=== PATIENT | female | born 1950 | race Caucasian/White ===

== ENCOUNTER → 2021-07-28 14:33 | Outpatient (CLI) | payer MEDICARE, SELFPAY ==
--- NOTE | ~2021-07-28 | DEXA_ITS ---
Bone Density Report Name: BRITTANIE POLK Age: 71 Sex: Female Ethnicity: White Date of : 1950 Indication: postmenopausal; screening for osteoporosis; height loss; Referring Provider: DYLON RIBEIRO Study: Bone densitometry was performed. Exam Date: July 28, 2021 Accession number: [id number] Bone Density: Region BMD T-score Z-score Classification AP Spine (L1-L4) 0.764 -2.6 -0.3 Osteoporosis Femoral Neck (Left) 0.585 -2.4 -0.4 Osteopenia Total Hip (Left) 0.663 -2.3 -0.6 Osteopenia Femoral Neck (Right) 0.529 -2.9 -0.9 Osteoporosis Total Hip (Right) 0.693 -2.0 -0.4 Osteopenia Total Hip Mean 0.678 -2.2 -0.5 Osteopenia World Health Organization criteria for BMD impression classify patients as: Normal (T-score at or above -1.0), Osteopenia (T-score between -1.0 and -2.5), or Osteoporosis (T-score at or below -2.5). 10-year Fracture Risk: FRAX not reported because: Some T-score for Spine Total or Hip Total or Femoral Neck at or below -2.5 Clinical Information Provided by Patient: Has used the following medications: Vitamin D Patient maximum height was 63 Menopause Age: 48 Drinks caffeinated beverages Onset of menses at age 11 Number of children 2 Impression: The patient has osteoporosis, based on the Right Femoral Neck T-score. Discussion: INCREASED RISK OF FRACTURE. BONE DENSITY IS UNDESIRABLY LOW AT ONE OR MORE SKELETAL SITES, CONSISTENT WITH POSTMENOPAUSAL OSTEOPOROSIS. This patient's lowest T-score meets the World Health Organization's (WHO) criteria for osteoporosis at one or more sites (T-score -2.5 or below). In untreated patients, the risk of osteoporotic fracture increases approximately two-fold for each 1.0 SD decrease in T-score. Low bone density is not the only risk factor for fracture; also consider factors such as patient's age, frailty or poor health, risk of falling, risk of injury, previous osteoporotic fracture, family history of osteoporosis, cigarette smoking, low body weight, etc. Not everyone with low bone mineral density has osteoporosis; osteomalacia and other metabolic bone disorders should also be considered. Patients who have osteoporosis should be evaluated for specific diseases and conditions (secondary causes) that may cause or contribute to bone loss. The [place] Association [employer] Clinical Endocrinologists (AACE) and National Osteoporosis Foundation (NOF) recommend pharmacologic intervention for all postmenopausal women whose T-score is in this range. The patient should follow a healthful lifestyle (good nutrition with adequate calcium and vitamin D, and appropriate weight-bearing exercise). Follow-Up: Consider a repeat BMD and Vertebral Fracture Assessment (VFA) exam in 2 years or sooner if medically necessary, to reassess this patient's status. Reported by: TEJAL
--- NOTE | ~2021-07-28 | MM_ITS ---
EXAMINATION: MM screening dillon BI w marilee HISTORY: Screening TECHNIQUE: Craniocaudal and mediolateral oblique 3-D tomosynthesis images were obtained and synthetic 2-D images were generated. CAD analysis was submitted and interpreted. COMPARISON: No prior mammogram is available for comparison at this institution. BREAST PARENCHYMAL COMPOSITION: There are scattered areas of fibroglandular density. FINDINGS: There is no evidence of suspicious mass, calcification, or architectural distortion to sugg est malignancy in either breast. There has been no suspicious interval change. IMPRESSION: 1. No mammographic evidence of malignancy. 2. Recommend routine screening mammography in one year. BI-RADS Category 1: Negative Reviewed, dictated and finalized at location A. 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
== END ==
PROVIDERS: PCP Family Medicine; Visit Provider Family Medicine
DX: Z12.31 Encounter for screening mammogram for malignant neoplasm of breast (principal); Z78.0 Asymptomatic menopausal state; M85.89 Other specified disorders of bone density and structure, multiple sites; M81.0 Age-related osteoporosis without current pathological fracture
CPT/HCPCS: 77063; 77067; 77080

== ENCOUNTER 2022-07-30 08:31 | Outpatient (CLI) | payer MEDICARE, SELFPAY ==
[2022-07-30 20:12] LABS: Basophils Percent Auto 0.6 % (0.2-1.2); Eosinophils Absolute Auto 0.2 K/mm3 (0-0.3); Eosinophils Percent Auto 2.4 % (0-4.4); Immature Granulocyte Absolute 0.01 K/mm3 (0.00-0.031); Immature Granulocyte Percent A 0.2 % (0-0.5); Lymphocytes Percent Auto 33.2 % (18.3-44.2); Mean Corpuscular HGB Conc 31.8 g/dl (32-36); Mean Corpuscular Hemoglobin 29.4 pg (26-34); Mean Corpuscular Volume 92.2 fl (80-100); Mean Platelet Volume 11.8 fl (7.4-10.4); Monocytes Absolute Auto 0.5 K/mm3 (0.1-0.6); Monocytes Percent Auto 7.1 % (2.6-8.5); Neutrophils Absolute Auto 3.6 K/mm3 (1.3-6.7); Neutrophils Percent Auto 56.5 % (45.5-73.1); Platelet Count Result 191 k/mm3 (150-375); Red Blood Count 4.77 M/mm3 (4.2-5.4); Red Cell Distribution Width 13.5 % (11.5-14.5); White Blood Count 6.3 K/mm3 (4.5-10.0)
[2022-07-30 20:48] LABS: Alanine Aminotransferase 19 U/L (6-35); Albumin Level 4.3 g/dL (3.5-5.1); Alkaline Phosphatase 90 U/L (38-126); Anion Gap 8 mmol/L (8-16); Aspartate Amino Transferase 29 U/L (14-36); Bilirubin,Total 0.7 mg/dL (0.2-1.3); Blood Urea Nitrogen 15 mg/dL (7-17); Calcium 9.1 mg/dL (8.4-10.2); Carbon Dioxide 29 mmol/L (22-30); Chloride 104 mmol/L (98-107); Cholesterol 169 mg/dL (0-200); Estimated Glomerular Filt Rate > 60; Glucose 88 mg/dL (65-110); HDL Direct 51 mg/dL; Potassium 4.7 mmol/L (3.4-5.0); Sodium 141 mmol/L (137-145); Triglycerides 100 mg/dL (<150)
[2022-07-30 21:01] LABS: LDL Cholesterol Direct 76 mg/dL
[2022-07-30 22:15] LABS: Vitamin D 25 Hydroxy 47.1 ng/mL
== END 2022-07-30 08:32 | disposition home or self-care (01) ==
LOC: ANHGOSHLAB 08:32
PROVIDERS: PCP Family Medicine; Visit Provider Family Medicine
DX: E55.9 Vitamin D deficiency, unspecified (principal); K21.9 Gastro-esophageal reflux disease without esophagitis; Z79.899 Other long term (current) drug therapy; E78.2 Mixed hyperlipidemia
CPT/HCPCS: 36415; 80053; 80061; 82306; 82607; 85025

== ENCOUNTER → 2022-08-13 13:33 | Outpatient (CLI) | payer MEDICARE, SELFPAY ==
--- NOTE | ~2022-08-13 | MM_ITS ---
EXAMINATION: MM screening dillon BI w marilee HISTORY: Screening mammogram TECHNIQUE: Craniocaudal and mediolateral oblique 3-D tomosynthesis images were obtained and synthetic 2-D images were generated. CAD analysis was submitted and interpreted. COMPARISON: 07/28/2021 bilateral screening mammogram BREAST PARENCHYMAL COMPOSITION: There are scattered areas of fibroglandular density. FINDINGS: There is no evidence of suspicious mass, calcification, or architectural distortion to sugg est malignancy in either breast. There has been no suspicious interval change. IMPRESSION: 1. No mammographic evidence of malignancy. 2. Recommend routine screening mammography in one year. BI-RADS Category 1: Negative Reviewed, dictated and finalized at location A. 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
== END ==
PROVIDERS: PCP Family Medicine; Visit Provider Family Medicine
DX: Z12.31 Encounter for screening mammogram for malignant neoplasm of breast (principal)
CPT/HCPCS: 77063; 77067

== ENCOUNTER 2023-03-24 08:35 | Outpatient (CLI) | payer MEDICARE, SELFPAY ==
[2023-03-24 19:34] LABS: Alanine Aminotransferase 23 U/L (6-35); Albumin Level 4.4 g/dL (3.5-5.1); Alkaline Phosphatase 77 U/L (38-126); Anion Gap 5 mmol/L (8-16); Aspartate Amino Transferase 29 U/L (14-36); Bilirubin,Total 0.9 mg/dL (0.2-1.3); Blood Urea Nitrogen 17 mg/dL (7-17); Calcium 9.2 mg/dL (8.4-10.2); Carbon Dioxide 29 mmol/L (22-30); Chloride 104 mmol/L (98-107); Cholesterol 205 mg/dL (0-200); Estimated Glomerular Filt Rate > 60; Glucose 86 mg/dL (65-110); HDL Direct 60 mg/dL; Potassium 4.3 mmol/L (3.4-5.0); Sodium 138 mmol/L (137-145); Triglycerides 108 mg/dL (<150)
[2023-03-24 19:45] LABS: LDL Cholesterol Direct 110 mg/dL
[2023-03-24 20:15] LABS: Vitamin D 25 Hydroxy 48.3 ng/mL
== END 2023-03-24 08:36 | disposition home or self-care (01) ==
PROVIDERS: PCP Family Medicine; Visit Provider Family Medicine
DX: E55.9 Vitamin D deficiency, unspecified (principal); Z79.899 Other long term (current) drug therapy; E78.2 Mixed hyperlipidemia; K21.9 Gastro-esophageal reflux disease without esophagitis
CPT/HCPCS: 36415; 80053; 80061; 82306; 82607

== ENCOUNTER 2023-09-23 08:34 | Outpatient (CLI) | payer MEDICARE, SELFPAY ==
[2023-09-23 12:16] LABS: Basophils Absolute Auto 0.1 K/mm3 (0.0-0.1); Basophils Percent Auto 0.7 % (0.2-1.2); Eosinophils Absolute Auto 0.3 K/mm3 (0-0.3); Eosinophils Percent Auto 3.9 % (0-4.4); Hematocrit 45.4 % (37.0-47.0); Hemoglobin 14.2 g/dL (12.0-15.0); Immature Granulocyte Absolute 0.02 K/mm3 (0.00-0.031); Immature Granulocyte Percent A 0.3 % (0-0.5); Lymphocytes Absolute Auto 2.09 K/mm3 (0.9-3.2); Lymphocytes Percent Auto 27.4 % (18.3-44.2); Mean Corpuscular HGB Conc 31.3 g/dl (32-36); Mean Corpuscular Hemoglobin 29.3 pg (26-34); Mean Corpuscular Volume 93.6 fl (80-100); Mean Platelet Volume 11.5 fl (7.4-10.4); Monocytes Absolute Auto 0.8 K/mm3 (0.1-0.6); Monocytes Percent Auto 9.8 % (2.6-8.5); Neutrophils Absolute Auto 4.4 K/mm3 (1.3-6.7); Neutrophils Percent Auto 57.9 % (45.5-73.1); Platelet Count Result 190 k/mm3 (150-375); Red Blood Count 4.85 M/mm3 (4.2-5.4); Red Cell Distribution Width 13.7 % (11.5-14.5); White Blood Count 7.6 K/mm3 (4.5-10.0)
[2023-09-23 12:27] LABS: Alanine Aminotransferase 18 U/L (6-35); Albumin Level 4.5 g/dL (3.5-5.1); Alkaline Phosphatase 82 U/L (38-126); Anion Gap 6 mmol/L (4-12); Aspartate Amino Transferase 31 U/L (14-36); Bilirubin,Total 0.7 mg/dL (0.2-1.3); Blood Urea Nitrogen 14 mg/dL (7-17); Calcium 9.5 mg/dL (8.4-10.2); Carbon Dioxide 29 mmol/L (22-30); Chloride 104 mmol/L (98-107); Cholesterol 167 mg/dL (0-200); Estimated Glomerular Filt Rate > 60; Glucose 99 mg/dL (65-110); HDL Direct 47 mg/dL; Sodium 139 mmol/L (137-145); Triglycerides 142 mg/dL (<150)
[2023-09-23 12:39] LABS: LDL Cholesterol Direct 84 mg/dL
[2023-09-23 12:52] LABS: Vitamin D 25 Hydroxy 56.1 ng/mL
== END 2023-09-23 08:35 | disposition home or self-care (01) ==
LOC: ANHGOSHLAB 08:35
PROVIDERS: PCP Family Medicine; Visit Provider Family Medicine
DX: K21.9 Gastro-esophageal reflux disease without esophagitis (principal); E78.2 Mixed hyperlipidemia; Z78.0 Asymptomatic menopausal state; Z79.899 Other long term (current) drug therapy
CPT/HCPCS: 36415; 80053; 80061; 82306; 82607; 85025

== ENCOUNTER 2023-11-19 08:30 | Outpatient (RCR) | payer MEDICARE, SELFPAY ==
--- NOTE | 2023-09-29 08:56 | OPREHPOC ---
Outpatient Therapy Plan of Care This is a Multidisciplinary Plan of Care that may contain components documented by all disciplines (PT, OT, and ST.) PT Problem 1 PT Problem #1 Knowledge Deficit PT Goal 1 Goal Pt to be IND with issued HEP Target Visit 8 PT Problem 2 PT Problem #2 Pain PT Goal 1 Goal Pt to report hip pain no greater than 3/10 in the last week. Target Visit 8 PT Goal 2 Goal Pt to report 75% improvement in overall symptoms. Target Visit 8 PT Problem 3 PT Problem #3 Impaired Range of Motion PT Goal 1 Goal Pt to improve passive keagan hip ext rot to 50 deg Target Visit 8 PT Problem 4 PT Problem #4 Impaired Strength PT Goal 1 Goal Pt to improve hip abduction strength to grossly 3+ /5 Target Visit 8 PT Goal 2 Goal Pt to demonstrate a 20lb lift and carry from ground level. Target Visit 8
--- NOTE | 2023-09-29 08:56 | PTOPEVAL1 ---
Assessment and note entered by Alex Sweet, PT, DPT Evaluation Information Assessment Status Evaluation Diagnosis L hip bursitis Onset 2 months Subjective Information Pt reports hip pain for the last couple of months, she states it is hard to describe. She states going up stairs bothers her the most and that she favors her L side when she is walking. She has a hard time sleeping d/t pain as well as getting up/ down from the floor d/t pain. 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 Reported Pain Level Pain Score 2: Self Report Assessment PT Clinical Summary Meseret presents to therapy today for her initial evaluation with a diagnosis of L hip bursitis. Today she demonstrates decreased hip ROM and strength throughout as well as significant loss of ankle ROM and strength. She reports tenderness to palpation in keagan piriformis. She demonstrates deviations during ambulation and stair navigation. Skilled therapy services are indicated to address the deficits noted above, to manage pain, to improve mobility, and to return to PLOF. Plan of Care Interventions Electrical Stimulation,Gait Training,Hot Pack/Cold Pack,Manual Therapy,Neuro Re-education,Patient/ Caregiver Educati,Therapeutic Activities, Therapeutic Exercise PT Services Indicated Yes Treatment Frequency and 2x/wk for 8 visits Duration These treatments will address the objective and functional deficits as defined above. The patient will be advanced safely and appropriately in order for the patient to progress towards his/her prior level of function. Additional exercises will be introduced and as well as a comprehensive home exercise program upon discharge, if needed, ?to ensure carryover of functional gains achieved in the clinic. This treatment plan has been reviewed and agreement upon by the patient.
--- NOTE | 2023-10-22 09:04 | PTOPPROG ---
Assessment and note entered by Alex Sweet, PT, DPT Evaluation Information Assessment Status Progress Diagnosis L hip bursitis Onset 2 months Subjective Information Pt states her hip feels the same since starting therapy, at times it feels better, at others it feels worse. Pt states her pain continues to come and go. She states she cannot go up/down her basement steps. She reports pain in the morning that feels like a muscle cramp. Pt states she has been relying on ice and ibuprofen for pain management. Assessment PT Clinical Summary Meseret presents to therapy today for her progress report following 8 visits of skilled therapy with a diagnosis of L hip bursitis. Today she demonstrates improved hip ROM and strength, this is improving but still limited. She continues to reports tenderness to palpation in keagan piriformis and L ITB. Continuation of skilled therapy services are indicated to continue progressing towards therapy goals, to manage pain, and to return to PLOF. Plan of Care Interventions Electrical Stimulation,Gait Training,Hot Pack/Cold Pack,Manual Therapy,Neuro Re-education,Patient/ Caregiver Educati,Therapeutic Activities, Therapeutic Exercise PT Services Indicated Yes Treatment Frequency and 2x/wk for 8 visits Duration These treatments will address the objective and functional deficits as defined above. The patient will be advanced safely and appropriately in order for the patient to progress towards his/her prior level of function. Additional exercises will be introduced and as well as a comprehensive home exercise program upon discharge, if needed, ?to ensure carryover of functional gains achieved in the clinic. This treatment plan has been reviewed and agreement upon by the patient.
--- NOTE | 2023-11-19 10:00 | OPREHPOC ---
Outpatient Therapy Plan of Care This is a Multidisciplinary Plan of Care that may contain components documented by all disciplines (PT, OT, and ST.) PT Problem 1 PT Problem #1 Knowledge Deficit PT Goal 1 Goal Pt to be IND with issued HEP Target Visit 8 Progress Met Comment 10/22/23: met PT Problem 2 PT Problem #2 Pain PT Goal 1 Goal Pt to report hip pain no greater than 3/10 in the last week. Target Visit 8 Progress Met PT Goal 2 Goal Pt to report 75% improvement in overall symptoms. Target Visit 8 Progress Met PT Problem 3 PT Problem #3 Impaired Range of Motion PT Goal 1 Goal Pt to improve passive keagan hip ext rot to 50 deg Target Visit 8 Progress Not Met Comment 10/22/23: not met PT Problem 4 PT Problem #4 Impaired Strength PT Goal 1 Goal Pt to improve hip abduction strength to grossly 3+ /5 Target Visit 8 Progress Met PT Goal 2 Goal Pt to demonstrate a 20lb lift and carry from ground level. Target Visit 8 Progress Met
--- NOTE | 2023-11-19 10:00 | PTOPDC ---
Assessment and note entered by Blaine Crabtree, PT Evaluation Information Assessment Status Discharge Diagnosis L hip bursitis Onset 2 months Subjective Information Patient reports considerable improvement at this time. She has seen improved hip strength and mobility and has been complaint with her HEP. Plans to continue emphasizing ankle and hip strength as a member of the [employer]. Reported Pain Level Pain Score 0: Self Report Assessment PT Clinical Summary Patient has met majority of goals for therapy at this time. She is compliant with HEP and suitable for discharge to [facility] with updated guidance from this session. No concerns at this time for independent continued performance of exercise. Plan of Care PT Services Indicated D/C to HEP
== END 2023-11-19 13:31 | disposition home or self-care (01) ==
LOC: ANHGOSHPT 08:30
PROVIDERS: PCP Family Medicine; Visit Provider Family Medicine
DX: M70.72 Other bursitis of hip, left hip (principal)
CPT/HCPCS: 97110; 97112; 97140; 97161; 97530

== ENCOUNTER 2024-01-06 08:18 | Emergency (ER) | payer MEDICARE, SELFPAY ==
[2024-01-06 08:29] VITALS: BP 116/64; PULSE 95; RESP 16; TEMP 36.4; O2SAT 98
--- NOTE | 2024-01-06 08:35 | ED.SKABFB ---
HPI - Skin/Abscess/Foreign Bdy General Chief complaint: Skin/Abscess/Foreign Body Stated complaint: Sore on Chin Time Seen by Provider: 01/06/24 08:30 Source: patient Mode of arrival: ambulatory Limitations: no limitations History of Present Illness HPI narrative: Meseret is a 73-year-old female patient presenting to the clinic today with complaints of a sore on the right side of her chin. This sore developed on Wednesday. She reports prior to developing the sore she was out in the garden. Source began itching at now the sore scabbed up and draining a brown yellowish discharge. Area is red and swollen and tender to touch with heat coming from. She denies any fever or chills. Related Data Home Medications Medication Instructions Recorded Confirmed omeprazole 20 mg capsule,delayed 20 mg PO DAILY 04/21/21 01/06/24 release cholecalciferol (vitamin D3) 25 25 mcg PO DAILY 09/01/21 01/06/24 mcg (1,000 unit) chewable tablet vit A 7,160 unit-C 113 mg-E 100 1 tablet PO ONCE 09/01/21 01/06/24 [id number] tablet,delayed rel. (ICaps AREDS) cyanocobalamin (vitamin B-12) 1,000 mcg PO DAILY 03/05/22 01/06/24 1,000 mcg capsule Allergies Allergy/AdvReac Type Severity Reaction Status Date / Time codeine Allergy Nausea and Verified 01/06/24 08:26 Vomiting Bisphosphonates AdvReac Intermediate GI upset Verified 01/06/24 08:26 Review of Systems Review of Systems: Pertinent positives per HPI. Patient denies any fever, chills, headache, visual changes, dizziness, cough, runny nose, sore throat, shortness of breath, chest pain, palpitations, nausea, vomiting, diarrhea, constipation, abdominal pain, or any urinary issues. [facility] Past Medical History Medical History Cataract Family History Family History Father Cancer of kidney Mother Asthma Depression Social History Social History Smoking status: Never smoker Alcohol intake: current Substance use: never Substance use type: does not use Lack of Transportation: No Lack of Food: Never True Current Housing: I Have Housing Concerned About Future Housing: No Difficulty Paying Gas/Electric Bills: No Difficulty Paying for Meds: No Currently Unemployed: No Education: Associate Degree Difficulty w/ Childcare or Family Care: No Occupation/Education: retired Comments At the time of my signature, I reviewed and agree with the nursing past medical, surgical, social, and family history. There is no relevant family history pertinent to the patient complaint. Exam Narrative: General: Well-developed, well nourished, in no apparent distress Head: Normocephalic, atraumatic. Cardio: Regular rate and rhythm, s1 and s2 normal, no murmur appreciated. Resp: Clear to auscultation bilaterally, no rhonchi, rales, wheezing or rubs. Integumentary: [place], warm, and dry, redness, erythema, and swelling with yellow crusting scabbing to the right anterior chin with induration measuring 3 x 3 cm, nonfluctuant, tender to palpation. Course Course Emergency Course: Portions of this record may have been created with voice recognition software. Level of Care: Express Care Visit Vital Signs Vital signs: Vital Signs Temperature 36.4 C 01/06/24 08:29 Pulse Rate 95 01/06/24 08:29 Respiratory Rate 16 01/06/24 08:29 Blood Pressure 116/64 01/06/24 08:29 Pulse Oximetry 98 01/06/24 08:29 Temperature 36.4 C 01/06/24 08:29 Pulse Rate 95 01/06/24 08:29 Respiratory Rate 16 01/06/24 08:29 Blood Pressure 116/64 01/06/24 08:29 Pulse Oximetry 98 01/06/24 08:29 Vital signs reviewed MDM - Skin/Abscess/Foreign Bdy MDM Narrative Medical decision making narrative: At the time of visit patient is resting comfortably on the exam table. Patient appears to be nontoxic. Plan: I susp
== END 2024-01-06 08:43 | disposition home or self-care (01) ==
PROVIDERS: Emergency Provider Nurse Practitioner Family; PCP Family Medicine
DX: L08.9 Local infection of the skin and subcutaneous tissue, unspecified (principal); B96.89 Other specified bacterial agents as the cause of diseases classified elsewhere
CPT/HCPCS: 99213; G0463

== ENCOUNTER 2024-04-25 13:12 | Outpatient (CLI) | payer MEDICARE, SELFPAY ==
--- NOTE | ~2024-04-25 | MM_ITS ---
EXAMINATION: MM screening dillon BI w marilee HISTORY: Screening mammogram TECHNIQUE: Craniocaudal and mediolateral oblique 3-D tomosynthesis images were obtained and synthetic 2-D images were generated. CAD analysis was submitted and interpreted. COMPARISON: 08/13/2022, 07/28/2021 BREAST PARENCHYMAL COMPOSITION:Not Dense. There are scattered areas of fibroglandular density. FINDINGS: Suspected developing 9 mm irregular mass at the upper, outer right breast. Stable parenchym al appearance of the left breast. No suspicious microcalcifications. IMPRESSION: Suspected developing 9 mm irregular mass at the upper, outer right breast. Spot compression views an d ultrasound are recommended for further evaluation. BI-RADS Category 0: Incomplete: Needs additional imaging evaluation. Reviewed, dictated and finalized at [facility]. IMPRESSION: Suspected developing 9 mm irregular mass at the upper, outer right breast. Spo t compression views and ultrasound are recommended for further evaluation. BI-RADS Category 0: Incomplete: Needs additional imaging evaluation.
== END 2024-04-25 13:13 | disposition home or self-care (01) ==
LOC: MICIMG 13:13
PROVIDERS: PCP Family Medicine; Visit Provider Family Medicine
DX: Z12.31 Encounter for screening mammogram for malignant neoplasm of breast (principal)
CPT/HCPCS: 77063; 77067

== ENCOUNTER 2024-05-17 08:13 | Outpatient (CLI) | payer MEDICARE, SELFPAY ==
--- NOTE | ~2024-05-17 | MMUS_ITS ---
EXAMINATION: MM diagnostic dillon RT w marilee, US breast RT limited HISTORY: Right breast mass/distortion TECHNIQUE: Additional 3-D tomosynthesis images of the right breast were performed and synthetic 2-D i mages were generated. CAD analysis was submitted and interpreted. High resolution limited right breas t ultrasound was performed. COMPARISON: 04/16/2024, 08/13/2022 BREAST PARENCHYMAL COMPOSITION:Not Dense. There are scattered areas of fibroglandular density. FINDINGS: MAMMOGRAPHIC FINDINGS: Spot compression views confirm a probable persistent irregular mass at the upper, outer aspect measur ing up to approximately 9 mm in diameter. ULTRASOUND: At the 10:00-11:00 position of the right breast, 5 cm from the nipple, there is a 0.8 x 0.8 x 0.7 cm irregular hypoechoic mass with focal posterior shadowing. This lesion is taller than wide. IMPRESSION: 0.8 x 0.8 x 0.7 cm highly suspicious mass at the 10:00-11:00 position right breast, as detailed abov e. Ultrasound-guided biopsy is recommended to establish a histologic diagnosis. BI-RADS category 5, highly suggestive of malignancy. Reviewed, dictated and finalized at location . RONMENTAL SAMPLER IMPRESSION: 0.8 x 0.8 x 0.7 cm highly suspicious mass at the 10:00-11:00 position right br east, as detailed above. Ultrasound-guided biopsy is recommended to establish a histologic diagnosis. BI-RADS category 5, highly suggestive of malignancy.
== END 2024-05-17 08:14 | disposition home or self-care (01) ==
PROVIDERS: PCP Family Medicine; Visit Provider Family Medicine
DX: R92.8 Other abnormal and inconclusive findings on diagnostic imaging of breast (principal)
CPT/HCPCS: 76642; 77061; 77065; G0279

== ENCOUNTER 2024-10-17 08:00 | Outpatient (RCR) | payer MEDICARE, SELFPAY ==
--- NOTE | 2024-09-08 16:28 | OPREHPOC ---
Outpatient Therapy Plan of Care This is a Multidisciplinary Plan of Care that may contain components documented by all disciplines (PT, OT, and ST.) PT Problem 1 PT Problem #1 Knowledge Deficit PT Goal 1 Goal / Goal Update [place] with HEP Target Visit 4 PT Goal 2 Goal / Goal Update Report no pain greater than 2/10 for 2 consecutive weeks Target Visit 8 PT Problem 2 PT Problem #2 Impaired Strength PT Goal 1 Goal / Goal Update 1. Improve keagan hip abduction strength to 4/5 to improve lateral stability with ADLs 2. Improve keagan hip flexion strength to 4+/5 to improve foot clearence Target Visit 8 PT Problem 4 PT Problem #4 Impaired Gait PT Goal 1 Goal / Goal Update Improve Tinetti score by 4 points to reduce fall risk Target Visit 8
--- NOTE | 2024-09-08 16:29 | PTOPEVAL1 ---
Assessment and note entered by Blaine Crabtree, PT Evaluation Information Assessment Status Evaluation ICD-10 Condition Codes (PT) Pain in low back M54.50,Weakness R53.1 Onset June 2024 Subjective Information Reports that she had a history of back pain with weakness included. Reports that she injured her back a couple months ago and has been having trouble getting around and even turning over in bed. She cannot take NSAIDs due to gastritis and has had issues controlling her pain. Reports that she does have peripheral neuropathy in her hands and is worried about getting it in her feet. She has done therapy before and it seemed to help but she has not been doing the ones at home. Reported Pain Level Pain Score 3: Self Report Assessment PT Clinical Summary Patient presents with signs and symptoms consistent with lumbar stenosis and poor hip mobility. Demonstrates signs of weakness and poor endurance likely related to current cancer treatment and reduced physical activity for the past couple of months. Will benefit from skilled therapy to address these deficits for hip strength , core strength, and gross balance and functional mobility improvement. Plan of Care Interventions Gait Training,Neuro Re-education,Therapeutic Activities,Therapeutic Exercise PT Services Indicated Yes Treatment Frequency and 2x/week for 8 visits Duration These treatments will address the objective and functional deficits as defined above. The patient will be advanced safely and appropriately in order for the patient to progress towards his/her prior level of function. Additional exercises will be introduced and as well as a comprehensive home exercise program upon discharge, if needed, ?to ensure carryover of functional gains achieved in the clinic. This treatment plan has been reviewed and agreement upon by the patient.
--- NOTE | 2024-09-25 11:24 | PCPTNOTE ---
Pt called, misread her appointment time. Cannot attend today, has been rescheduled.
--- NOTE | 2024-10-06 10:56 | PCPTNOTE ---
Patient Cancelled today's visit secondary to illness.
--- NOTE | 2024-10-17 11:07 | OPREHPOC ---
Outpatient Therapy Plan of Care This is a Multidisciplinary Plan of Care that may contain components documented by all disciplines (PT, OT, and ST.) PT Problem 1 PT Problem #1 Knowledge Deficit PT Goal 1 Goal / Goal Update [place] with HEP Target Visit 4 Progress Met PT Goal 2 Goal / Goal Update Report no pain greater than 2/10 for 2 consecutive weeks 10/17/24: 1. met Target Visit 8 PT Problem 2 PT Problem #2 Impaired Strength PT Goal 1 Goal / Goal Update 1. Improve keagan hip abduction strength to 4/5 to improve lateral stability with ADLs 2. Improve keagan hip flexion strength to 4+/5 to improve foot clearance 10/17/24: 1-2. progressing Target Visit 8 PT Problem 4 PT Problem #4 Impaired Gait PT Goal 1 Goal / Goal Update Improve Tinetti score by 4 points to reduce fall risk 10/17/24: 1. progressing, 3 point improvement Target Visit 8
--- NOTE | 2024-10-17 11:07 | PTOPPROG ---
Assessment and note entered by Alex Sweet, PT, DPT Evaluation Information Assessment Status Progress ICD-10 Condition Codes (PT) Pain in low back M54.50,Weakness R53.1 Onset June 2024 Subjective Information Pt states she is in the middle of her chemo regimen, states she is so weak at times she can hardly walk. Got a recumbent bike cause she states she was unable to safely walk for exercise, works for 7 mins at a time, a couple of times a day. States her neuropathy is taking over and making it hard to move. Is also anemic. States her R knee is bothering her and feels like its going to give out at any time. States her back is doing better most of the time. Assessment PT Clinical Summary Patient presents to therapy today for her progress report following 8 visits of skilled therapy to treat her low back pain and balance deficits. Demonstrates signs of weakness and poor endurance likely related to current cancer treatment and reduced physical activity for the past couple of months. Her back pain has improved. Her gait speed and balance scores continue to place her at an increased risk for falls. Will benefit from skilled therapy to address these deficits for hip strength, core strength, and gross balance and functional mobility improvement. Pt plans to assess her tolerance with her new chemo regimen prior to deciding her therapy frequency. Plan of Care Interventions Gait Training,Manual Therapy,Neuro Re-education, Patient/Caregiver Education,Therapeutic Activities ,Therapeutic Exercise PT Services Indicated Yes Treatment Frequency and 2x/week for 8 visits Duration These treatments will address the objective and functional deficits as defined above. The patient will be advanced safely and appropriately in order for the patient to progress towards his/her prior level of function. Additional exercises will be introduced and as well as a comprehensive home exercise program upon discharge, if needed, ?to ensure carryover of functional gains achieved in the clinic. This treatment plan has been reviewed and agreement upon by the patient.
--- NOTE | 2024-12-01 13:13 | PTOPDC ---
Assessment and note entered by Blaine Crabtree, PT Evaluation Information Assessment Status Discharge - Pt Not Present ICD-10 Condition Codes (PT) Pain in low back M54.50,Weakness R53.1 Onset June 2024 Subjective Information Pt states she is in the middle of her chemo regimen, states she is so weak at times she can hardly walk. Got a recumbent bike cause she states she was unable to safely walk for exercise, works for 7 mins at a time, a couple of times a day. States her neuropathy is taking over and making it hard to move. Is also anemic. States her R knee is bothering her and feels like its going to give out at any time. States her back is doing better most of the time. Assessment PT Clinical Summary Patient will be discharged at this time. Last communication with patient indicated that she would be undergoing Chemotherapy and would contact clinic on whether or not she wanted to continue. Patient last seen 10/03/24 and will be discharged at this time. Please refer to last progress note for discharge status. Plan of Care PT Services Indicated Yes
== END 2024-12-01 13:20 | disposition home or self-care (01) ==
LOC: ANHGOSHPT 08:00
PROVIDERS: PCP Family Medicine
DX: R53.1 Weakness (principal); C50.411 Malignant neoplasm of upper-outer quadrant of right female breast; Z17.1 Estrogen receptor negative status [ER-]
CPT/HCPCS: 97110; 97112; 97140; 97161

== ENCOUNTER 2024-12-08 17:15 | Inpatient (IN) | payer MEDICARE, SELFPAY ==
--- NOTE | ~2024-12-08 | CT_ITS ---
Procedure: CT knee RT wo con Ordering provider: Leonardo Boykin MD History: . knee pain s/p fall . Comparison: None. Technique: Thin slice axial CT of the No IV contrast was given. Sagittal and coronal reformatted imag es were also obtained and reviewed. Radiation reduction technique utilized. The dose-length product was 641.2 mGy-cm. Findings: BONES: Undisplaced fracture of the medial tibial plateau is noted. No other fractures seen. JOINT SPACES: Normal. SOFT TISSUES: Fat fluid level is noted in the suprapatellar bursa.. IMPRESSION: Fracture medial tibial plateau. Fat fluid level is seen in the suprapatellar bursa. Reviewed, dictated and finalized at location A.
--- NOTE | ~2024-12-08 | XR_ITS ---
XR knee RT min 4V Ordering provider: Tulio Frank MD History: . INJURY/PAIN . Comparison: None. FINDINGS: BONES: No acute fracture or dislocation. JOINT SPACES: Normal. SOFT TISSUES: Fluid level is seen in the suprapatellar bursa. IMPRESSION: No definite acute osseous abnormality right knee. Reviewed, dictated and finalized at location A.
--- OUTSIDE RECORDS SUMMARY | 2024-12-08 17:17 | XMS_ITS ---
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 Pembrolizumab / PACLItaxel / CARBOplatin x 4 cycles followed by Pembrolizuamb / DOXOrubicin (ADRIAMYCIN) / Cyclophosphomide x 4 cycles followed by Pembrolizumab Monotherapy 21 Day Cycles - Breast* Plan Start Date:07/19/2024 Plan Provider:Baltazar Mantilla MD Linked Problems Prevention of chemotherapy-i nduced neutropeniaMalignant neoplasm of upper-outer quadrant of right breast in female, estrogen receptor negative (HCC)Nausea and vomiting, unspecified vomiting type Treatment Medications Current Day (Day 1 , Cycle 8 - Planned for 12/28/2024) Next Day (Day 1, Cycle 9 - Adjuvant Pembrolizumab Monotherapy - Planned for 01/18/2025) CARBOplatin (PARAPLATIN) IVP B in 100 mLCARBOplatin (PARAPLATIN) IVPB in 250 mLcycloPHOSphamide (CYTOXAN)cycloPHOSphamide IVPB in 250 mL (vial 200 mg/mL)([id number])dexAMETHasone (DECADRON)DOXOrubicin (ADRIAMYCIN)DOXOrubicin (ADRIAMYCIN) 2 mg/mLPACLItaxel (TAXOL) IVPB in 250 mLpembrolizumab (KEYTRUDA) pembrolizumab (KEYTRUDA) 200 mg in sodium chloride 0.9% 100 mL pembrolizumab (KEYTRUDA) 200 mg in sodium chloride 0.9% 100 mL Past Treatment and Therapy Plans No past plan information found. Lifetime Dose Tracking * Chemical Lifetime Dose Automatic Entry Manual Entr y doxorubicin 98.389 mg/m2 (155 mg) 98.389 mg/m2 (155 mg) 0 mg/m2 (0 mg) Fluoro Time 0.2 minutes 0.2 minutes 0 minutes cyclophosphamide 977.504 mg/m2 (1,540 mg) 977.504 mg/m2 (1,540 mg) 0 mg/m2 (0 mg) doxorubicin isotoxic equivalent (Please manually verify calculation) 98.389 mg/m2 (155 mg) 98.389 mg/m2 (155 mg) 0 mg/m2 (0 mg) Air kerma at the reference point (Ka,r) 0.2 mGy 0.2 mGy 0 mGy DLP 501 mGycm 501 mGycm 0 mGycm
--- OUTSIDE RECORDS SUMMARY | 2024-12-08 17:17 | XMS_ITS | Encounter Summary ---
Author Organization [facility] Healthcare Address [address] [place] [address] Care Team Providers Care Business Agent Name Role Phone Unknown, Notinfile Primary Care Provider Unavail able Reason for Visit * Episode Based Medications (Routine) - Authorized Specialty Diagnoses / Procedures Referred By Contac t Referred To Contact Diagnoses Prevention of chemotherapy-induced neutropenia Malignant neoplasm of upper-outer quadrant of right breast in female, estrogen receptor negative (HCC) Nausea and vomiting, unspecified vomiting type Baltazar Mantilla MD [address] [place] [address] Phone: tel: fax: [facility] - Infusion [address] [place] [address] Referral ID Status Reason Start Date Expiration Date V isits Requested Visits Authorized [id number] Authorized 07/06/2024 08/05/2025 1 40 Encounter Details Date Type Department Care Team (Latest Contact Info) Description 12/07/2024 9:15 AM CDT Clinical Support [facility] - Lab Collection [address] [place] [address] Prevention of chemotherapy-induced neutropenia; Malignant neoplasm of upper-outer quadrant of right breast in female, estrogen receptor negative (HCC); Nausea and vomiting, unspecified vomiting type Social History Tobacco Use Types Packs/Day Years Used Date Smoking Tobacco: Never Smokeless Tobacco: Never AUDIT-C Answer Date Recorded Q1: How often do you have a drink containing alc ohol? 2-3 times a week 07/24/2024 Q2: How many drinks containi ng alcohol do you have on a typical day when you are drinking? 1 or 2 07/24/2024 Q3: How often do you have si x or more drinks on one occasion? Never 07/24/2024 Personal Safety Answer Date Recorded Have you ever been in or are you currently in a harmful physical or emotional relationship or is someone making you feel afraid or unsafe? Denies 07/19/2024 Comments No Sex and Gender Information Value Date Recorded Sex Assigned at Not on file Legal Sex Female 8:56 AM CDT Gender Identity Not on file Sexual Orientation Not on file documented as of this encounter Plan of Treatment Not on file documented as of this encounter Procedures Procedure Name Priority Date/Time Associated Diagnosis Comments EGFR STAT 12/07/2024 9:22 AM CDT Prevention of chemotherapy-induce d neutropenia Malignant neoplasm of upper-outer quadrant of right breast in female, estrogen receptor negative (HCC) Nausea and vomiting, unspecified vomiting type DIFFERENTIAL AUTO STAT 12/07/2024 9:2 2 AM CDT Prevention of chemotherapy-induce d neutropenia Malignant neoplasm of upper-outer quadrant of right breast in female, estrogen receptor negative (HCC) Nausea and vomiting, unspecified vomiting type THYROID FUNCTION CASCADE Routine 12/07/2024 9:22 AM CDT Prevention of chemotherapy-induce d neutropenia Malignant neoplasm of upper-outer quadrant of right breast in female, estrogen receptor negative (HCC) Nausea and vomiting, unspecified vomiting type CBC WITH AUTO DIFFERENTIAL STAT 12/07/2024 9:22 AM CDT Prevention of chemotherapy-induce d neutropenia Malignant neoplasm of upper-outer quadrant of right breast in female, estrogen receptor negative (HCC) Nausea and vomiting, unspecified vomiting type COMPREHENSIVE METABOLIC PANEL STAT 12/07/2024 9:22 AM CDT Prevention of chemotherapy-induce d neutropenia Malignant neoplasm of upper-outer quadrant of right breast in female, estrogen receptor negative (HCC) Nausea and vomiting, unspecified vomiting type documented in this encounter Results * eGFR (12/07/2024 9:22 AM CDT) Pathologist [facility] eGFR >90 >=60 mL/min/1. 73 m2 Comment: Interpretive Data Reference Interval Normal >/= 90 mL/min/1.73m2 Mildly decreased* 60 - 89 mL/min/1.73m2 Mildly to moderately decreased 45 - 59 mL/min/1.73m2 Moderately to severely decreased 30 - 44 mL/min/1.73m2 Severely decreased 15 - 29 mL/min/1.73m2 Kidney Failure < 15 mL/min/1.73m2 *Relative to young adult level Estimated glomerular filtration rate is determined by the 2020 CKD-EPI equation recommended by the National Kidney Foundation (A Unifying Approach to GFR Estimation: Recommendations of the NKF-ASK Task Force on Reassessing the Inclusion of Race in Diagnosing Kidney Disease, JASN 2020). The CKD-EPI equation should not be used for patients with unstable renal function and has not been validated in children and those over 70. Current interpretive data was last reviewed 2021. Blood 12/07/2024 9:22 AM CDT 12/07/2024 9:29 AM CDT us Baltazarsusan Leavitt'nima CESAR LAB BLOOD ORDERABLES Final Resul t MARGARETTE SOSA [facility] [place] [address] * (ABNORMAL) Differential, auto (12/07/2024 9:22 AM CDT) [facility] Neutrophil abs 4.71 1.50 - 6.50 K/cumm Comment:Testing performed by : [facility], [address] [place] [phone] Lymphocyte abs 1.25 0.80 - 3.30 K/cumm MARGARETTE SOSA Comment:Testing performed by : [facility], [address] [place] [phone] Monocyte abs 0.89(H) 0.20 - 0.80 K/cumm MARGARETTE SOSA Comment:Testing performed by : [facility], [address] [place] [phone] Eosinophil abs 0.04 0.00 - 0.50 K/cumm CERNER [facility] Comment:Testing performed by : [facility], [address] [place] [phone] Basophil abs 0.05 0.00 - 0.10 K/cumm [facility] Comment:Testing performed by : [facility], [address] [place] [phone] Neutrophil pct 67.9 % CERNER BJ Comment: Interpretive Data Percent cell count reference ranges are not reported, since discordance with absolute values may lead to misinterpretation of CBC data. Current Interpretive Data was last revised on 2017. Testing performed by: [facility], [address] [place] [phone] Lymphocyte pct 17.9 % CERNER BJ Comment: Interpretive Data Percent cell count reference ranges are not reported, since discordance with absolute values may lead to misinterpretation of CBC data. Current Interpretive Data was last revised on 2017. Testing performed by: [facility], [address] [place] [phone] Monocyte pct 12.9 % CERNER [facility] Comment: Interpretive Data Percent cell count reference ranges are not reported, since discordance with absolute values may lead to misinterpretation of CBC data. Current Interpretive Data was last revised on 2017. Testing performed by: [facility], [address] [place] [phone] Eosinophil pct 0.6 % CERNER [facility] Comment: Interpretive Data Percent cell count reference ranges are not reported, since discordance with absolute values may lead to misinterpretation of CBC data. Current Interpretive Data was last revised on 2017. Testing performed by: [facility], [address] [place] [phone] Basophil pct 0.7 % [facility] Comment: Interpretive Data Percent cell count reference ranges are not reported, since discordance with absolute values may lead to misinterpretation of CBC data. Current Interpretive Data was last revised on 2017. Testing performed by: [facility], [address] [place] [phone] Blood 12/07/2024 9:22 AM CDT 12/07/2024 9:26 AM CDT Baltazar Mantilla MD LAB BLOOD ORDERABLES Final Resul t MARGARETTE SOSA [facility] [place] [address] * (ABNORMAL) CBC with auto differential (12/07/2024 9:22 AM CDT) WBC 6.94 3.80 - 9.90 K/cumm Comment:Testing performed by : [facility], [address] [place] [address] Hgb 11.3(L) 11.9 - 15.5 g/dL MARGARETTE SOSA Comment:Testing performed by : [facility], [address] [place] [address] Hct 33.9(L) 35.6 - 45.5 % MARGARETTE SOSA Comment:Testing performed by : [facility], [address] [place] [address] Plt 235 150 - 400 K/cumm MARGARETTE SOSA Comment:Testing performed by : [facility], [address] [place] [address] MPV 7.9 6.8 - 10.4 fL MARGARETTE SOSA Comment:Testing performed by : [facility], [address] [place] [address] RBC 3.59(L) 3.90 - 5.20 M/cumm MARGARETTE BJ Comment:Testing performed by : [facility], [address] [place] [address] MCV 94.4 81.3 - 96.4 fL CERGORGE [facility]J Comment:Testing performed by : [facility], [address] [place] [address] MCH 31.4 27.1 - 33.3 pg CERGORGE BJ Comment:Testing performed by : [facility], [address] [place] [address] MCHC 33.3 32.3 - 35.7 g/dL [facility] Comment:Testing performed by : [facility], [address] [place] [address] RDW CV 17.4(H) 11.1 - 14.9 % [facility] Comment:Testing performed by : [facility], [address] [place] [address] NRBC abs 0.00 0.00 - 0.01 K/cumm [facility] Comment:Testing performed by : [facility], [address] [place] [address] Blood 12/07/2024 9:22 AM CDT 12/07/2024 9:26 AM CDT us Baltazar Mantilla MD LAB BLOOD ORDERABLES Final Resul t [facility] [place] [address] * Comprehensive metabolic panel (12/07/2024 9:22 AM CDT) Sodium 141 135 - 145 mmol/L Potassium, pl 4.3 3.3 - 4.9 mmol/L [facility] Chloride 106 97 - 110 mmol/L [facility] CO2 25 22 - 32 mmol/L [facility] Anion gap 10 2 - 15 mmol/L [facility] BUN 14 6 - 25 mg/dL [facility] Creatinine 0.67 0.60 - 1.10 mg/dL [facility] Glucose 94 70 - 199 mg/dL [facility] Comment: Interpretive Data Fasting glucose >/= 126 mg/dl is diagnostic for diabetes. Fasting is defined as no caloric intake for at least 8 hours. Fasting glucose between 100 mg/dl to 125 mg/dl is diagnostic of prediabetes. In a patient with classic symptoms of hyperglycemia or hyperglycemic crisis, a random glucose >/= 200 mg/dl is diagnostic for diabetes. In the absence of unequivocal hyperglycemia, results should be confirmed by repeat testing. The classification and Diagnosis of Diabetes Diabetes Care 2021; 46: S19-S40. Current interpretive data was last revised 2022. Calcium 9.5 8.5 - 10.3 mg/dL [facility] Bilirubin, total 0.3 0.1 - 1.2 mg/dL [facility] Protein, pl 7.0 6.5 - 8.5 g/dL [facility] Albumin 4.2 3.5 - 5.0 g/dL [facility] Alk phos 74 40 - 130 Units/L [facility] ALT 14 7 - 45 Units/L [facility] AST 20 10 - 45 Units/L [facility] Blood 12/07/2024 9:22 AM CDT 12/07/2024 9:29 AM CDT Baltazar Mantilla MD LAB BLOOD ORDERABLES Final Resul t Performing Organization Address City/[facility] Co de Phone Number [facility] [place] [address] * Thyroid Function Bollinger (12/07/2024 9:22 AM CDT) TSH 2.91 0.30 - 4.20 mcIUnit/mL Blood 12/07/2024 9:22 AM CDT 12/07/2024 9:29 AM CDT Baltazar Mantilla MD LAB BLOOD ORDERABLES Final Resul t Performing Organization Address City/[facility] Co de Phone Number [facility] [place] [address] documented in this encounter Visit Diagnoses Diagnosis Prevention of chemotherapy-induced neutropenia Malignant neoplasm of upper-outer quadrant of right breast in female, estrogen receptor negative (HCC) Nausea and vomiting, unspecified vomiting type documented in this encounter Orders Appointment Requests Count Last Ordered Date Fi rst Ordered Date ONCBCN LAB APPOINTMENT 1 12/07/2024 documented in this encounter Care Teams Business Agent Relationship Specialty Start Date End Date Unknown, Notinfile PCP - General 01/21/24 documented as of this encounter
--- OUTSIDE RECORDS SUMMARY | 2024-12-08 17:17 | XMS_ITS | Referral Summary ---
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 Name Role Phone Unknown, Notinfile Primary Care Provider Unavail able Encounters Date Type Department Care Team Description 12/07/2024 9:15 AM CDT Clinical Support [facility] - Lab Collection [address] [place] [address] 5 [place] [address] Prevention of chemotherapy-induced neutropenia; Malignant neoplasm of upper-outer quadrant of right breast in female, estrogen receptor negative (HCC); Nausea and vomiting, unspecified vomiting type 12/07/2024 11:30 AM CDT Infusion [facility] - Infusion [facility] Floor 5 [place] [address] Nausea and vomiting, unspecified vomiting type (Primary Dx); Prevention of chemotherapy-induced neutropenia; Malignant neoplasm of upper-outer quadrant of right breast in female, estrogen receptor negative (HCC) 12/07/2024 10:15 AM CDT Office Visit [facility] Oncology [address] [place] [address] 8 [place] [address] Baltazar Mantilla MD Nausea and vomiting, unspecified vomiting type (Primary Dx); Prevention of chemotherapy-induced neutropenia; Malignant neoplasm of upper-outer quadrant of right breast in female, estrogen receptor negative (HCC) 11/17/2024 Orders Only [facility] Surgery [address] [place] [address] Floor 8 [place] [address] Jennifer Goodman MD Malignant neoplasm of upper-outer quadrant of right breast in female, estrogen receptor negative (HCC) (Primary Dx) 11/16/2024 11:30 AM CDT Infusion [facility] - Infusion [address] [facility] Floor 6 [place] [address] Nausea and vomiting, unspecified vomiting type (Primary Dx); Prevention of chemotherapy-induced neutropenia; Malignant neoplasm of upper-outer quadrant of right breast in female, estrogen receptor negative (HCC) 11/16/2024 9:15 AM CDT Clinical Support [facility] - Lab Collection [address] [facility] Floor 5 [place] [address] Prevention of chemotherapy-induced neutropenia; Malignant neoplasm of upper-outer quadrant of right breast in female, estrogen receptor negative (HCC); Nausea and vomiting, unspecified vomiting type 11/16/2024 10:15 AM CDT Office Visit [facility] Oncology [address] [place] [address] 8 [place] [phone] Baltazar Mantilla MD Nausea and vomiting, unspecified vomiting type (Primary Dx); Prevention of chemotherapy-induced neutropenia; Malignant neoplasm of upper-outer quadrant of right breast in female, estrogen receptor negative (HCC) 10/30/2024 Telephone [facility] Oncology [address] [place] [address] Nadia Johns RN 10/27/2024 8:00 AM CDT Infusion [facility] - Infusion [address] [place] [address] Floor 5 [place] [address] Nausea and vomiting, unspecified vomiting type (Primary Dx); Prevention of chemotherapy-induced neutropenia; Malignant neoplasm of upper-outer quadrant of right breast in female, estrogen receptor negative (HCC) 10/26/2024 2:41 PM CDT - 10/26/2024 11:59 PM CDT Hospital Encounter [facility] Cardiac Diagnostic Lab [address] [place] [address] [address] [place] [address] Encounter for monitoring cardiotoxic drug therapy Discharge Disposition: Discharge to home or self care 10/26/2024 Orders Only [facility] Oncology [address] [place] [address] 8 [place] [phone] Baltazar Mantilla MD Cardiotoxicity (Primary Dx); Encounter for monitoring cardiotoxic drug therapy; Prevention of chemotherapy-induced neutropenia; Malignant neoplasm of upper-outer quadrant of right breast in female, estrogen receptor negative (HCC); Nausea and vomiting, unspecified vomiting type 10/26/2024 9:45 AM CDT Clinical Support [facility] - Lab Collection [facility] 5 [place] [address] Prevention of chemotherapy-induced neutropenia; Malignant neoplasm of upper-outer quadrant of right breast in female, estrogen receptor negative (HCC); Nausea and vomiting, unspecified vomiting type 10/26/2024 11:30 AM CDT Infusion [facility] - Infusion [address] [place] [address] Floor 6 [place] [address] Prevention of chemotherapy-induced neutropenia; Malignant neoplasm of upper-outer quadrant of right breast in female, estrogen receptor negative (HCC); Nausea and vomiting, unspecified vomiting type 10/26/2024 10:30 AM CDT Office Visit [facility] Oncology [address] [place] [phone] Baltazar Mantilla MD Nausea and vomiting, unspecified vomiting type (Primary Dx); Prevention of chemotherapy-induced neutropenia; Malignant neoplasm of upper-outer quadrant of right breast in female, estrogen receptor negative (HCC) 10/26/2024 9:15 AM CDT Clinical Support [facility] Oncology Lab [address] [place] [phone] Prevention of chemotherapy-induced neutropenia; Malignant neoplasm of upper-outer quadrant of right breast in female, estrogen receptor negative (HCC); Nausea and vomiting, unspecified vomiting type 10/19/2024 8:15 AM CDT Clinical Support [facility] - Lab Collection [address] [place] [address] 5 [place] [address] Prevention of chemotherapy-induced neutropenia; Malignant neoplasm of upper-outer quadrant of right breast in female, estrogen receptor negative (HCC); Nausea and vomiting, unspecified vomiting type 10/19/2024 9:15 AM CDT Office Visit [facility] Oncology [address] [place] [phone] Baltazar Mantilla MD 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 (Primary Dx); Prevention of chemotherapy-induced neutropenia; Malignant neoplasm of upper-outer quadrant of right breast in female, estrogen receptor negative (HCC); Nausea and vomiting, unspecified vomiting type 10/16/2024 Orders Only [facility] Oncology [address] [place] [address] Baltazar Mantilla MD Malignant neoplasm of upper-outer quadrant of right breast in female, estrogen receptor negative (HCC) (Primary Dx); Nausea and vomiting, unspecified vomiting type 10/10/2024 7:54 AM CDT - 10/10/2024 11:59 PM CDT Hospital Encounter [facility] [address] [place] [address] Malignant neoplasm of upper-outer quadrant of right breast in female, estrogen receptor negative (HCC) Discharge Disposition: Discharge to home or self care 10/10/2024 7:53 AM CDT - 10/10/2024 11:59 PM CDT Hospital Encounter [facility] [address] [place] [address] Malignant neoplasm of upper-outer quadrant of right breast in female, estrogen receptor negative (HCC) Discharge Disposition: Discharge to home or self care 10/06/2024 Telephone [facility] Oncology [address] [place] [address] Nadia Johns, RN Arm Pain; Leg Pain 10/05/2024 6:30 AM CDT Clinical Support [facility] - Lab Collection [facility] Floor 5 [place] [address] Prevention of chemotherapy-induced neutropenia; Malignant neoplasm of upper-outer quadrant of right breast in female, estrogen receptor negative (HCC) 10/05/2024 7:30 AM CDT Infusion [facility] - Infusion [address] [facility] Floor 5 [place] [address] Malignant neoplasm of upper-outer quadrant of right breast in female, estrogen receptor negative (HCC) (Primary Dx); Prevention of chemotherapy-induced neutropenia 09/28/2024 Telephone [facility] Oncology [facility] Floor 8 [place] [phone] Nadia Johns, ESTEBAN 09/28/2024 6:30 AM CDT Clinical Support [facility] - Lab Collection [address] [place] [address] Floor 6 [place] [address] Prevention of chemotherapy-induced neutropenia; Malignant neoplasm of upper-outer quadrant of right breast in female, estrogen receptor negative (HCC) 09/28/2024 7:30 AM CDT Infusion [facility] - Infusion [address] [place] [address] Floor 6 [place] [address] Malignant neoplasm of upper-outer quadrant of right breast in female, estrogen receptor negative (HCC) (Primary Dx); Prevention of chemotherapy-induced neutropenia 09/21/2024 Orders Only [facility] Oncology [address] [place] [address] 8 [place] [address] Baltazar Mantilla MD Malignant neoplasm of upper-outer quadrant of right breast in female, estrogen receptor negative (HCC) (Primary Dx) 09/21/2024 8:15 AM CDT Clinical Support [facility] - Lab Collection [address] [place] [address] Floor 5 [place] [address] Malignant neoplasm of right female breast, unspecified estrogen receptor status, unspecified site of breast (HCC) (Primary Dx); Prevention of chemotherapy-induced neutropenia; Malignant neoplasm of upper-outer quadrant of right breast in female, estrogen receptor negative (HCC) 09/21/2024 10:30 AM CDT Infusion [facility] - Infusion [address] [place] [address] Floor 5 [place] [address] Malignant neoplasm of upper-outer quadrant of right breast in female, estrogen receptor negative (HCC) (Primary Dx); Prevention of chemotherapy-induced neutropenia 09/21/2024 9:15 AM CDT Office Visit [facility] Oncology [address] [place] [address] 8 [place] [address] Baltazar Mantilla MD Malignant neoplasm of upper-outer quadrant of right breast in female, estrogen receptor negative (HCC) (Primary Dx); Prevention of chemotherapy-induced neutropenia 09/14/2024 Orders Only [facility] Oncology [address] [place] [address] 8 [place] [address] Baltazar Mantilla MD 09/14/2024 7:30 AM CDT - 09/14/2024 12:14 PM CDT Hospital Encounter [facility] ([facility]) [address] [place] [address] Malignant neoplasm of upper-outer quadrant of right breast in female, estrogen receptor negative (HCC) (Primary Dx); Prevention of chemotherapy-induced neutropenia; Malignant neoplasm of right female breast, unspecified estrogen receptor status, unspecified site of breast (HCC) Discharge Disposition: Discharge to home or self care 09/07/2024 Telephone [facility] Oncology [address] [place] [address] Floor 8 [place] [address] Nadia Johns RN 09/07/2024 Orders Only [facility] Oncology [address] [place] [address] 8 [place] [address] Baltazar Mantilla MD Malignant neoplasm of upper-outer quadrant of right breast in female, estrogen receptor negative (HCC) (Primary Dx); Generalized weakness 09/07/2024 7:00 AM CDT Clinical Support [facility] - Lab Collection [facility] Floor 5 [place] [address] Prevention of chemotherapy-induced neutropenia; Malignant neoplasm of upper-outer quadrant of right breast in female, estrogen receptor negative (HCC) 09/07/2024 8:00 AM CDT Infusion [facility] - Infusion [address] [facility] Floor 5 [place] [address] Malignant neoplasm of upper-outer quadrant of right breast in female, estrogen receptor negative (HCC) (Primary Dx); Prevention of chemotherapy-induced neutropenia from Last 3 Months Allergies Active Allergy Reactions Criticality Noted Date Comments Banana Nausea & Vomiting Low 07/07/2024 Codeine Nausea And Vomiting High 08/24/2013 Egg Nausea & Vomiting Low 07/07/2024 Medications acyclovir (ZOVIRAX) 400 mg tabletIndicati ons:Skin/Soft Tissue Infection,outb reak Take 1 tablet (400 mg total) by mouth daily as needed 06/15/20 24 Active vit C/E/Zn/coppr/l utein/zeaxan (PRESERVISION AREDS-2 ORAL)Indicatio ns:supplement Take 1 tablet by mouth 2 (two) times a day Active cholecalcifero l, vitamin D3, (VITAMIN D3 ORAL)Indicatio ns:supplement Take 100 Units by mouth every morning Activ e omeprazole (PriLOSEC) 20 mg capsuleIndicat ions:gerd Take 1 capsule (20 mg total) by mouth daily as needed Active ibuprofen 200 mg tab/capIndicat ions:Pain Take 2 tablet/capsule (400 mg total) by mouth every 8 (eight) hours as needed for pain Active BETAMETHASONE MISCIndication s:inflammation Apply 1 Application topically daily as needed Active loperamide HCl (IMODIUM A-D ORAL)Indicatio ns:diarrhea Take 1 tablet by mouth 4 (four) times a day as needed Active cyanocobalamin (Vitamin B-12) 1,000 mcg tabletIndicati ons:Prevention of Vitamin B12 Deficiency Take 1 tablet (1,000 mcg total) by mouth every other day In AM Active prochlorperazi ne (Compazine) 10 mg tabletIndicati ons:Prevention of chemotherapy-i nduced neutropenia,In filtrating ductal carcinoma of overlapping sites of right breast in female (HCC) Take 1 tablet (10 mg total) by mouth every 6 (six) hours as needed for nausea or vomiting Use first for nausea 60 tablet 3 07/19/19 25 Active ondansetron (ZOFRAN) 8 mg tabletIndicati ons:Prevention of chemotherapy-i nduced neutropenia,In filtrating ductal carcinoma of overlapping sites of right breast in female (HCC) Take 1 tablet (8 mg total) by mouth every 8 (eight) hours as needed for nausea or vomiting Use if prochlorperazine does not stop nausea 24 tablet 3 07/19/19 25 Active lidocaine-pril ocaine creamIndicatio ns:Administrat ion of Local Anesthesia Apply to port site and cover 1 hour prior to appointment 30 g 2 07/12/19 25 Active traMADoL (ULTRAM) 50 mg tablet Take 1 tablet (50 mg total) by mouth every 6 (six) hours as needed for pain 5 tablet 07/19/19 25 Active famotidine (PEPCID) 20 mg tablet Take 1 tablet (20 mg total) by mouth 2 (two) times a day Activ e DULoxetine DR (CYMBALTA) 60 mg capsuleIndicat ions:Neuropath ic Pain Take 1 capsule (60 mg total) by mouth daily 30 capsule 3 10/07/19 25 026 Active dexAMETHasone (DECADRON) 4 mg tabletIndicati ons:Malignant neoplasm of upper-outer quadrant of right breast in female, estrogen receptor negative (HCC),Nausea and vomiting, unspecified vomiting type Do not start until after day 1 of cycle 5. Take 2 tablets (8mg) by mouth once daily on days 2, 3, and 4 of cycles 5-8. 6 tablet 3 10/28/19 25 Active atorvastatin (LIPITOR) 10 mg tablet TAKE 1 TABLET BY MOUTH EVERY DAY WITH OR WITHOUT FOOD 11/10/19 25 Active atorvastatin (LIPITOR) 20 mg tablet 0.5 tablets (10 mg total) 07/26/19 20 025 Discontin ued(Alter kasandra therapy) Active Problems Problem Noted Date Diagnosed Date Nausea and vomiting 10/16/2024 Malignant neoplasm of right female breast 2024 Malignant neoplasm of upper- outer quadrant of right breast in female, estrogen receptor negative 07/06/2024 Cancer Staging:Clinical:Stage IIB(cT2, cN1, cM0, G3, ER+, MN+, HER2-) - Unsigned Prevention of chemotherapy-induced neutropenia 0 07/06/2024 Immunizations Immunization Administration Dates Next Due Influenza, Quad, Adjuvantate d, Intramuscular 03/25/2023 Influenza, Quadrivalent, Hig h Dose, Preservative Free, Intrr 03/05/2022,03/21/2021 Influenza, Trivalent, Adjuva nted, Intramuscular 03/25/2020,03/30/2018 Influenza, Trivalent, High D ose, Split, Preservative Free, Intramuscular 04/06/2019,03/27/2017,03/30/2016 Influenza, Trivalent, IM (MDV) 05/10/2013 Influenza, Trivalent, Preser vative Free, Intramuscular 04/14/2015 Influenza, Unspecified 03/28/2020,2017,03/28/2017,03/31,04/15/2015,04/24/2014,03/28/2013 Pneumococcal Conjugate PCV 13 05/28/2021 Pneumococcal Polysaccharide PPV23 03/28/2013 TD Preservative Free 09/18/2022 Social History Tobacco Use Types Packs/Day Years Used Date Smoking Tobacco: Never Smokeless Tobacco: Never Tobacco Cessation:Counseling Given: Not Answered AUDIT-C Answer Date Recorded Q1: How often [...] on file Sexual Orientation Not on file Last Filed Vital Signs Vital Sign Reading Time Taken Comments Blood Pressure 104/67 12/07/2024 9:36 AM CDT Pulse 92 12/07/2024 9:36 AM CDT Temperature 36.4 C (97.6 F) 12/07/2024 9:36 AM CDT Respiratory Rate 20 12/07/2024 9:36 AM CDT Oxygen Saturation 98% 12/07/2024 9:36 AM CDT Inhaled Oxygen Concentration - - Weight 55.5 kg (122 lb 6.4 oz) 12/07/2024 9:36 A M CDT Height 155 cm (5' 1.02) 12/07/2024 9:36 AM CDT Body Mass Index 23.11 12/07/2024 9:36 AM CDT Plan of Treatment Not on file Medical Devices Implanted Type Area Government Relations 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 Device Identifier Shelf Expiration Date Model / Serial / Lot [employer] Marker Tissue Rigid Needle Open Coil Radiopaque Clip Hydromark 18ga Titanium Hydrogel 4156-75-51-T3 - [id number] Implanted:Qty: 1 on 06/05/2024 by Jolanta Ferreira MD at [facility] Right: Axilla [employer] [id number] 11/28/2026 4010-02-1 8-T3 / / [id number] Bard Peripheral Vascular Ultraclip Bard 17ga 10cm 2 Trigger Permanent Ultrasound [id number] - [id number] Implanted:Qty: 1 on 06/05/2024 by Jolanta Ferreira MD at [facility] Right: Breast Bard Peripheral Vascular [id number] / / [employer] Marker Image Hydromark Plus T5 Titanium 15ga Radiological Implant Sterile 0924-91-14-T5 - [id number] Implanted:Qty: 1 on 06/05/2024 by Jolanta Ferreira MD at [facility] Right: Breast [employer] [id number] 1 5-T5 / / [id number] Unbxd Trimark Mri Guided Rigid Deployment Device Cork Marker Breast Trimark Td 13-Mr - [id number] Implanted:Qty: 1 on 07/05/2024 at [facility] [employer] TRIMARK TD 13-MR / / Bard Access Systems [place] Power Isp Mri 1lum Powerport Clearvue Titanium 8fr [id number] - [id number] Implanted:Qty: 1 on 07/19/[address] [facility] Left: Subclavian Bard Access Systems 01/25/2026 [id number] / / [id number] Procedures Procedure Name Priority Date/Time Associated Diagnosis Comments EGFR STAT 12/07/2024 9:22 AM CDT Prevention of chemotherapy-induc ed neutropenia Malignant neoplasm of upper-outer quadrant of right breast in female, estrogen receptor negative (HCC) Nausea and vomiting, unspecified vomiting type DIFFERENTIAL AUTO STAT 12/07/2024 9:2 2 AM CDT Prevention of chemotherapy-induc ed neutropenia Malignant neoplasm of upper-outer quadrant of right breast in female, estrogen receptor negative (HCC) Nausea and vomiting, unspecified vomiting type CBC WITH AUTO DIFFERENTIAL STAT 12/07/2024 9:22 AM CDT Prevention of chemotherapy-induc ed neutropenia Malignant neoplasm of upper-outer quadrant of right breast in female, estrogen receptor negative (HCC) Nausea and vomiting, unspecified vomiting type COMPREHENSIVE METABOLIC PANEL STAT 12/07/2024 9:22 AM CDT Prevention of chemotherapy-induc ed neutropenia Malignant neoplasm of upper-outer quadrant of right breast in female, estrogen receptor negative (HCC) Nausea and vomiting, unspecified vomiting type THYROID FUNCTION CASCADE Routine 12/07/2024 9:22 AM CDT Prevention of chemotherapy-induc ed neutropenia Malignant neoplasm of upper-outer quadrant of right breast in female, estrogen receptor negative (HCC) Nausea and vomiting, unspecified vomiting type EGFR STAT 11/16/2024 9:15 AM CDT Prevention of chemotherapy-induc ed neutropenia Malignant neoplasm of upper-outer quadrant of right breast in female, estrogen receptor negative (HCC) Nausea and vomiting, unspecified vomiting type DIFFERENTIAL AUTO STAT 11/16/2024 9:1 5 AM CDT Prevention of chemotherapy-induc ed neutropenia Malignant neoplasm of upper-outer quadrant of right breast in female, estrogen receptor negative (HCC) Nausea and vomiting, unspecified vomiting type CBC WITH AUTO DIFFERENTIAL STAT 11/16/2024 9:15 AM CDT Prevention of chemotherapy-induc ed neutropenia Malignant neoplasm of upper-outer quadrant of right breast in female, estrogen receptor negative (HCC) Nausea and vomiting, unspecified vomiting type COMPREHENSIVE METABOLIC PANEL STAT 11/16/2024 9:15 AM CDT Prevention of chemotherapy-induc ed neutropenia Malignant neoplasm of upper-outer quadrant of right breast in female, estrogen receptor negative (HCC) Nausea and vomiting, unspecified vomiting type TRANSTHORACIC ECHO (TTE) COMPLETE W DOPPLER/CF W CONTRAST STAT 10/26/2024 4:07 PM CDT Encounter for monitoring cardiotoxic drug therapy EGFR STAT 10/26/2024 9:23 AM CDT Prevention of chemotherapy-induc ed neutropenia Malignant neoplasm of upper-outer quadrant of right breast in female, estrogen receptor negative (HCC) Nausea and vomiting, unspecified vomiting type DIFFERENTIAL AUTO STAT 10/26/2024 9:2 3 AM CDT Prevention of chemotherapy-induc ed neutropenia Malignant neoplasm of upper-outer quadrant of right breast in female, estrogen receptor negative (HCC) Nausea and vomiting, unspecified vomiting type CBC WITH AUTO DIFFERENTIAL STAT 10/26/2024 9:23 AM CDT Prevention of chemotherapy-induc ed neutropenia Malignant neoplasm of upper-outer quadrant of right breast in female, estrogen receptor negative (HCC) Nausea and vomiting, unspecified vomiting type COMPREHENSIVE METABOLIC PANEL STAT 10/26/2024 9:23 AM CDT Prevention of chemotherapy-induc ed neutropenia Malignant neoplasm of upper-outer quadrant of right breast in female, estrogen receptor negative (HCC) Nausea and vomiting, unspecified vomiting type THYROID FUNCTION CASCADE Routine 10/26/2024 9:23 AM CDT Prevention of chemotherapy-induc ed neutropenia Malignant neoplasm of upper-outer quadrant of right breast in female, estrogen receptor negative (HCC) Nausea and vomiting, unspecified vomiting type EGFR STAT 10/19/2024 8:42 AM CDT Prevention of chemotherapy-induc ed neutropenia Malignant neoplasm of upper-outer quadrant of right breast in female, estrogen receptor negative (HCC) Nausea and vomiting, unspecified vomiting type DIFFERENTIAL AUTO STAT 10/19/2024 8:4 2 AM CDT Prevention of chemotherapy-induc ed neutropenia Malignant neoplasm of upper-outer quadrant of right breast in female, estrogen receptor negative (HCC) Nausea and vomiting, unspecified vomiting type CBC WITH AUTO DIFFERENTIAL STAT 10/19/2024 8:42 AM CDT Prevention of chemotherapy-induc ed neutropenia Malignant neoplasm of upper-outer quadrant of right breast in female, estrogen receptor negative (HCC) Nausea and vomiting, unspecified vomiting type COMPREHENSIVE METABOLIC PANEL STAT 10/19/2024 8:42 AM CDT Prevention of chemotherapy-induc ed neutropenia Malignant neoplasm of upper-outer quadrant of right breast in female, estrogen receptor negative (HCC) Nausea and vomiting, unspecified vomiting type THYROID FUNCTION CASCADE Routine 10/19/2024 8:42 AM CDT Prevention of chemotherapy-induc ed neutropenia Malignant neoplasm of upper-outer quadrant of right breast in female, estrogen receptor negative (HCC) Nausea and vomiting, unspecified vomiting type US BREAST RIGHT LIMITED Schedule Routine, Read Routine (OP Routine) 10/10/2024 9:10 AM CDT Malignant neoplasm of upper-outer quadrant of right breast in female, estrogen receptor negative (HCC) DIAGNOSTIC MAMMOGRAM RIGHT W MAHIN Schedule Routine, Read Routine (OP Routine) 10/10/2024 8:36 AM CDT Malignant neoplasm of upper-outer quadrant of right breast in female, estrogen receptor negative (HCC) EGFR STAT 10/05/2024 6:46 AM CDT Prevention of chemotherapy-induc ed neutropenia Malignant neoplasm of upper-outer quadrant of right breast in female, estrogen receptor negative (HCC) DIFFERENTIAL AUTO STAT 10/05/2024 6:4 6 AM CDT Prevention of chemotherapy-induc ed neutropenia Malignant neoplasm of upper-outer quadrant of right breast in female, estrogen receptor negative (HCC) CBC WITH AUTO DIFFERENTIAL STAT 10/05/2024 6:46 AM CDT Prevention of chemotherapy-induc ed neutropenia Malignant neoplasm of upper-outer quadrant of right breast in female, estrogen receptor negative (HCC) COMPREHENSIVE METABOLIC PANEL STAT 10/05/2024 6:46 AM CDT Prevention of chemotherapy-induc ed neutropenia Malignant neoplasm of upper-outer quadrant of right breast in female, estrogen receptor negative (HCC) EGFR STAT 09/28/2024 6:42 AM CDT Prevention of chemotherapy-induc ed neutropenia Malignant neoplasm of upper-outer quadrant of right breast in female, estrogen receptor negative (HCC) DIFFERENTIAL AUTO STAT 09/28/2024 6:4 2 AM CDT Prevention of chemotherapy-induc ed neutropenia Malignant neoplasm of upper-outer quadrant of right breast in female, estrogen receptor negative (HCC) CBC WITH AUTO DIFFERENTIAL STAT 09/28/2024 6:42 AM CDT Prevention of chemotherapy-induc ed neutropenia Malignant neoplasm of upper-outer quadrant of right breast in female, estrogen receptor negative (HCC) COMPREHENSIVE METABOLIC PANEL STAT 09/28/2024 6:42 AM CDT Prevention of chemotherapy-induc ed neutropenia Malignant neoplasm of upper-outer quadrant of right breast in female, estrogen receptor negative (HCC) EGFR STAT 09/21/2024 9:24 AM CDT Prevention of chemotherapy-induc ed neutropenia Malignant neoplasm of upper-outer quadrant of right breast in female, estrogen receptor negative (HCC) MANUAL DIFFERENTIAL STAT 09/21/2024 9 :24 AM CDT Prevention of chemotherapy-induc ed neutropenia Malignant neoplasm of upper-outer quadrant of right breast in female, estrogen receptor negative (HCC) COMPREHENSIVE METABOLIC PANEL STAT 09/21/2024 9:24 AM CDT Prevention of chemotherapy-induc ed neutropenia Malignant neoplasm of upper-outer quadrant of right breast in female, estrogen receptor negative (HCC) CBC WITH AUTO DIFFERENTIAL STAT 09/21/2024 9:24 AM CDT Prevention of chemotherapy-induc ed neutropenia Malignant neoplasm of upper-outer quadrant of right breast in female, estrogen receptor negative (HCC) EGFR STAT 09/14/2024 7:52 AM CDT Prevention of chemotherapy-induc ed neutropenia Malignant neoplasm of upper-outer quadrant of right breast in female, estrogen receptor negative (HCC) DIFFERENTIAL AUTO STAT 09/14/2024 7:5 2 AM CDT Prevention of chemotherapy-induc ed neutropenia Malignant neoplasm of upper-outer quadrant of right breast in female, estrogen receptor negative (HCC) CBC WITH AUTO DIFFERENTIAL STAT 09/14/2024 7:52 AM CDT Prevention of chemotherapy-induc ed neutropenia Malignant neoplasm of upper-outer quadrant of right breast in female, estrogen receptor negative (HCC) COMPREHENSIVE METABOLIC PANEL STAT 09/14/2024 7:52 AM CDT Prevention of chemotherapy-induc ed neutropenia Malignant neoplasm of upper-outer quadrant of right breast in female, estrogen receptor negative (HCC) EGFR STAT 09/07/2024 6:58 AM CDT Prevention of chemotherapy-induc ed neutropenia Malignant neoplasm of upper-outer quadrant of right breast in female, estrogen receptor negative (HCC) DIFFERENTIAL AUTO STAT 09/07/2024 6:5 8 AM CDT Prevention of chemotherapy-induc ed neutropenia Malignant neoplasm of upper-outer quadrant of right breast in female, estrogen receptor negative (HCC) CBC WITH AUTO DIFFERENTIAL STAT 09/07/2024 6:58 AM CDT Prevention of chemotherapy-induc ed neutropenia Malignant neoplasm of upper-outer quadrant of right breast in female, estrogen receptor negative (HCC) COMPREHENSIVE METABOLIC PANEL STAT 09/07/2024 6:58 AM CDT Prevention of chemotherapy-induc ed neutropenia Malignant neoplasm of upper-outer quadrant of right breast in female, estrogen receptor negative (HCC) from Last 3 Months Results * eGFR (12/07/2024 9:22 AM CDT) eGFR >90 >=60 mL/min/1. 73 m2 Comment: [...] of Race in Diagnosing Kidney Disease, JASN 202). The CKD-EPI equation should not be used for patients with unstable renal function and has not been validated in children and those over 70. Current interpretive data was last reviewed 2021. Blood 12/07/2024 9:22 AM CDT 12/07/2024 9:29 AM CDT us Baltazar Fa'ak MD LAB BLOOD ORDERABLES Final Resul t [facility] Department of Laboratories [place] [id number] * (ABNORMAL) Differential, auto (12/07/2024 9:22 AM CDT) Neutrophil abs 4.71 1.50 - 6.50 K/cumm Comment:Testing performed by : [facility], [address] [place] [phone] Lymphocyte abs 1.25 0.80 - 3.30 K/cumm MARGARETTE SOSA Comment:Testing performed by : [facility], [address] [place] [address] Monocyte abs 0.89(H) 0.20 - 0.80 K/cumm MARGARETTE SOSA Comment:Testing performed by : [facility], [address] [place], [place] [phone] Eosinophil abs 0.04 0.00 - 0.50 K/cumm MARGARETTE SOSA Comment:Testing performed by : [facility], [address] [place] [phone] Basophil abs 0.05 0.00 - 0.10 K/cumm MARGARETTE SOSA Comment:Testing performed by : [facility], [address] [place] [phone] Neutrophil pct 67.9 % CERGORGE SOSA Comment: Interpretive Data Percent cell count reference ranges are not reported, since discordance with absolute values may lead to misinterpretation of CBC data. Current Interpretive Data was last revised on 2017. Testing performed by: [facility], [address] [place] [phone] Lymphocyte pct 17.9 % CERGORGE SOSA Comment: Interpretive Data Percent cell count reference ranges are not reported, since discordance with absolute values may lead to misinterpretation of CBC data. Current Interpretive Data was last revised on 2017. Testing performed by: [facility], [address] [place] [phone] Monocyte pct 12.9 % CERGORGE SOSA Comment: Interpretive Data Percent cell count reference ranges are not reported, since discordance with absolute values may lead to misinterpretation of CBC data. Current Interpretive Data was last revised on 2017. Testing performed by: [facility], [address] [place] [phone] Eosinophil pct 0.6 % MARGARETTE SOSA Comment: Interpretive Data Percent cell count reference ranges are not reported, since discordance with absolute values may lead to misinterpretation of CBC data. Current Interpretive Data was last revised on 2017. Testing performed by: [facility], [address] [place] [phone] Basophil pct 0.7 % MARGARETTE SOSA Comment: Interpretive Data Percent cell count reference ranges are not reported, since discordance with absolute values may lead to misinterpretation of CBC data. Current Interpretive Data was last revised on 2017. Testing performed by: [facility], [address] [place] [phone] Blood 12/07/2024 9:22 AM CDT 12/07/2024 9:26 AM CDT Baltazar Mantilla MD LAB BLOOD ORDERABLES Final Resul t Performing Organization Address [facility] de Phone Number [facility] [place] [address] * Thyroid Function [place] (12/07/2024 9:22 AM CDT) TSH 2.91 0.30 - 4.20 mcIUnit/mL Blood 12/07/2024 9:22 AM CDT 12/07/2024 9:29 AM CDT Baltazar Mantilla MD LAB BLOOD ORDERABLES Final Resul t Performing Organization Address [facility] Co de Phone Number [facility] Department [place] [address] * (ABNORMAL) CBC with auto differential (12/07/2024 9:22 AM CDT) WBC 6.94 3.80 - 9.90 K/cumm Comment:Testing performed by : [facility], [address] [place] [address] Hgb 11.3(L) 11.9 - 15.5 g/dL CERNER BJ Comment:Testing performed by : [facility], [address] [place] [address] Hct 33.9(L) 35.6 - 45.5 % CERNER BJ Comment:Testing performed by : [facility], [address] [place] [address] Plt 235 150 - 400 K/cumm CERNER BJ Comment:Testing performed by : [facility], [address] [place] [address] MPV 7.9 6.8 - 10.4 fL CERNER BJ Comment:Testing performed by : [facility], [address] [place] [address] RBC 3.59(L) 3.90 - 5.20 M/cumm CERNER BJ Comment:Testing performed by : [facility], [address] [place] [address] MCV 94.4 81.3 - 96.4 fL CERNER BJ Comment:Testing performed by : [facility], [address] [place] [address] MCH 31.4 27.1 - 33.3 pg CERNER BJ Comment:Testing performed by : [facility], [address] [place] [address] MCHC 33.3 32.3 - 35.7 g/dL CERNER BJ Comment:Testing performed by : [facility], [address] [place] [address] RDW CV 17.4(H) 11.1 - 14.9 % CERNER BJ Comment:Testing performed by : [facility], [address] [place] [address] NRBC abs 0.00 0.00 - 0.01 K/cumm [facility] Comment:Testing performed by : [facility], [address] [place] [phone] Blood 12/07/2024 9:22 AM CDT 12/07/2024 9:26 AM CDT us Baltazar Mantilla MD LAB BLOOD ORDERABLES Final Resul t [facility] Department [place] [address] * Comprehensive metabolic panel (12/07/2024 9:22 AM CDT) Sodium 141 135 - 145 mmol/L Potassium, pl 4.3 3.3 - 4.9 mmol/L [facility] Chloride 106 97 - 110 mmol/L [facility] CO2 25 22 - 32 mmol/L [facility] Anion gap 10 2 - 15 mmol/L [facility] BUN 14 6 - 25 mg/dL [facility] Creatinine 0.67 0.60 - 1.10 mg/dL [facility] Glucose 94 70 - 199 mg/dL [facility] Comment: Interpretive Data Fasting glucose >/= 126 [...] classification and Diagnosis of Diabetes Diabetes Care 202; 46: S19-S40. Current interpretive data was last revised 2022. Calcium 9.5 8.5 - 10.3 mg/dL [facility] Bilirubin, total 0.3 0.1 - 1.2 mg/dL [facility] Protein, pl 7.0 6.5 - 8.5 g/dL [facility] Albumin 4.2 3.5 - 5.0 g/dL [facility] Alk phos 74 40 - 130 Units/L [facility] ALT 14 7 - 45 Units/L [facility] AST 20 10 - 45 Units/L [facility] Blood 12/07/2024 9:22 AM CDT 12/07/2024 9:29 AM CDT Baltazar Mantilla MD LAB BLOOD ORDERABLES Final Resul t Performing Organization Address City/[facility]/ZIP Co de Phone Number [facility] Department [place] [address] * eGFR (11/16/2024 9:15 AM CDT) Pathologist [facility] eGFR >90 >=60 mL/min/1. 73 m2 [...] interpretive data was last reviewed 2021. Blood 11/16/2024 9:15 AM CDT 11/16/2024 9:19 AM CDT Baltazar Mantilla MD LAB BLOOD ORDERABLES Final Resul t Performing Organization Address City/[facility]/ZIP Co de Phone Number [facility] Department [place] [address] * (ABNORMAL) Differential, auto (11/16/2024 9:15 AM CDT) Neutrophil abs 6.58(H) 1.50 - 6.50 K/cumm Comment:Testing performed by : [facility], [address] [place] [phone] Lymphocyte abs 1.66 0.80 - 3.30 K/cumm CERNER [facility] Comment:Testing performed by : [facility], [address] [place], [place] [phone] Monocyte abs 0.98(H) 0.20 - 0.80 K/cumm CERNER [facility] Comment:Testing performed by : [facility], [address] [place], [place] [phone] Eosinophil abs 0.02 0.00 - 0.50 K/cumm CERNER [facility] Comment:Testing performed by : [facility], [address] [place], [place] [phone] Basophil abs 0.05 0.00 - 0.10 K/cumm C[facility]ER [facility] Comment:Testing performed by : [facility], [address] [place], [place] [phone] Neutrophil pct 70.8 % CERNER [facility] Comment: Interpretive Data Percent cell count reference ranges are not reported, since discordance with absolute values may lead to misinterpretation of CBC data. Current Interpretive Data was last revised on 2017. Testing performed by: [facility], [address] [place] [phone] Lymphocyte pct 17.9 % CERNER [facility] Comment: Interpretive Data Percent cell count reference ranges are not reported, since discordance with absolute values may lead to misinterpretation of CBC data. Current Interpretive Data was last revised on 2017. Testing performed by: [facility], [address] [place] [phone] Monocyte pct 10.6 % CERNER [facility] Comment: Interpretive Data Percent cell count reference ranges are not reported, since discordance with absolute values may lead to misinterpretation of CBC data. Current Interpretive Data was last revised on 2017. Testing performed by: [facility], [address] [place], [place] [phone] Eosinophil pct 0.2 % C[facility]ER [facility] Comment: Interpretive Data Percent cell count reference ranges are not reported, since discordance with absolute values may lead to misinterpretation of CBC data. Current Interpretive Data was last revised on 2017. Testing performed by: [facility], [address] [place] [phone] Basophil pct 0.5 % MARGARETTE SOSA Comment: Interpretive Data Percent cell count reference ranges are not reported, since discordance with absolute values may lead to misinterpretation of CBC data. Current Interpretive Data was last revised on 2017. Testing performed by: [facility], [address] [place] [phone] Blood 11/16/2024 9:15 AM CDT 11/16/2024 9:17 AM CDT us Baltazar Mantilla MD LAB BLOOD ORDERABLES Final Resul t MARGARETTE SOSA [facility] Department [place] [address] * (ABNORMAL) CBC with auto differential (11/16/2024 9:15 AM CDT) WBC 9.28 3.80 - 9.90 K/cumm Comment:Testing performed by : [facility], [address] [place] [address] Hgb 11.1(L) 11.9 - 15.5 g/dL MARGARETTE SOSA Comment:Testing performed by : [facility], [address] [place] [address] Hct 33.7(L) 35.6 - 45.5 % MARGARETTE SOSA Comment:Testing performed by : [facility], [address] [place] [address] Plt 299 150 - 400 K/cumm MARGARETTE SOSA Comment:Testing performed by : [facility], [address] [place] [address] MPV 8.3 6.8 - 10.4 fL MARGARETTE SOSA Comment:Testing performed by : [facility], [address] [place] [address] RBC 3.54(L) 3.90 - 5.20 M/cumm MARGARETTE SOSA Comment:Testing performed by : [facility], [address] [place] [address] MCV 95.1 81.3 - 96.4 fL MARGARETTE SOSA Comment:Testing performed by : [facility], [address] [place] [address] MCH 31.5 27.1 - 33.3 pg MARGARETTE SOSA Comment:Testing performed by : [facility], [address] [place] [address] MCHC 33.1 32.3 - 35.7 g/dL MARGARETTE SOSA Comment:Testing performed by : [facility], [address] [place] [address] RDW CV 17.7(H) 11.1 - 14.9 % MARGARETTE [facility] Comment:Testing performed by : [facility], [address] [place] [address] NRBC abs 0.00 0.00 - 0.01 K/cumm MARGARETTE [facility] Comment:Testing performed by : [facility], [address] [place] [address] Blood 11/16/2024 9:15 AM CDT 11/16/2024 9:17 AM CDT us Baltazarsusan Mantilla MD LAB BLOOD ORDERABLES Final Resul t MARGARETTE [facility] Department of Laboratories [place], [place] [id number] * Comprehensive metabolic panel (11/16/2024 9:15 AM CDT) Sodium 143 135 - 145 mmol/L Potassium, pl 4.0 3.3 - 4.9 mmol/L MARGARETTE [facility] Chloride 107 97 - 110 mmol/L [facility] CO2 25 22 - 32 mmol/L MARGARETTE [facility] Anion gap 11 2 - 15 mmol/L [facility] BUN 12 6 - 25 mg/dL [facility] Creatinine 0.63 0.60 - 1.10 mg/dL [facility] Glucose 106 70 - 199 mg/dL [facility] Comment: Interpretive Data Fasting glucose >/= 126 [...] interpretive data was last revised 2022. Calcium 9.4 8.5 - 10.3 mg/dL [facility] Bilirubin, total 0.2 0.1 - 1.2 mg/dL [facility] Protein, pl 7.3 6.5 - 8.5 g/dL [facility] Albumin 4.2 3.5 - 5.0 g/dL [facility] Alk phos 79 40 - 130 Units/L [facility] ALT 14 7 - 45 Units/L [facility] AST 21 10 - 45 Units/L [facility] Blood 11/16/2024 9:15 AM CDT 11/16/2024 9:19 AM CDT us Baltazar Famillicent CESAR LAB BLOOD ORDERABLES Final Resul t [facility] Department [place] [address] * TRANSTHORACIC ECHO (TTE) COMPLETE W DOPPLER/CF W CONTRAST (10/26/2024 4:07 PM CDT) EF Mod BP 65 % CONS SCIMAGE Anatomical Region Laterality Modality Ultrasound 10/26/2024 3:02 PM CDT Narrative 10/27/2024 4:21 AM CDT [facility] Card[place] [address] Transthoracic Echocardiographic Report Patient Name: MESERET ORTIZ A : 1950 (74y 6m) Gender: F Study Date: 10/26/2024 03:02:12 PM Ht(Inch): 61 Wt(Lb): 126.98 BSA: 1.57 Obstetric Anaesthetist: Hina Fulton RDCS Location: [facility] Order Provider: BALTAZAR KING Heart Rate: 82 BMI: 23.99 BP: 127 / 67 Ref Provider: BALTAZAR MANTILLA PROCEDURES: Echocardiographic Report: Transthoracic complete echo with strain imaging and contrast, 2D, spectral and tissue Doppler, color flow Doppler, M-mode. Contrast: Contrast Enhancement was Employed: After initial imaging due to sub- optimal quality related to co-morbidity defined by patient's body habitus. 0.4 ml Optison Administered, (2.6 ml wasted). Technically difficult study due to: Body habitus. Poor acoustic windows. INDICATIONS: Z51.81 Encounter for therapeutic drug level monitoring and Z79.899 Other [facility] (current[facility] drug therapy. CONCLUSIONS: 1. Normal left ventricular size based on volume index. Normal LV wall thickness. Normal left ventricular systolic function. The Ejection Fraction (Ugalde's) is measured at 65 %. Grade I diastolic dysfunction (normal LA pressure). The average global longitudinal strain is borderline. 2. Normal right ventricular size. Normal right ventricular systolic function. ATTESTATION: I have personally reviewed and interpreted this study without fellow or resident. - DISCLAIMER: The study images and the final report will be retained in the patient chart by the Echo Laboratory for the legally required time period. This chart constitutes the legal record of any testing performed. FINDINGS: Left Ventricle: Normal left ventricular size based on volume index. Normal LV wall thickness. Normal left ventricular systolic function. The Ejection Fraction (Ugalde's) is measured at 65 %. Grade I diastolic dysfunction (normal LA pressure). The average global longitudinal strain is borderline. The LV global strain is: -17.4 %. Right Ventricle: Normal right ventricular size. Normal right ventricular systolic function. Left Atrium: The left atrium is normal in size. Right Atrium: The right atrium is normal in size. Prominent Eustachian valve (normal variant). 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 Mitral Valve: Normal mitral valve structure. No mitral regurgitation. No stenosis present. Aortic Valve: Normal trileaflet aortic valve. No aortic regurgitation. No aortic valve stenosis. Aortic valve dimensionless index is 0.77. Tricuspid Valve: Normal tricuspid valve structure. No tricuspid regurgitation. No tricuspid valve stenosis. Pulmonic Valve: Normal pulmonic valve structure. No pulmonic regurgitation. No pulmonic valve stenosis present. Pericardium: Normal pericardium without pericardial effusion. Aorta: Normal aortic root size when indexed. PASP: Normal estimated pulmonary artery systolic pressure. Rhythm: Normal Sinus rhythm was seen during the study. MEASUREMENTS: 2D/MM Value Range Doppler Value Range LVIDd 2D 3.52 cm [ 3.80 - 5.20 ] AV Peak Phu 1.7 m/s [ 1.0 - 1.7 ] LVIDs 2D 2.34 cm [ 2.20 - 3.50 ] AV Peak PG 11.56 mmHg IVSd 2D 0.63 cm [ 0.60 - 0.90 ] AV Mean PG 7 mmHg LVPWd 2D 0.63 cm [ 0.60 - 0.90 ] AV VTI 35.7 cm LV Thickness Ratio 1.0 LVOT Peak Phu 1.3 m/s [ 0.7 - 1.1 ] LV FS 2D 33.65 % [ 27.00 - 45.00 ] LVOT Peak PG 6.76 mmHg LV Mass 2D 56.58 g LVOT Mean PG 4 mmHg LV Mass Index 2D 36.04 g/m2 LVOT VTI 27.5 cm RWT 0.36 LVOT Diam 1.95 cm EDV Mod BP 75.75 ml [ 46.00 - 106.00 ] JACQUELIN VTI 2.30 cm2 LV EDV Index 48.25 ml/m2 LVOT/AV VTI 0.77 - Dimensionless index (DVI) ESV Mod BP 26.52 ml [ 14.00 - 42.00 ] AI Peak Phu 3.9 m/s EF Mod BP 65 % [ 54 - 74 ] AI Peak PG 60 mmHg LV GLS -17.4 % [ -25.0 - -18.0 ] AI Decel Time 2578.22 sec LA Length 4C 4.70 cm AI Decel Perkins 1.52 m/s2 LA Length 2C 4.51 cm AI PHT 747.68 msec LA Volume BP 24.19 ml MV E Peak Phu 0.7 m/s [ 0.6 - 1.3 ] LA Volume Index 15.41 ml/m2 [ 16.00 - 34.00 ] MV A Peak Phu 0.9 m/s [ 1.0 - 1.2 ] RV Base Dimen 2D 2.0 cm [ 2.5 - 4.2 ] MV E/A 0.7 ratio [ 0.8 - 1.5 ] TAPSE 2.34 cm [ 1.71 - 5.00 ] MV Decel Time 199.81 msec [ 104.00 - 258.00 ] RA Volume 14.89 ml Med E` Phu 9.2 cm/sec [ 8.0 - 25.0 ] RA Volume Index 9.48 ml/m2 Lat E` Phu 12.6 cm/sec [ 10.0 - 25.0 ] IVC Diam 1.50 cm Average E/E` 6.42 AoR Diam 2D 2.64 cm [ 2.70 - 3.70 ] TR Peak Phu 2.2 m/s [ 1.0 - 2.8 ] Ao Root Index 1.68 cm/m2 [ 1.00 - 2.00 ] TR Peak PG 19.4 mmHg PV Peak Phu 1.1 m/s [ 0.4 - 0.8 ] PV Peak PG 4.84 mmHg Electronically Signed By: Louie Jon MD 10/27/2024 4:20:58 AM CDT Procedure Note Louie Jon MD - 10/27/2024 [facility] Card[place] [address] Transthoracic Echocardiographic Report Patient Name: MESERET ORTIZ A : 1950 (74y 6m) Gender: F Study Date: 10/26/2024 03:02:12 PM Ht(Inch): 61 Wt(Lb): 126.98 BSA: 1.57 Obstetric Anaesthetist: Hina Fulton RDCS Location: [facility] Order Provider:BALTAZAR KING Heart Rate: 82 BMI: 23.99 BP: 127 / 67 Ref Provider: BALTAZAR MANTILLA PROCEDURES: Echocardiographic Report: Transthoracic complete echo with strain imagingand contrast, 2D, spectral and tissue Doppler, color flow Doppler, M-mode. Contrast: Contrast Enhancement was Employed: After initial imaging due tosub- optimal quality related to co-morbidity defined by patient's body habitus. 0.4 mlOptison Administered, (2.6 ml wasted). Technically difficult study due to: Body habitus. Poor acoustic windows. INDICATIONS: Z51.81 Encounter for therapeutic drug level monitoring and Z79.899 Otherlong term (current) drug therapy. CONCLUSIONS: 1. Normal left ventricular size based on volume index. Normal LV wallthickness. Normal left ventricular systolic function. The Ejection Fraction (Ugalde's) ismeasured at 65 %. Grade I diastolic dysfunction (normal LA pressure). The average globallongitudinal strain is borderline. 2. Normal right ventricular size. Normal right ventricular systolicfunction. ATTESTATION: I have personally reviewed and interpreted this study without fellow orresident. - DISCLAIMER: The study images and the final report will be retained in the patientchart by the [facility] for the legally required time period. This chart constitutesthe legal record of any testing performed. FINDINGS: Left Ventricle: Normal left ventricular size based on volume index. NormalLV wall thickness. Normal left ventricular systolic function. The EjectionFraction (Ugalde's) is measured at 65 %. Grade I diastolic dysfunction (normal LA pressure).The average global longitudinal strain is borderline. The LV global strain is: -17.4%. Right Ventricle: Normal right ventricular size. Normal right ventricularsystolic function. Left Atrium: The left atrium is normal in size. Right Atrium: The right atrium is normal in size. Prominent Eustachianvalve (normal variant). 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 Mitral Valve: Normal mitral valve structure. No mitral regurgitation. Nostenosis present. Aortic Valve: Normal trileaflet aortic valve. No aortic regurgitation. Noaortic valve stenosis. Aortic valve dimensionless index is 0.77. Tricuspid Valve: Normal tricuspid valve structure. No tricuspidregurgitation. No tricuspid valve stenosis. Pulmonic Valve: Normal pulmonic valve structure. No pulmonicregurgitation. No pulmonic valve stenosis present. Pericardium: Normal pericardium without pericardial effusion. Aorta: Normal aortic root size when indexed. PASP: Normal estimated pulmonary artery systolic pressure. Rhythm: Normal Sinus rhythm was seen during the study. MEASUREMENTS: 2D/MM Value Range DopplerValue Range LVIDd 2D 3.52 cm [ 3.80 - 5.20 ] AV Peak Vel1.7 m/s [ 1.0 - 1.7 ] LVIDs 2D 2.34 cm [ 2.20 - 3.50 ] AV Peak PG11.56 mmHg IVSd 2D 0.63 cm [ 0.60 - 0.90 ] AV Mean PG7 mmHg LVPWd 2D 0.63 cm [ 0.60 - 0.90 ] AV VTI35.7 cm LV Thickness Ratio 1.0 LVOT Peak Vel1.3 m/s [ 0.7 - 1.1 ] LV FS 2D 33.65 % [ 27.00 - 45.00 ] LVOT Peak PG6.76 mmHg LV Mass 2D 56.58 g LVOT Mean PG4 mmHg LV Mass Index 2D 36.04 g/m2 LVOT VTI27.5 cm RWT 0.36 LVOT Diam1.95 cm EDV Mod BP 75.75 ml [ 46.00 - 106.00 ] JACQUELIN VTI2.30 cm2 LV EDV Index 48.25 ml/m2 LVOT/AV VTI0.77 - Dimensionless index (DVI) ESV Mod BP 26.52 ml [ 14.00 - 42.00 ] AI Peak Vel3.9 m/s EF Mod BP 65 % [ 54 - 74 ] AI Peak PG60 mmHg LV GLS -17.4 % [ -25.0 - -18.0 ] AI Decel Zqin3529.22 sec LA Length 4C 4.70 cm AI Decel Slope1.52 m/s2 LA Length 2C 4.51 cm AI KFL388.68 msec LA Volume BP 24.19 ml MV E Peak Vel0.7 m/s [ 0.6 - 1.3 ] LA Volume Index 15.41 ml/m2 [ 16.00 - 34.00 ] MV A Peak Vel0.9 m/s [ 1.0 - 1.2 ] RV Base Dimen 2D 2.0 cm [ 2.5 - 4.2 ] MV E/A0.7 ratio [ 0.8 - 1.5 ] TAPSE 2.34 cm [ 1.71 - 5.00 ] MV Decel Houb649.81 msec [ 104.00 - 258.00 ] RA Volume 14.89 ml Med E` Vel9.2 cm/sec [ 8.0 - 25.0 ] RA Volume Index 9.48 ml/m2 Lat E` Vel12.6 cm/sec [ 10.0 - 25.0 ] IVC Diam 1.50 cm Average E/E`6.42 AoR Diam 2D 2.64 cm [ 2.70 - 3.70 ] TR Peak Vel2.2 m/s [ 1.0 - 2.8 ] Ao Root Index 1.68 cm/m2 [ 1.00 - 2.00 ] TR Peak PG19.4 mmHg PV Peak Phu 1.1 m/s [ 0.4 - 0.8 ] PV Peak PG 4.84 mmHg Electronically Signed By: Louie Jon MD 10/27/2024 4:20:58 AM CDT Baltazar Mantilla MD CV ECHO PROCEDURES Final Result * eGFR (10/26/2024 9:23 AM CDT) Pathologist [facility] eGFR 90 >=60 mL/min/1. 73 m2 Comment: Interpretive Data [...] interpretive data was last reviewed 2021. Blood 10/26/2024 9:23 AM CDT 10/26/2024 9:27 AM CDT Baltazar Mantilla MD LAB BLOOD ORDERABLES Final Resul t [facility] Department [place] [address] * Differential, auto (10/26/2024 9:23 AM CDT) Pathologist [facility] Neutrophil abs 2.20 1.50 - 6.50 K/cumm Comment:Testing performed by : [facility], [address] [place] [phone] Lymphocyte abs 1.75 0.80 - 3.30 K/cumm MARGARETTE SOSA Comment:Testing performed by : [facility], [address] [place] [phone] Monocyte abs 0.54 0.20 - 0.80 K/cumm [facility] Comment:Testing performed by : [facility], [address] [place] [phone] Eosinophil abs 0.07 0.00 - 0.50 K/cumm [facility] Comment:Testing performed by : [facility], [address] [place] [phone] Basophil abs 0.02 0.00 - 0.10 K/cumm [facility] Comment:Testing performed by : [facility], [address] [place] [phone] Neutrophil pct 48.1 % [facility] Comment: Interpretive Data Percent cell count reference ranges are not reported, since discordance with absolute values may lead to misinterpretation of CBC data. Current Interpretive Data was last revised on 2017. Testing performed by: [facility], [address] [place] [phone] Lymphocyte pct 38.2 % [facility] Comment: Interpretive Data Percent cell count reference ranges are not reported, since discordance with absolute values may lead to misinterpretation of CBC data. Current Interpretive Data was last revised on 2017. Testing performed by: [facility], [address] [place] [phone] Monocyte pct 11.8 % [facility] Comment: Interpretive Data Percent cell count reference ranges are not reported, since discordance with absolute values may lead to misinterpretation of CBC data. Current Interpretive Data was last revised on 2017. Testing performed by: [facility], [address] [place] [phone] Eosinophil pct 1.5 % [facility] Comment: Interpretive Data Percent cell count reference ranges are not reported, since discordance with absolute values may lead to misinterpretation of CBC data. Current Interpretive Data was last revised on 2017. Testing performed by: [facility], [address] [place] [phone] Basophil pct 0.4 % [facility] Comment: Interpretive Data Percent cell count reference ranges are not reported, since discordance with absolute values may lead to misinterpretation of CBC data. Current Interpretive Data was last revised on 2017. Testing performed by: [facility], [address] [place] [phone] Blood 10/26/2024 9:23 AM CDT 10/26/2024 9:27 AM CDT Baltazar Mantilla MD LAB BLOOD ORDERABLES Final Resul t Performing Organization Address City/[facility] Co de Phone Number [facility] Department [place] [address] * Thyroid Function [place] (10/26/2024 9:23 AM CDT) TSH 2.42 0.30 - 4.20 mcIUnit/mL Blood 10/26/2024 9:23 AM CDT 10/26/2024 9:27 AM CDT Baltazar Mantilla MD LAB BLOOD ORDERABLES Final Resul t Performing Organization Address [facility] de Phone Number [facility] Department [place] [address] * (ABNORMAL) CBC with auto differential (10/26/2024 9:23 AM CDT) WBC 4.57 3.80 - 9.90 K/cumm Comment:Testing performed by : [facility], [address] [place] [address] Hgb 11.4(L) 11.9 - 15.5 g/dL C[facility]ER [facility] Comment:Testing performed by : [facility], [address] [place] [address] Hct 34.0(L) 35.6 - 45.5 % [facility]ER [facility] Comment:Testing performed by : [facility], [address] [place] [address] Plt 206 150 - 400 K/cumm CERGORGE [facility] Comment:Testing performed by : [facility], [address] [place] [address] MPV 8.1 6.8 - 10.4 fL MARGARETTE SOSA Comment:Testing performed by : [facility], [address] [place] [address] RBC 3.66(L) 3.90 - 5.20 M/cumm MARGARETTE SOSA Comment:Testing performed by : [facility], [address] [place], [place] [phone] MCV 93.0 81.3 - 96.4 fL MARGARETTE SOSA Comment:Testing performed by : [facility], [address] [place] [address] MCH 31.1 27.1 - 33.3 pg MARGARETTE SOSA Comment:Testing performed by : [facility], [address] [place] [address] MCHC 33.4 32.3 - 35.7 g/dL MARGARETTE SOSA Comment:Testing performed by : [facility], [address] [place] [address] RDW CV 19.1(H) 11.1 - 14.9 % MARGARETTE [facility] Comment:Testing performed by : [facility], [address] [place] [address] NRBC abs 0.00 0.00 - 0.01 K/cumm MARGARETTE SOSA Comment:Testing performed by : [facility], [address] [place] [address] Blood 10/26/2024 9:23 AM CDT 10/26/2024 9:27 AM CDT us Baltazar Mantilla MD LAB BLOOD ORDERABLES Final Resul t MARGARETTE SOSA [facility] Department [place] [address] * Comprehensive metabolic panel (10/26/2024 9:23 AM CDT) Sodium 141 135 - 145 mmol/L Potassium, pl 4.2 3.3 - 4.9 mmol/L [facility] Chloride 106 97 - 110 mmol/L [facility] CO2 25 22 - 32 mmol/L [facility] Anion gap 10 2 - 15 mmol/L [facility] BUN 16 6 - 25 mg/dL [facility] Creatinine 0.69 0.60 - 1.10 mg/dL [facility] Glucose 99 70 - 199 mg/dL [facility] Comment: Interpretive Data Fasting glucose >/= 126 [...] interpretive data was last revised 2022. Calcium 9.4 8.5 - 10.3 mg/dL [facility] Bilirubin, total 0.4 0.1 - 1.2 mg/dL [facility] Protein, pl 7.4 6.5 - 8.5 g/dL [facility] Albumin 4.2 3.5 - 5.0 g/dL [facility] Alk phos 75 40 - 130 Units/L [facility] ALT 19 7 - 45 Units/L [facility] AST 23 10 - 45 Units/L [facility] Blood 10/26/2024 9:23 AM CDT 10/26/2024 9:27 AM CDT Baltazar Mantilla MD LAB BLOOD ORDERABLES Final Resul t [facility] Department [place] [address] * eGFR (10/19/2024 8:42 AM CDT) eGFR 88 >=60 mL/min/1. 73 m2 Comment: Interpretive Data [...] interpretive data was last reviewed 2021. Blood 10/19/2024 8:42 AM CDT 10/19/2024 8:54 AM CDT us Baltazarsusan Mantilla MD LAB BLOOD ORDERABLES Final Resul t [facility] Department [place] [address] * Differential, auto (10/19/2024 8:42 AM CDT) Neutrophil abs 1.76 1.50 - 6.50 K/cumm Comment:Testing performed by : [facility], [address] [place] [phone] Lymphocyte abs 1.21 0.80 - 3.30 K/cumm MARGARETTE SOSA Comment:Testing performed by : [facility], [address] [place] [phone] Monocyte abs 0.50 0.20 - 0.80 K/cumm MARGARETTE SOSA Comment:Testing performed by : [facility], [address] [place], [place] [phone] Eosinophil abs 0.02 0.00 - 0.50 K/cumm MARGARETTE SOSA Comment:Testing performed by : [facility], [address] [place] [phone] Basophil abs 0.02 0.00 - 0.10 K/cumm GINONER BJ Comment:Testing performed by : [facility], [address] [place] [phone] Neutrophil pct 50.2 % CERNER [facility] Comment: Interpretive Data Percent cell count reference ranges are not reported, since discordance with absolute values may lead to misinterpretation of CBC data. Current Interpretive Data was last revised on 2017. Testing performed by: [facility], [address] [place] [phone] Lymphocyte pct 34.5 % [facility] Comment: Interpretive Data Percent cell count reference ranges are not reported, since discordance with absolute values may lead to misinterpretation of CBC data. Current Interpretive Data was last revised on 2017. Testing performed by: [facility], [address] [place] [phone] Monocyte pct 14.2 % [facility]ER [facility] Comment: Interpretive Data Percent cell count reference ranges are not reported, since discordance with absolute values may lead to misinterpretation of CBC data. Current Interpretive Data was last revised on 2017. Testing performed by: [facility], [address] [place] [phone] Eosinophil pct 0.5 % [facility]ER [facility] Comment: Interpretive Data Percent cell count reference ranges are not reported, since discordance with absolute values may lead to misinterpretation of CBC data. Current Interpretive Data was last revised on 2017. Testing performed by: [facility], [address] [place] [phone] Basophil pct 0.6 % C[facility]ER [facility] Comment: Interpretive Data Percent cell count reference ranges are not reported, since discordance with absolute values may lead to misinterpretation of CBC data. Current Interpretive Data was last revised on 2017. Testing performed by: [facility], [address] [place] [phone] Blood 10/19/2024 8:42 AM CDT 10/19/2024 8:43 AM CDT us Baltazar Fa'nima CESAR LAB BLOOD ORDERABLES Final Resul t Performing Organization Address City/[facility]/ZIP Co de Phone Number MARGARETTE [facility] [place] [address] * Thyroid Function [place] (10/19/2024 8:42 AM CDT) Pathologist [facility] TSH 2.44 0.30 - 4.20 mcIUnit/mL Blood 10/19/2024 8:42 AM CDT 10/19/2024 8:54 AM CDT us Baltazar Mantilla MD LAB BLOOD ORDERABLES Final Resul t Performing Organization Address City/[facility] Co de Phone Number [facility] Department [place] [address] * (ABNORMAL) CBC with auto differential (10/19/2024 8:42 AM CDT) Pathologist [facility] WBC 3.51(L) 3.80 - 9.90 K/cumm Comment:Testing performed by : [facility], [address] [place] [phone] Hgb 10.8(L) 11.9 - 15.5 g/dL C[facility]ER [facility] Comment:Testing performed by : [facility], [address] [place] [phone] Hct 32.3(L) 35.6 - 45.5 % CERNER [facility] Comment:Testing performed by : [facility], [address] [place] [phone] Plt 143(L) 150 - 400 K/cumm CERNER [facility]J Comment:Testing performed by : [facility], [address] [place] [phone] MPV 7.9 6.8 - 10.4 fL CERGORGE BJ Comment:Testing performed by : [facility], [address] [place] [phone] RBC 3.42(L) 3.90 - 5.20 M/cumm CERGORGE BJ Comment:Testing performed by : [facility], [address] [place], [place] [phone] MCV 94.6 81.3 - 96.4 fL MARGARETTE SOSA Comment:Testing performed by : [facility], [address] [place], [place] [phone] MCH 31.6 27.1 - 33.3 pg MARGARETTE SOSA Comment:Testing performed by : [facility], [address] [place], [place] [phone] MCHC 33.4 32.3 - 35.7 g/dL MARGARETTE SOSA Comment:Testing performed by : [facility], [address] [place], [place] [phone] RDW CV 19.4(H) 11.1 - 14.9 % MARGARETTE SOSA Comment:Testing performed by : [facility], [address] [place], [place] [phone] NRBC abs 0.00 0.00 - 0.01 K/cumm MARGARETTE [facility] Comment:Testing performed by : [facility], [address] [place], [place] [phone] Blood 10/19/2024 8:42 AM CDT 10/19/2024 8:43 AM CDT Baltazar Mantilla MD LAB BLOOD ORDERABLES Final Resul t [facility] Department [place] [address] * Comprehensive metabolic panel (10/19/2024 8:42 AM CDT) Sodium 141 135 - 145 mmol/L Potassium, pl 4.3 3.3 - 4.9 mmol/L [facility] Chloride 106 97 - 110 mmol/L [facility] CO2 25 22 - 32 mmol/L [facility] Anion gap 10 2 - 15 mmol/L [facility] BUN 15 6 - 25 mg/dL [facility] Creatinine 0.71 0.60 - 1.10 mg/dL [facility] Glucose 112 70 - 199 mg/dL [facility] Comment: Interpretive Data Fasting glucose >/= 126 [...] classification and Diagnosis of Diabetes Diabetes Care 202; 46: S19-S40. Current interpretive data was last revised 2022. Calcium 9.3 8.5 - 10.3 mg/dL CERNER [facility] Bilirubin, total 0.5 0.1 - 1.2 mg/dL CERNER [facility] Protein, pl 7.3 6.5 - 8.5 g/dL [facility] Albumin 4.2 3.5 - 5.0 g/dL CERNER [facility] Alk phos 71 40 - 130 Units/L [facility]ERNER [facility] ALT 29 7 - 45 Units/L [facility] AST 29 10 - 45 Units/L [facility] Blood 10/19/2024 8:42 AM CDT 10/19/2024 8:54 AM CDT us Baltazar Mantilla MD LAB BLOOD ORDERABLES Final Resul t [facility] Department [place] [address] * US Breast Right Limited (10/10/2024 9:10 AM CDT) Anatomical Region Laterality Modality Breast Right Ultrasound 10/10/2024 9:18 AM CDT Impressions 10/10/2024 9:59 AM CDT 1. Right breast known invasive ductal carcinoma is decreased in density and conspicuity on mammography but similar in size. The lesion is also decreased in size on ultrasound and difficult to visualize outside of the tumor bed. These findings reflect partial response to treatment. 2. Previously enlarged right axillary lymph node is decreased in size, now within normal limits. No residual right axillary lymphadenopathy. OVERALL FINAL ASSESSMENT: BI-RADS Category 6: Known Biopsy-Proven Malignancy. RECOMMENDATION: Continued clinical and oncologic management of known malignancy. Dictated by: Ino Ta MD The radiology attending physician has personally reviewed this study, and had reviewed and/or edited this written report and agrees with it. Electronically signed by: Jolanta Ferreira M.D. 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 Evaluate for treatment response. COMPARISON: MRI 08/03/2024, ultrasound 06/05/2024, multiple prior mammograms dating back to 04/25/2024 TECHNIQUE: Full field digital mammographic views of the RIGHT breast were performed, including computer aided detection (CAD) and digital breast tomosynthesis (DBT). Directed ultrasound evaluation of the RIGHT breast was performed. BREAST PARENCHYMAL COMPOSITION: There are scattered areas of fibroglandular density. MAMMOGRAM FINDINGS: In the RIGHT upper outer breast at the site of known invasive ductal carcinoma there is a residual irregular 1.6 cm focal asymmetry which is decreased in density and conspicuity compared to prior study but is overall similar in size. There is a biopsy clip adjacent to the mass, and several additional biopsy sites are noted in the RIGHT breast. SONOGRAM FINDINGS: Targeted ultrasound of the RIGHT breast at 10-11 o'clock 5 cm from the nipple demonstrates a hydro-ericka biopsy clip in place; the irregular mass seen on prior ultrasound is decreased in size and difficult to visualize. Ultrasound of the RIGHT axilla demonstrates a biopsy clip adjacent to a morphologically normal lymph node measuring up to 0.2 cm in cortical thickness; this lymph node previously measured up to 0.4 cm in cortical thickness. 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 Evaluate for treatment response. COMPARISON: MRI 08/03/2024, ultrasound 06/05/2024, multiple prior mammograms dating back to 04/25/2024 TECHNIQUE: Full field digital mammographic views of the RIGHT breast were performed, including computer aided detection (CAD) and digital breast tomosynthesis (DBT). Directed ultrasound evaluation of the RIGHT breast was performed. BREAST PARENCHYMAL COMPOSITION: There are scattered areas of fibroglandular density. MAMMOGRAM FINDINGS: In the RIGHT upper outer breast at the site of known invasive ductal carcinoma there is a residual irregular 1.6 cm focal asymmetry which is decreased in density and conspicuity compared to prior study but is overall similar in size. There is a biopsy clip adjacent to the mass, and several additional biopsy sites are noted in the RIGHT breast. SONOGRAM FINDINGS: Targeted ultrasound of the RIGHT breast at 10-11 o'clock 5 cm from the nipple demonstrates a hydro-ericka biopsy clip in place; the irregular mass seen on prior ultrasound is decreased in size and difficult to visualize. Ultrasound of the RIGHT axilla demonstrates a biopsy clip adjacent to a morphologically normal lymph node measuring up to 0.2 cm in cortical thickness; this lymph node previously measured up to 0.4 cm in cortical thickness. IMPRESSION: 1. Right breast known invasive ductal carcinoma is decreased in density and conspicuity on mammography but similar in size. The lesion is also decreased in size on ultrasound and difficult to visualize outside of the tumor bed. These findings reflect partial response to treatment. 2. Previously enlarged right axillary lymph node is decreased in size, now within normal limits. No residual right axillary lymphadenopathy. OVERALL FINAL ASSESSMENT: BI-RADS Category 6: Known Biopsy-Proven Malignancy. RECOMMENDATION: Continued clinical and oncologic management of known malignancy. Dictated by: Ino Ta MD The radiology attending physician has personally reviewed this study, and had reviewed and/or edited this written report and agrees with it. Electronically signed by: Jolanta Ferreira M.D. Baltazarsusan Mantilla MD IMG MAMMO PROCEDURES Final Resul t * Diagnostic Mammogram Right W [place] (10/10/2024 8:36 AM CDT) Anatomical Region Laterality Modality Breast Right Mammography 10/10/2024 9:15 AM CDT Impressions 10/10/2024 9:59 AM CDT 1. Right breast known invasive ductal carcinoma is decreased in density and conspicuity on mammography but similar in size. The lesion is also decreased in size on ultrasound and difficult to visualize outside of the tumor bed. These findings reflect partial response to treatment. 2. Previously enlarged right axillary lymph node is decreased in size, now within normal limits. No residual right axillary lymphadenopathy. OVERALL FINAL ASSESSMENT: BI-RADS Category 6: Known Biopsy-Proven Malignancy. RECOMMENDATION: Continued clinical and oncologic management of known malignancy. Dictated by: Ino Ta MD The radiology attending physician has personally reviewed this study, and had reviewed and/or edited this written report and agrees with it. Electronically signed by: Jolanta Ferreira M.D. 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 Evaluate for treatment response. COMPARISON: MRI 08/03/2024, ultrasound 06/05/2024, multiple prior mammograms dating back to 04/25/2024 TECHNIQUE: Full field digital mammographic views of the RIGHT breast were performed, including computer aided detection (CAD) and digital breast tomosynthesis (DBT). Directed ultrasound evaluation of the RIGHT breast was performed. BREAST PARENCHYMAL COMPOSITION: There are scattered areas of fibroglandular density. MAMMOGRAM FINDINGS: In the RIGHT upper outer breast at the site of known invasive ductal carcinoma there is a residual irregular 1.6 cm focal asymmetry which is decreased in density and conspicuity compared to prior study but is overall similar in size. There is a biopsy clip adjacent to the mass, and several additional biopsy sites are noted in the RIGHT breast. SONOGRAM FINDINGS: Targeted ultrasound of the RIGHT breast at 10-11 o'clock 5 cm from the nipple demonstrates a hydro-ericka biopsy clip in place; the irregular mass seen on prior ultrasound is decreased in size and difficult to visualize. Ultrasound of the RIGHT axilla demonstrates a biopsy clip adjacent to a morphologically normal lymph node measuring up to 0.2 cm in cortical thickness; this lymph node previously measured up to 0.4 cm in cortical thickness. 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 Evaluate for treatment response. COMPARISON: MRI 08/03/2024, ultrasound 06/05/2024, multiple prior mammograms dating back to 04/25/2024 TECHNIQUE: Full field digital mammographic views of the RIGHT breast were performed, including computer aided detection (CAD) and digital breast tomosynthesis (DBT). Directed ultrasound evaluation of the RIGHT breast was performed. BREAST PARENCHYMAL COMPOSITION: There are scattered areas of fibroglandular density. MAMMOGRAM FINDINGS: In the RIGHT upper outer breast at the site of known invasive ductal carcinoma there is a residual irregular 1.6 cm focal asymmetry which is decreased in density and conspicuity compared to prior study but is overall similar in size. There is a biopsy clip adjacent to the mass, and several additional biopsy sites are noted in the RIGHT breast. SONOGRAM FINDINGS: Targeted ultrasound of the RIGHT breast at 10-11 o'clock 5 cm from the nipple demonstrates a hydro-ericka biopsy clip in place; the irregular mass seen on prior ultrasound is decreased in size and difficult to visualize. Ultrasound of the RIGHT axilla demonstrates a biopsy clip adjacent to a morphologically normal lymph node measuring up to 0.2 cm in cortical thickness; this lymph node previously measured up to 0.4 cm in cortical thickness. IMPRESSION: 1. Right breast known invasive ductal carcinoma is decreased in density and conspicuity on mammography but similar in size. The lesion is also decreased in size on ultrasound and difficult to visualize outside of the tumor bed. These findings reflect partial response to treatment. 2. Previously enlarged right axillary lymph node is decreased in size, now within normal limits. No residual right axillary lymphadenopathy. OVERALL FINAL ASSESSMENT: BI-RADS Category 6: Known Biopsy-Proven Malignancy. RECOMMENDATION: Continued clinical and oncologic management of known malignancy. Dictated by: Ino Ta MD The radiology attending physician has personally reviewed this study, and had reviewed and/or edited this written report and agrees with it. Electronically signed by: Jolanta Ferreira M.D. us Baltazarsusan Mantilla MD IMG MAMMO PROCEDURES Final Resul t * eGFR (10/05/2024 6:46 AM CDT) eGFR 90 >=60 mL/min/1. 73 m2 Comment: Interpretive Data [...] interpretive data was last reviewed 2021. Blood 10/05/2024 6:46 AM CDT 10/05/2024 6:52 AM CDT us Baltazarsusan Mantilla MD LAB BLOOD ORDERABLES Final Resul t [facility] Department [place] [address] * (ABNORMAL) Differential, auto (10/05/2024 6:46 AM CDT) Neutrophil abs 1.70 1.50 - 6.50 K/cumm Comment:Testing performed by : [facility], [address] [place] [phone] Lymphocyte abs 0.75(L) 0.80 - 3.30 K/cumm [facility] Comment:Testing performed by : [facility], [address] [place] [phone] Monocyte abs 0.24 0.20 - 0.80 K/cumm [facility] Comment:Testing performed by : [facility], [address] [place] [phone] Eosinophil abs 0.02 0.00 - 0.50 K/cumm [facility] Comment:Testing performed by : [facility], [address] [place] [phone] Basophil abs 0.04 0.00 - 0.10 K/cumm [facility] Comment:Testing performed by : [facility], [address] [place] [phone] Neutrophil pct 61.9 % [facility] Comment: Interpretive Data Percent cell count reference ranges are not reported, since discordance with absolute values may lead to misinterpretation of CBC data. Current Interpretive Data was last revised on 2017. Testing performed by: [facility], [address] [place], [place] [phone] Lymphocyte pct 27.4 % [facility] Comment: Interpretive Data Percent cell count reference ranges are not reported, since discordance with absolute values may lead to misinterpretation of CBC data. Current Interpretive Data was last revised on 2017. Testing performed by: [facility], [address] [place], [place] [id number] Monocyte pct 8.8 % [facility] Comment: Interpretive Data Percent cell count reference ranges are not reported, since discordance with absolute values may lead to misinterpretation of CBC data. Current Interpretive Data was last revised on 2017. Testing performed by: [facility], [address] [place], [place] [phone] Eosinophil pct 0.6 % [facility] Comment: Interpretive Data Percent cell count reference ranges are not reported, since discordance with absolute values may lead to misinterpretation of CBC data. Current Interpretive Data was last revised on 2017. Testing performed by: [facility], [address] [place] [phone] Basophil pct 1.4 % [facility] Comment: Interpretive Data Percent cell count reference ranges are not reported, since discordance with absolute values may lead to misinterpretation of CBC data. Current Interpretive Data was last revised on 2017. Testing performed by: [facility], [address] [place], [place] [id number] Blood 10/05/2024 6:46 AM CDT 10/05/2024 6:49 AM CDT us Baltazar Mantilla MD LAB BLOOD ORDERABLES Final Resul t [facility] Department [place] [address] * (ABNORMAL) CBC with auto differential (10/05/2024 6:46 AM CDT) WBC 2.75(L) 3.80 - 9.90 K/cumm Comment:Testing performed by : [facility], [address] [place] [address] Hgb 10.3(L) 11.9 - 15.5 g/dL [facility] Comment:Testing performed by : [facility], [address] [place] [address] Hct 30.0(L) 35.6 - 45.5 % [facility] Comment:Testing performed by : [facility], [address] [place] [address] Plt 140(L) 150 - 400 K/cumm [facility] Comment:Testing performed by : [facility], [address] [place] [address] MPV 8.3 6.8 - 10.4 fL [facility] Comment:Testing performed by : [facility], [address] [place] [address] RBC 3.23(L) 3.90 - 5.20 M/cumm [facility] Comment:Testing performed by : [facility], [address] [place] [address] MCV 92.8 81.3 - 96.4 fL [facility] Comment:Testing performed by : [facility], [address] [place] [address] MCH 31.9 27.1 - 33.3 pg [facility] Comment:Testing performed by : [facility], [address] [place] [address] MCHC 34.3 32.3 - 35.7 g/dL [facility] Comment:Testing performed by : [facility], [address] [place] [phone] RDW CV 19.1(H) 11.1 - 14.9 % [facility] Comment:Testing performed by : [facility], [address] [place] [phone] NRBC abs 0.00 0.00 - 0.01 K/cumm [facility] Comment:Testing performed by : [facility], [address] [place] [phone] Blood 10/05/2024 6:46 AM CDT 10/05/2024 6:49 AM CDT us Baltazarsusan Mantilla MD LAB BLOOD ORDERABLES Final Resul t [facility] Department [place] [address] * Comprehensive metabolic panel (10/05/2024 6:46 AM CDT) Pathologist [facility] Sodium 141 135 - 145 mmol/L Potassium, pl 3.8 3.3 - 4.9 mmol/L [facility] Chloride 106 97 - 110 mmol/L [facility] CO2 25 22 - 32 mmol/L [facility] Anion gap 10 2 - 15 mmol/L [facility] BUN 15 6 - 25 mg/dL [facility] Creatinine 0.68 0.60 - 1.10 mg/dL [facility] Glucose 120 70 - 199 mg/dL [facility] Comment: Interpretive Data Fasting glucose >/= 126 [...] interpretive data was last revised 2022. Calcium 9.1 8.5 - 10.3 mg/dL [facility] Bilirubin, total 0.4 0.1 - 1.2 mg/dL [facility] Protein, pl 7.1 6.5 - 8.5 g/dL [facility] Albumin 4.0 3.5 - 5.0 g/dL [facility] Alk phos 66 40 - 130 Units/L [facility] ALT 23 7 - 45 Units/L [facility] AST 26 10 - 45 Units/L [facility] Blood 10/05/2024 6:46 AM CDT 10/05/2024 6:52 AM CDT Baltazar Mantilla MD LAB BLOOD ORDERABLES Final Resul t [facility] Department [place] [address] * eGFR (09/28/2024 6:42 AM CDT) eGFR 90 >=60 mL/min/1. 73 m2 Comment: Interpretive Data [...] of Race in Diagnosing Kidney Disease, JASN 202). The CKD-EPI equation should not be used for patients with unstable renal function and has not been validated in children and those over 70. Current interpretive data was last reviewed 2021. Blood 09/28/2024 6:42 AM CDT 09/28/2024 6:51 AM CDT us Baltazar Mantilla MD LAB BLOOD ORDERABLES Final Resul t [facility] Department [place] [address] * Differential, auto (09/28/2024 6:42 AM CDT) Neutrophil abs 2.09 1.50 - 6.50 K/cumm Comment:Testing performed by : [facility], [address] [place] [phone] Lymphocyte abs 1.04 0.80 - 3.30 K/cumm [facility] Comment:Testing performed by : [facility], [address] [place] [phone] Monocyte abs 0.32 0.20 - 0.80 K/cumm [facility] Comment:Testing performed by : [facility], [address] [place] [phone] Eosinophil abs 0.01 0.00 - 0.50 K/cumm [facility] Comment:Testing performed by : [facility], [address] [place] [phone] Basophil abs 0.04 0.00 - 0.10 K/cumm [facility] Comment:Testing performed by : [facility], [address] [place] [phone] Neutrophil pct 59.7 % [facility] Comment: Interpretive Data Percent cell count reference ranges are not reported, since discordance with absolute values may lead to misinterpretation of CBC data. Current Interpretive Data was last revised on 2017. Testing performed by: [facility], [address] [place] [phone] Lymphocyte pct 29.7 % [facility] Comment: Interpretive Data Percent cell count reference ranges are not reported, since discordance with absolute values may lead to misinterpretation of CBC data. Current Interpretive Data was last revised on 2017. Testing performed by: [facility], [address] [place] [phone] Monocyte pct 9.1 % [facility] Comment: Interpretive Data Percent cell count reference ranges are not reported, since discordance with absolute values may lead to misinterpretation of CBC data. Current Interpretive Data was last revised on 2017. Testing performed by: [facility], [address] [place] [phone] Eosinophil pct 0.3 % [facility] Comment: Interpretive Data Percent cell count reference ranges are not reported, since discordance with absolute values may lead to misinterpretation of CBC data. Current Interpretive Data was last revised on 2017. Testing performed by: [facility], [address] [place], [place] [phone] Basophil pct 1.2 % [facility] Comment: Interpretive Data Percent cell count reference ranges are not reported, since discordance with absolute values may lead to misinterpretation of CBC data. Current Interpretive Data was last revised on 2017. Testing performed by: [facility], [address] [place], [place] [phone] Blood 09/28/2024 6:42 AM CDT 09/28/2024 6:44 AM CDT us Baltazar Fa'nima CESAR LAB BLOOD ORDERABLES Final Resul t [facility] Department [place] [address] * (ABNORMAL) CBC with auto differential (09/28/2024 6:42 AM CDT) WBC 3.50(L) 3.80 - 9.90 K/cumm Comment:Testing performed by : [facility], [address] [place] [phone] Hgb 10.9(L) 11.9 - 15.5 g/dL [facility] Comment:Testing performed by : [facility], [address] [place] [phone] Hct 31.6(L) 35.6 - 45.5 % [facility] Comment:Testing performed by : [facility], [address] [place] [address] Plt 190 150 - 400 K/cumm [facility] Comment:Testing performed by : [facility], [address] [place] [address] MPV 8.5 6.8 - 10.4 fL [facility] Comment:Testing performed by : [facility], [address] [place], [place] [phone] RBC 3.41(L) 3.90 - 5.20 M/cumm [facility] Comment:Testing performed by : [facility], [address] [place] [address] MCV 92.6 81.3 - 96.4 fL [facility] Comment:Testing performed by : [facility], [address] [place], [place] [phone] MCH 31.9 27.1 - 33.3 pg [facility] Comment:Testing performed by : [facility], [address] [place], [place] [phone] MCHC 34.5 32.3 - 35.7 g/dL [facility] Comment:Testing performed by : [facility], [address] [place] [address] RDW CV 18.6(H) 11.1 - 14.9 % [facility] Comment:Testing performed by : [facility], [address] [place] [address] NRBC abs 0.00 0.00 - 0.01 K/cumm [facility] Comment:Testing performed by : [facility], [address] [place] [address] Blood 09/28/2024 6:42 AM CDT 09/28/2024 6:44 AM CDT us Baltazar Mantilla MD LAB BLOOD ORDERABLES Final Resul t [facility] Department of Laboratories [place] [id number] * Comprehensive metabolic panel (09/28/2024 6:42 AM CDT) Sodium 140 135 - 145 mmol/L Potassium, pl 4.0 3.3 - 4.9 mmol/L [facility] Chloride 105 97 - 110 mmol/L [facility] CO2 26 22 - 32 mmol/L [facility] Anion gap 9 2 - 15 mmol/L [facility] BUN 19 6 - 25 mg/dL [facility] Creatinine 0.69 0.60 - 1.10 mg/dL [facility] Glucose 116 70 - 199 mg/dL [facility] Comment: Interpretive Data Fasting glucose >/= 126 [...] interpretive data was last revised 2022. Calcium 9.4 8.5 - 10.3 mg/dL [facility] Bilirubin, total 0.5 0.1 - 1.2 mg/dL [facility] Protein, pl 7.4 6.5 - 8.5 g/dL [facility] Albumin 4.1 3.5 - 5.0 g/dL [facility] Alk phos 75 40 - 130 Units/L [facility] ALT 21 7 - 45 Units/L [facility] AST 23 10 - 45 Units/L [facility] Blood 09/28/2024 6:42 AM CDT 09/28/2024 6:51 AM CDT us Baltazar Mantilla MD LAB BLOOD ORDERABLES Final Resul t [facility] Department [place] [address] * eGFR (09/21/2024 9:24 AM CDT) eGFR 88 >=60 mL/min/1. 73 m2 Comment: Interpretive Data [...] interpretive data was last reviewed 2021. Blood 09/21/2024 9:24 AM CDT 09/21/2024 9:27 AM CDT us Baltazarsusan Mantilla MD LAB BLOOD ORDERABLES Final Resul t [facility] Department [place] [address] * (ABNORMAL) CBC with auto differential (09/21/2024 9:24 AM CDT) Pathologist [facility] WBC 3.8 3.8 - 9.9 K/cumm Comment:Testing performed by : [facility], [address] [place] [phone] Hgb 11.0(L) 11.9 - 15.5 g/dL [facility] Comment:Testing performed by : [facility], [address] [place] [phone] Hct 32.5(L) 35.6 - 45.5 % [facility] Comment:Testing performed by : [facility], [address] [place] [phone] Plt 239 150 - 400 K/cumm [facility] Comment:Testing performed by : [facility], [address] [place] [address] MPV 8.7 6.8 - 10.4 fL [facility] Comment:Testing performed by : [facility], [address] [place] [address] RBC 3.50(L) 3.90 - 5.20 M/cumm [facility] Comment:Testing performed by : [facility], [address] [place] [address] MCV 92.6 81.3 - 96.4 fL [facility] Comment:Testing performed by : [facility], [address] [place], [place] [phone] MCH 31.5 27.1 - 33.3 pg [facility] Comment:Testing performed by : [facility], [address] [place] [address] MCHC 34.0 32.3 - 35.7 g/dL [facility] Comment:Testing performed by : [facility], [address] [place] [address] RDW CV 18.2(H) 11.1 - 14.9 % [facility] Comment:Testing performed by : [facility], [address] [place] [address] NRBC abs 0.00 0.00 - 0.01 K/cumm [facility] Comment:Testing performed by : [facility], [address] [place] [address] Blood 09/21/2024 9:24 AM CDT 09/21/2024 9:25 AM CDT us Baltazarsusan Mantilla MD LAB BLOOD ORDERABLES Edited Resu lt - Final [facility] Department [place] [address] * (ABNORMAL) Manual Differential (09/21/2024 9:24 AM CDT) Cells Counted 200 Comment:Testing performed by : [facility], [address] [place] [phone] Neutrophil abs 2.5 1.5 - 6.5 K/cumm [facility] Comment:Testing performed by : [facility], [address] [place] [phone] Lymphocyte abs 1.1 0.8 - 3.3 K/cumm [facility] Comment:Testing performed by : [facility], [address] [place], [place] [phone] Monocyte abs 0.2 0.2 - 0.8 K/cumm [facility] Comment:Testing performed by : [facility], [address] [place] [phone] Eosinophil abs 0.0 0.0 - 0.5 K/cumm [facility] Comment:Testing performed by : [facility], [address] [place], [place] [phone] Basophil abs 0.0 0.0 - 0.1 K/cumm [facility] Comment:Testing performed by : [facility], [address] [place] [phone] Neutrophil pct 65.0 % [facility] Comment: Interpretive Data Percent cell count reference ranges are not reported, since discordance with absolute values may lead to misinterpretation of CBC data. Current Interpretive Data was last revised on 2017. Testing performed by: [facility], [address] [place] [phone] Lymphocyte pct 29.0 % [facility] Comment: Interpretive Data Percent cell count reference ranges are not reported, since discordance with absolute values may lead to misinterpretation of CBC data. Current Interpretive Data was last revised on 2017. Testing performed by: [facility], [address] [place] [phone] Monocyte pct 6.0 % [facility] Comment: Interpretive Data Percent cell count reference ranges are not reported, since discordance with absolute values may lead to misinterpretation of CBC data. Current Interpretive Data was last revised on 2017. Testing performed by: [facility], [address] [place] [address] Eosinophil pct 0.0 % [facility] Comment: Interpretive Data Percent cell count reference ranges are not reported, since discordance with absolute values may lead to misinterpretation of CBC data. Current Interpretive Data was last revised on 2017. Testing performed by: [facility], [address] [place] [address] Basophil pct 1.0 % [facility] Comment: Interpretive Data Percent cell count reference ranges are not reported, since discordance with absolute values may lead to misinterpretation of CBC data. Current Interpretive Data was last revised on 2017. Testing performed by: [facility], [address] [place] [address] Myelocyte pct 1.0(H) 0.0 - 0.0 % MARGARETTE SOSA Comment:Testing performed by : [facility], [address] [place], [place] [id number] RBC morphology NRBCs present(A) [facility]TE [facility] Comment:Testing performed by : [facility], [address] [place], [place] [id number] Anisocytosis 1+(A) [facility]TE [facility] Comment:Testing performed by : [facility], [address] [place], [place] [id number] Platelet estimate Adequate [facility] Comment:Testing performed by : [facility], [address] [place], [place] [id number] Blood 09/21/2024 9:24 AM CDT 09/21/2024 9:25 AM CDT us Baltazar Fa'nima [facility] LAB BLOOD ORDERABLES Final Resul t MARGARETTE SOSA [facility] [place] [address] * Comprehensive metabolic panel (09/21/2024 9:24 AM CDT) Sodium 144 135 - 145 mmol/L Potassium, pl 4.6 3.3 - 4.9 mmol/L [facility] Chloride 108 97 - 110 mmol/L [facility] CO2 26 22 - 32 mmol/L [facility] Anion gap 10 2 - 15 mmol/L [facility] BUN 16 6 - 25 mg/dL [facility] Creatinine 0.71 0.60 - 1.10 mg/dL [facility] Glucose 106 70 - 199 mg/dL [facility] Comment: Interpretive Data Fasting glucose >/= 126 [...] classification and Diagnosis of Diabetes Diabetes Care 202; 46: S19-S40. Current interpretive data was last revised 2022. Calcium 10.1 8.5 - 10.3 mg/dL [facility] Bilirubin, total 0.3 0.1 - 1.2 mg/dL [facility] Protein, pl 7.7 6.5 - 8.5 g/dL [facility] Albumin 4.3 3.5 - 5.0 g/dL [facility] Alk phos 76 40 - 130 Units/L [facility] ALT 23 7 - 45 Units/L [facility] AST 23 10 - 45 Units/L [facility] Blood 09/21/2024 9:24 AM CDT 09/21/2024 9:27 AM CDT us Baltazar Famillicent [facility] LAB BLOOD ORDERABLES Final Resul t [facility] [place] [address] * eGFR (09/14/2024 7:52 AM CDT) eGFR 77 >=60 mL/min/1. 73 m2 Comment: Interpretive Data [...] interpretive data was last reviewed 2021. Blood 09/14/2024 7:52 AM CDT 09/14/2024 8:09 AM CDT us Baltazarsusan Mantilla MD LAB BLOOD ORDERABLES Final Resul t [facility] Department [place] [address] * (ABNORMAL) Differential, auto (09/14/2024 7:52 AM CDT) Neutrophil abs 1.4(L) 1.5 - 6.5 K/cumm Imm gran abs 0.0 0.0 - 0.1 K/cumm [facility] Lymphocyte abs 1.2 0.8 - 3.3 K/cumm [facility] Monocyte abs 0.3 0.2 - 0.8 K/cumm [facility] Eosinophil abs 0.0 0.0 - 0.5 K/cumm [facility] Basophil abs 0.0 0.0 - 0.1 K/cumm [facility] Neutrophil pct 47.0 % [facility] Comment: Interpretive Data Percent cell count reference ranges are not reported, since discordance with absolute values may lead to misinterpretation of CBC data. Current Interpretive Data was last revised on 2017. Imm gran pct 1.0 % [facility] Comment: Interpretive Data Percent cell count reference ranges are not reported, since discordance with absolute values may lead to misinterpretation of CBC data. Current Interpretive Data was last revised on 2017. Lymphocyte pct 39.4 % [facility] Comment: Interpretive Data Percent cell count reference ranges are not reported, since discordance with absolute values may lead to misinterpretation of CBC data. Current Interpretive Data was last revised on 2017. Monocyte pct 11.3 % [facility] Comment: Interpretive Data Percent cell count reference ranges are not reported, since discordance with absolute values may lead to misinterpretation of CBC data. Current Interpretive Data was last revised on 2017. Eosinophil pct 0.3 % [facility] Comment: Interpretive Data Percent cell count reference ranges are not reported, since discordance with absolute values may lead to misinterpretation of CBC data. Current Interpretive Data was last revised on 2017. Basophil pct 1.0 % [facility] Comment: Interpretive Data Percent cell count reference ranges are not reported, since discordance with absolute values may lead to misinterpretation of CBC data. Current Interpretive Data was last revised on 2017. Blood 09/14/2024 7:52 AM CDT 09/14/2024 8:09 AM CDT us Baltazar Mantilla MD LAB BLOOD ORDERABLES Final Resul t [facility] Department [place] [address] * (ABNORMAL) CBC with auto differential (09/14/2024 7:52 AM CDT) WBC 2.9(L) 3.8 - 9.9 K/cumm Hgb 10.5(L) 11.9 - 15.5 g/dL [facility] Hct 31.6(L) 35.6 - 45.5 % [facility] Plt 235 150 - 400 K/cumm [facility] MPV 10.5 9.1 - 12.3 fL [facility] RBC 3.38(L) 3.90 - 5.20 M/cumm [facility] MCV 93.5 81.3 - 96.4 fL [facility] MCH 31.1 27.1 - 33.3 pg [facility] MCHC 33.2 32.3 - 35.7 g/dL [facility] RDW CV 16.2(H) 11.1 - 14.9 % [facility] RDW SD 53.5(H) 35.7 - 48.1 fL [facility] NRBC abs 0.00 0.00 - 0.01 K/cumm [facility] Blood 09/14/2024 7:52 AM CDT 09/14/2024 8:09 AM CDT us Baltazarsusan Mantilla MD LAB BLOOD ORDERABLES Final Resul t [facility] Department [place] [address] * Comprehensive metabolic panel (09/14/2024 7:52 AM CDT) Sodium 142 135 - 145 mmol/L Potassium, pl 4.1 3.3 - 4.9 mmol/L [facility] Chloride 106 97 - 110 mmol/L [facility] CO2 26 22 - 32 mmol/L [facility] Anion gap 10 2 - 15 mmol/L [facility] BUN 15 6 - 25 mg/dL [facility] Creatinine 0.79 0.60 - 1.10 mg/dL [facility] Glucose 95 70 - 199 mg/dL [facility] Comment: Interpretive Data Fasting glucose >/= 126 [...] interpretive data was last revised 2022. Calcium 9.4 8.5 - 10.3 mg/dL [facility] Bilirubin, total 0.4 0.1 - 1.2 mg/dL [facility] Protein, pl 7.3 6.5 - 8.5 g/dL [facility] Albumin 4.2 3.5 - 5.0 g/dL [facility] Alk phos 83 40 - 130 Units/L [facility] ALT 27 7 - 45 Units/L [facility] AST 23 10 - 45 Units/L [facility] Blood 09/14/2024 7:52 AM CDT 09/14/2024 8:09 AM CDT Baltazar Mantilla MD LAB BLOOD ORDERABLES Final Resul t Performing Organization Address City/[facility]/ZIP Co de Phone Number [facility] [place] [address] * eGFR (09/07/2024 6:58 AM CDT) eGFR 80 >=60 mL/min/1. 73 m2 Comment: Interpretive Data [...] interpretive data was last reviewed 2021. Blood 09/07/2024 6:58 AM CDT 09/07/2024 7:05 AM CDT Baltazar Mantilla MD LAB BLOOD ORDERABLES Final Resul t [facility] Department [place] [address] * (ABNORMAL) Differential, auto (09/07/2024 6:58 AM CDT) Neutrophil abs 1.1(L) 1.5 - 6.5 K/cumm Comment:Testing performed by : [facility], [address] [place] [phone] Lymphocyte abs 0.9 0.8 - 3.3 K/cumm [facility] Comment:Testing performed by : [facility], [address] [place] [phone] Monocyte abs 0.2 0.2 - 0.8 K/cumm [facility] Comment:Testing performed by : [facility], [address] [place] [phone] Eosinophil abs 0.0 0.0 - 0.5 K/cumm [facility] Comment:Testing performed by : [facility], [address] [place] [phone] Basophil abs 0.0 0.0 - 0.1 K/cumm [facility] Comment:Testing performed by : [facility], [address] [place] [phone] Neutrophil pct 51.0 % [facility] Comment: Interpretive Data Percent cell count reference ranges are not reported, since discordance with absolute values may lead to misinterpretation of CBC data. Current Interpretive Data was last revised on 2017. Testing performed by: [facility], [address] [place] [phone] Lymphocyte pct 38.9 % [facility] Comment: Interpretive Data Percent cell count reference ranges are not reported, since discordance with absolute values may lead to misinterpretation of CBC data. Current Interpretive Data was last revised on 2017. Testing performed by: [facility], [address] [place] [phone] Monocyte pct 7.8 % [facility] Comment: Interpretive Data Percent cell count reference ranges are not reported, since discordance with absolute values may lead to misinterpretation of CBC data. Current Interpretive Data was last revised on 2017. Testing performed by: [facility], [address] [place] [phone] Eosinophil pct 1.2 % MARGARETTE HAMMOND Comment: Interpretive Data Percent cell count reference ranges are not reported, since discordance with absolute values may lead to misinterpretation of CBC data. Current Interpretive Data was last revised on 2017. Testing performed by: [facility], [address] [place], [place] [phone] Basophil pct 1.1 % MARGARETTE HAMMOND Comment: Interpretive Data Percent cell count reference ranges are not reported, since discordance with absolute values may lead to misinterpretation of CBC data. Current Interpretive Data was last revised on 2017. Testing performed by: [facility], [address] [place], [place] [phone] Blood 09/07/2024 6:58 AM CDT 09/07/2024 7:03 AM CDT us Baltazar Dagmar'nima [facility] LAB BLOOD ORDERABLES Final Resul t MARGARETTE SOSA [facility] Department [place] [address] * (ABNORMAL) CBC with auto differential (09/07/2024 6:58 AM CDT) WBC 2.2(L) 3.8 - 9.9 K/cumm Comment:Testing performed by : [facility], [address] [place] [address] Hgb 11.2(L) 11.9 - 15.5 g/dL MARGARETTE HAMMOND Comment:Testing performed by : [facility], [address] [place] [address] Hct 32.9(L) 35.6 - 45.5 % MARGARETTE HAMMOND Comment:Testing performed by : [facility], [address] [place] [address] Plt 177 150 - 400 K/cumm MARGARETTE SOSA Comment:Testing performed by : [facility], [address] [place] [address] MPV 8.1 6.8 - 10.4 fL MARGARETTE SOSA Comment:Testing performed by : [facility], [address] [place] [address] RBC 3.60(L) 3.90 - 5.20 M/cumm MARGARETTE SOSA Comment:Testing performed by : [facility], [address] [place] [address] MCV 91.4 81.3 - 96.4 fL MARGARETTE SOSA Comment:Testing performed by : [facility], [address] [place], [place] [phone] MCH 31.2 27.1 - 33.3 pg MARGARETTE SOSA Comment:Testing performed by : [facility], [address] [place] [address] MCHC 34.1 32.3 - 35.7 g/dL MARGARETTE SOSA Comment:Testing performed by : [facility], [address] [place] [address] RDW CV 15.9(H) 11.1 - 14.9 % [facility] Comment:Testing performed by : [facility], [address] [place] [address] NRBC abs 0.00 0.00 - 0.01 K/cumm [facility] Comment:Testing performed by : [facility], [address] [place] [address] Blood 09/07/2024 6:58 AM CDT 09/07/2024 7:03 AM CDT us Baltazarsusan Mantilla MD LAB BLOOD ORDERABLES Final Resul t MARGARETTE SOSA [facility] [place] [address] * Comprehensive metabolic panel (09/07/2024 6:58 AM CDT) Sodium 143 135 - 145 mmol/L Potassium, pl 3.8 3.3 - 4.9 mmol/L [facility] Chloride 108 97 - 110 mmol/L [facility] CO2 25 22 - 32 mmol/L [facility] Anion gap 10 2 - 15 mmol/L [facility] BUN 11 6 - 25 mg/dL [facility] Creatinine 0.77 0.60 - 1.10 mg/dL [facility] Glucose 117 70 - 199 mg/dL [facility] Comment: Interpretive Data Fasting glucose >/= 126 [...] interpretive data was last revised 2022. Calcium 9.4 8.5 - 10.3 mg/dL [facility] Bilirubin, total 0.3 0.1 - 1.2 mg/dL [facility] Protein, pl 7.3 6.5 - 8.5 g/dL [facility] Albumin 4.2 3.5 - 5.0 g/dL [facility] Alk phos 71 40 - 130 Units/L [facility] ALT 26 7 - 45 Units/L [facility] AST 21 10 - 45 Units/L [facility] Blood 09/07/2024 6:58 AM CDT 09/07/2024 7:05 AM CDT us Baltazar Fa'nima [facility] LAB BLOOD ORDERABLES Final Resul t [facility] Department [place] [address] from Last 3 Months Insurance MEDICARE [facility] MEDICARE SUPPLEMENT MEDICARE [facility] MEDICARE SUPPLEMENT Care Teams [employer] Relationship Specialty Start Date End Date Unknown, Notinfile PCP - General 01/21/24
--- OUTSIDE RECORDS SUMMARY | 2024-12-08 17:17 | XMS_ITS | Clinical Summary ---
Author Organization [facility] Address [address] [place] [address] Phone Care Team Providers Care Sign Shop Supervisor Name Role Phone Unknown, Notinfile Primary Care Provider Unavail able Allergies Active Allergy Reactions Criticality Noted Date [...] Cancer Staging:Clinical:Stage IIB(cT2, cN1, cM0, G3, ER+, MT+, HER2-) - Unsigned Prevention of chemotherapy-induced neutropenia 0 07/06/2024 Encounters Date Type Department Care Team Description 12/07/2024 11:30 AM CDT Infusion [facility] - Infusion [address] [place] [address] Floor 5 [place] [address] Nausea and vomiting, unspecified vomiting type (Primary Dx); Prevention of chemotherapy-induced neutropenia; Malignant neoplasm of upper-outer quadrant of right breast in female, estrogen receptor negative (HCC) 12/07/2024 10:15 AM CDT Office Visit [facility] Oncology [address] [place] [address] Floor 8 [place] [address] Baltazar Mantilla MD Nausea and vomiting, unspecified vomiting type (Primary Dx); Prevention of chemotherapy-induced neutropenia; Malignant neoplasm of upper-outer quadrant of right breast in female, estrogen receptor negative (HCC) 12/07/2024 9:15 AM CDT Clinical Support [facility] - Lab Collection [facility] Floor 5 [place] [address] Prevention of chemotherapy-induced neutropenia; Malignant neoplasm of upper-outer quadrant of right breast in female, estrogen receptor negative (HCC); Nausea and vomiting, unspecified vomiting type 11/17/2024 Orders Only [facility] Surgery [address] [place] [address] Floor 8 [place] [address] Jennifer Goodman MD Malignant neoplasm of upper-outer quadrant of right breast in female, estrogen receptor negative (HCC) (Primary Dx) 11/16/2024 11:30 AM CDT Infusion [facility]fusion [address] [facility] Floor 6 [place] [address] Nausea and vomiting, unspecified vomiting type (Primary Dx); Prevention of chemotherapy-induced neutropenia; Malignant neoplasm of upper-outer quadrant of right breast in female, estrogen receptor negative (HCC) 11/16/2024 10:15 AM CDT Office Visit [facility] On[facility] [address] [place] [address] Floor 8 [place] [phone] Baltazar Mantilla MD Nausea and vomiting, unspecified vomiting type (Primary Dx); Prevention of chemotherapy-induced neutropenia; Malignant neoplasm of upper-outer quadrant of right breast in female, estrogen receptor negative (HCC) 11/16/2024 9:15 AM CDT Clinical Support [facility] - Lab Collection [address] [facility] Floor 5 [place] [address] Prevention of chemotherapy-induced neutropenia; Malignant neoplasm of upper-outer quadrant of right breast in female, estrogen receptor negative (HCC); Nausea and vomiting, unspecified vomiting type 10/30/2024 Telephone [facility] [address] [place] [address] Nadia Johns RN 10/27/2024 8:00 AM CDT Infusion [facility] - Infusion [address] [facility] Floor 5 [place] [address] Nausea and vomiting, unspecified vomiting type (Primary Dx); Prevention of chemotherapy-induced neutropenia; Malignant neoplasm of upper-outer quadrant of right breast in female, estrogen receptor negative (HCC) 10/26/2024 2:41 PM CDT - 10/26/2024 11:59 PM CDT Hospital Encounter [facility] [address] [place] [address] Encounter for monitoring cardiotoxic drug therapy Discharge Disposition: Discharge to home or self care 10/26/2024 11:30 AM CDT Infusion [facility] - Infusion [address] [facility] Floor 6 [place] [address] Prevention of chemotherapy-induced neutropenia; Malignant neoplasm of upper-outer quadrant of right breast in female, estrogen receptor negative (HCC); Nausea and vomiting, unspecified vomiting type 10/26/2024 10:30 AM CDT Office Visit [facility] [address] [place] [address] Floor 8 [place] [address] Baltazar Mantilla MD Nausea and vomiting, unspecified vomiting type (Primary Dx); Prevention of chemotherapy-induced neutropenia; Malignant neoplasm of upper-outer quadrant of right breast in female, estrogen receptor negative (HCC) 10/26/2024 9:45 AM CDT Clinical Support [facility] - Lab Collection [facility] Floor 5 [place] [address] Prevention of chemotherapy-induced neutropenia; Malignant neoplasm of upper-outer quadrant of right breast in female, estrogen receptor negative (HCC); Nausea and vomiting, unspecified vomiting type 10/26/2024 9:15 AM CDT Clinical Support [facility] Lab [address] [place] [phone] Prevention of chemotherapy-induced neutropenia; Malignant neoplasm of upper-outer quadrant of right breast in female, estrogen receptor negative (HCC); Nausea and vomiting, unspecified vomiting type 10/26/2024 Orders Only [facility] [address] [place] [phone] Baltazar Mantilla MD Cardiotoxicity (Primary Dx); Encounter for monitoring cardiotoxic drug therapy; Prevention of chemotherapy-induced neutropenia; Malignant neoplasm of upper-outer quadrant of right breast in female, estrogen receptor negative (HCC); Nausea and vomiting, unspecified vomiting type 10/19/2024 9:15 AM CDT Office Visit [facility] [address] [place] [phone] Baltazar Mantilla MD 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 (Primary Dx); Prevention of chemotherapy-induced neutropenia; Malignant neoplasm of upper-outer quadrant of right breast in female, estrogen receptor negative (HCC); Nausea and vomiting, unspecified vomiting type 10/19/2024 8:15 AM CDT Clinical Support [facility] - Lab Collection [address] [place] [address] Floor 5 [place] [address] Prevention of chemotherapy-induced neutropenia; Malignant neoplasm of upper-outer quadrant of right breast in female, estrogen receptor negative (HCC); Nausea and vomiting, unspecified vomiting type 10/16/2024 Orders Only [facility] [place] [address] Baltazar Mantilla MD Malignant neoplasm of upper-outer quadrant of right breast in female, estrogen receptor negative (HCC) (Primary Dx); Nausea and vomiting, unspecified vomiting type 10/10/2024 7:54 AM CDT - 10/10/2024 11:59 PM CDT Hospital Encounter [facility] [address] [place] [address] Malignant neoplasm of upper-outer quadrant of right breast in female, estrogen receptor negative (HCC) Discharge Disposition: Discharge to home or self care 10/10/2024 7:53 AM CDT - 10/10/2024 11:59 PM CDT Hospital Encounter [facility] [address] [place] [address] Malignant neoplasm of upper-outer quadrant of right breast in female, estrogen receptor negative (HCC) Discharge Disposition: Discharge to home or self care 10/06/2024 Telephone [facility] [address] [place] [address] Nadia Johns RN Arm Pain; Leg Pain 10/05/2024 7:30 AM CDT Infusion [facility] Infusion [address] Floor 5 [place] [address] Malignant neoplasm of upper-outer quadrant of right breast in female, estrogen receptor negative (HCC) (Primary Dx); Prevention of chemotherapy-induced neutropenia 10/05/2024 6:30 AM CDT Clinical Support [facility] - Lab Collection [address] Floor 5 [place] [address] Prevention of chemotherapy-induced neutropenia; Malignant neoplasm of upper-outer quadrant of right breast in female, estrogen receptor negative (HCC) 09/28/2024 7:30 AM CDT Infusion [facility] - Infusion [address] Floor 6 [place] [address] Malignant neoplasm of upper-outer quadrant of right breast in female, estrogen receptor negative (HCC) (Primary Dx); Prevention of chemotherapy-induced neutropenia 09/28/2024 6:30 AM CDT Clinical Support [facility] - Lab Collection [address] Floor 6 [place] [address] Prevention of chemotherapy-induced neutropenia; Malignant neoplasm of upper-outer quadrant of right breast in female, estrogen receptor negative (HCC) 09/28/2024 Telephone [facility] [address] [place] [address] 8 [place] [address] Nadia Johns RN 09/21/2024 10:30 AM CDT Infusion [facility] - Infusion [address] [facility] Floor 5 [place] [address] Malignant neoplasm of upper-outer quadrant of right breast in female, estrogen receptor negative (HCC) (Primary Dx); Prevention of chemotherapy-induced neutropenia 09/21/2024 9:15 AM CDT Office Visit [facility] [address] [place] [address] 8 [place] [address] Baltazar Mantilla MD Malignant neoplasm of upper-outer quadrant of right breast in female, estrogen receptor negative (HCC) (Primary Dx); Prevention of chemotherapy-induced neutropenia 09/21/2024 8:15 AM CDT Clinical Support [facility] - Lab Collection [address] [place] [address] 5 [place] [address] Malignant neoplasm of right female breast, unspecified estrogen receptor status, unspecified site of breast (HCC) (Primary Dx); Prevention of chemotherapy-induced neutropenia; Malignant neoplasm of upper-outer quadrant of right breast in female, estrogen receptor negative (HCC) 09/21/2024 Orders Only [facility] [address] [place] [phone] Baltazar Mantilla MD Malignant neoplasm of upper-outer quadrant of right breast in female, estrogen receptor negative (HCC) (Primary Dx) 09/14/2024 7:30 AM CDT - 09/14/2024 12:14 PM CDT Hospital Encounter [facility] ([facility]) [address] [place] [address] Malignant neoplasm of upper-outer quadrant of right breast in female, estrogen receptor negative (HCC) (Primary Dx); Prevention of chemotherapy-induced neutropenia; Malignant neoplasm of right female breast, unspecified estrogen receptor status, unspecified site of breast (HCC) Discharge Disposition: Discharge to home or self care 09/14/2024 Orders Only [facility] [address] [place] [address] 8 [place] [phone] Baltazar Mantilla MD 09/07/2024 8:00 AM CDT Infusion [facility] Infusion [address] [facility] Floor 5 [place] [address] Malignant neoplasm of upper-outer quadrant of right breast in female, estrogen receptor negative (HCC) (Primary Dx); Prevention of chemotherapy-induced neutropenia 09/07/2024 7:00 AM CDT Clinical Support [facility] - Lab Collection [facility] [address] [place] [address] Prevention of chemotherapy-induced neutropenia; Malignant neoplasm of upper-outer quadrant of right breast in female, estrogen receptor negative (HCC) 09/07/2024 Telephone [facility] [address] [place] [address] 8 [place] [address] Nadia Johns RN 09/07/2024 Orders Only [facility] [address] [place] [phone] Baltazar Mantilla MD Malignant neoplasm of upper-outer quadrant of right breast in female, estrogen receptor negative (HCC) (Primary Dx); Generalized weakness from Last 3 Months Immunizations Immunization Administration Dates Next Due Influenza, [...] Polysaccharide PPV23 03/28/2013 TD Preservative Free 09/18/2022 Surgical History Surgery Date Site/Laterality Comments BREAST BIOPSY 06/05/2024 Right BREAST BIOPSY 07/05/2024 Right DILATION AND CURETTAGE OF UTERUS 9 - 06/27/1989 CATARACT EXTRACTION 06/28/2009 - 06/27/2010 N/A CATARACT EXTRACTION 06/28/2014 - 06/27/2015 Left OTHER SURGICAL HISTORY 06/28/1998 - 06/27/1999 surgical margins (rt) shoulder melanoma ESOPHAGOGASTRODUODENOSCOPY 10/27/2019 with biopsy COLONOSCOPY Medical History Medical History Date Comments Arthritis Herpes High cholesterol Osteoporosis Peptic ulcer disease Overweight Chronic disorder of skin PONV (postoperative nausea and vomiting) Family History Medical History Relation Name Comments Melanoma Brother Kidney cancer Father Lung cancer Maternal Grandfather Lung cancer Maternal Grandmother Breast cancer Other neice Melanoma Son Anesthesia problems Neg Hx Relation Name Status Comments Brother Father Maternal Grandfather Maternal Grandmother Other neice Son Social History Tobacco Use Types Packs/Day Years [...] on file Sexual Orientation Not on file Obstetrics History Last Filed Vital Signs Vital Sign Reading [...] 12/07/2024 9:36 AM CDT Plan of Treatment Health Maintenance Due Date Last Done Comments Depression Screening 1950 Hepatitis C Screening 1948 Hepatitis B Screening 1966 Zoster Vaccine (1 of 2) 1998 Well Visit 65+ 2013 Osteoporosis Screening-Bone Density Scan 05/04/2019 05/04/2017 DTaP/Tdap/Td Vaccine (1 - Tdap) 09/19/2022 Covid-19 Vaccine (6 - 2023-2 5 season) 2024 03/25/2023, 03/14/2022, 05/05/2021, Additional history exists Influenza Vaccine (Season Ended) 2025 03/25/2023, 03/05/2022, 03/21/2021, Additional history exists Fall Risk Assessment 07/19/2025 07/19/2024 Pneumococcal vaccine 65+ (3 of 3 - PCV20 or PCV21) 05/28/2026 05/28/2021, 03/28/2013 Medical Devices Implanted Type Area Automatic Brine Mixer Operator Device Identifier Shelf Expiration Date Model / Serial / Lot Limei [employer] Marker Tissue Rigid Needle Open Coil Radiopaque Clip Hydromark 18ga Titanium Hydrogel 4009-08-15-T3 - [id number] Implanted:Qty: 1 on 06/05/2024 by Jolanta Ferreira MD at [facility] Right: Axilla [employer] [id number] 11/28/2026 4010-02-1 8-T3 / / [id number] Bard Peripheral Vascular Ultraclip Bard 17ga 10cm 2 Trigger Permanent Ultrasound [id number] - [id number] Implanted:Qty: 1 on 06/05/2024 by Jolanta Ferreira MD at [facility] Right: Breast Bard Peripheral Vascular [id number] / / [employer] Marker Image Hydromark Plus T5 Titanium 15ga Radiological Implant Sterile 4009-08-12-T5 - [id number] Implanted:Qty: 1 on 06/05/2024 by Jolanta Ferreira MD at [facility] Right: Breast CarePayment [id number] 4010- 5-T5 / / [id number] [email or web address] [facility] Trimark Mri Guided Rigid Deployment Device Cork Marker Breast Trimark Td 13-Mr - [id number] Implanted:Qty: 1 on 07/05/2024 at [facility] TRIMARK TD 13-MR / / Bard Access Systems [place] Power Isp Mri 1lum Powerport Clearvue Titanium 8fr [id number] - [id number] Implanted:Qty: 1 on 07/19/2024 at [facility] Left: Subclavian Bard Access Systems 01/25/2026 [id number] / / [id number] Procedures Procedure Name Priority Date/Time Associated Diagnosis [...] CDT 12/07/2024 9:29 AM CDT us Baltazar Mantilla MD LAB BLOOD ORDERABLES Final Resul t MARGARETTE SOSA [facility] [place] [address] * (ABNORMAL) Differential, auto (12/07/2024 9:22 AM CDT) Pathologist [facility] Neutrophil abs 4.71 1.50 - 6.50 K/cumm Comment:Testing performed by : [facility], [address] [place], [place] [id number] Lymphocyte abs 1.25 0.80 - 3.30 K/cumm [facility] Comment:Testing performed by : [facility], [address] [place], [place] [phone] Monocyte abs 0.89(H) 0.20 - 0.80 K/cumm [facility] Comment:Testing performed by : [facility], [address] [place], [place] [id number] Eosinophil abs 0.04 0.00 - 0.50 K/cumm [facility] Comment:Testing performed by : [facility], [address] [place], [place] [phone] Basophil abs 0.05 0.00 - 0.10 K/cumm [facility] Comment:Testing performed by : [facility], [address] [place], [place] [phone] Neutrophil pct 67.9 % [facility] Comment: Interpretive Data Percent cell count reference ranges are not reported, since discordance with absolute values may lead to misinterpretation of CBC data. Current Interpretive Data was last revised on 2017. Testing performed by: [facility], [address] [place], [place] [phone] Lymphocyte pct 17.9 % [facility] Comment: Interpretive Data Percent cell count reference ranges are not reported, since discordance with absolute values may lead to misinterpretation of CBC data. Current Interpretive Data was last revised on 2017. Testing performed by: [facility], [address] [place], [place] [phone] Monocyte pct 12.9 % [facility] Comment: Interpretive Data Percent cell count reference ranges are not reported, since discordance with absolute values may lead to misinterpretation of CBC data. Current Interpretive Data was last revised on 2017. Testing performed by: [facility], [address] [place], [place] [id number] Eosinophil pct 0.6 % [facility] Comment: Interpretive Data Percent cell count reference ranges are not reported, since discordance with absolute values may lead to misinterpretation of CBC data. Current Interpretive Data was last revised on 2017. Testing performed by: [facility], [address] [place] [phone] Basophil pct 0.7 % MARGARETTE SOSA Comment: Interpretive Data Percent cell count reference ranges are not reported, since discordance with absolute values may lead to misinterpretation of CBC data. Current Interpretive Data was last revised on 2017. Testing performed by: [facility], [address] [place] [phone] Blood 12/07/2024 9:22 AM CDT 12/07/2024 9:26 AM CDT Baltazar Mantilla MD LAB BLOOD ORDERABLES Final Resul t Performing Organization Address [facility] Co de Phone Number [facility] [place] [address] * Thyroid Function Grethel (12/07/2024 9:22 AM CDT) Pathologist [facility] TSH 2.91 0.30 - 4.20 mcIUnit/mL Blood 12/07/2024 9:22 AM CDT 12/07/2024 9:29 AM CDT Baltazar Mantilla MD LAB BLOOD ORDERABLES Final Resul t Performing Organization Address City/[facility] Co de Phone Number [facility] [place] [address] * (ABNORMAL) CBC with auto differential (12/07/2024 9:22 AM CDT) WBC 6.94 3.80 - 9.90 K/cumm Comment:Testing performed by : [facility], [address] [place] [phone] Hgb 11.3(L) 11.9 - 15.5 g/dL MARGARETTE HAMMOND Comment:Testing performed by : [facility], [address] [place], [place] [phone] Hct 33.9(L) 35.6 - 45.5 % CERNER [facility] Comment:Testing performed by : [facility], [address] [place], [place] [phone] Plt 235 150 - 400 K/cumm CERNER BJ Comment:Testing performed by : [facility], [address] [place], [place] [phone] MPV 7.9 6.8 - 10.4 fL CERNER [facility]J Comment:Testing performed by : [facility], [address] [place], [place] [phone] RBC 3.59(L) 3.90 - 5.20 M/cumm CERNER BJ Comment:Testing performed by : [facility], [address] [place], [place] [phone] MCV 94.4 81.3 - 96.4 fL CERNER BJ Comment:Testing performed by : [facility], [address] [place], [place] [phone] MCH 31.4 27.1 - 33.3 pg CERNER BJ Comment:Testing performed by : [facility], [address] [place], [place] [phone] MCHC 33.3 32.3 - 35.7 g/dL CERNER BJ Comment:Testing performed by : [facility], [address] [place], [place] [phone] RDW CV 17.4(H) 11.1 - 14.9 % CERNER BJ Comment:Testing performed by : [facility], [address] [place] [address] NRBC abs 0.00 0.00 - 0.01 K/cumm CERNER BJ Comment:Testing performed by : [facility], [address] [place], [place] [phone] Blood 12/07/2024 9:22 AM CDT 12/07/2024 9:26 AM CDT Baltazar Mantilla MD LAB BLOOD ORDERABLES Final Resul t [facility] [place] [address] * Comprehensive metabolic panel (12/07/2024 9:22 AM CDT) Sodium 141 135 - 145 mmol/L Potassium, pl 4.3 3.3 - 4.9 mmol/L [facility] Chloride 106 97 - 110 mmol/L [facility] CO2 25 22 - 32 mmol/L [facility] Anion gap 10 2 - 15 mmol/L [facility] BUN 14 6 - 25 mg/dL [facility] Creatinine 0.67 0.60 - 1.10 mg/dL [facility] Glucose 94 70 - 199 mg/dL [facility] Comment: Interpretive Data Fasting glucose >/= [...] 2022. Calcium 9.5 8.5 - 10.3 mg/dL [facility] Bilirubin, total 0.3 0.1 - 1.2 mg/dL [facility] Protein, pl 7.0 6.5 - 8.5 g/dL [facility] Albumin 4.2 3.5 - 5.0 g/dL [facility] Alk phos 74 40 - 130 Units/L [facility] ALT 14 7 - 45 Units/L [facility] AST 20 10 - 45 Units/L [facility] Blood 12/07/2024 9:22 AM CDT 12/07/2024 9:29 AM CDT Baltazar Mantilla MD LAB BLOOD ORDERABLES Final Resul t Performing Organization Address [facility] de Phone Number [facility] [place] [address] * eGFR (11/16/2024 9:15 AM CDT) eGFR >90 >=60 mL/min/1. 73 [...] AM CDT 11/16/2024 9:19 AM CDT us Baltazarsusan Mantilla MD LAB BLOOD ORDERABLES Final Resul t Performing Organization Address [facility] Co de Phone Number [facility] [place] [address] * (ABNORMAL) Differential, auto (11/16/2024 9:15 AM CDT) Neutrophil abs 6.58(H) 1.50 - 6.50 K/cumm Comment:Testing performed by : [facility], [address] [place] [phone] Lymphocyte abs 1.66 0.80 - 3.30 K/cumm [facility] Comment:Testing performed by : [facility], [address] [place] [phone] Monocyte abs 0.98(H) 0.20 - 0.80 K/cumm [facility] Comment:Testing performed by : [facility], [address] [place] [phone] Eosinophil abs 0.02 0.00 - 0.50 K/cumm [facility] Comment:Testing performed by : [facility], [address] [place] [phone] Basophil abs 0.05 0.00 - 0.10 K/cumm [facility] Comment:Testing performed by : [facility], [address] [place] [phone] Neutrophil pct 70.8 % [facility] Comment: Interpretive Data Percent cell count reference ranges are not reported, since discordance with absolute values may lead to misinterpretation of CBC data. Current Interpretive Data was last revised on 2017. Testing performed by: [facility], [address] [place] [phone] Lymphocyte pct 17.9 % [facility] Comment: Interpretive Data Percent cell count reference ranges are not reported, since discordance with absolute values may lead to misinterpretation of CBC data. Current Interpretive Data was last revised on 2017. Testing performed by: [facility], [address] [place] [phone] Monocyte pct 10.6 % [facility] Comment: Interpretive Data Percent cell count reference ranges are not reported, since discordance with absolute values may lead to misinterpretation of CBC data. Current Interpretive Data was last revised on 2017. Testing performed by: [facility], [address] [place] [phone] Eosinophil pct 0.2 % [facility] Comment: Interpretive Data Percent cell count reference ranges are not reported, since discordance with absolute values may lead to misinterpretation of CBC data. Current Interpretive Data was last revised on 2017. Testing performed by: [facility], [address] [place] [phone] Basophil pct 0.5 % [facility] Comment: Interpretive Data Percent cell count reference ranges are not reported, since discordance with absolute values may lead to misinterpretation of CBC data. Current Interpretive Data was last revised on 2017. Testing performed by: [facility], [address] [place] [address] Blood 11/16/2024 9:15 AM CDT 11/16/2024 9:17 AM CDT Baltazar Mantilla MD LAB BLOOD ORDERABLES Final Resul t [facility] [place] [address] * (ABNORMAL) CBC with auto differential (11/16/2024 9:15 AM CDT) WBC 9.28 3.80 - 9.90 K/cumm Comment:Testing performed by : [facility], [address] [place] [address] Hgb 11.1(L) 11.9 - 15.5 g/dL [facility] Comment:Testing performed by : [facility], [address] [place] [address] Hct 33.7(L) 35.6 - 45.5 % [facility] Comment:Testing performed by : [facility], [address] [place] [address] Plt 299 150 - 400 K/cumm [facility] Comment:Testing performed by : [facility], [address] [place] [address] MPV 8.3 6.8 - 10.4 fL [facility] Comment:Testing performed by : [facility], [address] [place] [address] RBC 3.54(L) 3.90 - 5.20 M/cumm [facility] Comment:Testing performed by : [facility], [address] [place] [address] MCV 95.1 81.3 - 96.4 fL [facility] Comment:Testing performed by : [facility], [address] [place] [phone] MCH 31.5 27.1 - 33.3 pg [facility]ET[facility] Comment:Testing performed by : [facility], [address] [place], [place] [phone] MCHC 33.1 32.3 - 35.7 g/dL MARGARETTE SOSA Comment:Testing performed by : [facility], [address] [place], [place] [phone] RDW CV 17.7(H) 11.1 - 14.9 % MARG[facility]ETTE [facility] Comment:Testing performed by : [facility], [address] [place], [place] [phone] NRBC abs 0.00 0.00 - 0.01 K/cumm [facility] Comment:Testing performed by : [facility], [address] [place], [place] [phone] Blood 11/16/2024 9:15 AM CDT 11/16/2024 9:17 AM CDT us Baltazarsusan Mantilla MD LAB BLOOD ORDERABLES Final Resul t [facility] [place] [address] * Comprehensive metabolic panel (11/16/2024 9:15 AM CDT) Sodium 143 135 - 145 mmol/L Potassium, pl 4.0 3.3 - 4.9 mmol/L [facility] Chloride 107 97 - 110 mmol/L [facility] CO2 25 22 - 32 mmol/L [facility] Anion gap 11 2 - 15 mmol/L [facility] BUN 12 6 - 25 mg/dL [facility] Creatinine 0.63 0.60 - 1.10 mg/dL [facility] Glucose 106 70 - 199 mg/dL [facility] Comment: Interpretive Data Fasting glucose >/= 126 [...] 2022. Calcium 9.4 8.5 - 10.3 mg/dL [facility] Bilirubin, total 0.2 0.1 - 1.2 mg/dL [facility] Protein, pl 7.3 6.5 - 8.5 g/dL [facility] Albumin 4.2 3.5 - 5.0 g/dL [facility] Alk phos 79 40 - 130 Units/L [facility] ALT 14 7 - 45 Units/L [facility] AST 21 10 - 45 Units/L [facility] Blood 11/16/2024 9:15 AM CDT 11/16/2024 9:19 AM CDT us Baltazarsusan Mantilla MD LAB BLOOD ORDERABLES Final Resul t [facility] [place] [address] * TRANSTHORACIC ECHO (TTE) COMPLETE W DOPPLER/CF W CONTRAST (10/26/2024 4:07 PM CDT) EF Mod BP 65 % CONS SCIMAGE Anatomical Region Laterality Modality Ultrasound 10/26/2024 3:02 PM CDT Narrative 10/27/2024 4:21 AM CDT [facility] [place] [address] Transthoracic Echocardiographic Report Patient Name: MESERET ORTIZ A : 1950 (74y 6m) Gender: F Study Date: 10/26/2024 03:02:12 PM Ht(Inch): 61 Wt(Lb): 126.98 BSA: 1.57 Cocoa Butter Filter Operator: Hina Fulton RDCS Location: [facility] Order Provider: BALTAZAR KING Heart Rate: 82 [...] therapeutic drug level monitoring and Z79.899 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 CONCLUSIONS: 1. 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 73 [...] MD LAB BLOOD ORDERABLES Final Resul t [facility] [place] [address] * Differential, auto (10/26/2024 9:23 AM CDT) Neutrophil abs 2.20 1.50 - 6.50 K/cumm Comment:Testing performed by : [facility], [address] [place] [phone] Lymphocyte abs 1.75 0.80 - 3.30 K/cumm [facility] Comment:Testing performed by : [facility], [address] [place], [place] [phone] Monocyte abs 0.54 0.20 - 0.80 K/cumm [facility] Comment:Testing performed by : [facility], [address] [place], [place] [phone] Eosinophil abs 0.07 0.00 - 0.50 K/cumm [facility] Comment:Testing performed by : [facility], [address] [place], [place] [phone] Basophil abs 0.02 0.00 - 0.10 K/cumm [facility] Comment:Testing performed by : [facility], [address] [place] [phone] Neutrophil pct 48.1 % [facility] Comment: Interpretive Data Percent cell count reference ranges are not reported, since discordance with absolute values may lead to misinterpretation of CBC data. Current Interpretive Data was last revised on 2017. Testing performed by: [facility], [address] [place] [phone] Lymphocyte pct 38.2 % [facility] Comment: Interpretive Data Percent cell count reference ranges are not reported, since discordance with absolute values may lead to misinterpretation of CBC data. Current Interpretive Data was last revised on 2017. Testing performed by: [facility], [address] [place] [phone] Monocyte pct 11.8 % [facility] Comment: Interpretive Data Percent cell count reference ranges are not reported, since discordance with absolute values may lead to misinterpretation of CBC data. Current Interpretive Data was last revised on 2017. Testing performed by: [facility], [address] [place] [phone] Eosinophil pct 1.5 % [facility] Comment: Interpretive Data Percent cell count reference ranges are not reported, since discordance with absolute values may lead to misinterpretation of CBC data. Current Interpretive Data was last revised on 2017. Testing performed by: [facility], [address] [place] [phone] Basophil pct 0.4 % [facility] Comment: Interpretive Data Percent cell count reference ranges are not reported, since discordance with absolute values may lead to misinterpretation of CBC data. Current Interpretive Data was last revised on 2017. Testing performed by: [facility], [address] [place] [phone] Blood 10/26/2024 9:23 AM CDT 10/26/2024 9:27 AM CDT Baltazar Mantilla MD LAB BLOOD ORDERABLES Final Resul t Performing Organization Address City/[facility]/ZIP Co de Phone Number MARG[facility]ETTE [facility] [place] [address] * Thyroid Function Grethel (10/26/2024 9:23 AM CDT) [facility] TSH 2.42 0.30 - 4.20 mcIUnit/mL Blood 10/26/2024 9:23 AM CDT 10/26/2024 9:27 AM CDT Baltazar Mantilla MD LAB BLOOD ORDERABLES Final Resul t Performing Organization Address [facility] Co de Phone Number [facility] [place] [address] * (ABNORMAL) CBC with auto differential (10/26/2024 9:23 AM CDT) [facility] WBC 4.57 3.80 - 9.90 K/cumm Comment:Testing performed by : [facility], [address] [place] [address] Hgb 11.4(L) 11.9 - 15.5 g/dL [facility] Comment:Testing performed by : [facility], [address] [place] [address] Hct 34.0(L) 35.6 - 45.5 % [facility] Comment:Testing performed by : [facility], [address] [place] [address] Plt 206 150 - 400 K/cumm [facility] Comment:Testing performed by : [facility], [address] [place] [address] MPV 8.1 6.8 - 10.4 fL [facility] Comment:Testing performed by : [facility], [address] [place] [address] RBC 3.66(L) 3.90 - 5.20 M/cumm [facility] Comment:Testing performed by : [facility], [address] [place], [place] [phone] MCV 93.0 81.3 - 96.4 fL MARGARETTE SOSA Comment:Testing performed by : [facility], [address] [place], [place] [phone] MCH 31.1 27.1 - 33.3 pg [facility]ARG[facility]ETTE [facility] Comment:Testing performed by : [facility], [address] [place], [place] [phone] MCHC 33.4 32.3 - 35.7 g/dL [facility]ARGARETTE SOS[facility] Comment:Testing performed by : [facility], [address] [place], [place] [phone] RDW CV 19.1(H) 11.1 - 14.9 % MARGARETTE SOSA Comment:Testing performed by : [facility], [address] [place], [place] [phone] NRBC abs 0.00 0.00 - 0.01 K/cumm [facility]ARGARETTE SOS[facility] Comment:Testing performed by : [facility], [address] [place], [place] [phone] Blood 10/26/2024 9:23 AM CDT 10/26/2024 9:27 AM CDT Baltazar Mantilla MD LAB BLOOD ORDERABLES Final Resul t [facility] [place] [address] * Comprehensive metabolic panel (10/26/2024 9:23 AM CDT) Sodium 141 135 - 145 mmol/L Potassium, pl 4.2 3.3 - 4.9 mmol/L [facility] Chloride 106 97 - 110 mmol/L [facility] CO2 25 22 - 32 mmol/L [facility] Anion gap 10 2 - 15 mmol/L [facility] BUN 16 6 - 25 mg/dL [facility] Creatinine 0.69 0.60 - 1.10 mg/dL [facility] Glucose 99 70 - 199 mg/dL [facility] Comment: Interpretive Data Fasting glucose >/= 126 [...] 2022. Calcium 9.4 8.5 - 10.3 mg/dL [facility] Bilirubin, total 0.4 0.1 - 1.2 mg/dL [facility] Protein, pl 7.4 6.5 - 8.5 g/dL [facility] Albumin 4.2 3.5 - 5.0 g/dL [facility] Alk phos 75 40 - 130 Units/L [facility] ALT 19 7 - 45 Units/L [facility] AST 23 10 - 45 Units/L [facility] Blood 10/26/2024 9:23 AM CDT 10/26/2024 9:27 AM CDT us Baltazar Mantilla MD LAB BLOOD ORDERABLES Final Resul t [facility] [place] [address] * eGFR (10/19/2024 8:42 AM CDT) eGFR [...] MD LAB BLOOD ORDERABLES Final Resul t [facility] [place] [address] * Differential, auto (10/19/2024 8:42 AM CDT) Neutrophil abs 1.76 1.50 - 6.50 K/cumm Comment:Testing performed by : [facility], [address] [place] [phone] Lymphocyte abs 1.21 0.80 - 3.30 K/cumm [facility] Comment:Testing performed by : [facility], [address] [place], [place] [phone] Monocyte abs 0.50 0.20 - 0.80 K/cumm [facility] Comment:Testing performed by : [facility], [address] [place] [phone] Eosinophil abs 0.02 0.00 - 0.50 K/cumm [facility] Comment:Testing performed by : [facility], [address] [place] [phone] Basophil abs 0.02 0.00 - 0.10 K/cumm [facility] Comment:Testing performed by : [facility], [address] [place], [place] [phone] Neutrophil pct 50.2 % [facility] Comment: Interpretive Data Percent cell count reference ranges are not reported, since discordance with absolute values may lead to misinterpretation of CBC data. Current Interpretive Data was last revised on 2017. Testing performed by: [facility], [address] [place] [phone] Lymphocyte pct 34.5 % MARGARETTE SOSA Comment: Interpretive Data Percent cell count reference ranges are not reported, since discordance with absolute values may lead to misinterpretation of CBC data. Current Interpretive Data was last revised on 2017. Testing performed by: [facility], [address] [place] [phone] Monocyte pct 14.2 % MARGARETTE HAMMOND Comment: Interpretive Data Percent cell count reference ranges are not reported, since discordance with absolute values may lead to misinterpretation of CBC data. Current Interpretive Data was last revised on 2017. Testing performed by: [facility], [address] [place] [phone] Eosinophil pct 0.5 % [facility]ARGARETTE HAMMOND Comment: Interpretive Data Percent cell count reference ranges are not reported, since discordance with absolute values may lead to misinterpretation of CBC data. Current Interpretive Data was last revised on 2017. Testing performed by: [facility], [address] [place] [phone] Basophil pct 0.6 % MARGARETTE SOSA Comment: Interpretive Data Percent cell count reference ranges are not reported, since discordance with absolute values may lead to misinterpretation of CBC data. Current Interpretive Data was last revised on 2017. Testing performed by: [facility], [address] [place] [phone] Blood 10/19/2024 8:42 AM CDT 10/19/2024 8:43 AM CDT us Baltazar Fa'nima CESAR LAB BLOOD ORDERABLES Final Resul t [facility]ARG[facility]ETTE HAM[facility] [place] [address] * Thyroid Function Grethel (10/19/2024 8:42 AM CDT) TSH 2.44 0.30 - 4.20 mcIUnit/mL Blood 10/19/2024 8:42 AM CDT 10/19/2024 8:54 AM CDT us Baltazar Mantilla MD LAB BLOOD ORDERABLES Final Resul t [facility] [place] [address] * (ABNORMAL) CBC with auto differential (10/19/2024 8:42 AM CDT) WBC 3.51(L) 3.80 - 9.90 K/cumm Comment:Testing performed by : [facility], [address] [place] [address] Hgb 10.8(L) 11.9 - 15.5 g/dL [facility] Comment:Testing performed by : [facility], [address] [place] [address] Hct 32.3(L) 35.6 - 45.5 % MARGARETTE SOSA Comment:Testing performed by : [facility], [address] [place] [address] Plt 143(L) 150 - 400 K/cumm MARGARETTE SOSA Comment:Testing performed by : [facility], [address] [place] [address] MPV 7.9 6.8 - 10.4 fL [facility] Comment:Testing performed by : [facility], [address] [place] [address] RBC 3.42(L) 3.90 - 5.20 M/cumm [facility] Comment:Testing performed by : [facility], [address] [place] [address] MCV 94.6 81.3 - 96.4 fL [facility] Comment:Testing performed by : [facility], [address] [place] [address] MCH 31.6 27.1 - 33.3 pg [facility] Comment:Testing performed by : [facility], [address] [place] [phone] MCHC 33.4 32.3 - 35.7 g/dL [facility] Comment:Testing performed by : [facility], [address] [place] [address] RDW CV 19.4(H) 11.1 - 14.9 % [facility] Comment:Testing performed by : [facility], [address] [place] [address] NRBC abs 0.00 0.00 - 0.01 K/cumm [facility] Comment:Testing performed by : [facility], [address] [place] [address] Blood 10/19/2024 8:42 AM CDT 10/19/2024 8:43 AM CDT us Baltazar Fa'nima CES[facility] LAB BLOOD ORDERABLES Final Resul t [facility] [place] [address] * Comprehensive metabolic panel (10/19/2024 8:42 AM CDT) Sodium 141 135 - 145 mmol/L Potassium, pl 4.3 3.3 - 4.9 mmol/L [facility] Chloride 106 97 - 110 mmol/L [facility] CO2 25 22 - 32 mmol/L [facility] Anion gap 10 2 - 15 mmol/L [facility] BUN 15 6 - 25 mg/dL [facility] Creatinine 0.71 0.60 - 1.10 mg/dL [facility] Glucose 112 70 - 199 mg/dL [facility] Comment: Interpretive Data Fasting glucose >/= [...] Calcium 9.3 8.5 - 10.3 mg/dL [facility] Bilirubin, total 0.5 0.1 - 1.2 mg/dL [facility] Protein, pl 7.3 6.5 - 8.5 g/dL [facility] Albumin 4.2 3.5 - 5.0 g/dL [facility] Alk phos 71 40 - 130 Units/L [facility] ALT 29 7 - 45 Units/L [facility] AST 29 10 - 45 Units/L [facility] Blood 10/19/2024 8:42 AM CDT 10/19/2024 8:54 AM CDT Baltazar Mantilla MD LAB BLOOD ORDERABLES Final Resul t [facility] [place] [address] * US Breast Right Limited (10/10/2024 9:10 [...] agrees with it. Electronically signed by: Jolanta Ferreiar M.D. 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 Evaluate for treatment [...] it. Electronically signed by: Jolanta Ferreira M.D. Baltazar Mantilla MD IMG MAMMO PROCEDURES Final Resul [...] AM CDT 10/05/2024 6:52 AM CDT us Baltazar Mantilla MD LAB BLOOD ORDERABLES Final Resul t MARGARETTE SOSA [facility] [place] [address] * (ABNORMAL) Differential, auto (10/05/2024 6:46 AM CDT) Neutrophil abs 1.70 1.50 - 6.50 K/cumm Comment:Testing performed by : [facility], [address] [place] [phone] Lymphocyte abs 0.75(L) 0.80 - 3.30 K/cumm MARGARETTE SOSA Comment:Testing performed by : [facility], [address] [place] [phone] Monocyte abs 0.24 0.20 - 0.80 K/cumm MARGARETTE SOSA Comment:Testing performed by : [facility], [address] [place], [place] [phone] Eosinophil abs 0.02 0.00 - 0.50 K/cumm MARGARETTE SOSA Comment:Testing performed by : [facility], [address] [place] [phone] Basophil abs 0.04 0.00 - 0.10 K/cumm MARGARETTE SOSA Comment:Testing performed by : [facility], [address] [place] [phone] Neutrophil pct 61.9 % MARGARETTE SOSA Comment: Interpretive Data Percent cell count reference ranges are not reported, since discordance with absolute values may lead to misinterpretation of CBC data. Current Interpretive Data was last revised on 2017. Testing performed by: [facility], [address] [place] [phone] Lymphocyte pct 27.4 % MARGARETTE SOSA Comment: Interpretive Data Percent cell count reference ranges are not reported, since discordance with absolute values may lead to misinterpretation of CBC data. Current Interpretive Data was last revised on 2017. Testing performed by: [facility], [address] [place] [phone] Monocyte pct 8.8 % MARGARETTE SOSA Comment: Interpretive Data Percent cell count reference ranges are not reported, since discordance with absolute values may lead to misinterpretation of CBC data. Current Interpretive Data was last revised on 2017. Testing performed by: [facility], [address] [place] [address] Eosinophil pct 0.6 % MARGARETTE SOSA Comment: Interpretive Data Percent cell count reference ranges are not reported, since discordance with absolute values may lead to misinterpretation of CBC data. Current Interpretive Data was last revised on 2017. Testing performed by: [facility], [address] [place] [phone] Basophil pct 1.4 % MARGARETTE SOSA Comment: Interpretive Data Percent cell count reference ranges are not reported, since discordance with absolute values may lead to misinterpretation of CBC data. Current Interpretive Data was last revised on 2017. Testing performed by: [facility], [address] [place] [phone] Blood 10/05/2024 6:46 AM CDT 10/05/2024 6:49 AM CDT us Baltazar Mantilla MD LAB BLOOD ORDERABLES Final Resul t MARGARETTE SOSA [facility] [place] [address] * (ABNORMAL) CBC with auto differential (10/05/2024 6:46 AM CDT) WBC 2.75(L) 3.80 - 9.90 K/cumm Comment:Testing performed by : [facility], [address] [place] [address] Hgb 10.3(L) 11.9 - 15.5 g/dL CERNER BJ Comment:Testing performed by : [facility], [address] [place] [address] Hct 30.0(L) 35.6 - 45.5 % CERNER BJ Comment:Testing performed by : [facility], [address] [place] [address] Plt 140(L) 150 - 400 K/cumm CERNER BJ Comment:Testing performed by : [facility], [address] [place] [address] MPV 8.3 6.8 - 10.4 fL CERNER BJ Comment:Testing performed by : [facility], [address] [place] [address] RBC 3.23(L) 3.90 - 5.20 M/cumm CERNER BJ Comment:Testing performed by : [facility], [address] [place] [address] MCV 92.8 81.3 - 96.4 fL CERNER BJ Comment:Testing performed by : [facility], [address] [place] [address] MCH 31.9 27.1 - 33.3 pg CERNER BJ Comment:Testing performed by : [facility], [address] [place] [address] MCHC 34.3 32.3 - 35.7 g/dL CERNER BJ Comment:Testing performed by : [facility], [address] [place] [address] RDW CV 19.1(H) 11.1 - 14.9 % CERNER BJ Comment:Testing performed by : [facility], [address] [place] [address] NRBC abs 0.00 0.00 - 0.01 K/cumm [facility] Comment:Testing performed by : [facility], [address] [place] [phone] Blood 10/05/2024 6:46 AM CDT 10/05/2024 6:49 AM CDT us Baltazar Mantilla MD LAB BLOOD ORDERABLES Final Resul t [facility] [place] [address] * Comprehensive metabolic panel (10/05/2024 6:46 AM CDT) Sodium 141 135 - 145 mmol/L Potassium, pl 3.8 3.3 - 4.9 mmol/L [facility] Chloride 106 97 - 110 mmol/L [facility] CO2 25 22 - 32 mmol/L [facility] Anion gap 10 2 - 15 mmol/L [facility] BUN 15 6 - 25 mg/dL [facility] Creatinine 0.68 0.60 - 1.10 mg/dL [facility] Glucose 120 70 - 199 mg/dL [facility] Comment: Interpretive Data Fasting glucose >/= [...] 2022. Calcium 9.1 8.5 - 10.3 mg/dL [facility] Bilirubin, total 0.4 0.1 - 1.2 mg/dL [facility] Protein, pl 7.1 6.5 - 8.5 g/dL [facility] Albumin 4.0 3.5 - 5.0 g/dL [facility] Alk phos 66 40 - 130 Units/L [facility] ALT 23 7 - 45 Units/L [facility] AST 26 10 - 45 Units/L [facility] Blood 10/05/2024 6:46 AM CDT 10/05/2024 6:52 AM CDT Baltazar Mantilla MD LAB BLOOD ORDERABLES Final Resul t Performing Organization Address City/[facility]/ZIP Co de Phone Number [facility] [place] [address] * eGFR (09/28/2024 6:42 AM CDT) eGFR [...] 6:42 AM CDT 09/28/2024 6:51 AM CDT Baltazar Mantilla MD LAB BLOOD ORDERABLES Final Resul t [facility] [place] [address] * Differential, auto (09/28/2024 6:42 AM CDT) Neutrophil abs 2.09 1.50 - 6.50 K/cumm Comment:Testing performed by : [facility], [address] [place], [place] [id number] Lymphocyte abs 1.04 0.80 - 3.30 K/cumm [facility] Comment:Testing performed by : [facility], [address] [place], [place] [phone] Monocyte abs 0.32 0.20 - 0.80 K/cumm [facility] Comment:Testing performed by : [facility], [address] [place], [place] [phone] Eosinophil abs 0.01 0.00 - 0.50 K/cumm [facility] Comment:Testing performed by : [facility], [address] [place], [place] [id number] Basophil abs 0.04 0.00 - 0.10 K/cumm [facility] Comment:Testing performed by : [facility], [address] [place], [place] [phone] Neutrophil pct 59.7 % [facility] Comment: Interpretive Data Percent cell count reference ranges are not reported, since discordance with absolute values may lead to misinterpretation of CBC data. Current Interpretive Data was last revised on 2017. Testing performed by: [facility], [address] [place], [place] [phone] Lymphocyte pct 29.7 % [facility] Comment: Interpretive Data Percent cell count reference ranges are not reported, since discordance with absolute values may lead to misinterpretation of CBC data. Current Interpretive Data was last revised on 2017. Testing performed by: [facility], [address] [place] [phone] Monocyte pct 9.1 % [facility] Comment: Interpretive Data Percent cell count reference ranges are not reported, since discordance with absolute values may lead to misinterpretation of CBC data. Current Interpretive Data was last revised on 2017. Testing performed by: [facility], [address] [place], [place] [phone] Eosinophil pct 0.3 % [facility] Comment: Interpretive Data Percent cell count reference ranges are not reported, since discordance with absolute values may lead to misinterpretation of CBC data. Current Interpretive Data was last revised on 2017. Testing performed by: [facility], [address] [place] [phone] Basophil pct 1.2 % MARGARETTE SOSA Comment: Interpretive Data Percent cell count reference ranges are not reported, since discordance with absolute values may lead to misinterpretation of CBC data. Current Interpretive Data was last revised on 2017. Testing performed by: [facility], [address] [place] [address] Blood 09/28/2024 6:42 AM CDT 09/28/2024 6:44 AM CDT Baltazar Mantilla MD LAB BLOOD ORDERABLES Final Resul t MARGARETTE SOSA [facility] [place] [address] * (ABNORMAL) CBC with auto differential (09/28/2024 6:42 AM CDT) WBC 3.50(L) 3.80 - 9.90 K/cumm Comment:Testing performed by : [facility], [address] [place] [address] Hgb 10.9(L) 11.9 - 15.5 g/dL MARGARETTE SOSA Comment:Testing performed by : [facility], [address] [place] [address] Hct 31.6(L) 35.6 - 45.5 % MARGARETTE SOSA Comment:Testing performed by : [facility], [address] [place] [address] Plt 190 150 - 400 K/cumm MARGARETTE SOSA Comment:Testing performed by : [facility], [address] [place] [address] MPV 8.5 6.8 - 10.4 fL MARGARETTE SOSA Comment:Testing performed by : [facility], [address] [place] [phone] RBC 3.41(L) 3.90 - 5.20 M/cumm MARGARETTE SOSA Comment:Testing performed by : [facility], [address] [place], [place] [phone] MCV 92.6 81.3 - 96.4 fL MARGARETTE SOSA Comment:Testing performed by : [facility], [address] [place], [place] [phone] MCH 31.9 27.1 - 33.3 pg MARGARETTE SOSA Comment:Testing performed by : [facility], [address] [place], [place] [phone] MCHC 34.5 32.3 - 35.7 g/dL MARGARETTE SOSA Comment:Testing performed by : [facility], [address] [place], [place] [phone] RDW CV 18.6(H) 11.1 - 14.9 % MARGARETTE SOSA Comment:Testing performed by : [facility], [address] [place] [address] NRBC abs 0.00 0.00 - 0.01 K/cumm MARGARETTE [facility] Comment:Testing performed by : [facility], [address] [place], [place] [phone] Blood 09/28/2024 6:42 AM CDT 09/28/2024 6:44 AM CDT us Baltazarsusan Mantilla MD LAB BLOOD ORDERABLES Final Resul t MARGARETTE [facility] [place] [address] * Comprehensive metabolic panel (09/28/2024 6:42 AM CDT) Sodium 140 135 - 145 mmol/L Potassium, pl 4.0 3.3 - 4.9 mmol/L [facility] Chloride 105 97 - 110 mmol/L [facility] CO2 26 22 - 32 mmol/L [facility] Anion gap 9 2 - 15 mmol/L [facility] BUN 19 6 - 25 mg/dL [facility] Creatinine 0.69 0.60 - 1.10 mg/dL [facility] Glucose 116 70 - 199 mg/dL [facility] Comment: Interpretive Data Fasting glucose >/= [...] 2022. Calcium 9.4 8.5 - 10.3 mg/dL [facility] Bilirubin, total 0.5 0.1 - 1.2 mg/dL [facility] Protein, pl 7.4 6.5 - 8.5 g/dL [facility] Albumin 4.1 3.5 - 5.0 g/dL [facility] Alk phos 75 40 - 130 Units/L [facility] ALT 21 7 - 45 Units/L [facility] AST 23 10 - 45 Units/L [facility] Blood 09/28/2024 6:42 AM CDT 09/28/2024 6:51 AM CDT us Baltazarsusan Mantilla MD LAB BLOOD ORDERABLES Final Resul t [facility] [place] [address] * eGFR (09/21/2024 9:24 AM CDT) eGFR [...] CDT 09/21/2024 9:27 AM CDT us Baltazar Mantilla MD LAB BLOOD ORDERABLES Final Resul t [facility] [place] [address] * (ABNORMAL) CBC with auto differential (09/21/2024 9:24 AM CDT) WBC 3.8 3.8 - 9.9 K/cumm Comment:Testing performed by : [facility], [address] [place] [address] Hgb 11.0(L) 11.9 - 15.5 g/dL MARGARETTE [facility] Comment:Testing performed by : [facility], [address] [place] [address] Hct 32.5(L) 35.6 - 45.5 % MARGARETTE [facility] Comment:Testing performed by : [facility], [address] [place] [address] Plt 239 150 - 400 K/cumm MARGARETTE [facility] Comment:Testing performed by : [facility], [address] [place] [address] MPV 8.7 6.8 - 10.4 fL MARGARETTE [facility] Comment:Testing performed by : [facility], [address] [place] [address] RBC 3.50(L) 3.90 - 5.20 M/cumm MARGARETTE SOSA Comment:Testing performed by : [facility], [address] [place] [address] MCV 92.6 81.3 - 96.4 fL MARGARETTE SOSA Comment:Testing performed by : [facility], [address] [place] [address] MCH 31.5 27.1 - 33.3 pg MARGARETTE SOSA Comment:Testing performed by : [facility], [address] [place] [address] MCHC 34.0 32.3 - 35.7 g/dL MARGARETTE SOSA Comment:Testing performed by : [facility], [address] [place] [address] RDW CV 18.2(H) 11.1 - 14.9 % MARGARETTE SOSA Comment:Testing performed by : [facility], [address] [place] [address] NRBC abs 0.00 0.00 - 0.01 K/cumm MARGARETTE SOSA Comment:Testing performed by : [facility], [address] [place] [address] Blood 09/21/2024 9:24 AM CDT 09/21/2024 9:25 AM CDT us Baltazar Mantilla MD LAB BLOOD ORDERABLES Edited Resu lt - Final MARGARETTE SOSA [facility] [place] [address] * (ABNORMAL) Manual Differential (09/21/2024 9:24 AM CDT) Cells Counted 200 Comment:Testing performed by : [facility], [address] [place] [address] Neutrophil abs 2.5 1.5 - 6.5 K/cumm MARGARETTE SOSA Comment:Testing performed by : [facility], [address] [place] [phone] Lymphocyte abs 1.1 0.8 - 3.3 K/cumm [facility] Comment:Testing performed by : [facility], [address] [place] [phone] Monocyte abs 0.2 0.2 - 0.8 K/cumm [facility] Comment:Testing performed by : [facility], [address] [place] [phone] Eosinophil abs 0.0 0.0 - 0.5 K/cumm [facility] Comment:Testing performed by : [facility], [address] [place] [phone] Basophil abs 0.0 0.0 - 0.1 K/cumm [facility] Comment:Testing performed by : [facility], [address] [place] [phone] Neutrophil pct 65.0 % [facility] Comment: Interpretive Data Percent cell count reference ranges are not reported, since discordance with absolute values may lead to misinterpretation of CBC data. Current Interpretive Data was last revised on 2017. Testing performed by: [facility], [address] [place] [phone] Lymphocyte pct 29.0 % [facility] Comment: Interpretive Data Percent cell count reference ranges are not reported, since discordance with absolute values may lead to misinterpretation of CBC data. Current Interpretive Data was last revised on 2017. Testing performed by: [facility], [address] [place] [phone] Monocyte pct 6.0 % [facility] Comment: Interpretive Data Percent cell count reference ranges are not reported, since discordance with absolute values may lead to misinterpretation of CBC data. Current Interpretive Data was last revised on 2017. Testing performed by: [facility], [address] [place] [phone] Eosinophil pct 0.0 % [facility] Comment: Interpretive Data Percent cell count reference ranges are not reported, since discordance with absolute values may lead to misinterpretation of CBC data. Current Interpretive Data was last revised on 2017. Testing performed by: [facility], [address] [place], [place] [phone] Basophil pct 1.0 % MARGARETTE [facility] Comment: Interpretive Data Percent cell count reference ranges are not reported, since discordance with absolute values may lead to misinterpretation of CBC data. Current Interpretive Data was last revised on 2017. Testing performed by: [facility], [address] [place] [address] Myelocyte pct 1.0(H) 0.0 - 0.0 % MARGARETTE [facility] Comment:Testing performed by : [facility], [address] [place] [address] RBC morphology NRBCs present(A) MARGARETTE [facility] Comment:Testing performed by : [facility], [address] [place] [address] Anisocytosis 1+(A) MARGARETTE [facility] Comment:Testing performed by : [facility], [address] [place] [address] Platelet estimate Adequate MARGARETTE [facility] Comment:Testing performed by : [facility], [address] [place], [place] [id number] Blood 09/21/2024 9:24 AM CDT 09/21/2024 9:25 AM CDT us Baltazarsusan Mantilla MD LAB BLOOD ORDERABLES Final Resul t [facility] [place] [address] * Comprehensive metabolic panel (09/21/2024 9:24 AM CDT) Sodium 144 135 - 145 mmol/L Potassium, pl 4.6 3.3 - 4.9 mmol/L [facility] Chloride 108 97 - 110 mmol/L [facility] CO2 26 22 - 32 mmol/L [facility] Anion gap 10 2 - 15 mmol/L [facility] BUN 16 6 - 25 mg/dL [facility] Creatinine 0.71 0.60 - 1.10 mg/dL [facility] Glucose 106 70 - 199 mg/dL [facility] Comment: Interpretive Data Fasting glucose >/= [...] 2022. Calcium 10.1 8.5 - 10.3 mg/dL [facility] Bilirubin, total 0.3 0.1 - 1.2 mg/dL [facility] Protein, pl 7.7 6.5 - 8.5 g/dL [facility] Albumin 4.3 3.5 - 5.0 g/dL [facility] Alk phos 76 40 - 130 Units/L [facility] ALT 23 7 - 45 Units/L [facility] AST 23 10 - 45 Units/L [facility] Blood 09/21/2024 9:24 AM CDT 09/21/2024 9:27 AM CDT us Baltazarsusan Mantilla MD LAB BLOOD ORDERABLES Final Resul t [facility] [place] [address] * eGFR (09/14/2024 7:52 AM CDT) eGFR [...] MD LAB BLOOD ORDERABLES Final Resul t [facility] [place] [address] * (ABNORMAL) Differential, auto (09/14/2024 7:52 AM CDT) Neutrophil abs 1.4(L) 1.5 - 6.5 K/cumm Imm gran abs 0.0 0.0 - 0.1 K/cumm [facility] Lymphocyte abs 1.2 0.8 - 3.3 K/cumm [facility] Monocyte abs 0.3 0.2 - 0.8 K/cumm [facility] Eosinophil abs 0.0 0.0 - 0.5 K/cumm [facility] Basophil abs 0.0 0.0 - 0.1 K/cumm [facility] Neutrophil pct 47.0 % [facility] Comment: Interpretive Data Percent cell count reference ranges are not reported, since discordance with absolute values may lead to misinterpretation of CBC data. Current Interpretive Data was last revised on 2017. Imm gran pct 1.0 % [facility] Comment: Interpretive Data Percent cell count reference ranges are not reported, since discordance with absolute values may lead to misinterpretation of CBC data. Current Interpretive Data was last revised on 2017. Lymphocyte pct 39.4 % [facility] Comment: Interpretive Data Percent cell count reference ranges are not reported, since discordance with absolute values may lead to misinterpretation of CBC data. Current Interpretive Data was last revised on 2017. Monocyte pct 11.3 % [facility] Comment: Interpretive Data Percent cell count reference ranges are not reported, since discordance with absolute values may lead to misinterpretation of CBC data. Current Interpretive Data was last revised on 2017. Eosinophil pct 0.3 % [facility] Comment: Interpretive Data Percent cell count reference ranges are not reported, since discordance with absolute values may lead to misinterpretation of CBC data. Current Interpretive Data was last revised on 2017. Basophil pct 1.0 % [facility] Comment: Interpretive Data Percent cell count reference ranges are not reported, since discordance with absolute values may lead to misinterpretation of CBC data. Current Interpretive Data was last revised on 2017. Blood 09/14/2024 7:52 AM CDT 09/14/2024 8:09 AM CDT us Baltazarsusan Mantilla MD LAB BLOOD ORDERABLES Final Resul t [facility] [place] [address] * (ABNORMAL) CBC with auto differential (09/14/2024 7:52 AM CDT) WBC 2.9(L) 3.8 - 9.9 K/cumm Hgb 10.5(L) 11.9 - 15.5 g/dL [facility] Hct 31.6(L) 35.6 - 45.5 % [facility] Plt 235 150 - 400 K/cumm [facility] MPV 10.5 9.1 - 12.3 fL [facility] RBC 3.38(L) 3.90 - 5.20 M/cumm [facility] MCV 93.5 81.3 - 96.4 fL [facility] MCH 31.1 27.1 - 33.3 pg [facility] MCHC 33.2 32.3 - 35.7 g/dL [facility] RDW CV 16.2(H) 11.1 - 14.9 % [facility] RDW SD 53.5(H) 35.7 - 48.1 fL [facility] NRBC abs 0.00 0.00 - 0.01 K/cumm [facility] Blood 09/14/2024 7:52 AM CDT 09/14/2024 8:09 AM CDT us Baltazar Mantilla MD LAB BLOOD ORDERABLES Final Resul t [facility] [place] [address] * Comprehensive metabolic panel (09/14/2024 7:52 AM CDT) Sodium 142 135 - 145 mmol/L Potassium, pl 4.1 3.3 - 4.9 mmol/L [facility] Chloride 106 97 - 110 mmol/L [facility] CO2 26 22 - 32 mmol/L [facility] Anion gap 10 2 - 15 mmol/L [facility] BUN 15 6 - 25 mg/dL [facility] Creatinine 0.79 0.60 - 1.10 mg/dL [facility] Glucose 95 70 - 199 mg/dL [facility] Comment: Interpretive Data Fasting glucose >/= [...] 2022. Calcium 9.4 8.5 - 10.3 mg/dL [facility] Bilirubin, total 0.4 0.1 - 1.2 mg/dL [facility] Protein, pl 7.3 6.5 - 8.5 g/dL [facility] Albumin 4.2 3.5 - 5.0 g/dL [facility] Alk phos 83 40 - 130 Units/L [facility] ALT 27 7 - 45 Units/L [facility] AST 23 10 - 45 Units/L [facility] Blood 09/14/2024 7:52 AM CDT 09/14/2024 8:09 AM CDT Baltazar Mantilla MD LAB BLOOD ORDERABLES Final Resul t Performing Organization Address [facility] de Phone Number [facility] [place] [address] * eGFR (09/07/2024 6:58 AM CDT) eGFR [...] ORDERABLES Final Resul t Performing Organization Address [facility] Co de Phone Number [facility] [place] [address] * (ABNORMAL) Differential, auto (09/07/2024 6:58 AM CDT) Neutrophil abs 1.1(L) 1.5 - 6.5 K/cumm Comment:Testing performed by : [facility], [address] [place] [phone] Lymphocyte abs 0.9 0.8 - 3.3 K/cumm [facility] Comment:Testing performed by : [facility], [address] [place] [phone] Monocyte abs 0.2 0.2 - 0.8 K/cumm [facility] Comment:Testing performed by : [facility], [address] [place] [phone] Eosinophil abs 0.0 0.0 - 0.5 K/cumm [facility] Comment:Testing performed by : [facility], [address] [place], [place] [phone] Basophil abs 0.0 0.0 - 0.1 K/cumm [facility] Comment:Testing performed by : [facility], [address] [place] [phone] Neutrophil pct 51.0 % [facility] Comment: Interpretive Data Percent cell count reference ranges are not reported, since discordance with absolute values may lead to misinterpretation of CBC data. Current Interpretive Data was last revised on 2017. Testing performed by: [facility], [address] [place] [phone] Lymphocyte pct 38.9 % [facility] Comment: Interpretive Data Percent cell count reference ranges are not reported, since discordance with absolute values may lead to misinterpretation of CBC data. Current Interpretive Data was last revised on 2017. Testing performed by: [facility], [address] [place] [phone] Monocyte pct 7.8 % [facility] Comment: Interpretive Data Percent cell count reference ranges are not reported, since discordance with absolute values may lead to misinterpretation of CBC data. Current Interpretive Data was last revised on 2017. Testing performed by: [facility], [address] [place] [phone] Eosinophil pct 1.2 % [facility] Comment: Interpretive Data Percent cell count reference ranges are not reported, since discordance with absolute values may lead to misinterpretation of CBC data. Current Interpretive Data was last revised on 2017. Testing performed by: [facility], [address] [place] [address] Basophil pct 1.1 % [facility] Comment: Interpretive Data Percent cell count reference ranges are not reported, since discordance with absolute values may lead to misinterpretation of CBC data. Current Interpretive Data was last revised on 2017. Testing performed by: [facility], [address] [place] [address] Blood 09/07/2024 6:58 AM CDT 09/07/2024 7:03 AM CDT Baltazar Mantilla MD LAB BLOOD ORDERABLES Final Resul t [facility] [place] [address] * (ABNORMAL) CBC with auto differential (09/07/2024 6:58 AM CDT) WBC 2.2(L) 3.8 - 9.9 K/cumm Comment:Testing performed by : [facility], [address] [place] [address] Hgb 11.2(L) 11.9 - 15.5 g/dL [facility] Comment:Testing performed by : [facility], [address] [place] [address] Hct 32.9(L) 35.6 - 45.5 % [facility] Comment:Testing performed by : [facility], [address] [place] [address] Plt 177 150 - 400 K/cumm [facility] Comment:Testing performed by : [facility], [address] [place] [address] MPV 8.1 6.8 - 10.4 fL [facility] Comment:Testing performed by : [facility], [address] [place] [address] RBC 3.60(L) 3.90 - 5.20 M/cumm [facility] Comment:Testing performed by : [facility], [address] [place] [address] MCV 91.4 81.3 - 96.4 fL [facility] Comment:Testing performed by : [facility], [address] [place] [address] MCH 31.2 27.1 - 33.3 pg [facility] Comment:Testing performed by : [facility], [address] [place] [address] MCHC 34.1 32.3 - 35.7 g/dL [facility] Comment:Testing performed by : [facility], [address] [place] [address] RDW CV 15.9(H) 11.1 - 14.9 % [facility] Comment:Testing performed by : [facility], [address] [place] [address] NRBC abs 0.00 0.00 - 0.01 K/cumm [facility] Comment:Testing performed by : [facility], [address] [place] [address] Blood 09/07/2024 6:58 AM CDT 09/07/2024 7:03 AM CDT us Baltazar Mantilla MD LAB BLOOD ORDERABLES Final Resul t [facility] [place] [address] * Comprehensive metabolic panel (09/07/2024 6:58 AM CDT) Sodium 143 135 - 145 mmol/L Potassium, pl 3.8 3.3 - 4.9 mmol/L [facility] Chloride 108 97 - 110 mmol/L [facility] CO2 25 22 - 32 mmol/L [facility] Anion gap 10 2 - 15 mmol/L [facility] BUN 11 6 - 25 mg/dL [facility] Creatinine 0.77 0.60 - 1.10 mg/dL [facility] Glucose 117 70 - 199 mg/dL [facility] Comment: Interpretive Data Fasting glucose >/= [...] 2022. Calcium 9.4 8.5 - 10.3 mg/dL [facility] Bilirubin, total 0.3 0.1 - 1.2 mg/dL [facility] Protein, pl 7.3 6.5 - 8.5 g/dL [facility] Albumin 4.2 3.5 - 5.0 g/dL [facility] Alk phos 71 40 - 130 Units/L [facility] ALT 26 7 - 45 Units/L [facility] AST 21 10 - 45 Units/L [facility] Blood 09/07/2024 6:58 AM CDT 09/07/2024 7:05 AM CDT us Baltazar Mantilla MD LAB BLOOD ORDERABLES Final Resul t [facility] [place] [address] from Last 3 Months Insurance MEDICARE [facility] MEDICARE SUPPLEMENT MEDICARE [facility] MEDICARE SUPPLEMENT Care Teams Sign Shop Supervisor Relationship Specialty Start Date End Date Unknown, Notinfile PCP - General 01/21/24
--- OUTSIDE RECORDS SUMMARY | 2024-12-08 17:17 | XMS_ITS | Encounter Summary ---
Author Organization [facility] Healthcare Address [address] [place] [address] Care Team Providers Care Grants Assistant Name Role Phone Unknown, Notinfile Primary Care Provider Unavail able Reason for Visit * Reason Comments OP Infusion * Episode Based Medications (Routine) - Authorized Specialty Diagnoses / Procedures Referred By Contac t Referred To Contact Diagnoses Prevention of chemotherapy-induced neutropenia Malignant neoplasm of upper-outer quadrant of right breast in female, estrogen receptor negative (HCC) Nausea and vomiting, unspecified vomiting type Baltazar Mantilla MD [address] [place] [address] Phone: tel: fax: [facility] - Infusion [address] [facility] [address] [place] [address] Referral ID Status Reason Start Date Expiration Date V isits Requested Visits Authorized [id number] Authorized 07/06/2024 08/05/2025 1 40 Encounter Details Date Type Department Care Team (Late st Contact Info) Description 12/07/2024 11:30 AM CDT Infusion [facility] - Infusion [address] [facility] [address] [place] [address] Nausea and vomiting, unspecified vomiting type (Primary Dx); Prevention of chemotherapy-induced neutropenia; Malignant neoplasm of upper-outer quadrant of right breast in female, estrogen receptor negative (HCC) Social History Tobacco Use Types Packs/Day Years [...] on file documented as of this encounter Nursing Notes * Zach Whitney RN - 12/07/2024 11:30 AM CDT Oncology Nursing Note [facility] - INFUSION Meseret Ortiz is a 74 y.o. female who presents for treatment cycle 7, day 1 of pembrolizumab. Pre-treatment Nursing Assessment Nursing Assessment LOC: Awake, Alert Constitutional: Fatigue, Weakness Fatigue: Constant Any falls since your last visit?: No Orientation: Oriented x4 Behavior: Calm Speech: Clear Language: No aphasia Vision: At baseline Peripheral Neuropathy: Yes (Worsening pain, patient states team is aware.) Oral Mucosa Grade: Normal (0) Shortness of Breath?: Yes Respiratory Effort Characteristics: Dyspnea exertion Cough: Absent Appetite: Fair Nausea/Vomiting: No Abdomen: Soft Diarrhea: Yes (Intermittent between both, controlled per patient.) Constipation: Yes Last BM Date: 12/07/24 Skin Condition/Temp: Warm, Dry Swelling: No Encounter Vitals BP: 104/67 (12/07/2024 9:36 AM) Pulse: 92 (12/07/2024 9:36 AM) Resp: 20 (12/07/2024 9:36 AM) Temp: 36.4 ??C (97.6 ??F) (12/07/2024 9:36 AM) Temp src: Oral (12/07/2024 9:36 AM) SpO2: 98 % (12/07/2024 9:36 AM) Weight: 55.5 kg (122 lb 6.4 oz) (12/07/2024 9:36 AM) Height: 155 cm (5' 1.02) (12/07/2024 9:36 AM) Pain Score: 0 - No pain Treatment Patient: met treatment parameters Pre blood return: Nilesh Ortiz tolerated treatment well. Patient was frequently observed and monitored throughout the administration of their treatment. Post blood return: Brisk IV access post infusion: NS Patient Education Treatment Education: Information/teaching given to patient including process and procedure related to today's visit Response: Verbalizes understanding Discharge Plan Discharge instructions given to patient. Future appointments given and reviewed with treatment plan. Discharge Mode: Ambulatory Accompanied by: Self and Family Discharged To: Home documented in this encounter Plan of Treatment Not on file documented as of this encounter Visit Diagnoses Diagnosis Nausea and vomiting, unspecified vomiting type- Primary Prevention of chemotherapy-induced neutropenia Malignant neoplasm of upper-outer quadrant of right breast in female, estrogen receptor negative (HCC) documented in this encounter Administered Medications Inactive Administered Medications - up to 3 most recent administrations Medication Order MAR Action Action Date Dose Rate Site pembrolizumab (KEYTRUDA) 200 mg in sodium chloride 0.9% 100 mL 200 mg, intravenous, at 236 mL/hr, Administer over 30 Minutes, Once, On Kelly 12/07/24 at 1200, For 1 dose, Use 0.2-5 micron filterIndications:Prevention of chemotherapy-induced neutropenia,Malignant neoplasm of upper-outer quadrant of right breast in female, estrogen receptor negative (HCC),Nausea and vomiting, unspecified vomiting type New Bag 12/07/2024 11:49 AM CDT 200 mg 236 mL/hr documented in this encounter Orders Medications Ordered That Sohail ht Not Have Been Administered Count Last Ordered Date First Ordered Date pembrolizumab (KEYTRUDA) 200 mg in sodium chloride 0.9% 100 mL 1 12/07/2024 Nursing Count Last Ordered Date First Orde red Date ONCBCN NURSING COMMUNICATION [id number] 1 0 12/07/2024 ONCBCN TREATMENT PARAMETERS 7 1 12/07/2024 Appointment Requests Count Last Ordered Date Fi rst Ordered Date ONCBCN RETURN CHEMO 2.5HRS 1 12/07/2024 documented in this encounter Care Teams Grants Assistant Relationship Specialty Start Date End Date Unknown, Notinfile PCP - General 01/21/24 documented as of this encounter
--- OUTSIDE RECORDS SUMMARY | 2024-12-08 17:17 | XMS_ITS | Encounter Summary ---
Author Organization [facility] [place] Address [address] [place] [address] Phone Care Team Providers Care Scout Professional Sports Name Role Phone Unknown, Notinfile Primary Care Provider Unavail able Encounter Details Date Type Department Care Team (Late st Contact Info) Description 12/07/2024 10:15 AM CDT Office Visit [facility] Oncology [address] [facility] Floor [address] [place] [id number] Baltazar Mantilla MD [address] [place], [place] [id number] Nausea and vomiting, unspecified vomiting type (Primary [...] on file documented as of this encounter Last Filed Vital Signs Vital Sign Reading [...] Mass Index 23.11 12/07/2024 9:36 AM CDT documented in this encounter Progress Notes * Baltazar Mantilla MD - 12/07/2024 10:15 AM CDT Images from the original note were not included. CHIEF COMPLAINT/DIAGNOSIS: Cancer Staging Malignant neoplasm of upper-outer quadrant of right breast in female, estrogen receptor negative (HCC) Staging form: Breast, AJCC 8th Edition - Clinical: Stage IIB (cT2, cN1, cM0, G3, ER+, VA+, HER2-) - Unsigned Treatment History: 07/20/2023 Neoadjuvant CarboTaxol then 2 cycles of AC with pembrolizumab (AC discontinued due to intolerance) Interval History: Meseret Ortiz is here for follow-up and treatment. Since her last visit, she reports fatigue with worsening persistent neuropathy which is impacting mobility and ADLs. She denies fever, chills, persistent cough, shortness of breath, chest pain, nausea, vomiting, abdominal pain, dysuria, or hematuria, headache, visual changes, rash, joint pain, recent illnesses, change in medication or hospital admissions. REVIEW OF SYSTEMS: All other systems negative except symptoms in HPI. PAST MEDICAL HISTORY: Past Medical History: Diagnosis Date Arthritis Chronic disorder of skin Herpes High cholesterol Osteoporosis Overweight Peptic ulcer disease PONV (postoperative nausea and vomiting) PAST SURGICAL HISTORY: Past Surgical History: Procedure Laterality Date BREAST BIOPSY Right 06/05/2024 BREAST BIOPSY Right 07/05/2024 CATARACT EXTRACTION N/A 2009 CATARACT EXTRACTION Left 2014 COLONOSCOPY DILATION AND CURETTAGE OF UTERUS 1988 ESOPHAGOGASTRODUODENOSCOPY 10/27/2019 with biopsy OTHER SURGICAL HISTORY 1998 surgical margins (rt) shoulder melanoma FAMILY HISTORY: Family History Problem Relation Age of Onset Kidney cancer Father 32 Melanoma Brother 45 Lung cancer Maternal Grandmother 80 Lung cancer Maternal Grandfather 80 Melanoma Son 57 Breast cancer Other 50 Anesthesia problems Neg Hx SOCIAL HISTORY: reports that she has never smoked. She has never used smokeless tobacco. She reports that she does not use drugs. Patient reports consuming alcoholic drinks monthly or less, with a daily consumption of drinks. Patient also reports weekly consumption of 6 or more alcoholic drinks at one occasion. ALLERGIES: Allergies Allergen Reactions Codeine Nausea And Vomiting Banana Nausea & Vomiting Egg Nausea & Vomiting MEDICATIONS: Current Outpatient Medications: acyclovir (ZOVIRAX) 400 mg tablet atorvastatin (LIPITOR) 10 mg tablet BETAMETHASONE MISC cholecalciferol, vitamin D3, (VITAMIN D3 ORAL) cyanocobalamin (Vitamin B-12) 1,000 mcg tablet dexAMETHasone (DECADRON) [address] (CYMBALTA) 60 mg capsule famotidine (PEPCID) 20 mg tablet ibuprofen 200 mg tab/cap lidocaine-prilocaine cream loperamide HCl (IMODIUM A-D ORAL) omeprazole (PriLOSEC) 20 mg capsule ondansetron (ZOFRAN) 8 mg tablet prochlorperazine (Compazine) 10 mg tablet traMADoL (ULTRAM) 50 mg tablet vit C/E/Zn/coppr/lutein/zeaxan (PRESERVISION AREDS-2 ORAL) PHYSICAL EXAM: Vitals BP 104/67 (BP Location: Left arm) Pulse 92 Temp 36.4 ??C (97.6 ??F) (Oral) Resp 20 Ht 155 cm (5' 1.02) Wt 55.5 kg (122 lb 6.4 oz) SpO2 98% BMI 23.11 kg/m?? Body mass index is 23.11 kg/m??. ECO - Asymptomatic CONSTITUTIONAL: No acute distress HEENT: Normocephalic, clear conjunctiva Neck: Supple CARDIOVASCULAR: regular rate RESPIRATORY: Normal breath sounds GASTROINTESTINAL: Non-distended abdomen SKIN: No rashes or lesions. NEUROLOGIC: Alert and oriented PSYCHIATRIC: Mood and affect are normal. BREAST/CHEST WALL: Right: RUQ mass is difficult to palpate. 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 presented during the exam Wt Readings from Last 3 Encounters: 12/07/24 55.5 kg (122 lb 6.4 oz) 11/16/24 56.7 kg (125 lb) 10/27/24 58.2 kg (128 lb 4.9 oz) LABS: I have reviewed the pertinent laboratory studies including those documented below Hematology Lab History Latest Ref Rng & Units 10/19/2024 08:42 10/26/2024 09:23 11/16/2024 09:15 12/07/2024 09:22 Labs - Hematology WBC 3.80 - 9.90 K/cumm 3.51 4.57 9.28 6.94 Total Hb, POC 11.9 - 15.5 g/dL 10.8 11.4 11.1 11.3 Hct 35.6 - 45.5 % 32.3 34.0 33.7 33.9 Plt 150 - 400 K/cumm 143 206 299 235 Neutrophil abs 1.50 - 6.50 K/cumm 1.76 2.20 6.58 4.71 Lymphocytes, abs 0.80 - 3.30 K/cumm 1.21 1.75 1.66 1.25 Chem/LFT Lab History Latest Ref Rng & Units 10/19/2024 08:42 10/26/2024 09:23 11/16/2024 09:15 12/07/2024 09:22 Labs-Chem/LFT Sodium 135 - 145 mmol/L 141 141 143 141 Creatinine 0.60 - 1.10 mg/dL 0.71 0.69 0.63 0.67 Bilirubin, total 0.1 - 1.2 mg/dL 0.5 0.4 0.2 0.3 AST 10 - 45 Units/L 29 23 21 20 ALT 7 - 45 Units/L 29 19 14 14 Alk phos 40 - 130 Units/L 71 75 79 74 CrCl- Actual Body Weight (Cockcroft-Gault) 61.8 63.1 68 62.6 RADIOLOGY: CT C/A/P with bone scan showed no clear evidence of mets GENETIC TESTING/NGS: Myriad: negative ASSESSMENT AND PLANS: Meseret Ortiz is a 74 y.o. with a history of arthritis and hyperlipidemia presents for a follow up on right breast IDC (cT2, cN1, cM0, G3, ER+, VA+, HER2-) on neoadjuvant therapy Patient reports fatigue with worsening persistent neuropathy which is impacting mobility and ADLs. The breast mass is not palpable. Labs showed no new or significant findings. Breast imaging following carboTaxol showed evidence of response including decrease in size of the previously enlarged rightaxillary lymph node and decrease in density of the right breast mass. I worry about patient abilityto tolerate further chemotherapy given the significant fatigue and neuropathy. We can proceed with surgery when possible. Patient in agreement with the plan above. Plan: Discontinue AC Continue C7 pembrolizumab #G2-3 Neuropathy, on duloxetine 60 mg daily #g2 fatigue, monitor for improvement #Nausea prevention PRN Compazine and Zofran #Diarrhea prevention PRM loperamide #Constipation secondary to chemotherapy, improved with Miralax and Senna # Liver abnormality on CT MRI showed a hepatic cyst Follow up in 3 weeks or sooner if needed documented in this encounter Plan of Treatment Scheduled Orders Name Type Priority Associated Diagnoses Orde r Schedule CBC with auto differential Lab Routine Prevention of chemotherapy-induced neutropenia Malignant neoplasm of upper-outer quadrant of right breast in female, estrogen receptor negative (HCC) Nausea and vomiting, unspecified vomiting type Expected: 01/18/2025, Expires: 01/18/2026 Comprehensive metabolic panel Lab STAT Prevention of chemotherapy-induced neutropenia Malignant neoplasm of upper-outer quadrant of right breast in female, estrogen receptor negative (HCC) Nausea and vomiting, unspecified vomiting type Expected: 01/18/2025, Expires: 01/18/2026 Thyroid Function [facility] Lab Routine Prevention of chemotherapy-induced neutropenia Malignant neoplasm of upper-outer quadrant of right breast in female, estrogen receptor negative (HCC) Nausea and vomiting, unspecified vomiting type Expected: 01/18/2025, Expires: 01/18/2026 CBC with auto differential Lab STAT Prevention of chemotherapy-induced neutropenia Malignant neoplasm of upper-outer quadrant of right breast in female, estrogen receptor negative (HCC) Nausea and vomiting, unspecified vomiting type Expected: 12/28/2024, Expires: 12/28/2025 Comprehensive metabolic panel Lab STAT Prevention of chemotherapy-induced neutropenia Malignant neoplasm of upper-outer quadrant of right breast in female, estrogen receptor negative (HCC) Nausea and vomiting, unspecified vomiting type Expected: 12/28/2024, Expires: 12/28/2025 Cortisol Lab Routine Prevention of chemotherapy-induced neutropenia Malignant neoplasm of upper-outer quadrant of right breast in female, estrogen receptor negative (HCC) Nausea and vomiting, unspecified vomiting type Expected: 12/28/2024, Expires: 12/28/2025 documented as of this encounter Visit Diagnoses Diagnosis Nausea and vomiting, unspecified vomiting type- Primary Prevention of chemotherapy-induced neutropenia Malignant neoplasm of upper-outer quadrant of right breast in female, estrogen receptor negative (HCC) documented in this encounter Discontinued Medications Medication Sig Discontinue Reason Start Date End Da te atorvastatin (LIPITOR) 20 mg tablet 0.5 tablets (10 mg total) Alternate therapy 07/26/2019 12/07/2024 documented as of this encounter Historical Medications * This list may reflect changes made after this encounter. atorvastatin (LIPITOR) 10 mg tablet TAKE 1 TABLET BY MOUTH EVERY DAY WITH OR WITHOUT FOOD 11/09/2024 added in this encounter Orders Appointment Requests Count Last Ordered Date Fi rst Ordered Date [facility] CLINIC APPOINTMENT REQUEST 2 025 [facility] LAB APPOINTMENT 2 12/07/2024 [facility] RETURN CHEMO 1.5HRS 1 12/07/2024 ON[facility] RETURN CHEMO 2.5HRS 1 12/07/2024 documented in this encounter Care Teams Scout Professional Sports Relationship Specialty Start Date End Date Unknown, Notinfile PCP - General 01/21/24 documented as of this encounter
--- OUTSIDE RECORDS SUMMARY | 2024-12-08 17:17 | XMS_ITS | Encounter Summary ---
Author Organization [facility] Address [address] [place] [address] Phone Care Team Providers Care Ict Business Development Manager Name Role Phone Unknown, [place] Primary Care Provider Unavail able Encounter Details Date Type Department Care Team (Late st Contact Info) Description 06/13/2024 Telephone [facility] Oncology [facility] Floor 5 [place] [address] Anu Gambino Social History Tobacco Use Types Packs/Day Years Used Date Smoking Tobacco: Never Assessed Comments Unknown Sex and Gender Information Value Date Recorded Sex Assigned at Not on file Legal Sex Female 8:56 AM CDT Gender Identity Not on file Sexual Orientation Not on file documented as of this encounter Plan of Treatment Not on file documented as of this encounter Visit Diagnoses Not on filedocumented in this encounter Care Teams Ict Business Development Manager Relationship Specialty Start Date End Date Unknown, [place] PCP - General 01/21/24 documented as of this encounter
[2024-12-08 17:24] VITALS: BP 96/52; PULSE 107; RESP 18; TEMP 36.9; O2SAT 98
--- OUTSIDE RECORDS SUMMARY | 2024-12-08 19:08 | XMS_ITS ---
Author Organization [facility] Address [address] [place] [address] Phone Care Team Providers Care Motorsports Technician Name Role Phone Unknown, Notinfile Primary Care Provider Unavail able Active Problems Problem Noted Date Diagnosed Date Nausea and vomiting 10/16/2024 Malignant neoplasm of right female breast 2024 Malignant neoplasm of upper- outer quadrant of right breast in female, estrogen receptor negative 07/06/2024 Cancer Staging:Clinical:Stage IIB(cT2, cN1, cM0, G3, ER+, OK+, HER2-) - Unsigned Prevention of chemotherapy-induced neutropenia [...]
--- OUTSIDE RECORDS SUMMARY | 2024-12-08 19:08 | XMS_ITS | Encounter Summary ---
Author Organization [facility] Address [address] [place] [address] Care Team Providers Care Aged Or Disabled Care Worker Name Role Phone Unknown, Notinfile Primary Care [...] MD [address] [place] [address] Phone: tel: fax: [facility] [address] [facility] [address] [place] [address] Referral ID Status Reason Start Date Expiration Date V isits Requested Visits Authorized [id number] Authorized 07/06/2024 08/05/2025 1 40 Encounter Details Date Type Department Care Team (Late st Contact Info) Description 12/07/2024 11:30 AM CDT Infusion [facility] [address] [facility] [address] [place] [address] Nausea and vomiting, unspecified vomiting type (Primary [...] 12/07/2024 11:30 AM CDT Oncology Nursing Note [facility] Meseret Ortiz is a 74 [...] First Orde red Date ON[facility]N NURSING COMMUNICATION [id number] 1 0 12/07/2024 [facility] TREATMENT PARAMETERS 7 1 12/07/2024 Appointment Requests Count Last Ordered Date Fi rst Ordered Date ON[facility]N RETURN CHEMO 2.5HRS 1 12/07/2024 documented in this encounter Care Teams Aged Or Disabled Care Worker Relationship Specialty Start Date End Date Unknown, Notinfile PCP - General 01/21/24 documented as of this encounter
--- OUTSIDE RECORDS SUMMARY | 2024-12-08 19:08 | XMS_ITS | Encounter Summary ---
Author Organization [facility] Address [address] [place] [address] Phone Care Team Providers Care Sales And Marketing Coordinator Name Role Phone Unknown, [place] Primary Care Provider Unavail able Encounter Details Date Type Department Care Team (Late st Contact Info) Description 06/13/2024 Telephone [facility] Oncology [facility] Floor [address] [place] [address] Anu Gambino Social History Tobacco [...] on filedocumented in this encounter Care Teams Sales And Marketing Coordinator Relationship Specialty Start Date End Date Unknown, [place] PCP - General 01/21/24 documented as of this encounter
--- OUTSIDE RECORDS SUMMARY | 2024-12-08 19:08 | XMS_ITS | Referral Summary ---
Author Organization [facility] Address [address] [place] [address] Phone Care Team Providers Care Mica Paster Name Role Phone Unknown, Notinfile Primary Care Provider Unavail able Encounters Date Type Department Care Team Description 12/07/2024 9:15 AM CDT Clinical Support [facility] - Lab Collection [address] [place] [address] 5 [place] [address] Prevention of chemotherapy-induced neutropenia; Malignant neoplasm of upper-outer quadrant of right breast in female, estrogen receptor negative (HCC); Nausea and vomiting, unspecified vomiting type 12/07/2024 11:30 AM CDT Infusion [facility] - Infusion [facility] Floor 5 [place] [address] Nausea and vomiting, unspecified vomiting type (Primary Dx); Prevention of chemotherapy-induced neutropenia; Malignant neoplasm of upper-outer quadrant of right breast in female, estrogen receptor negative (HCC) 12/07/2024 10:15 AM CDT Office Visit [facility] [address] [place] [address] 8 [place] [address] Baltazar Mantilla MD Nausea and vomiting, unspecified vomiting type (Primary Dx); Prevention of chemotherapy-induced neutropenia; Malignant neoplasm of upper-outer quadrant of right breast in female, estrogen receptor negative (HCC) 11/17/2024 Orders Only [facility] Surgery [address] [place] [address] Floor 8 [place] [address] Jennifer Goodman MD Malignant neoplasm of upper-outer quadrant of right breast in female, estrogen receptor negative (HCC) (Primary Dx) 11/16/2024 11:30 AM CDT Infusion [facility] - Infusion [address] [facility] Floor 6 [place] [address] Nausea and vomiting, unspecified vomiting type (Primary Dx); Prevention of chemotherapy-induced neutropenia; Malignant neoplasm of upper-outer quadrant of right breast in female, estrogen receptor negative (HCC) 11/16/2024 9:15 AM CDT Clinical Support [facility] - Lab Collection [address] [facility] Floor 5 [place] [address] Prevention of chemotherapy-induced neutropenia; Malignant neoplasm of upper-outer quadrant of right breast in female, estrogen receptor negative (HCC); Nausea and vomiting, unspecified vomiting type 11/16/2024 10:15 AM CDT Office Visit [facility] [address] [place] [address] 8 [place] [phone] Baltazar Mantilla MD Nausea and vomiting, unspecified vomiting type (Primary Dx); Prevention of chemotherapy-induced neutropenia; Malignant neoplasm of upper-outer quadrant of right breast in female, estrogen receptor negative (HCC) 10/30/2024 Telephone [facility] [address] [place] [address] Nadia Johns RN 10/27/2024 8:00 AM CDT Infusion [facility] - Infusion [address] [place] [address] Floor 5 [place] [address] Nausea and vomiting, unspecified vomiting type (Primary Dx); Prevention of chemotherapy-induced neutropenia; Malignant neoplasm of upper-outer quadrant of right breast in female, estrogen receptor negative (HCC) 10/26/2024 2:41 PM CDT - 10/26/2024 11:59 PM CDT Hospital Encounter [facility] [address] [place] [address] [address] [place] [address] Encounter for monitoring cardiotoxic drug therapy Discharge Disposition: Discharge to home or self care 10/26/2024 Orders Only [facility] [address] [place] [address] 8 [place] [phone] Baltazar Mantilla MD Cardiotoxicity (Primary Dx); Encounter for monitoring cardiotoxic drug therapy; Prevention of chemotherapy-induced neutropenia; Malignant neoplasm of upper-outer quadrant of right breast in female, estrogen receptor negative (HCC); Nausea and vomiting, unspecified vomiting type 10/26/2024 9:45 AM CDT Clinical Support [facility] - Lab Collection [facility] 5 [place] [address] Prevention of chemotherapy-induced neutropenia; Malignant neoplasm of upper-outer quadrant of right breast in female, estrogen receptor negative (HCC); Nausea and vomiting, unspecified vomiting type 10/26/2024 11:30 AM CDT Infusion [facility] - Infusion [address] [place] [address] Floor 6 [place] [address] Prevention of chemotherapy-induced neutropenia; Malignant neoplasm of upper-outer quadrant of right breast in female, estrogen receptor negative (HCC); Nausea and vomiting, unspecified vomiting type 10/26/2024 10:30 AM CDT Office Visit [facility] [address] [place] [phone] Baltazar Mantilla MD Nausea and vomiting, unspecified vomiting type (Primary Dx); Prevention of chemotherapy-induced neutropenia; Malignant neoplasm of upper-outer quadrant of right breast in female, estrogen receptor negative (HCC) 10/26/2024 9:15 AM CDT Clinical Support [facility] Lab [address] [place] [phone] Prevention of chemotherapy-induced neutropenia; Malignant neoplasm of upper-outer quadrant of right breast in female, estrogen receptor negative (HCC); Nausea and vomiting, unspecified vomiting type 10/19/2024 8:15 AM CDT Clinical Support [facility] - Lab Collection [address] [place] [address] 5 [place] [address] Prevention of chemotherapy-induced neutropenia; Malignant neoplasm of upper-outer quadrant of right breast in female, estrogen receptor negative (HCC); Nausea and vomiting, unspecified vomiting type 10/19/2024 9:15 AM CDT Office Visit [facility] [address] [place] [phone] Baltazar Mantilla MD 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 (Primary Dx); Prevention of chemotherapy-induced neutropenia; Malignant neoplasm of upper-outer quadrant of right breast in female, estrogen receptor negative (HCC); Nausea and vomiting, unspecified vomiting type 10/16/2024 Orders Only [facility] [address] [place] [address] Baltazar Mantilla MD Malignant neoplasm of upper-outer quadrant of right breast in female, estrogen receptor negative (HCC) (Primary Dx); Nausea and vomiting, unspecified vomiting type 10/10/2024 7:54 AM CDT - 10/10/2024 11:59 PM CDT Hospital Encounter [facility] [address] [place] [address] Malignant neoplasm of upper-outer quadrant of right breast in female, estrogen receptor negative (HCC) Discharge Disposition: Discharge to home or self care 10/10/2024 7:53 AM CDT - 10/10/2024 11:59 PM CDT Hospital Encounter [facility] ([facility] [address] [place] [address] Malignant neoplasm of upper-outer quadrant of right breast in female, estrogen receptor negative (HCC) Discharge Disposition: Discharge to home or self care 10/06/2024 Telephone [facility] [address] [place] [address] Nadia Johns, RN Arm Pain; Leg Pain 10/05/2024 6:30 AM CDT Clinical Support [facility] - Lab Collection [facility] Floor 5 [place] [address] Prevention of chemotherapy-induced neutropenia; Malignant neoplasm of upper-outer quadrant of right breast in female, estrogen receptor negative (HCC) 10/05/2024 7:30 AM CDT Infusion [facility] - Infusion [address] [facility] Floor 5 [place] [address] Malignant neoplasm of upper-outer quadrant of right breast in female, estrogen receptor negative (HCC) (Primary Dx); Prevention of chemotherapy-induced neutropenia 09/28/2024 Telephone [facility] Floor 8 [place] [phone] Nadia Johns, ESTEBAN 09/28/2024 6:30 AM CDT Clinical Support [facility] - Lab Collection [address] [place] [address] Floor 6 [place] [address] Prevention of chemotherapy-induced neutropenia; Malignant neoplasm of upper-outer quadrant of right breast in female, estrogen receptor negative (HCC) 09/28/2024 7:30 AM CDT Infusion [facility] - Infusion [address] [place] [address] Floor 6 [place] [address] Malignant neoplasm of upper-outer quadrant of right breast in female, estrogen receptor negative (HCC) (Primary Dx); Prevention of chemotherapy-induced neutropenia 09/21/2024 Orders Only [facility] [address] [place] [address] 8 [place] [address] Baltazar Mantilla MD Malignant neoplasm of upper-outer quadrant of right breast in female, estrogen receptor negative (HCC) (Primary Dx) 09/21/2024 8:15 AM CDT Clinical Support [facility] - Lab Collection [address] [place] [address] Floor 5 [place] [address] Malignant neoplasm of right female breast, unspecified estrogen receptor status, unspecified site of breast (HCC) (Primary Dx); Prevention of chemotherapy-induced neutropenia; Malignant neoplasm of upper-outer quadrant of right breast in female, estrogen receptor negative (HCC) 09/21/2024 10:30 AM CDT Infusion [facility] - Infusion [address] [place] [address] Floor 5 [place] [address] Malignant neoplasm of upper-outer quadrant of right breast in female, estrogen receptor negative (HCC) (Primary Dx); Prevention of chemotherapy-induced neutropenia 09/21/2024 9:15 AM CDT Office Visit [facility] [address] [place] [address] 8 [place] [address] Baltazar Mantilla MD Malignant neoplasm of upper-outer quadrant of right breast in female, estrogen receptor negative (HCC) (Primary Dx); Prevention of chemotherapy-induced neutropenia 09/14/2024 Orders Only [facility] [address] [place] [address] 8 [place] [address] Baltazar Mantilla MD 09/14/2024 7:30 AM CDT - 09/14/2024 12:14 PM CDT Hospital Encounter [facility] ([facility]) [address] [place] [address] Malignant neoplasm of upper-outer quadrant of right breast in female, estrogen receptor negative (HCC) (Primary Dx); Prevention of chemotherapy-induced neutropenia; Malignant neoplasm of right female breast, unspecified estrogen receptor status, unspecified site of breast (HCC) Discharge Disposition: Discharge to home or self care 09/07/2024 Telephone [facility] [address] [place] [address] Floor 8 [place] [address] Nadia Johns RN 09/07/2024 Orders Only [facility] [address] [place] [address] 8 [place] [address] Baltazar Mantilla MD Malignant neoplasm of upper-outer quadrant of right breast in female, estrogen receptor negative (HCC) (Primary Dx); Generalized weakness 09/07/2024 7:00 AM CDT Clinical Support [facility] - Lab Collection [facility] Floor 5 [place] [address] Prevention of chemotherapy-induced neutropenia; Malignant neoplasm of upper-outer quadrant of right breast in female, estrogen receptor negative (HCC) 09/07/2024 8:00 AM CDT Infusion [facility] - Infusion [address] [facility] Floor 5 [place] [address] Malignant neoplasm of upper-outer quadrant of right [...] on file Medical Devices Implanted Type Area Mission Coordinator Device Identifier Shelf Expiration Date Model / Serial / Lot Schematic [employer] Marker Tissue Rigid Needle Open Coil Radiopaque Clip Hydromark 18ga Titanium Hydrogel 4349-55-58-T3 - [id number] Implanted:Qty: 1 on 06/05/2024 by Jolanta Ferreira MD at [facility] Right: Axilla [employer] [id number] 11/28/2026 4010-02-1 8-T3 / / [id number] D Bard Peripheral Vascular Ultraclip Bard 17ga 10cm 2 Trigger Permanent Ultrasound [id number] - [id number] Implanted:Qty: 1 on 06/05/2024 by Jolanta Ferreira MD at [facility] Right: Breast Bard Peripheral Vascular [id number] / / Schematic [employer] Marker Image Hydromark Plus T5 Titanium 15ga Radiological Implant Sterile 5068-76-27-T5 - [id number] Implanted:Qty: 1 on 06/05/2024 by Jolanta Ferreira MD at [facility] Right: Breast Futon Inc [id number] 1 5-T5 / / [id number] [employer] d[employer] Trimark Mri Guided Rigid Deployment Device Cork Marker Breast Trimark Td 13-Mr - [id number] Implanted:Qty: 1 on 07/05/[address] [facility] [employer] TRIMARK TD 13-MR / / Bard Access Systems [place] [employer] Power Isp Mri 1lum Powerport Clearvue Titanium 8fr [id number] - [id number] Implanted:Qty: 1 on 07/19/2024 at [facility] Left: Subclavian Bard Access Systems 01/25/2026 [id number] / / [id number] Procedures Procedure Name Priority Date/Time Associated Diagnosis [...] MD LAB BLOOD ORDERABLES Final Resul t [facility] Department of Laboratories [place] [id number] * (ABNORMAL) Differential, auto (12/07/2024 9:22 AM CDT) Neutrophil abs 4.71 1.50 - 6.50 K/cumm Comment:Testing performed by : [facility], [address] [place] [phone] Lymphocyte abs 1.25 0.80 - 3.30 K/cumm MARGARETTE SOSA Comment:Testing performed by : [facility], [address] [place] [address] Monocyte abs 0.89(H) 0.20 - 0.80 K/cumm MARGARETTE SOSA Comment:Testing performed by : [facility], [address] [place], [place] [phone] Eosinophil abs 0.04 0.00 - 0.50 K/cumm MARGARETTE SOSA Comment:Testing performed by : [facility], [address] [place] [phone] Basophil abs 0.05 0.00 - 0.10 K/cumm MARGARETTE SOSA Comment:Testing performed by : [facility], [address] [place] [phone] Neutrophil pct 67.9 % CERGORGE SOSA Comment: Interpretive Data Percent cell count reference ranges are not reported, since discordance with absolute values may lead to misinterpretation of CBC data. Current Interpretive Data was last revised on 2017. Testing performed by: [facility], [address] [place] [phone] Lymphocyte pct 17.9 % CERGORGE SOSA Comment: Interpretive Data Percent cell count reference ranges are not reported, since discordance with absolute values may lead to misinterpretation of CBC data. Current Interpretive Data was last revised on 2017. Testing performed by: [facility], [address] [place] [phone] Monocyte pct 12.9 % CERGORGE SOSA Comment: Interpretive Data Percent cell count reference ranges are not reported, since discordance with absolute values may lead to misinterpretation of CBC data. Current Interpretive Data was last revised on 2017. Testing performed by: [facility], [address] [place] [phone] Eosinophil pct 0.6 % MARGARETTE SOSA Comment: Interpretive Data Percent cell count reference ranges are not reported, since discordance with absolute values may lead to misinterpretation of CBC data. Current Interpretive Data was last revised on 2017. Testing performed by: [facility], [address] [place] [phone] Basophil pct 0.7 % MARGARETTE SOSA Comment: Interpretive Data Percent cell count reference ranges are not reported, since discordance with absolute values may lead to misinterpretation of CBC data. Current Interpretive Data was last revised on 2017. Testing performed by: [facility], [address] [place] [phone] Blood 12/07/2024 9:22 AM CDT 12/07/2024 9:26 AM CDT Baltazar Mantilla MD LAB BLOOD ORDERABLES Final Resul t Performing Organization Address [facility] de Phone Number [facility] [place] [address] * Thyroid Function [place] (12/07/2024 9:22 AM CDT) TSH 2.91 0.30 - 4.20 mcIUnit/mL Blood 12/07/2024 9:22 AM CDT 12/07/2024 9:29 AM CDT Baltazar Mantilla MD LAB BLOOD ORDERABLES Final Resul t Performing Organization Address [facility] Co de Phone Number [facility] Department [place] [address] * (ABNORMAL) CBC with auto differential (12/07/2024 9:22 AM CDT) WBC 6.94 3.80 - 9.90 K/cumm Comment:Testing performed by : [facility], [address] [place] [address] Hgb 11.3(L) 11.9 - 15.5 g/dL CERNER BJ Comment:Testing performed by : [facility], [address] [place] [address] Hct 33.9(L) 35.6 - 45.5 % CERNER BJ Comment:Testing performed by : [facility], [address] [place] [address] Plt 235 150 - 400 K/cumm CERNER BJ Comment:Testing performed by : [facility], [address] [place] [address] MPV 7.9 6.8 - 10.4 fL CERNER BJ Comment:Testing performed by : [facility], [address] [place] [address] RBC 3.59(L) 3.90 - 5.20 M/cumm CERNER BJ Comment:Testing performed by : [facility], [address] [place] [address] MCV 94.4 81.3 - 96.4 fL CERNER BJ Comment:Testing performed by : [facility], [address] [place] [address] MCH 31.4 27.1 - 33.3 pg CERNER BJ Comment:Testing performed by : [facility], [address] [place] [address] MCHC 33.3 32.3 - 35.7 g/dL CERNER BJ Comment:Testing performed by : [facility], [address] [place] [address] RDW CV 17.4(H) 11.1 - 14.9 % CERNER BJ Comment:Testing performed by : [facility], [address] [place] [address] NRBC abs 0.00 0.00 - 0.01 K/cumm [facility] Comment:Testing performed by : [facility], [address] [place] [address] Blood 12/07/2024 9:22 AM CDT 12/07/2024 9:26 AM CDT us Baltazar Mantilla MD LAB BLOOD ORDERABLES Final Resul t [facility] [place] [address] * Comprehensive metabolic panel (12/07/2024 9:22 AM CDT) Sodium 141 135 - 145 mmol/L Potassium, pl 4.3 3.3 - 4.9 mmol/L [facility] Chloride 106 97 - 110 mmol/L [facility] CO2 25 22 - 32 mmol/L [facility] Anion gap 10 2 - 15 mmol/L [facility] BUN 14 6 - 25 mg/dL [facility] Creatinine 0.67 0.60 - 1.10 mg/dL [facility] Glucose 94 70 - 199 mg/dL [facility] Comment: Interpretive Data Fasting glucose >/= [...] 2022. Calcium 9.5 8.5 - 10.3 mg/dL [facility] Bilirubin, total 0.3 0.1 - 1.2 mg/dL [facility] Protein, pl 7.0 6.5 - 8.5 g/dL [facility] Albumin 4.2 3.5 - 5.0 g/dL [facility] Alk phos 74 40 - 130 Units/L [facility] ALT 14 7 - 45 Units/L [facility] AST 20 10 - 45 Units/L [facility] Blood 12/07/2024 9:22 AM CDT 12/07/2024 9:29 AM CDT Baltazar Mantilla MD LAB BLOOD ORDERABLES Final Resul t Performing Organization Address City/[facility]/ZIP Co de Phone Number [facility] [place] [address] * eGFR (11/16/2024 9:15 AM CDT) Pathologist [facility] eGFR >90 >=60 mL/min/1. 73 m2 Comment: [...] ORDERABLES Final Resul t Performing Organization Address City/[facility]/ZIP Co de Phone Number [facility] [place] [address] * (ABNORMAL) Differential, auto (11/16/2024 9:15 AM CDT) Neutrophil abs 6.58(H) 1.50 - 6.50 K/cumm Comment:Testing performed by : [facility], [address] [place] [address] Lymphocyte abs 1.66 0.80 - 3.30 K/cumm [facility] Comment:Testing performed by : [facility], [address] [place], [place] [id number] Monocyte abs 0.98(H) 0.20 - 0.80 K/cumm [facility] Comment:Testing performed by : [facility], [address] [place], [place] [id number] Eosinophil abs 0.02 0.00 - 0.50 K/cumm [facility] Comment:Testing performed by : [facility], [address] [place], [place] [id number] Basophil abs 0.05 0.00 - 0.10 K/cumm [facility] Comment:Testing performed by : [facility], [address] [place], [place] [id number] Neutrophil pct 70.8 % [facility] Comment: Interpretive Data Percent cell count reference ranges are not reported, since discordance with absolute values may lead to misinterpretation of CBC data. Current Interpretive Data was last revised on 2017. Testing performed by: [facility], [address] [place] [phone] Lymphocyte pct 17.9 % [facility] Comment: Interpretive Data Percent cell count reference ranges are not reported, since discordance with absolute values may lead to misinterpretation of CBC data. Current Interpretive Data was last revised on 2017. Testing performed by: [facility], [address] [place] [phone] Monocyte pct 10.6 % [facility] Comment: Interpretive Data Percent cell count reference ranges are not reported, since discordance with absolute values may lead to misinterpretation of CBC data. Current Interpretive Data was last revised on 2017. Testing performed by: [facility], [address] [place], [place] [phone] Eosinophil pct 0.2 % [facility] Comment: Interpretive Data Percent cell count reference ranges are not reported, since discordance with absolute values may lead to misinterpretation of CBC data. Current Interpretive Data was last revised on 2017. Testing performed by: [facility], [address] [place] [phone] Basophil pct 0.5 % MARGARETTE SOSA Comment: Interpretive Data Percent cell count reference ranges are not reported, since discordance with absolute values may lead to misinterpretation of CBC data. Current Interpretive Data was last revised on 2017. Testing performed by: [facility], [address] [place] [phone] Blood 11/16/2024 9:15 AM CDT 11/16/2024 9:17 AM CDT us Baltazar Mantilla MD LAB BLOOD ORDERABLES Final Resul t MARGARETTE SOSA [facility] Department [place] [address] * (ABNORMAL) CBC with auto differential (11/16/2024 9:15 AM CDT) WBC 9.28 3.80 - 9.90 K/cumm Comment:Testing performed by : [facility], [address] [place] [address] Hgb 11.1(L) 11.9 - 15.5 g/dL MARGARETTE SOSA Comment:Testing performed by : [facility], [address] [place] [address] Hct 33.7(L) 35.6 - 45.5 % MARGARETTE SOSA Comment:Testing performed by : [facility], [address] [place] [address] Plt 299 150 - 400 K/cumm MARGARETTE SOSA Comment:Testing performed by : [facility], [address] [place] [address] MPV 8.3 6.8 - 10.4 fL MARGARETTE SOSA Comment:Testing performed by : [facility], [address] [place] [address] RBC 3.54(L) 3.90 - 5.20 M/cumm MARGARETTE SOSA Comment:Testing performed by : [facility], [address] [place] [address] MCV 95.1 81.3 - 96.4 fL MARGARETTE SOSA Comment:Testing performed by : [facility], [address] [place] [address] MCH 31.5 27.1 - 33.3 pg MARGARETTE SOSA Comment:Testing performed by : [facility], [address] [place] [address] MCHC 33.1 32.3 - 35.7 g/dL MARGARETTE SOSA Comment:Testing performed by : [facility], [address] [place] [address] RDW CV 17.7(H) 11.1 - 14.9 % MARGARETTE [facility] Comment:Testing performed by : [facility], [address] [place] [address] NRBC abs 0.00 0.00 - 0.01 K/cumm MARGARETTE [facility] Comment:Testing performed by : [facility], [address] [place] [address] Blood 11/16/2024 9:15 AM CDT 11/16/2024 9:17 AM CDT us Baltazarsusan Mantilla MD LAB BLOOD ORDERABLES Final Resul t MARGARETTE [facility] Department of Laboratories [place], [place] [id number] * Comprehensive metabolic panel (11/16/2024 9:15 AM CDT) Sodium 143 135 - 145 mmol/L Potassium, pl 4.0 3.3 - 4.9 mmol/L MARGARETTE [facility] Chloride 107 97 - 110 mmol/L [facility] CO2 25 22 - 32 mmol/L MARGARETTE [facility] Anion gap 11 2 - 15 mmol/L [facility] BUN 12 6 - 25 mg/dL [facility] Creatinine 0.63 0.60 - 1.10 mg/dL [facility] Glucose 106 70 - 199 mg/dL [facility] Comment: Interpretive Data Fasting glucose >/= [...] 2022. Calcium 9.4 8.5 - 10.3 mg/dL [facility] Bilirubin, total 0.2 0.1 - 1.2 mg/dL [facility] Protein, pl 7.3 6.5 - 8.5 g/dL [facility] Albumin 4.2 3.5 - 5.0 g/dL [facility] Alk phos 79 40 - 130 Units/L [facility] ALT 14 7 - 45 Units/L [facility] AST 21 10 - 45 Units/L [facility] Blood 11/16/2024 9:15 AM CDT 11/16/2024 9:19 AM CDT us Baltazar Famillicent CESAR LAB BLOOD ORDERABLES Final Resul t [facility] Department [place] [address] * TRANSTHORACIC ECHO (TTE) COMPLETE W DOPPLER/CF W CONTRAST (10/26/2024 4:07 PM CDT) EF Mod BP 65 % CONS SCIMAGE Anatomical Region Laterality Modality Ultrasound 10/26/2024 3:02 PM CDT Narrative 10/27/2024 4:21 AM CDT [facility] [place] [address] Transthoracic Echocardiographic Report Patient Name: MESERET ORTIZ A : 1950 (74y 6m) Gender: F Study Date: 10/26/2024 03:02:12 PM Ht(Inch): 61 Wt(Lb): 126.98 BSA: 1.57 Glassware Maker: Hina Fulton RDCS Location: [facility] Order Provider: BALTAZAR KING Heart Rate: [...] therapeutic drug level monitoring and Z79.899 Other shelter (current) drug therapy. CONCLUSIONS: 1. Normal left [...] LA Length 4C 4.70 cm AI Decel Kimble 1.52 m/s2 LA Length 2C 4.51 cm [...] Procedure Note Louie Jon MD - 10/27/2024 [facility] [place] [address] Transthoracic Echocardiographic Report Patient Name: MESERET ORTIZ A : 1950 (74y 6m) Gender: F Study Date: 10/26/2024 03:02:12 PM Ht(Inch): 61 Wt(Lb): 126.98 BSA: 1.57 Glassware Maker: Hina Fulton RDCS Location: [facility] Order Provider:BALTAZAR KING Heart Rate: 82 [...] [ -25.0 - -18.0 ] AI Decel [id number] sec LA Length 4C 4.70 cm AI Decel Slope1.52 m/s2 LA Length 2C 4.51 cm AI [id number] msec LA Volume BP 24.19 ml MV [...] [ 1.71 - 5.00 ] MV Decel Azqx479.81 msec [ 104.00 - 258.00 ] RA [...] * eGFR (10/26/2024 9:23 AM CDT) Pathologist [facility] eGFR 90 >=60 mL/min/1. 73 m2 Comment: [...] MD LAB BLOOD ORDERABLES Final Resul t [facility] Department [place] [address] * Differential, auto (10/26/2024 9:23 AM CDT) Pathologist [facility] Neutrophil abs 2.20 1.50 - 6.50 K/cumm Comment:Testing performed by : [facility], [address] [place] [phone] Lymphocyte abs 1.75 0.80 - 3.30 K/cumm MARGARETTE SOSA Comment:Testing performed by : [facility], [address] [place] [phone] Monocyte abs 0.54 0.20 - 0.80 K/cumm [facility] Comment:Testing performed by : [facility], [address] [place] [phone] Eosinophil abs 0.07 0.00 - 0.50 K/cumm [facility] Comment:Testing performed by : [facility], [address] [place] [phone] Basophil abs 0.02 0.00 - 0.10 K/cumm [facility] Comment:Testing performed by : [facility], [address] [place] [phone] Neutrophil pct 48.1 % [facility] Comment: Interpretive Data Percent cell count reference ranges are not reported, since discordance with absolute values may lead to misinterpretation of CBC data. Current Interpretive Data was last revised on 2017. Testing performed by: [facility], [address] [place] [phone] Lymphocyte pct 38.2 % [facility] Comment: Interpretive Data Percent cell count reference ranges are not reported, since discordance with absolute values may lead to misinterpretation of CBC data. Current Interpretive Data was last revised on 2017. Testing performed by: [facility], [address] [place] [phone] Monocyte pct 11.8 % [facility] Comment: Interpretive Data Percent cell count reference ranges are not reported, since discordance with absolute values may lead to misinterpretation of CBC data. Current Interpretive Data was last revised on 2017. Testing performed by: [facility], [address] [place] [phone] Eosinophil pct 1.5 % [facility] Comment: Interpretive Data Percent cell count reference ranges are not reported, since discordance with absolute values may lead to misinterpretation of CBC data. Current Interpretive Data was last revised on 2017. Testing performed by: [facility], [address] [place] [phone] Basophil pct 0.4 % [facility] Comment: Interpretive Data Percent cell count reference ranges are not reported, since discordance with absolute values may lead to misinterpretation of CBC data. Current Interpretive Data was last revised on 2017. Testing performed by: [facility], [address] [place] [phone] Blood 10/26/2024 9:23 AM CDT 10/26/2024 9:27 AM CDT Baltazar Mantilla MD LAB BLOOD ORDERABLES Final Resul t Performing Organization Address City/[facility] Co de Phone Number [facility] Department [place] [address] * Thyroid Function [place] (10/26/2024 9:23 AM CDT) TSH 2.42 0.30 - 4.20 mcIUnit/mL Blood 10/26/2024 9:23 AM CDT 10/26/2024 9:27 AM CDT Baltazar Mantilla MD LAB BLOOD ORDERABLES Final Resul t Performing Organization Address [facility] de Phone Number [facility] Department [place] [address] * (ABNORMAL) CBC with auto differential (10/26/2024 9:23 AM CDT) WBC 4.57 3.80 - 9.90 K/cumm Comment:Testing performed by : [facility], [address] [place] [address] Hgb 11.4(L) 11.9 - 15.5 g/dL [facility] Comment:Testing performed by : [facility], [address] [place] [address] Hct 34.0(L) 35.6 - 45.5 % [facility] Comment:Testing performed by : [facility], [address] [place] [address] Plt 206 150 - 400 K/cumm [facility] Comment:Testing performed by : [facility], [address] [place] [address] MPV 8.1 6.8 - 10.4 fL MARGARETTE SOSA Comment:Testing performed by : [facility], [address] [place] [address] RBC 3.66(L) 3.90 - 5.20 M/cumm MARGARETTE SOSA Comment:Testing performed by : [facility], [address] [place], [place] [phone] MCV 93.0 81.3 - 96.4 fL MARGARETTE SOSA Comment:Testing performed by : [facility], [address] [place] [address] MCH 31.1 27.1 - 33.3 pg MARGARETTE SOSA Comment:Testing performed by : [facility], [address] [place] [address] MCHC 33.4 32.3 - 35.7 g/dL MARGARETTE SOSA Comment:Testing performed by : [facility], [address] [place] [address] RDW CV 19.1(H) 11.1 - 14.9 % MARGARETTE [facility] Comment:Testing performed by : [facility], [address] [place] [address] NRBC abs 0.00 0.00 - 0.01 K/cumm MARGARETTE SOSA Comment:Testing performed by : [facility], [address] [place] [address] Blood 10/26/2024 9:23 AM CDT 10/26/2024 9:27 AM CDT us Baltazar Mantilla MD LAB BLOOD ORDERABLES Final Resul t MARGARETTE SOSA [facility] Department [place] [address] * Comprehensive metabolic panel (10/26/2024 9:23 AM CDT) Sodium 141 135 - 145 mmol/L Potassium, pl 4.2 3.3 - 4.9 mmol/L [facility] Chloride 106 97 - 110 mmol/L [facility] CO2 25 22 - 32 mmol/L [facility] Anion gap 10 2 - 15 mmol/L [facility] BUN 16 6 - 25 mg/dL [facility] Creatinine 0.69 0.60 - 1.10 mg/dL [facility] Glucose 99 70 - 199 mg/dL [facility] Comment: Interpretive Data Fasting glucose >/= [...] 2022. Calcium 9.4 8.5 - 10.3 mg/dL [facility] Bilirubin, total 0.4 0.1 - 1.2 mg/dL [facility] Protein, pl 7.4 6.5 - 8.5 g/dL [facility] Albumin 4.2 3.5 - 5.0 g/dL [facility] Alk phos 75 40 - 130 Units/L [facility] ALT 19 7 - 45 Units/L [facility] AST 23 10 - 45 Units/L [facility] Blood 10/26/2024 9:23 AM CDT 10/26/2024 9:27 AM CDT Baltazar Mantilla MD LAB BLOOD ORDERABLES Final Resul t [facility] Department [place] [address] * eGFR (10/19/2024 8:42 AM CDT) eGFR [...] MD LAB BLOOD ORDERABLES Final Resul t [facility] [place] [address] * Differential, auto (10/19/2024 8:42 AM CDT) Neutrophil abs 1.76 1.50 - 6.50 K/cumm Comment:Testing performed by : [facility], [address] [place] [phone] Lymphocyte abs 1.21 0.80 - 3.30 K/cumm MARGARETTE SOSA Comment:Testing performed by : [facility], [address] [place] [phone] Monocyte abs 0.50 0.20 - 0.80 K/cumm MARGARETTE SOSA Comment:Testing performed by : [facility], [address] [place], [place] [phone] Eosinophil abs 0.02 0.00 - 0.50 K/cumm MARGARETTE SOSA Comment:Testing performed by : [facility], [address] [place] [phone] Basophil abs 0.02 0.00 - 0.10 K/cumm [facility]ER [facility] Comment:Testing performed by : [facility], [address] [place] [phone] Neutrophil pct 50.2 % [facility] Comment: Interpretive Data Percent cell count reference ranges are not reported, since discordance with absolute values may lead to misinterpretation of CBC data. Current Interpretive Data was last revised on 2017. Testing performed by: [facility], [address] [place] [phone] Lymphocyte pct 34.5 % [facility] Comment: Interpretive Data Percent cell count reference ranges are not reported, since discordance with absolute values may lead to misinterpretation of CBC data. Current Interpretive Data was last revised on 2017. Testing performed by: [facility], [address] [place] [phone] Monocyte pct 14.2 % [facility] Comment: Interpretive Data Percent cell count reference ranges are not reported, since discordance with absolute values may lead to misinterpretation of CBC data. Current Interpretive Data was last revised on 2017. Testing performed by: [facility], [address] [place] [phone] Eosinophil pct 0.5 % [facility] Comment: Interpretive Data Percent cell count reference ranges are not reported, since discordance with absolute values may lead to misinterpretation of CBC data. Current Interpretive Data was last revised on 2017. Testing performed by: [facility], [address] [place] [phone] Basophil pct 0.6 % [facility] Comment: Interpretive Data Percent cell count reference ranges are not reported, since discordance with absolute values may lead to misinterpretation of CBC data. Current Interpretive Data was last revised on 2017. Testing performed by: [facility], [address] [place] [phone] Blood 10/19/2024 8:42 AM CDT 10/19/2024 8:43 AM CDT us Baltazar Fa'nima CESAR LAB BLOOD ORDERABLES Final Resul t Performing Organization Address City/[facility]/ZIP Co de Phone Number MARGARETTE [facility] Department [place] [address] * Thyroid Function [place] (10/19/2024 8:42 AM CDT) Pathologist [facility] TSH 2.44 0.30 - 4.20 mcIUnit/mL Blood 10/19/2024 8:42 AM CDT 10/19/2024 8:54 AM CDT us Baltazar Mantilla MD LAB BLOOD ORDERABLES Final Resul t Performing Organization Address City/[facility] Co de Phone Number [facility] Department [place] [address] * (ABNORMAL) CBC with auto differential (10/19/2024 8:42 AM CDT) Pathologist [facility] WBC 3.51(L) 3.80 - 9.90 K/cumm Comment:Testing performed by : [facility], [address] [place] [phone] Hgb 10.8(L) 11.9 - 15.5 g/dL [facility] Comment:Testing performed by : [facility], [address] [place] [phone] Hct 32.3(L) 35.6 - 45.5 % [facility] Comment:Testing performed by : [facility], [address] [place] [phone] Plt 143(L) 150 - 400 K/cumm [facility] Comment:Testing performed by : [facility], [address] [place] [phone] MPV 7.9 6.8 - 10.4 fL [facility]ERG[facility]GE [facility] Comment:Testing performed by : [facility], [address] [place] [phone] RBC 3.42(L) 3.90 - 5.20 M/cumm [facility]ERG[facility]GE [facility] Comment:Testing performed by : [facility], [address] [place], [place] [phone] MCV 94.6 81.3 - 96.4 fL MARGARETTE SOSA Comment:Testing performed by : [facility], [address] [place], [place] [phone] MCH 31.6 27.1 - 33.3 pg MARGARETTE SOSA Comment:Testing performed by : [facility], [address] [place], [place] [phone] MCHC 33.4 32.3 - 35.7 g/dL MARGARETTE SOSA Comment:Testing performed by : [facility], [address] [place], [place] [phone] RDW CV 19.4(H) 11.1 - 14.9 % MARGARETTE SOSA Comment:Testing performed by : [facility], [address] [place], [place] [phone] NRBC abs 0.00 0.00 - 0.01 K/cumm MARGARETTE [facility] Comment:Testing performed by : [facility], [address] [place], [place] [phone] Blood 10/19/2024 8:42 AM CDT 10/19/2024 8:43 AM CDT Baltazar Matnilla MD LAB BLOOD ORDERABLES Final Resul t [facility] [place] [address] * Comprehensive metabolic panel (10/19/2024 8:42 AM CDT) Sodium 141 135 - 145 mmol/L Potassium, pl 4.3 3.3 - 4.9 mmol/L [facility] Chloride 106 97 - 110 mmol/L [facility] CO2 25 22 - 32 mmol/L [facility] Anion gap 10 2 - 15 mmol/L [facility] BUN 15 6 - 25 mg/dL [facility] Creatinine 0.71 0.60 - 1.10 mg/dL [facility] Glucose 112 70 - 199 mg/dL [facility] Comment: Interpretive Data Fasting glucose >/= [...] Calcium 9.3 8.5 - 10.3 mg/dL CERNER [facility] Bilirubin, total 0.5 0.1 - 1.2 mg/dL CERNER [facility] Protein, pl 7.3 6.5 - 8.5 g/dL [facility] Albumin 4.2 3.5 - 5.0 g/dL CERNER [facility] Alk phos 71 40 - 130 Units/L CERNER [facility] ALT 29 7 - 45 Units/L [facility] AST 29 10 - 45 Units/L CERNER [facility] Blood 10/19/2024 8:42 AM CDT 10/19/2024 8:54 AM CDT us Baltazar Mantilla MD LAB BLOOD ORDERABLES Final Resul t [facility] [place] [address] * US Breast Right Limited (10/10/2024 9:10 [...] MD LAB BLOOD ORDERABLES Final Resul t [facility] [place] [address] * (ABNORMAL) Differential, auto (10/05/2024 6:46 AM CDT) Neutrophil abs 1.70 1.50 - 6.50 K/cumm Comment:Testing performed by : [facility], [address] [place] [phone] Lymphocyte abs 0.75(L) 0.80 - 3.30 K/cumm [facility] Comment:Testing performed by : [facility], [address] [place] [phone] Monocyte abs 0.24 0.20 - 0.80 K/cumm MARGARETTE [facility] Comment:Testing performed by : [facility], [address] [place] [phone] Eosinophil abs 0.02 0.00 - 0.50 K/cumm MARGARETTE [facility] Comment:Testing performed by : [facility], [address] [place] [phone] Basophil abs 0.04 0.00 - 0.10 K/cumm [facility]ERNER [facility]J Comment:Testing performed by : [facility], [address] [place] [phone] Neutrophil pct 61.9 % [facility] Comment: Interpretive Data Percent cell count reference ranges are not reported, since discordance with absolute values may lead to misinterpretation of CBC data. Current Interpretive Data was last revised on 2017. Testing performed by: [facility], [address] [place], [place] [phone] Lymphocyte pct 27.4 % [facility]ER [facility] Comment: Interpretive Data Percent cell count reference ranges are not reported, since discordance with absolute values may lead to misinterpretation of CBC data. Current Interpretive Data was last revised on 2017. Testing performed by: [facility], [address] [place], [place] [phone] Monocyte pct 8.8 % [facility] Comment: Interpretive Data Percent cell count reference ranges are not reported, since discordance with absolute values may lead to misinterpretation of CBC data. Current Interpretive Data was last revised on 2017. Testing performed by: [facility], [address] [place], [place] [phone] Eosinophil pct 0.6 % [facility] Comment: Interpretive Data Percent cell count reference ranges are not reported, since discordance with absolute values may lead to misinterpretation of CBC data. Current Interpretive Data was last revised on 2017. Testing performed by: [facility], [address] [place] [phone] Basophil pct 1.4 % [facility]ER [facility] Comment: Interpretive Data Percent cell count reference ranges are not reported, since discordance with absolute values may lead to misinterpretation of CBC data. Current Interpretive Data was last revised on 2017. Testing performed by: [facility], [address] [place], [place] [phone] Blood 10/05/2024 6:46 AM CDT 10/05/2024 6:49 AM CDT us Baltazar Mantilla MD LAB BLOOD ORDERABLES Final Resul t MARGARETTE [facility] Department [place] [address] * (ABNORMAL) CBC with auto differential (10/05/2024 6:46 AM CDT) WBC 2.75(L) 3.80 - 9.90 K/cumm Comment:Testing performed by : [facility], [address] [place] [address] Hgb 10.3(L) 11.9 - 15.5 g/dL MARGARETTE SOSA Comment:Testing performed by : [facility], [address] [place] [address] Hct 30.0(L) 35.6 - 45.5 % MARGARETTE SOSA Comment:Testing performed by : [facility], [address] [place] [address] Plt 140(L) 150 - 400 K/cumm CERGORGE SOSA Comment:Testing performed by : [facility], [address] [place] [address] MPV 8.3 6.8 - 10.4 fL CERGORGE SOSA Comment:Testing performed by : [facility], [address] [place] [address] RBC 3.23(L) 3.90 - 5.20 M/cumm MARGARETTE SOSA Comment:Testing performed by : [facility], [address] [place] [address] MCV 92.8 81.3 - 96.4 fL [facility]ER[facility]GE [facility] Comment:Testing performed by : [facility], [address] [place] [address] MCH 31.9 27.1 - 33.3 pg [facility] Comment:Testing performed by : [facility], [address] [place] [address] MCHC 34.3 32.3 - 35.7 g/dL [facility] Comment:Testing performed by : [facility], [address] [place] [phone] RDW CV 19.1(H) 11.1 - 14.9 % [facility] Comment:Testing performed by : [facility], [address] [place] [phone] NRBC abs 0.00 0.00 - 0.01 K/cumm [facility] Comment:Testing performed by : [facility], [address] [place] [phone] Blood 10/05/2024 6:46 AM CDT 10/05/2024 6:49 AM CDT us Baltazarsusan Mantilla MD LAB BLOOD ORDERABLES Final Resul t [facility] [place] [address] * Comprehensive metabolic panel (10/05/2024 6:46 AM CDT) Pathologist [facility] Sodium 141 135 - 145 mmol/L Potassium, pl 3.8 3.3 - 4.9 mmol/L [facility] Chloride 106 97 - 110 mmol/L [facility] CO2 25 22 - 32 mmol/L [facility] Anion gap 10 2 - 15 mmol/L [facility] BUN 15 6 - 25 mg/dL [facility] Creatinine 0.68 0.60 - 1.10 mg/dL [facility] Glucose 120 70 - 199 mg/dL [facility] Comment: Interpretive Data Fasting glucose >/= [...] BJ Albumin 4.0 3.5 - 5.0 g/dL [facility] Alk phos 66 40 - 130 Units/L [facility]ER [facility] ALT 23 7 - 45 Units/L [facility] AST 26 10 - 45 Units/L [facility] Blood 10/05/2024 6:46 AM CDT 10/05/2024 6:52 AM CDT Baltazar Mantilla MD LAB BLOOD ORDERABLES Final Resul t [facility] [place] [address] * eGFR (09/28/2024 6:42 AM CDT) eGFR [...] MD LAB BLOOD ORDERABLES Final Resul t [facility] [place] [address] * Differential, auto (09/28/2024 6:42 AM CDT) Neutrophil abs 2.09 1.50 - 6.50 K/cumm Comment:Testing performed by : [facility], [address] [place] [phone] Lymphocyte abs 1.04 0.80 - 3.30 K/cumm [facility]ERGOR[facility] Comment:Testing performed by : [facility], [address] [place] [phone] Monocyte abs 0.32 0.20 - 0.80 K/cumm [facility] Comment:Testing performed by : [facility] [facility], [address] [place] [phone] Eosinophil abs 0.01 0.00 - 0.50 K/cumm [facility] Comment:Testing performed by : [facility], [address] [place] [phone] Basophil abs 0.04 0.00 - 0.10 K/cumm [facility] Comment:Testing performed by : [facility], [address] [place] [phone] Neutrophil pct 59.7 % [facility]ERNER [facility] Comment: Interpretive Data Percent cell count reference ranges are not reported, since discordance with absolute values may lead to misinterpretation of CBC data. Current Interpretive Data was last revised on 2017. Testing performed by: [facility], [address] [place] [phone] Lymphocyte pct 29.7 % [facility] Comment: Interpretive Data Percent cell count reference ranges are not reported, since discordance with absolute values may lead to misinterpretation of CBC data. Current Interpretive Data was last revised on 2017. Testing performed by: [facility], [address] [place] [phone] Monocyte pct 9.1 % [facility] Comment: Interpretive Data Percent cell count reference ranges are not reported, since discordance with absolute values may lead to misinterpretation of CBC data. Current Interpretive Data was last revised on 2017. Testing performed by: [facility], [address] [place] [phone] Eosinophil pct 0.3 % MARGARETTE HAMMOND Comment: Interpretive Data Percent cell count reference ranges are not reported, since discordance with absolute values may lead to misinterpretation of CBC data. Current Interpretive Data was last revised on 2017. Testing performed by: [facility], [address] [place], [place] [phone] Basophil pct 1.2 % MARGARETTE HAMMOND Comment: Interpretive Data Percent cell count reference ranges are not reported, since discordance with absolute values may lead to misinterpretation of CBC data. Current Interpretive Data was last revised on 2017. Testing performed by: [facility], [address] [place], [place] [phone] Blood 09/28/2024 6:42 AM CDT 09/28/2024 6:44 AM CDT us Baltazar Fa'nima CESAR LAB BLOOD ORDERABLES Final Resul t MARGARETTE HAMMOND [facility] [place] [address] * (ABNORMAL) CBC with auto differential (09/28/2024 6:42 AM CDT) WBC 3.50(L) 3.80 - 9.90 K/cumm Comment:Testing performed by : [facility], [address] [place] [phone] Hgb 10.9(L) 11.9 - 15.5 g/dL MARGARETTE HAMMOND Comment:Testing performed by : [facility], [address] [place] [phone] Hct 31.6(L) 35.6 - 45.5 % MARGARETTE HAMMOND Comment:Testing performed by : [facility], [address] [place] [address] Plt 190 150 - 400 K/cumm [facility]TE [facility] Comment:Testing performed by : [facility], [address] [place] [address] MPV 8.5 6.8 - 10.[address] Comment:Testing performed by : [facility], [address] [place], [place] [phone] RBC 3.41(L) 3.90 - 5.20 M/cumm [facility]ETTE [facility] Comment:Testing performed by : [facility], [address] [place] [address] MCV 92.6 81.3 - 96.4 fL [facility]ARG[facility]ETTE [facility] Comment:Testing performed by : [facility], [address] [place], [place] [phone] MCH 31.9 27.1 - 33.[address] Comment:Testing performed by : [facility], [address] [place], [place] [phone] MCHC 34.5 32.3 - 35.7 g/dL [facility]ETTE [facility] Comment:Testing performed by : [facility], [address] [place] [address] RDW CV 18.6(H) 11.1 - 14.9 % [facility] Comment:Testing performed by : [facility], [address] [place] [address] NRBC abs 0.00 0.00 - 0.01 K/cumm [facility] Comment:Testing performed by : [facility], [address] [place] [address] Blood 09/28/2024 6:42 AM CDT 09/28/2024 6:44 AM CDT us Baltazar Mantilla MD LAB BLOOD ORDERABLES Final Resul t [facility] Department of Laboratories [place] [phone] * Comprehensive metabolic panel (09/28/2024 6:42 AM CDT) Sodium 140 135 - 145 mmol/L Potassium, pl 4.0 3.3 - 4.9 mmol/L [facility] Chloride 105 97 - 110 mmol/L [facility] CO2 26 22 - 32 mmol/L [facility] Anion gap 9 2 - 15 mmol/L [facility] BUN 19 6 - 25 mg/dL [facility] Creatinine 0.69 0.60 - 1.10 mg/dL [facility] Glucose 116 70 - 199 mg/dL [facility] Comment: Interpretive Data Fasting glucose >/= [...] 2022. Calcium 9.4 8.5 - 10.3 mg/dL [facility] Bilirubin, total 0.5 0.1 - 1.2 mg/dL [facility] Protein, pl 7.4 6.5 - 8.5 g/dL [facility] Albumin 4.1 3.5 - 5.0 g/dL [facility] Alk phos 75 40 - 130 Units/L [facility] ALT 21 7 - 45 Units/L [facility] AST 23 10 - 45 Units/L [facility] Blood 09/28/2024 6:42 AM CDT 09/28/2024 6:51 AM CDT us Baltazar Mantilla MD LAB BLOOD ORDERABLES Final Resul t [facility] Department [place] [address] * eGFR (09/21/2024 9:24 AM CDT) eGFR [...] ORDERABLES Final Resul t MARGARETTE SOSA [facility] [place] [address] * (ABNORMAL) CBC with auto differential (09/21/2024 9:24 AM CDT) Pathologist [facility] WBC 3.8 3.8 - 9.9 K/cumm Comment:Testing performed by : [facility], [address] [place] [phone] Hgb 11.0(L) 11.9 - 15.5 g/dL MARGARETTE SOSA Comment:Testing performed by : [facility], [address] [place] [phone] Hct 32.5(L) 35.6 - 45.5 % MARGARETTE SOSA Comment:Testing performed by : [facility], [address] [place] [phone] Plt 239 150 - 400 K/cumm MARGARETTE SOSA Comment:Testing performed by : [facility], [address] [place] [address] MPV 8.7 6.8 - 10.4 fL MARGARETTE SOSA Comment:Testing performed by : [facility], [address] [place] [address] RBC 3.50(L) 3.90 - 5.20 M/cumm MARGARETTE SOSA Comment:Testing performed by : [facility], [address] [place] [address] MCV 92.6 81.3 - 96.4 fL MARGARETTE OSSA Comment:Testing performed by : [facility], [address] [place], [place] [phone] MCH 31.5 27.1 - 33.3 pg MARGARETTE SOSA Comment:Testing performed by : [facility], [address] [place] [address] MCHC 34.0 32.3 - 35.7 g/dL MARGARETTE SOSA Comment:Testing performed by : [facility], [address] [place] [address] RDW CV 18.2(H) 11.1 - 14.9 % MARGARETTE SOSA Comment:Testing performed by : [facility], [address] [place] [address] NRBC abs 0.00 0.00 - 0.01 K/cumm [facility]TE [facility] Comment:Testing performed by : [facility], [address] [place] [address] Blood 09/21/2024 9:24 AM CDT 09/21/2024 9:25 AM CDT us Baltazarsusan Mantilla MD LAB BLOOD ORDERABLES Edited Resu lt - Final MARGARETTE SOSA [facility] Department [place] [address] * (ABNORMAL) Manual Differential (09/21/2024 9:24 AM CDT) Cells Counted 200 Comment:Testing performed by : [facility], [address] [place] [phone] Neutrophil abs 2.5 1.5 - 6.5 K/cumm [facility] Comment:Testing performed by : [facility], [address] [place] [phone] Lymphocyte abs 1.1 0.8 - 3.3 K/cumm [facility] Comment:Testing performed by : [facility], [address] [place], [place] [phone] Monocyte abs 0.2 0.2 - 0.8 K/cumm [facility] Comment:Testing performed by : [facility], [address] [place] [phone] Eosinophil abs 0.0 0.0 - 0.5 K/cumm [facility] Comment:Testing performed by : [facility], [address] [place], [place] [phone] Basophil abs 0.0 0.0 - 0.1 K/cumm [facility] Comment:Testing performed by : [facility], [address] [place] [phone] Neutrophil pct 65.0 % [facility] Comment: Interpretive Data Percent cell count reference ranges are not reported, since discordance with absolute values may lead to misinterpretation of CBC data. Current Interpretive Data was last revised on 2017. Testing performed by: [facility], [address] [place] [phone] Lymphocyte pct 29.0 % [facility] Comment: Interpretive Data Percent cell count reference ranges are not reported, since discordance with absolute values may lead to misinterpretation of CBC data. Current Interpretive Data was last revised on 2017. Testing performed by: [facility], [address] [place] [phone] Monocyte pct 6.0 % [facility] Comment: Interpretive Data Percent cell count reference ranges are not reported, since discordance with absolute values may lead to misinterpretation of CBC data. Current Interpretive Data was last revised on 2017. Testing performed by: [facility], [address] [place] [address] Eosinophil pct 0.0 % CERGORGE SOSA Comment: Interpretive Data Percent cell count reference ranges are not reported, since discordance with absolute values may lead to misinterpretation of CBC data. Current Interpretive Data was last revised on 2017. Testing performed by: [facility], [address] [place] [address] Basophil pct 1.0 % MARGARETTE SOSA Comment: Interpretive Data Percent cell count reference ranges are not reported, since discordance with absolute values may lead to misinterpretation of CBC data. Current Interpretive Data was last revised on 2017. Testing performed by: [facility], [address] [place] [address] Myelocyte pct 1.0(H) 0.0 - 0.0 % MARGARETTE SOSA Comment:Testing performed by : [facility], [address] [place], [place] [phone] RBC morphology NRBCs present(A) MARGARETTE [facility] Comment:Testing performed by : [facility], [address] [place], [place] [phone] Anisocytosis 1+(A) [facility]ETTE [facility] Comment:Testing performed by : [facility], [address] [place], [place] [phone] Platelet estimate Adequate [facility]TE [facility] Comment:Testing performed by : [facility], [address] [place], [place] [phone] Blood 09/21/2024 9:24 AM CDT 09/21/2024 9:25 AM CDT us Baltazar Fa'nima CESAR LAB BLOOD ORDERABLES Final Resul t MARGARETTE SOSA [facility] Department [place] [address] * Comprehensive metabolic panel (09/21/2024 9:24 AM CDT) Sodium 144 135 - 145 mmol/L Potassium, pl 4.6 3.3 - 4.9 mmol/L [facility] Chloride 108 97 - 110 mmol/L [facility] CO2 26 22 - 32 mmol/L [facility] Anion gap 10 2 - 15 mmol/L [facility] BUN 16 6 - 25 mg/dL [facility] Creatinine 0.71 0.60 - 1.10 mg/dL [facility] Glucose 106 70 - 199 mg/dL [facility] Comment: Interpretive Data Fasting glucose >/= [...] 2022. Calcium 10.1 8.5 - 10.3 mg/dL [facility] Bilirubin, total 0.3 0.1 - 1.2 mg/dL [facility] Protein, pl 7.7 6.5 - 8.5 g/dL [facility] Albumin 4.3 3.5 - 5.0 g/dL [facility] Alk phos 76 40 - 130 Units/L [facility] ALT 23 7 - 45 Units/L [facility] AST 23 10 - 45 Units/L [facility] Blood 09/21/2024 9:24 AM CDT 09/21/2024 9:27 AM CDT us Baltazar Famillicent CES[facility] LAB BLOOD ORDERABLES Final Resul t [facility] [place] [address] * eGFR (09/14/2024 7:52 AM [...] MD LAB BLOOD ORDERABLES Final Resul t [facility] [place] [address] * (ABNORMAL) Differential, auto (09/14/2024 7:52 AM CDT) Neutrophil abs 1.4(L) 1.5 - 6.5 K/cumm Imm gran abs 0.0 0.0 - 0.1 K/cumm [facility] Lymphocyte abs 1.2 0.8 - 3.3 K/cumm [facility] Monocyte abs 0.3 0.2 - 0.8 K/cumm [facility] Eosinophil abs 0.0 0.0 - 0.5 K/cumm [facility] Basophil abs 0.0 0.0 - 0.1 K/cumm [facility] Neutrophil pct 47.0 % [facility] Comment: Interpretive Data Percent cell count reference ranges are not reported, since discordance with absolute values may lead to misinterpretation of CBC data. Current Interpretive Data was last revised on 2017. Imm gran pct 1.0 % [facility] Comment: Interpretive Data Percent cell count reference ranges are not reported, since discordance with absolute values may lead to misinterpretation of CBC data. Current Interpretive Data was last revised on 2017. Lymphocyte pct 39.4 % [facility] Comment: Interpretive Data Percent cell count reference ranges are not reported, since discordance with absolute values may lead to misinterpretation of CBC data. Current Interpretive Data was last revised on 2017. Monocyte pct 11.3 % [facility] Comment: Interpretive Data Percent cell count reference ranges are not reported, since discordance with absolute values may lead to misinterpretation of CBC data. Current Interpretive Data was last revised on 2017. Eosinophil pct 0.3 % [facility] Comment: Interpretive Data Percent cell count reference ranges are not reported, since discordance with absolute values may lead to misinterpretation of CBC data. Current Interpretive Data was last revised on 2017. Basophil pct 1.0 % [facility] Comment: Interpretive Data Percent cell count reference ranges are not reported, since discordance with absolute values may lead to misinterpretation of CBC data. Current Interpretive Data was last revised on 2017. Blood 09/14/2024 7:52 AM CDT 09/14/2024 8:09 AM CDT us Baltazar Mantilla MD LAB BLOOD ORDERABLES Final Resul t [facility] [place] [address] * (ABNORMAL) CBC with auto differential (09/14/2024 7:52 AM CDT) WBC 2.9(L) 3.8 - 9.9 K/cumm Hgb 10.5(L) 11.9 - 15.5 g/dL [facility] Hct 31.6(L) 35.6 - 45.5 % [facility] Plt 235 150 - 400 K/cumm [facility] MPV 10.5 9.1 - 12.[address] [facility] RBC 3.38(L) 3.90 - 5.20 M/cumm [facility] MCV 93.5 81.3 - 96.[address] [facility] MCH 31.1 27.1 - 33.[address] [facility] MCHC 33.2 32.3 - 35.7 g/dL [facility] RDW CV 16.2(H) 11.1 - 14.9 % [facility] RDW SD 53.5(H) 35.7 - 48.[address] [facility] NRBC abs 0.00 0.00 - 0.01 K/cumm [facility] Blood 09/14/2024 7:52 AM CDT 09/14/2024 8:09 AM CDT us Baltazarsusan Mantilla MD LAB BLOOD ORDERABLES Final Resul t [facility] [place] [address] * Comprehensive metabolic panel (09/14/2024 7:52 AM CDT) Sodium 142 135 - 145 mmol/L Potassium, pl 4.1 3.3 - 4.9 mmol/L [facility] Chloride 106 97 - 110 mmol/L [facility] CO2 26 22 - 32 mmol/L [facility] Anion gap 10 2 - 15 mmol/L [facility] BUN 15 6 - 25 mg/dL [facility] Creatinine 0.79 0.60 - 1.10 mg/dL [facility] Glucose 95 70 - 199 mg/dL [facility] Comment: Interpretive Data Fasting glucose >/= [...] 2022. Calcium 9.4 8.5 - 10.3 mg/dL [facility] Bilirubin, total 0.4 0.1 - 1.2 mg/dL [facility] Protein, pl 7.3 6.5 - 8.5 g/dL [facility] Albumin 4.2 3.5 - 5.0 g/dL [facility] Alk phos 83 40 - 130 Units/L [facility] ALT 27 7 - 45 Units/L [facility] AST 23 10 - 45 Units/L [facility] Blood 09/14/2024 7:52 AM CDT 09/14/2024 8:09 AM CDT Baltazar Mantilla MD LAB BLOOD ORDERABLES Final Resul t Performing Organization Address City/[facility]/ZIP Co de Phone Number [facility] [place] [address] * eGFR (09/07/2024 6:58 AM CDT) eGFR [...] LAB BLOOD ORDERABLES Final Resul t MARGARETTE [facility] [place] [address] * (ABNORMAL) Differential, auto (09/07/2024 6:58 AM CDT) Neutrophil abs 1.1(L) 1.5 - 6.5 K/cumm Comment:Testing performed by : [facility], [address] [place] [phone] Lymphocyte abs 0.9 0.8 - 3.3 K/cumm [facility]ER [facility] Comment:Testing performed by : [facility], [address] [place] [phone] Monocyte abs 0.2 0.2 - 0.8 K/cumm [facility] Comment:Testing performed by : [facility], [address] [place] [phone] Eosinophil abs 0.0 0.0 - 0.5 K/cumm [facility] Comment:Testing performed by : [facility], [address] [place] [phone] Basophil abs 0.0 0.0 - 0.1 K/cumm [facility] Comment:Testing performed by : [facility], [address] [place] [phone] Neutrophil pct 51.0 % [facility] Comment: Interpretive Data Percent cell count reference ranges are not reported, since discordance with absolute values may lead to misinterpretation of CBC data. Current Interpretive Data was last revised on 2017. Testing performed by: [facility], [address] [place] [phone] Lymphocyte pct 38.9 % [facility] Comment: Interpretive Data Percent cell count reference ranges are not reported, since discordance with absolute values may lead to misinterpretation of CBC data. Current Interpretive Data was last revised on 2017. Testing performed by: [facility], [address] [place] [phone] Monocyte pct 7.8 % [facility] Comment: Interpretive Data Percent cell count reference ranges are not reported, since discordance with absolute values may lead to misinterpretation of CBC data. Current Interpretive Data was last revised on 2017. Testing performed by: [facility], [address] [place] [phone] Eosinophil pct 1.2 % MARGARETTE HAMMOND Comment: Interpretive Data Percent cell count reference ranges are not reported, since discordance with absolute values may lead to misinterpretation of CBC data. Current Interpretive Data was last revised on 2017. Testing performed by: [facility], [address] [place], [place] [phone] Basophil pct 1.1 % MARGARETTE HAMMOND Comment: Interpretive Data Percent cell count reference ranges are not reported, since discordance with absolute values may lead to misinterpretation of CBC data. Current Interpretive Data was last revised on 2017. Testing performed by: [facility], [address] [place], [place] [phone] Blood 09/07/2024 6:58 AM CDT 09/07/2024 7:03 AM CDT us Baltazar Dagmar'nima CESAR LAB BLOOD ORDERABLES Final Resul t MARGARETTE SOSA [facility] [place] [address] * (ABNORMAL) CBC with auto differential (09/07/2024 6:58 AM CDT) WBC 2.2(L) 3.8 - 9.9 K/cumm Comment:Testing performed by : [facility], [address] [place] [address] Hgb 11.2(L) 11.9 - 15.5 g/dL MARGARETTE HAMMOND Comment:Testing performed by : [facility], [address] [place] [address] Hct 32.9(L) 35.6 - 45.5 % MARGARETTE HAMMOND Comment:Testing performed by : [facility], [address] [place] [address] Plt 177 150 - 400 K/cumm MARGARETTE SOSA Comment:Testing performed by : [facility], [address] [place] [address] MPV 8.1 6.8 - 10.4 fL MARGARETTE SOSA Comment:Testing performed by : [facility], [address] [place] [address] RBC 3.60(L) 3.90 - 5.20 M/cumm MAGRARETTE SOSA Comment:Testing performed by : [facility], [address] [place] [address] MCV 91.4 81.3 - 96.4 fL MARGARETTE SOSA Comment:Testing performed by : [facility], [address] [place], [place] [phone] MCH 31.2 27.1 - 33.3 pg MARGARETTE SOSA Comment:Testing performed by : [facility], [address] [place] [address] MCHC 34.1 32.3 - 35.7 g/dL MARGARETTE SOSA Comment:Testing performed by : [facility], [address] [place] [address] RDW CV 15.9(H) 11.1 - 14.9 % [facility]TE [facility] Comment:Testing performed by : [facility], [address] [place] [address] NRBC abs 0.00 0.00 - 0.01 K/cumm [facility] Comment:Testing performed by : [facility], [address] [place] [address] Blood 09/07/2024 6:58 AM CDT 09/07/2024 7:03 AM CDT us Baltazarsusan Mantilla MD LAB BLOOD ORDERABLES Final Resul t MARGARETTE SOSA [facility] [place] [address] * Comprehensive metabolic panel (09/07/2024 6:58 AM CDT) Sodium 143 135 - 145 mmol/L Potassium, pl 3.8 3.3 - 4.9 mmol/L [facility] Chloride 108 97 - 110 mmol/L [facility] CO2 25 22 - 32 mmol/L [facility] Anion gap 10 2 - 15 mmol/L [facility] BUN 11 6 - 25 mg/dL [facility] Creatinine 0.77 0.60 - 1.10 mg/dL [facility] Glucose 117 70 - 199 mg/dL [facility] Comment: Interpretive Data Fasting glucose >/= [...] 2022. Calcium 9.4 8.5 - 10.3 mg/dL [facility] Bilirubin, total 0.3 0.1 - 1.2 mg/dL [facility] Protein, pl 7.3 6.5 - 8.5 g/dL [facility] Albumin 4.2 3.5 - 5.0 g/dL [facility] Alk phos 71 40 - 130 Units/L [facility] ALT 26 7 - 45 Units/L [facility] AST 21 10 - 45 Units/L [facility] Blood 09/07/2024 6:58 AM CDT 09/07/2024 7:05 AM CDT us Baltazar Fa'nima [facility] LAB BLOOD ORDERABLES Final Resul t [facility] [place] [address] from Last 3 Months Insurance MEDICARE [facility] MEDICARE SUPPLEMENT MEDICARE [facility] MEDICARE SUPPLEMENT Care Teams Mica Paster Relationship Specialty Start Date End Date Unknown, Notinfile PCP - General 01/21/24
--- OUTSIDE RECORDS SUMMARY | 2024-12-08 19:08 | XMS_ITS | Encounter Summary ---
Author Organization [facility] Healthcare Address [address] [place] [address] Care Team Providers Care Rn Hematology Name Role Phone Unknown, Notinfile Primary Care [...] Mantilla MD [address] [place] [address] Phone: tel: fax: [facility] [address] [facility] [address] [place] [address] Referral ID Status Reason Start Date Expiration Date V isits Requested Visits Authorized [id number] Authorized 07/06/2024 08/05/2025 1 40 Encounter Details Date Type Department Care Team (Latest Contact Info) Description 12/07/2024 9:15 AM CDT Clinical Support [facility] - Lab Collection [address] [facility] [address] [place] [address] Prevention of chemotherapy-induced neutropenia; Malignant neoplasm of [...] * eGFR (12/07/2024 9:22 AM CDT) Pathologist [facility] eGFR >90 >=60 mL/min/1. 73 m2 Comment: [...] ORDERABLES Final Resul t MARGARETTE SOSA [facility] [place] [address] * (ABNORMAL) Differential, auto (12/07/2024 9:22 AM CDT) [facility] Neutrophil abs 4.71 1.50 - 6.50 K/cumm Comment:Testing performed by : [facility], [address] [place] [phone] Lymphocyte abs 1.25 0.80 - 3.30 K/cumm MARGARETTE SOSA Comment:Testing performed by : [facility], [address] [place] [phone] Monocyte abs 0.89(H) 0.20 - 0.80 K/cumm MARGARETTE SOSA Comment:Testing performed by : [facility], [address] [place] [phone] Eosinophil abs 0.04 0.00 - 0.50 K/cumm [facility]ER [facility] Comment:Testing performed by : [facility], [address] [place] [phone] Basophil abs 0.05 0.00 - 0.10 K/cumm [facility] Comment:Testing performed by : [facility], [address] [place] [phone] Neutrophil pct 67.9 % CERNER [facility] Comment: Interpretive Data Percent cell count reference ranges are not reported, since discordance with absolute values may lead to misinterpretation of CBC data. Current Interpretive Data was last revised on 2017. Testing performed by: [facility], [address] [place] [phone] Lymphocyte pct 17.9 % CERNER [facility] Comment: Interpretive Data Percent cell count reference ranges are not reported, since discordance with absolute values may lead to misinterpretation of CBC data. Current Interpretive Data was last revised on 2017. Testing performed by: [facility], [address] [place] [phone] Monocyte pct 12.9 % CERNER [facility] Comment: Interpretive Data Percent cell count reference ranges are not reported, since discordance with absolute values may lead to misinterpretation of CBC data. Current Interpretive Data was last revised on 2017. Testing performed by: [facility], [address] [place] [phone] Eosinophil pct 0.6 % CERNER [facility] Comment: Interpretive Data Percent cell count reference ranges are not reported, since discordance with absolute values may lead to misinterpretation of CBC data. Current Interpretive Data was last revised on 2017. Testing performed by: [facility], [address] [place] [phone] Basophil pct 0.7 % [facility] Comment: Interpretive Data Percent cell count reference ranges are not reported, since discordance with absolute values may lead to misinterpretation of CBC data. Current Interpretive Data was last revised on 2017. Testing performed by: [facility], [address] [place] [phone] Blood 12/07/2024 9:22 AM CDT 12/07/2024 9:26 AM CDT Baltazar Mantilla MD LAB BLOOD ORDERABLES Final Resul t MARGARETTE SOSA [facility] [place] [place] [address] * (ABNORMAL) CBC with auto differential (12/07/2024 9:22 AM CDT) WBC 6.94 3.80 - 9.90 K/cumm Comment:Testing performed by : [facility], [address] [place] [address] Hgb 11.3(L) 11.9 - 15.5 g/dL MARGARETTE SOSA Comment:Testing performed by : [facility], [address] [place] [address] Hct 33.9(L) 35.6 - 45.5 % MARGARETTE SOSA Comment:Testing performed by : [facility], [address] [place] [address] Plt 235 150 - 400 K/cumm MARGARETTE SOSA Comment:Testing performed by : [facility], [address] [place] [address] MPV 7.9 6.8 - 10.4 fL MARGARETTE SOSA Comment:Testing performed by : [facility], [address] [place] [address] RBC 3.59(L) 3.90 - 5.20 M/cumm MARGARETTE BJ Comment:Testing performed by : [facility], [address] [place] [address] MCV 94.4 81.3 - 96.4 fL CERGORGE [facility] Comment:Testing performed by : [facility], [address] [place] [address] MCH 31.4 27.1 - 33.3 pg CERGORGE [facility]J Comment:Testing performed by : [facility], [address] [place] [address] MCHC 33.3 32.3 - 35.7 g/dL [facility] Comment:Testing performed by : [facility], [address] [place] [address] RDW CV 17.4(H) 11.1 - 14.9 % [facility] Comment:Testing performed by : [facility], [address] [place] [address] NRBC abs 0.00 0.00 - 0.01 K/cumm [facility] Comment:Testing performed by : [facility], [address] [place] [address] Blood 12/07/2024 9:22 AM CDT 12/07/2024 9:26 AM CDT us Baltazar Mantilla MD LAB BLOOD ORDERABLES Final Resul t [facility] [place] [address] * Comprehensive metabolic panel (12/07/2024 9:22 AM CDT) Sodium 141 135 - 145 mmol/L Potassium, pl 4.3 3.3 - 4.9 mmol/L [facility] Chloride 106 97 - 110 mmol/L [facility] CO2 25 22 - 32 mmol/L [facility] Anion gap 10 2 - 15 mmol/L [facility] BUN 14 6 - 25 mg/dL [facility] Creatinine 0.67 0.60 - 1.10 mg/dL [facility] Glucose 94 70 - 199 mg/dL [facility] Comment: Interpretive Data Fasting glucose >/= 126 [...] 2022. Calcium 9.5 8.5 - 10.3 mg/dL [facility] Bilirubin, total 0.3 0.1 - 1.2 mg/dL [facility] Protein, pl 7.0 6.5 - 8.5 g/dL [facility] Albumin 4.2 3.5 - 5.0 g/dL [facility] Alk phos 74 40 - 130 Units/L [facility] ALT 14 7 - 45 Units/L [facility] AST 20 10 - 45 Units/L [facility] Blood 12/07/2024 9:22 AM CDT 12/07/2024 9:29 AM CDT Baltazar Mantilla MD LAB BLOOD ORDERABLES Final Resul t Performing Organization Address City/[facility] Co de Phone Number [facility] Department [place] [address] * Thyroid Function [place] (12/07/2024 9:22 AM CDT) TSH 2.91 0.30 - 4.20 mcIUnit/mL Blood 12/07/2024 9:22 AM CDT 12/07/2024 9:29 AM CDT Baltazar Mantilla MD LAB BLOOD ORDERABLES Final Resul t Performing Organization Address [facility] Co de Phone Number [facility] [place] [address] documented in this encounter Visit Diagnoses Diagnosis Prevention of chemotherapy-induced neutropenia Malignant neoplasm of upper-outer quadrant of right breast in female, estrogen receptor negative (HCC) Nausea and vomiting, unspecified vomiting type documented in this encounter Orders Appointment Requests Count Last Ordered Date Fi rst Ordered Date ONCBCN LAB APPOINTMENT 1 12/07/2024 documented in this encounter Care Teams Rn Hematology Relationship Specialty Start Date End Date Unknown, Notinfile PCP - General 01/21/24 documented as of this encounter
--- OUTSIDE RECORDS SUMMARY | 2024-12-08 19:08 | XMS_ITS | Encounter Summary ---
Author Organization [facility] Address [address] [place] [address] Phone Care Team Providers Care Melting Supervisor Name Role Phone Unknown, Notinfile Primary Care Provider Unavail able Encounter Details Date Type Department Care Team (Late st Contact Info) Description 12/07/2024 10:15 AM CDT Office Visit [facility] [address] [facility] [address] [place] [phone] Baltazar Mantilla MD [address] [place], [place] [id number] Nausea and vomiting, unspecified vomiting type (Primary [...] Stage IIB (cT2, cN1, cM0, G3, ER+, WV+, HER2-) - Unsigned Treatment History: 07/20/2023 Neoadjuvant [...] Right: RUQ mass is difficult to palpate. Firmware Manager presented during the exam Wt Readings from [...] breast IDC (cT2, cN1, cM0, G3, ER+, WV+, HER2-) on neoadjuvant therapy Patient reports fatigue [...] type Expected: 01/18/2025, Expires: 01/18/2026 Thyroid Function [place] [facility] Routine Prevention of chemotherapy-induced neutropenia Malignant [...] 12/07/2024 documented in this encounter Care Teams Melting Supervisor Relationship Specialty Start Date End Date Unknown, Notinfile PCP - General 01/21/24 documented as of this encounter
--- OUTSIDE RECORDS SUMMARY | 2024-12-08 19:08 | XMS_ITS | Clinical Summary ---
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 Name Role Phone Unknown, Notinfile Primary Care [...] Cancer Staging:Clinical:Stage IIB(cT2, cN1, cM0, G3, ER+, TX+, HER2-) - Unsigned Prevention of chemotherapy-induced neutropenia 0 07/06/2024 Encounters Date Type Department Care Team Description 12/07/2024 11:30 AM CDT Infusion [facility] - Infusion [address] [place] [address] Floor 5 [place] [address] Nausea and vomiting, unspecified vomiting type (Primary Dx); Prevention of chemotherapy-induced neutropenia; Malignant neoplasm of upper-outer quadrant of right breast in female, estrogen receptor negative (HCC) 12/07/2024 10:15 AM CDT Office Visit [facility] Oncology [address] [place] [address] Floor 8 [place] [address] Baltazar Mantilla MD Nausea and vomiting, unspecified vomiting type (Primary Dx); Prevention of chemotherapy-induced neutropenia; Malignant neoplasm of upper-outer quadrant of right breast in female, estrogen receptor negative (HCC) 12/07/2024 9:15 AM CDT Clinical Support [facility] - Lab Collection [facility] Floor 5 [place] [address] Prevention of chemotherapy-induced neutropenia; Malignant neoplasm of upper-outer quadrant of right breast in female, estrogen receptor negative (HCC); Nausea and vomiting, unspecified vomiting type 11/17/2024 Orders Only [facility] Surgery [address] [place] [address] Floor 8 [place] [address] Jennifer Goodman MD Malignant neoplasm of upper-outer quadrant of right breast in female, estrogen receptor negative (HCC) (Primary Dx) 11/16/2024 11:30 AM CDT Infusion [facility] - Infusion [address] Floor 6 [place] [address] Nausea and vomiting, unspecified vomiting type (Primary Dx); Prevention of chemotherapy-induced neutropenia; Malignant neoplasm of upper-outer quadrant of right breast in female, estrogen receptor negative (HCC) 11/16/2024 10:15 AM CDT Office Visit [facility] Oncology [address] [place] [address] Floor 8 [place] [phone] Baltazar Mantilla MD Nausea and vomiting, unspecified vomiting type (Primary Dx); Prevention of chemotherapy-induced neutropenia; Malignant neoplasm of upper-outer quadrant of right breast in female, estrogen receptor negative (HCC) 11/16/2024 9:15 AM CDT Clinical Support [facility] - Lab Collection [address] [facility] Floor 5 [place] [address] Prevention of chemotherapy-induced neutropenia; Malignant neoplasm of upper-outer quadrant of right breast in female, estrogen receptor negative (HCC); Nausea and vomiting, unspecified vomiting type 10/30/2024 Telephone [facility] [address] [place] [address] Nadia Johns RN 10/27/2024 8:00 AM CDT Infusion [facility] - Infusion [address] [facility] Floor 5 [place] [address] Nausea and vomiting, unspecified vomiting type (Primary Dx); Prevention of chemotherapy-induced neutropenia; Malignant neoplasm of upper-outer quadrant of right breast in female, estrogen receptor negative (HCC) 10/26/2024 2:41 PM CDT - 10/26/2024 11:59 PM CDT Hospital Encounter [facility] Cardiac Diagnostic Lab [facility] [place] [address] Encounter for monitoring cardiotoxic drug therapy Discharge Disposition: Discharge to home or self care 10/26/2024 11:30 AM CDT Infusion [facility] - Infusion [address] [facility] Floor 6 [place] [address] Prevention of chemotherapy-induced neutropenia; Malignant neoplasm of upper-outer quadrant of right breast in female, estrogen receptor negative (HCC); Nausea and vomiting, unspecified vomiting type 10/26/2024 10:30 AM CDT Office Visit [facility] [address] [place] [address] Floor 8 [place] [address] Baltazar Mantilla MD Nausea and vomiting, unspecified vomiting type (Primary Dx); Prevention of chemotherapy-induced neutropenia; Malignant neoplasm of upper-outer quadrant of right breast in female, estrogen receptor negative (HCC) 10/26/2024 9:45 AM CDT Clinical Support [facility] - Lab Collection [facility] Floor 5 [place] [address] Prevention of chemotherapy-induced neutropenia; Malignant neoplasm of upper-outer quadrant of right breast in female, estrogen receptor negative (HCC); Nausea and vomiting, unspecified vomiting type 10/26/2024 9:15 AM CDT Clinical Support [facility] Lab [address] [place] [phone] Prevention of chemotherapy-induced neutropenia; Malignant neoplasm of upper-outer quadrant of right breast in female, estrogen receptor negative (HCC); Nausea and vomiting, unspecified vomiting type 10/26/2024 Orders Only [facility] [address] [place] [phone] Baltazar Mantilla MD Cardiotoxicity (Primary Dx); Encounter for monitoring cardiotoxic drug therapy; Prevention of chemotherapy-induced neutropenia; Malignant neoplasm of upper-outer quadrant of right breast in female, estrogen receptor negative (HCC); Nausea and vomiting, unspecified vomiting type 10/19/2024 9:15 AM CDT Office Visit [facility] [address] [place] [phone] Baltazar Mantilla MD 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 (Primary Dx); Prevention of chemotherapy-induced neutropenia; Malignant neoplasm of upper-outer quadrant of right breast in female, estrogen receptor negative (HCC); Nausea and vomiting, unspecified vomiting type 10/19/2024 8:15 AM CDT Clinical Support [facility] - Lab Collection [address] [place] [address] Floor 5 [place] [address] Prevention of chemotherapy-induced neutropenia; Malignant neoplasm of upper-outer quadrant of right breast in female, estrogen receptor negative (HCC); Nausea and vomiting, unspecified vomiting type 10/16/2024 Orders Only [facility] Oncology [facility] [place] [address] Baltazar Mantilla MD Malignant neoplasm of upper-outer quadrant of right breast in female, estrogen receptor negative (HCC) (Primary Dx); Nausea and vomiting, unspecified vomiting type 10/10/2024 7:54 AM CDT - 10/10/2024 11:59 PM CDT Hospital Encounter [facility] [address] [place] [address] Malignant neoplasm of upper-outer quadrant of right breast in female, estrogen receptor negative (HCC) Discharge Disposition: Discharge to home or self care 10/10/2024 7:53 AM CDT - 10/10/2024 11:59 PM CDT Hospital Encounter [facility] [address] [place] [address] Malignant neoplasm of upper-outer quadrant of right breast in female, estrogen receptor negative (HCC) Discharge Disposition: Discharge to home or self care 10/06/2024 Telephone [facility] [address] [place] [address] Nadia Johns RN Arm Pain; Leg Pain 10/05/2024 7:30 AM CDT Infusion [facility] - Infusion [address] Floor 5 [place] [address] Malignant neoplasm of upper-outer quadrant of right breast in female, estrogen receptor negative (HCC) (Primary Dx); Prevention of chemotherapy-induced neutropenia 10/05/2024 6:30 AM CDT Clinical Support [facility] - Lab Collection [address] Floor 5 [place] [address] Prevention of chemotherapy-induced neutropenia; Malignant neoplasm of upper-outer quadrant of right breast in female, estrogen receptor negative (HCC) 09/28/2024 7:30 AM CDT Infusion [facility] - Infusion [address] Floor [address] [place] [address] Malignant neoplasm of upper-outer quadrant of right breast in female, estrogen receptor negative (HCC) (Primary Dx); Prevention of chemotherapy-induced neutropenia 09/28/2024 6:30 AM CDT Clinical Support [facility] - Lab Collection [address] Floor 6 [place] [address] Prevention of chemotherapy-induced neutropenia; Malignant neoplasm of upper-outer quadrant of right breast in female, estrogen receptor negative (HCC) 09/28/2024 Telephone [facility] [address] [place] [address] 8 [place] [address] Nadia Johns RN 09/21/2024 10:30 AM CDT Infusion [facility] - Infusion [address] [facility] Floor 5 [place] [address] Malignant neoplasm of upper-outer quadrant of right breast in female, estrogen receptor negative (HCC) (Primary Dx); Prevention of chemotherapy-induced neutropenia 09/21/2024 9:15 AM CDT Office Visit [facility] [address] [place] [address] 8 [place] [address] Baltazar Mantilla MD Malignant neoplasm of upper-outer quadrant of right breast in female, estrogen receptor negative (HCC) (Primary Dx); Prevention of chemotherapy-induced neutropenia 09/21/2024 8:15 AM CDT Clinical Support [facility] - Lab Collection [address] [place] [address] 5 [place] [address] Malignant neoplasm of right female breast, unspecified estrogen receptor status, unspecified site of breast (HCC) (Primary Dx); Prevention of chemotherapy-induced neutropenia; Malignant neoplasm of upper-outer quadrant of right breast in female, estrogen receptor negative (HCC) 09/21/2024 Orders Only [facility] [address] [place] [phone] Baltazar Mantilla MD Malignant neoplasm of upper-outer quadrant of right breast in female, estrogen receptor negative (HCC) (Primary Dx) 09/14/2024 7:30 AM CDT - 09/14/2024 12:14 PM CDT Hospital Encounter [facility] ([facility]) [address] [place] [address] Malignant neoplasm of upper-outer quadrant of right breast in female, estrogen receptor negative (HCC) (Primary Dx); Prevention of chemotherapy-induced neutropenia; Malignant neoplasm of right female breast, unspecified estrogen receptor status, unspecified site of breast (HCC) Discharge Disposition: Discharge to home or self care 09/14/2024 Orders Only [facility] [address] [place] [address] 8 [place] [phone] Baltazar Mantilla MD 09/07/2024 8:00 AM CDT Infusion [facility] - Infusion [address] [facility] Floor 5 [place] [address] Malignant neoplasm of upper-outer quadrant of right breast in female, estrogen receptor negative (HCC) (Primary Dx); Prevention of chemotherapy-induced neutropenia 09/07/2024 7:00 AM CDT Clinical Support [facility] - Lab Collection [facility] [address] [place] [address] Prevention of chemotherapy-induced neutropenia; Malignant neoplasm of upper-outer quadrant of right breast in female, estrogen receptor negative (HCC) 09/07/2024 Telephone [facility] [address] [place] [address] 8 [place] [address] Nadia Johns RN 09/07/2024 Orders Only [facility] [address] [place] [phone] Baltazar Mantilla MD Malignant neoplasm of [...] 05/28/2021, 03/28/2013 Medical Devices Implanted Type Area Monitoring And Evaluation Advisor Device Identifier Shelf Expiration Date Model / Serial / 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 [employer] Marker Tissue Rigid Needle Open Coil Radiopaque Clip Hydromark 18ga Titanium Hydrogel 4009-08-15-T3 - [id number] Implanted:Qty: 1 on 06/05/2024 by Jolanta Ferreira MD at [facility] Right: Axilla [employer] [id number] 11/28/2026 4010-02-1 8-T3 / / [id number] Bard Peripheral Vascular Ultraclip Bard 17ga 10cm 2 Trigger Permanent Ultrasound [id number] - [id number] Implanted:Qty: 1 on 06/05/2024 by Jolanta Ferreira MD at [facility] Right: Breast Bard Peripheral Vascular [id number] / / [employer] Marker Image Hydromark Plus T5 Titanium 15ga Radiological Implant Sterile 4009-08-12-T5 - [id number] Implanted:Qty: 1 on 06/05/2024 by Jolanta Ferreira MD at [facility] Right: Breast TargetX [id number] 4010- 5-T5 / / [id number] [employer] [facility] Trimark Mri Guided Rigid Deployment Device Cork Marker Breast Trimark Td 13-Mr - [id number] Implanted:Qty: 1 on 07/05/2024 at [facility] LiveStub [facility] TRIMARK TD 13-MR / / Bard Access [employer] [place] [employer] Isp Mri 1lum Powerport Clearvue Titanium 8fr [id number] - [id number] Implanted:Qty: 1 on 07/19/2024 at [facility] Left: Subclavian Bard Access Systems 01/25/2026 [id number] / / [id number] Procedures Procedure Name Priority Date/Time Associated Diagnosis [...] ORDERABLES Final Resul t MARGARETTE SOSA [facility] Department [place] [address] * (ABNORMAL) Differential, auto (12/07/2024 9:22 AM CDT) Pathologist [facility] Neutrophil abs 4.71 1.50 - 6.50 K/cumm Comment:Testing performed by : [facility], [address] [place], [place] [id number] Lymphocyte abs 1.25 0.80 - 3.30 K/cumm [facility] Comment:Testing performed by : [facility], [address] [place], [place] [id number] Monocyte abs 0.89(H) 0.20 - 0.80 K/cumm [facility] Comment:Testing performed by : [facility], [address] [place], [place] [id number] Eosinophil abs 0.04 0.00 - 0.50 K/cumm [facility] Comment:Testing performed by : [facility], [address] [place], [place] [id number] Basophil abs 0.05 0.00 - 0.10 K/cumm [facility] Comment:Testing performed by : [facility], [address] [place], [place] [id number] Neutrophil pct 67.9 % [facility] Comment: Interpretive Data Percent cell count reference ranges are not reported, since discordance with absolute values may lead to misinterpretation of CBC data. Current Interpretive Data was last revised on 2017. Testing performed by: [facility], [address] [place], [place] [phone] Lymphocyte pct 17.9 % [facility] Comment: Interpretive Data Percent cell count reference ranges are not reported, since discordance with absolute values may lead to misinterpretation of CBC data. Current Interpretive Data was last revised on 2017. Testing performed by: [facility], [address] [place], [place] [phone] Monocyte pct 12.9 % [facility] Comment: Interpretive Data Percent cell count reference ranges are not reported, since discordance with absolute values may lead to misinterpretation of CBC data. Current Interpretive Data was last revised on 2017. Testing performed by: [facility], [address] [place], [place] [id number] Eosinophil pct 0.6 % [facility] Comment: Interpretive Data Percent cell count reference ranges are not reported, since discordance with absolute values may lead to misinterpretation of CBC data. Current Interpretive Data was last revised on 2017. Testing performed by: [facility], [address] [place] [phone] Basophil pct 0.7 % MARGARETTE SOSA Comment: Interpretive Data Percent cell count reference ranges are not reported, since discordance with absolute values may lead to misinterpretation of CBC data. Current Interpretive Data was last revised on 2017. Testing performed by: [facility], [address] [place] [phone] Blood 12/07/2024 9:22 AM CDT 12/07/2024 9:26 AM CDT Baltazar Mantilla MD LAB BLOOD ORDERABLES Final Resul t Performing Organization Address [facility] Co de Phone Number [facility] Department [place] [address] * Thyroid Function [place] (12/07/2024 9:22 AM CDT) Pathologist [facility] TSH 2.91 0.30 - 4.20 mcIUnit/mL Blood 12/07/2024 9:22 AM CDT 12/07/2024 9:29 AM CDT Baltazar Mantilla MD LAB BLOOD ORDERABLES Final Resul t Performing Organization Address City/[facility] Co de Phone Number [facility] Department [place] [address] * (ABNORMAL) CBC with auto differential (12/07/2024 9:22 AM CDT) WBC 6.94 3.80 - 9.90 K/cumm Comment:Testing performed by : [facility], [address] [place] [phone] Hgb 11.3(L) 11.9 - 15.5 g/dL MARGARETTE HAMMOND Comment:Testing performed by : [facility], [address] [place], [place] [phone] Hct 33.9(L) 35.6 - 45.5 % [facility] Comment:Testing performed by : [facility], [address] [place], [place] [phone] Plt 235 150 - 400 K/cumm [facility] Comment:Testing performed by : [facility], [address] [place], [place] [phone] MPV 7.9 6.8 - 10.4 fL [facility]ER [facility] Comment:Testing performed by : [facility], [address] [place], [place] [phone] RBC 3.59(L) 3.90 - 5.20 M/cumm [facility]ER [facility] Comment:Testing performed by : [facility], [address] [place], [place] [phone] MCV 94.4 81.3 - 96.4 fL [facility] Comment:Testing performed by : [facility], [address] [place], [place] [phone] MCH 31.4 27.1 - 33.3 pg [facility] Comment:Testing performed by : [facility], [address] [place], [place] [phone] MCHC 33.3 32.3 - 35.7 g/dL [facility] Comment:Testing performed by : [facility], [address] [place], [place] [phone] RDW CV 17.4(H) 11.1 - 14.9 % [facility] Comment:Testing performed by : [facility], [address] [place] [address] NRBC abs 0.00 0.00 - 0.01 K/cumm [facility] Comment:Testing performed by : [facility], [address] [place], [place] [phone] Blood 12/07/2024 9:22 AM CDT 12/07/2024 9:26 AM CDT Baltazar Mantilla MD LAB BLOOD ORDERABLES Final Resul t [facility] Department [place] [address] * Comprehensive metabolic panel (12/07/2024 9:22 AM CDT) Sodium 141 135 - 145 mmol/L Potassium, pl 4.3 3.3 - 4.9 mmol/L [facility] Chloride 106 97 - 110 mmol/L [facility] CO2 25 22 - 32 mmol/L [facility] Anion gap 10 2 - 15 mmol/L [facility] BUN 14 6 - 25 mg/dL [facility] Creatinine 0.67 0.60 - 1.10 mg/dL [facility] Glucose 94 70 - 199 mg/dL [facility] Comment: Interpretive Data Fasting glucose >/= [...] 2022. Calcium 9.5 8.5 - 10.3 mg/dL [facility] Bilirubin, total 0.3 0.1 - 1.2 mg/dL [facility] Protein, pl 7.0 6.5 - 8.5 g/dL [facility] Albumin 4.2 3.5 - 5.0 g/dL [facility] Alk phos 74 40 - 130 Units/L [facility] ALT 14 7 - 45 Units/L [facility] AST 20 10 - 45 Units/L [facility] Blood 12/07/2024 9:22 AM CDT 12/07/2024 9:29 AM CDT Baltazar Mantilla MD LAB BLOOD ORDERABLES Final Resul t Performing Organization Address [facility] de Phone Number [facility] [place] [address] * eGFR (11/16/2024 9:15 AM CDT) eGFR [...] ORDERABLES Final Resul t Performing Organization Address [facility] Co de Phone Number [facility] [place] [address] * (ABNORMAL) Differential, auto (11/16/2024 9:15 AM CDT) Neutrophil abs 6.58(H) 1.50 - 6.50 K/cumm Comment:Testing performed by : [facility], [address] [place] [phone] Lymphocyte abs 1.66 0.80 - 3.30 K/cumm [facility] Comment:Testing performed by : [facility], [address] [place] [phone] Monocyte abs 0.98(H) 0.20 - 0.80 K/cumm [facility] Comment:Testing performed by : [facility], [address] [place] [phone] Eosinophil abs 0.02 0.00 - 0.50 K/cumm [facility] Comment:Testing performed by : [facility], [address] [place] [phone] Basophil abs 0.05 0.00 - 0.10 K/cumm [facility] Comment:Testing performed by : [facility], [address] [place] [phone] Neutrophil pct 70.8 % [facility] Comment: Interpretive Data Percent cell count reference ranges are not reported, since discordance with absolute values may lead to misinterpretation of CBC data. Current Interpretive Data was last revised on 2017. Testing performed by: [facility], [address] [place] [phone] Lymphocyte pct 17.9 % [facility] Comment: Interpretive Data Percent cell count reference ranges are not reported, since discordance with absolute values may lead to misinterpretation of CBC data. Current Interpretive Data was last revised on 2017. Testing performed by: [facility], [address] [place] [phone] Monocyte pct 10.6 % [facility] Comment: Interpretive Data Percent cell count reference ranges are not reported, since discordance with absolute values may lead to misinterpretation of CBC data. Current Interpretive Data was last revised on 2017. Testing performed by: [facility], [address] [place] [phone] Eosinophil pct 0.2 % [facility] Comment: Interpretive Data Percent cell count reference ranges are not reported, since discordance with absolute values may lead to misinterpretation of CBC data. Current Interpretive Data was last revised on 2017. Testing performed by: [facility], [address] [place] [phone] Basophil pct 0.5 % [facility] Comment: Interpretive Data Percent cell count reference ranges are not reported, since discordance with absolute values may lead to misinterpretation of CBC data. Current Interpretive Data was last revised on 2017. Testing performed by: [facility], [address] [place] [address] Blood 11/16/2024 9:15 AM CDT 11/16/2024 9:17 AM CDT Baltazar Mantilla MD LAB BLOOD ORDERABLES Final Resul t [facility] One [facility] [place] [address] * (ABNORMAL) CBC with auto differential (11/16/2024 9:15 AM CDT) WBC 9.28 3.80 - 9.90 K/cumm Comment:Testing performed by : [facility], [address] [place] [address] Hgb 11.1(L) 11.9 - 15.5 g/dL [facility] Comment:Testing performed by : [facility], [address] [place] [address] Hct 33.7(L) 35.6 - 45.5 % [facility] Comment:Testing performed by : [facility], [address] [place] [address] Plt 299 150 - 400 K/cumm [facility] Comment:Testing performed by : [facility], [address] [place] [address] MPV 8.3 6.8 - 10.4 fL CERGORGE [facility]J Comment:Testing performed by : [facility], [address] [place] [address] RBC 3.54(L) 3.90 - 5.20 M/cumm CERGORGE BJ Comment:Testing performed by : [facility], [address] [place] [address] MCV 95.1 81.3 - 96.4 fL CERGORGE [facility] Comment:Testing performed by : [facility], [address] [place] [phone] MCH 31.5 27.1 - 33.3 pg MARGARETTE [facility] Comment:Testing performed by : [facility], [address] [place], [place] [id number] MCHC 33.1 32.3 - 35.7 g/dL MARGARETTE SOSA Comment:Testing performed by : [facility], [address] [place], [place] [phone] RDW CV 17.7(H) 11.1 - 14.9 % MARGARETTE [facility] Comment:Testing performed by : [facility], [address] [place], [place] [phone] NRBC abs 0.00 0.00 - 0.01 K/cumm MARGARETTE [facility] Comment:Testing performed by : [facility], [address] [place], [place] [phone] Blood 11/16/2024 9:15 AM CDT 11/16/2024 9:17 AM CDT us Baltazarsusan Mantilla MD LAB BLOOD ORDERABLES Final Resul t [facility] Department [place] [address] * Comprehensive metabolic panel (11/16/2024 9:15 AM CDT) Sodium 143 135 - 145 mmol/L Potassium, pl 4.0 3.3 - 4.9 mmol/L [facility] Chloride 107 97 - 110 mmol/L [facility] CO2 25 22 - 32 mmol/L [facility] Anion gap 11 2 - 15 mmol/L [facility] BUN 12 6 - 25 mg/dL [facility] Creatinine 0.63 0.60 - 1.10 mg/dL [facility] Glucose 106 70 - 199 mg/dL [facility] Comment: Interpretive Data Fasting glucose >/= [...] 2022. Calcium 9.4 8.5 - 10.3 mg/dL [facility] Bilirubin, total 0.2 0.1 - 1.2 mg/dL [facility] Protein, pl 7.3 6.5 - 8.5 g/dL [facility] Albumin 4.2 3.5 - 5.0 g/dL [facility] Alk phos 79 40 - 130 Units/L [facility] ALT 14 7 - 45 Units/L [facility] AST 21 10 - 45 Units/L [facility] Blood 11/16/2024 9:15 AM CDT 11/16/2024 9:19 AM CDT us Baltazarsusan Mantilla MD LAB BLOOD ORDERABLES Final Resul t [facility] Department [place] [address] * TRANSTHORACIC ECHO (TTE) COMPLETE W DOPPLER/CF W CONTRAST (10/26/2024 4:07 PM CDT) EF Mod BP 65 % CONS SCIMAGE Anatomical Region Laterality Modality Ultrasound 10/26/2024 3:02 PM CDT Narrative 10/27/2024 4:21 AM CDT [facility] [place] [address] Transthoracic Echocardiographic Report Patient Name: MESERET ORTIZ A : 1950 (74y 6m) Gender: F Study Date: 10/26/2024 03:02:12 PM Ht(Inch): 61 Wt(Lb): 126.98 BSA: 1.57 Wool Carder: Hina Fulton RDCS Location: [facility] Order Provider: BALTAZAR KING Heart Rate: [...] therapeutic drug level monitoring and Z79.899 Other manager terminal (current) drug therapy. CONCLUSIONS: 1. Normal left [...] LA Length 4C 4.70 cm AI Decel [place] 1.52 m/s2 LA Length 2C 4.51 cm [...] Procedure Note Louie Jon MD - 10/27/2024 [facility] [place] [address] Transthoracic Echocardiographic Report Patient Name: MESERET ORTIZ A : 1950 (74y 6m) Gender: F Study Date: 10/26/2024 03:02:12 PM Ht(Inch): 61 Wt(Lb): 126.98 BSA: 1.57 Wool Carder: Hina Fulton RDCS Location: [facility] Order Provider:BALTAZAR KING Heart Rate: 82 [...] [ -25.0 - -18.0 ] AI Decel [id number] sec LA Length 4C 4.70 cm AI Decel [place]1.52 m/s2 LA Length 2C 4.51 cm AI [id number] msec LA Volume BP 24.19 ml MV [...] [ 1.71 - 5.00 ] MV Decel [id number] msec [ 104.00 - 258.00 ] RA [...] MD LAB BLOOD ORDERABLES Final Resul t [facility] Department [place] [address] * Differential, auto (10/26/2024 9:23 AM CDT) Neutrophil abs 2.20 1.50 - 6.50 K/cumm Comment:Testing performed by : [facility], [address] [place] [phone] Lymphocyte abs 1.75 0.80 - 3.30 K/cumm [facility] Comment:Testing performed by : [facility], [address] [place], [place] [phone] Monocyte abs 0.54 0.20 - 0.80 K/cumm MARGARETTE [facility] Comment:Testing performed by : [facility], [address] [place], [place] [phone] Eosinophil abs 0.07 0.00 - 0.50 K/cumm [facility] Comment:Testing performed by : [facility], [address] [place], [place] [phone] Basophil abs 0.02 0.00 - 0.10 K/cumm [facility] Comment:Testing performed by : [facility], [address] [place] [phone] Neutrophil pct 48.1 % [facility] Comment: Interpretive Data Percent cell count reference ranges are not reported, since discordance with absolute values may lead to misinterpretation of CBC data. Current Interpretive Data was last revised on 2017. Testing performed by: [facility], [address] [place] [phone] Lymphocyte pct 38.2 % CERNER [facility] Comment: Interpretive Data Percent cell count reference ranges are not reported, since discordance with absolute values may lead to misinterpretation of CBC data. Current Interpretive Data was last revised on 2017. Testing performed by: [facility], [address] [place] [phone] Monocyte pct 11.8 % CERNER [facility]J Comment: Interpretive Data Percent cell count reference ranges are not reported, since discordance with absolute values may lead to misinterpretation of CBC data. Current Interpretive Data was last revised on 2017. Testing performed by: [facility], [address] [place] [phone] Eosinophil pct 1.5 % CERNER [facility]J Comment: Interpretive Data Percent cell count reference ranges are not reported, since discordance with absolute values may lead to misinterpretation of CBC data. Current Interpretive Data was last revised on 2017. Testing performed by: [facility], [address] [place] [phone] Basophil pct 0.4 % CERNER [facility] Comment: Interpretive Data Percent cell count reference ranges are not reported, since discordance with absolute values may lead to misinterpretation of CBC data. Current Interpretive Data was last revised on 2017. Testing performed by: [facility], [address] [place] [phone] Blood 10/26/2024 9:23 AM CDT 10/26/2024 9:27 AM CDT Baltazar Mantilla MD LAB BLOOD ORDERABLES Final Resul t Performing Organization Address City/[facility]/ZIP Co de Phone Number MARGARETTE [facility] [place] [address] * Thyroid Function [place] (10/26/2024 9:23 AM CDT) [facility] TSH 2.42 0.30 - 4.20 mcIUnit/mL Blood 10/26/2024 9:23 AM CDT 10/26/2024 9:27 AM CDT Baltazar Mantilla MD LAB BLOOD ORDERABLES Final Resul t Performing Organization Address [facility] Co de Phone Number [facility] Department [place] [address] * (ABNORMAL) CBC with auto differential (10/26/2024 9:23 AM CDT) [facility] WBC 4.57 3.80 - 9.90 K/cumm Comment:Testing performed by : [facility], [address] [place] [address] Hgb 11.4(L) 11.9 - 15.5 g/dL CERGORGE [facility] Comment:Testing performed by : [facility], [address] [place] [address] Hct 34.0(L) 35.6 - 45.5 % CERGORGE [facility] Comment:Testing performed by : [facility], [address] [place] [address] Plt 206 150 - 400 K/cumm CERGORGE [facility] Comment:Testing performed by : [facility], [address] [place] [address] MPV 8.1 6.8 - 10.4 fL CERGORGE [facility] Comment:Testing performed by : [facility], [address] [place] [address] RBC 3.66(L) 3.90 - 5.20 M/cumm CERGORGE [facility] Comment:Testing performed by : [facility], [address] [place], [place] [phone] MCV 93.0 81.3 - 96.4 fL MARGARETTE SOSA Comment:Testing performed by : [facility], [address] [place], [place] [phone] MCH 31.1 27.1 - 33.3 pg MARGARETTE SOSA Comment:Testing performed by : [facility], [address] [place], [place] [phone] MCHC 33.4 32.3 - 35.7 g/dL MARGARETTE SOSA Comment:Testing performed by : [facility], [address] [place], [place] [phone] RDW CV 19.1(H) 11.1 - 14.9 % MARGARETTE SOSA Comment:Testing performed by : [facility], [address] [place], [place] [phone] NRBC abs 0.00 0.00 - 0.01 K/cumm MARGARETTE SOSA Comment:Testing performed by : [facility], [address] [place], [place] [phone] Blood 10/26/2024 9:23 AM CDT 10/26/2024 9:27 AM CDT Baltazar Mantilla MD LAB BLOOD ORDERABLES Final Resul t [facility] Department [place] [address] * Comprehensive metabolic panel (10/26/2024 9:23 AM CDT) Sodium 141 135 - 145 mmol/L Potassium, pl 4.2 3.3 - 4.9 mmol/L [facility] Chloride 106 97 - 110 mmol/L [facility] CO2 25 22 - 32 mmol/L [facility] Anion gap 10 2 - 15 mmol/L [facility] BUN 16 6 - 25 mg/dL [facility] Creatinine 0.69 0.60 - 1.10 mg/dL MARGARETTE [facility] Glucose 99 70 - 199 mg/dL MARGARETTE [facility] Comment: Interpretive Data Fasting glucose >/= [...] 2022. Calcium 9.4 8.5 - 10.3 mg/[facility] Bilirubin, total 0.4 0.1 - 1.2 mg/dL [facility] Protein, pl 7.4 6.5 - 8.5 g/dL [facility] Albumin 4.2 3.5 - 5.0 g/dL [facility] Alk phos 75 40 - 130 Units/L [facility] ALT 19 7 - 45 Units/L [facility] AST 23 10 - 45 Units/L [facility] Blood 10/26/2024 9:23 AM CDT 10/26/2024 9:27 AM CDT us Baltazar Mantilla MD LAB BLOOD ORDERABLES Final Resul t [facility] Department [place] [address] * eGFR (10/19/2024 8:42 AM CDT) eGFR [...] MD LAB BLOOD ORDERABLES Final Resul t [facility] Department [place] [address] * Differential, auto (10/19/2024 8:42 AM CDT) Neutrophil abs 1.76 1.50 - 6.50 K/cumm Comment:Testing performed by : [facility], [address] [place] [phone] Lymphocyte abs 1.21 0.80 - 3.30 K/cumm CERGORGE [facility] Comment:Testing performed by : [facility], [address] [place], [place] [phone] Monocyte abs 0.50 0.20 - 0.80 K/cumm CERGORGE [facility] Comment:Testing performed by : [facility], [address] [place] [phone] Eosinophil abs 0.02 0.00 - 0.50 K/cumm CERGORGE [facility] Comment:Testing performed by : [facility], [address] [place] [phone] Basophil abs 0.02 0.00 - 0.10 K/cumm CERGOREG BJ Comment:Testing performed by : [facility], [address] [place], [place] [phone] Neutrophil pct 50.2 % CERGORGE [facility] Comment: Interpretive Data Percent cell count reference ranges are not reported, since discordance with absolute values may lead to misinterpretation of CBC data. Current Interpretive Data was last revised on 2017. Testing performed by: [facility], [address] [place] [phone] Lymphocyte pct 34.5 % MARGARETTE SOSA Comment: Interpretive Data Percent cell count reference ranges are not reported, since discordance with absolute values may lead to misinterpretation of CBC data. Current Interpretive Data was last revised on 2017. Testing performed by: [facility], [address] [place] [phone] Monocyte pct 14.2 % MARGARETTE [place] Comment: Interpretive Data Percent cell count reference ranges are not reported, since discordance with absolute values may lead to misinterpretation of CBC data. Current Interpretive Data was last revised on 2017. Testing performed by: [facility], [address] [place] [phone] Eosinophil pct 0.5 % MARGARETTE [place] Comment: Interpretive Data Percent cell count reference ranges are not reported, since discordance with absolute values may lead to misinterpretation of CBC data. Current Interpretive Data was last revised on 2017. Testing performed by: [facility], [address] [place] [phone] Basophil pct 0.6 % MARGARETTE SOSA Comment: Interpretive Data Percent cell count reference ranges are not reported, since discordance with absolute values may lead to misinterpretation of CBC data. Current Interpretive Data was last revised on 2017. Testing performed by: [facility], [address] [place] [phone] Blood 10/19/2024 8:42 AM CDT 10/19/2024 8:43 AM CDT us Baltazar Fa'nima CESAR LAB BLOOD ORDERABLES Final Resul t MARGARETTE [place] [facility] Department [place] [address] * Thyroid Function [place] (10/19/2024 8:42 AM CDT) TSH 2.44 0.30 - 4.20 mcIUnit/mL Blood 10/19/2024 8:42 AM CDT 10/19/2024 8:54 AM CDT us Baltazar Mantilla MD LAB BLOOD ORDERABLES Final Resul t [facility] [place] [address] * (ABNORMAL) CBC with auto differential (10/19/2024 8:42 AM CDT) WBC 3.51(L) 3.80 - 9.90 K/cumm Comment:Testing performed by : [facility], [address] [place] [address] Hgb 10.8(L) 11.9 - 15.5 g/dL MARGARETTE [facility] Comment:Testing performed by : [facility], [address] [place] [address] Hct 32.3(L) 35.6 - 45.5 % MARGARETTE SOSA Comment:Testing performed by : [facility], [address] [place] [address] Plt 143(L) 150 - 400 K/cumm MARGARETTE SOSA Comment:Testing performed by : [facility], [address] [place] [address] MPV 7.9 6.8 - 10.4 fL MARGARETTE [facility] Comment:Testing performed by : [facility], [address] [place] [address] RBC 3.42(L) 3.90 - 5.20 M/cumm MARGARETTE [facility] Comment:Testing performed by : [facility], [address] [place] [address] MCV 94.6 81.3 - 96.4 fL MARGARETTE [facility] Comment:Testing performed by : [facility], [address] [place] [address] MCH 31.6 27.1 - 33.3 pg CERGORGE SOSA Comment:Testing performed by : [facility], [address] [place] [phone] MCHC 33.4 32.3 - 35.7 g/dL [facility] Comment:Testing performed by : [facility], [address] [place] [address] RDW CV 19.4(H) 11.1 - 14.9 % [facility] Comment:Testing performed by : [facility], [address] [place] [address] NRBC abs 0.00 0.00 - 0.01 K/cumm [facility] Comment:Testing performed by : [facility], [address] [place] [address] Blood 10/19/2024 8:42 AM CDT 10/19/2024 8:43 AM CDT us Baltazar Fa'nima CESAR LAB BLOOD ORDERABLES Final Resul t [facility] Department [place] [address] * Comprehensive metabolic panel (10/19/2024 8:42 AM CDT) Sodium 141 135 - 145 mmol/L Potassium, pl 4.3 3.3 - 4.9 mmol/L [facility] Chloride 106 97 - 110 mmol/L [facility] CO2 25 22 - 32 mmol/L [facility] Anion gap 10 2 - 15 mmol/L [facility] BUN 15 6 - 25 mg/dL [facility] Creatinine 0.71 0.60 - 1.10 mg/dL [facility] Glucose 112 70 - 199 mg/dL [facility] Comment: Interpretive Data Fasting glucose >/= [...] Albumin 4.2 3.5 - 5.0 g/dL CERNER [facility] Alk phos 71 40 - 130 Units/L CERNER [facility] ALT 29 7 - 45 Units/L [facility]ER [facility] AST 29 10 - 45 Units/L CERNER [facility] Blood 10/19/2024 8:42 AM CDT 10/19/2024 8:54 AM CDT Baltazar Mantilla MD LAB BLOOD ORDERABLES Final Resul t [facility] Department [place] [address] * US Breast Right Limited (10/10/2024 9:10 [...] ORDERABLES Final Resul t MARGARETTE SOSA [facility] Department [place] [address] * (ABNORMAL) Differential, auto (10/05/2024 6:46 AM CDT) Neutrophil abs 1.70 1.50 - 6.50 K/cumm Comment:Testing performed by : [facility], [address] [place] [phone] Lymphocyte abs 0.75(L) 0.80 - 3.30 K/cumm MARGARETTE SOSA Comment:Testing performed by : [facility], [address] [place] [phone] Monocyte abs 0.24 0.20 - 0.80 K/cumm MARGARETTE SOSA Comment:Testing performed by : [facility], [address] [place], [place] [phone] Eosinophil abs 0.02 0.00 - 0.50 K/cumm MARGARETTE SOSA Comment:Testing performed by : [facility], [address] [place] [phone] Basophil abs 0.04 0.00 - 0.10 K/cumm MARGARETTE SOSA Comment:Testing performed by : [facility], [address] [place] [phone] Neutrophil pct 61.9 % MARGARETTE SOSA Comment: Interpretive Data Percent cell count reference ranges are not reported, since discordance with absolute values may lead to misinterpretation of CBC data. Current Interpretive Data was last revised on 2017. Testing performed by: [facility], [address] [place] [address] Lymphocyte pct 27.4 % MARGARETTE SOSA Comment: Interpretive Data Percent cell count reference ranges are not reported, since discordance with absolute values may lead to misinterpretation of CBC data. Current Interpretive Data was last revised on 2017. Testing performed by: [facility], [address] [place] [phone] Monocyte pct 8.8 % MARGARETTE SOSA Comment: Interpretive Data Percent cell count reference ranges are not reported, since discordance with absolute values may lead to misinterpretation of CBC data. Current Interpretive Data was last revised on 2017. Testing performed by: [facility], [address] [place] [address] Eosinophil pct 0.6 % MARGARETTE SOSA Comment: Interpretive Data Percent cell count reference ranges are not reported, since discordance with absolute values may lead to misinterpretation of CBC data. Current Interpretive Data was last revised on 2017. Testing performed by: [facility], [address] [place] [phone] Basophil pct 1.4 % MARGARETTE SOSA Comment: Interpretive Data Percent cell count reference ranges are not reported, since discordance with absolute values may lead to misinterpretation of CBC data. Current Interpretive Data was last revised on 2017. Testing performed by: [facility], [address] [place] [phone] Blood 10/05/2024 6:46 AM CDT 10/05/2024 6:49 AM CDT us Baltazar Mantilla MD LAB BLOOD ORDERABLES Final Resul t MARGARETTE SOSA [facility] Department [place] [address] * (ABNORMAL) CBC with auto differential (10/05/2024 6:46 AM CDT) WBC 2.75(L) 3.80 - 9.90 K/cumm Comment:Testing performed by : [facility], [address] [place] [address] Hgb 10.3(L) 11.9 - 15.5 g/dL CERNER [facility] Comment:Testing performed by : [facility], [address] [place] [address] Hct 30.0(L) 35.6 - 45.5 % CERNER [facility] Comment:Testing performed by : [facility], [address] [place] [address] Plt 140(L) 150 - 400 K/cumm CERNER [facility] Comment:Testing performed by : [facility], [address] [place] [address] MPV 8.3 6.8 - 10.4 fL CERNER [facility] Comment:Testing performed by : [facility], [address] [place] [address] RBC 3.23(L) 3.90 - 5.20 M/cumm CERNER [facility] Comment:Testing performed by : [facility], [address] [place] [address] MCV 92.8 81.3 - 96.4 fL CERNER [facility] Comment:Testing performed by : [facility], [address] [place] [address] MCH 31.9 27.1 - 33.3 pg CERNER BJ Comment:Testing performed by : [facility], [address] [place] [address] MCHC 34.3 32.3 - 35.7 g/dL [facility]ER [facility] Comment:Testing performed by : [facility], [address] [place] [address] RDW CV 19.1(H) 11.1 - 14.9 % CERNER [facility] Comment:Testing performed by : [facility], [address] [place] [address] NRBC abs 0.00 0.00 - 0.01 K/cumm [facility] Comment:Testing performed by : [facility], [address] [place] [address] Blood 10/05/2024 6:46 AM CDT 10/05/2024 6:49 AM CDT us Baltazar Mantilla MD LAB BLOOD ORDERABLES Final Resul t [facility] Department [place] [address] * Comprehensive metabolic panel (10/05/2024 6:46 AM CDT) Sodium 141 135 - 145 mmol/L Potassium, pl 3.8 3.3 - 4.9 mmol/L [facility] Chloride 106 97 - 110 mmol/L [facility] CO2 25 22 - 32 mmol/L [facility] Anion gap 10 2 - 15 mmol/L [facility] BUN 15 6 - 25 mg/dL [facility] Creatinine 0.68 0.60 - 1.10 mg/dL [facility] Glucose 120 70 - 199 mg/dL [facility] Comment: Interpretive Data Fasting glucose >/= [...] 2022. Calcium 9.1 8.5 - 10.3 mg/dL [facility] Bilirubin, total 0.4 0.1 - 1.2 mg/dL [facility] Protein, pl 7.1 6.5 - 8.5 g/dL [facility] Albumin 4.0 3.5 - 5.0 g/dL [facility] Alk phos 66 40 - 130 Units/L [facility] ALT 23 7 - 45 Units/L [facility] AST 26 10 - 45 Units/L [facility] Blood 10/05/2024 6:46 AM CDT 10/05/2024 6:52 AM CDT Baltazar Mantilla MD LAB BLOOD ORDERABLES Final Resul t Performing Organization Address City/[facility]/ZIP Co de Phone Number [facility] [place] [address] * eGFR (09/28/2024 6:42 AM CDT) eGFR [...] MD LAB BLOOD ORDERABLES Final Resul t [facility] Department [place] [address] * Differential, auto (09/28/2024 6:42 AM CDT) Neutrophil abs 2.09 1.50 - 6.50 K/cumm Comment:Testing performed by : [facility], [address] [place], [place] [id number] Lymphocyte abs 1.04 0.80 - 3.30 K/cumm [facility] Comment:Testing performed by : [facility], [address] [place], [place] [id number] Monocyte abs 0.32 0.20 - 0.80 K/cumm [facility] Comment:Testing performed by : [facility], [address] [place], [place] [id number] Eosinophil abs 0.01 0.00 - 0.50 K/cumm [facility] Comment:Testing performed by : [facility] [facility], [address] [place], [place] [id number] Basophil abs 0.04 0.00 - 0.10 K/cumm [facility] Comment:Testing performed by : [facility], [address] [place], [place] [id number] Neutrophil pct 59.7 % [facility] Comment: Interpretive Data Percent cell count reference ranges are not reported, since discordance with absolute values may lead to misinterpretation of CBC data. Current Interpretive Data was last revised on 2017. Testing performed by: [facility], [address] [place], [place] [id number] Lymphocyte pct 29.7 % [facility] Comment: Interpretive Data Percent cell count reference ranges are not reported, since discordance with absolute values may lead to misinterpretation of CBC data. Current Interpretive Data was last revised on 2017. Testing performed by: [facility], [address] [place] [phone] Monocyte pct 9.1 % [facility] Comment: Interpretive Data Percent cell count reference ranges are not reported, since discordance with absolute values may lead to misinterpretation of CBC data. Current Interpretive Data was last revised on 2017. Testing performed by: [facility], [address] [place], [place] [id number] Eosinophil pct 0.3 % [facility] Comment: Interpretive Data Percent cell count reference ranges are not reported, since discordance with absolute values may lead to misinterpretation of CBC data. Current Interpretive Data was last revised on 2017. Testing performed by: [facility], [address] [place] [phone] Basophil pct 1.2 % MARGARETET SOSA Comment: Interpretive Data Percent cell count reference ranges are not reported, since discordance with absolute values may lead to misinterpretation of CBC data. Current Interpretive Data was last revised on 2017. Testing performed by: [facility], [address] [place] [address] Blood 09/28/2024 6:42 AM CDT 09/28/2024 6:44 AM CDT Baltazar Mantilla MD LAB BLOOD ORDERABLES Final Resul t MARGARETTE SOSA [facility] Department [place] [address] * (ABNORMAL) CBC with auto differential (09/28/2024 6:42 AM CDT) WBC 3.50(L) 3.80 - 9.90 K/cumm Comment:Testing performed by : [facility], [address] [place] [address] Hgb 10.9(L) 11.9 - 15.5 g/dL MARGARETTE SOSA Comment:Testing performed by : [facility], [address] [place] [address] Hct 31.6(L) 35.6 - 45.5 % MARGARETTE SOSA Comment:Testing performed by : [facility], [address] [place] [address] Plt 190 150 - 400 K/cumm MARGARETTE SOSA Comment:Testing performed by : [facility], [address] [place] [address] MPV 8.5 6.8 - 10.4 fL MARGARETTE SOSA Comment:Testing performed by : [facility], [address] [place] [phone] RBC 3.41(L) 3.90 - 5.20 M/cumm MARGARETTE SOSA Comment:Testing performed by : [facility], [address] [place], [place] [phone] MCV 92.6 81.3 - 96.4 fL MARGARETTE SOSA Comment:Testing performed by : [facility], [address] [place], [place] [phone] MCH 31.9 27.1 - 33.3 pg MARGARETTE SOSA Comment:Testing performed by : [facility], [address] [place], [place] [phone] MCHC 34.5 32.3 - 35.7 g/dL MARGARETTE SOSA Comment:Testing performed by : [facility], [address] [place], [place] [phone] RDW CV 18.6(H) 11.1 - 14.9 % MARGARETTE SOSA Comment:Testing performed by : [facility], [address] [place] [address] NRBC abs 0.00 0.00 - 0.01 K/cumm MARGARETTE [facility] Comment:Testing performed by : [facility], [address] [place], [place] [phone] Blood 09/28/2024 6:42 AM CDT 09/28/2024 6:44 AM CDT us Baltazarsusan Mantilla MD LAB BLOOD ORDERABLES Final Resul t MARGARETTE [facility] Department [place] [address] * Comprehensive metabolic panel (09/28/2024 6:42 AM CDT) Sodium 140 135 - 145 mmol/L Potassium, pl 4.0 3.3 - 4.9 mmol/L [facility] Chloride 105 97 - 110 mmol/L [facility] CO2 26 22 - 32 mmol/L [facility] Anion gap 9 2 - 15 mmol/L [facility] BUN 19 6 - 25 mg/dL [facility] Creatinine 0.69 0.60 - 1.10 mg/dL [facility] Glucose 116 70 - 199 mg/dL [facility] Comment: Interpretive Data Fasting glucose >/= [...] 2022. Calcium 9.4 8.5 - 10.3 mg/dL [facility] Bilirubin, total 0.5 0.1 - 1.2 mg/dL [facility] Protein, pl 7.4 6.5 - 8.5 g/dL [facility] Albumin 4.1 3.5 - 5.0 g/dL [facility] Alk phos 75 40 - 130 Units/L [facility] ALT 21 7 - 45 Units/L [facility] AST 23 10 - 45 Units/L [facility] Blood 09/28/2024 6:42 AM CDT 09/28/2024 6:51 AM CDT us Baltazarsusan Mantilla MD LAB BLOOD ORDERABLES Final Resul t [facility] Department [place] [address] * eGFR (09/21/2024 9:24 AM CDT) eGFR [...] MD LAB BLOOD ORDERABLES Final Resul t [facility] Department [place] [address] * (ABNORMAL) CBC with auto differential (09/21/2024 9:24 AM CDT) WBC 3.8 3.8 - 9.9 K/cumm Comment:Testing performed by : [facility], [address] [place] [address] Hgb 11.0(L) 11.9 - 15.5 g/dL MARGARETTE [facility] Comment:Testing performed by : [facility], [address] [place] [address] Hct 32.5(L) 35.6 - 45.5 % MARGARETTE [facility] Comment:Testing performed by : [facility], [address] [place] [address] Plt 239 150 - 400 K/cumm MARGARETTE [facility] Comment:Testing performed by : [facility], [address] [place] [address] MPV 8.7 6.8 - 10.4 fL MARGARETTE [facility] Comment:Testing performed by : [facility], [address] [place] [address] RBC 3.50(L) 3.90 - 5.20 M/cumm MARGARETTE SOSA Comment:Testing performed by : [facility], [address] [place] [address] MCV 92.6 81.3 - 96.4 fL MARGARETTE SOSA Comment:Testing performed by : [facility], [address] [place] [address] MCH 31.5 27.1 - 33.3 pg MARGARETTE SOSA Comment:Testing performed by : [facility], [address] [place] [address] MCHC 34.0 32.3 - 35.7 g/dL MARGARETTE SOSA Comment:Testing performed by : [facility], [address] [place] [address] RDW CV 18.2(H) 11.1 - 14.9 % MARGARETTE SOSA Comment:Testing performed by : [facility], [address] [place] [address] NRBC abs 0.00 0.00 - 0.01 K/cumm MARGARETTE SOSA Comment:Testing performed by : [facility], [address] [place] [address] Blood 09/21/2024 9:24 AM CDT 09/21/2024 9:25 AM CDT us Baltazar Mantilla MD LAB BLOOD ORDERABLES Edited Resu lt - Final MARGARETTE SOSA [facility] Department [place] [address] * (ABNORMAL) Manual Differential (09/21/2024 9:24 AM CDT) Cells Counted 200 Comment:Testing performed by : [facility], [address] [place] [address] Neutrophil abs 2.5 1.5 - 6.5 K/cumm MARGARETTE SOSA Comment:Testing performed by : [facility], [address] [place] [phone] Lymphocyte abs 1.1 0.8 - 3.3 K/cumm [facility] Comment:Testing performed by : [facility], [address] [place] [phone] Monocyte abs 0.2 0.2 - 0.8 K/cumm [facility] Comment:Testing performed by : [facility], [address] [place] [phone] Eosinophil abs 0.0 0.0 - 0.5 K/cumm [facility] Comment:Testing performed by : [facility], [address] [place] [phone] Basophil abs 0.0 0.0 - 0.1 K/cumm [facility] Comment:Testing performed by : [facility], [address] [place] [phone] Neutrophil pct 65.0 % [facility] Comment: Interpretive Data Percent cell count reference ranges are not reported, since discordance with absolute values may lead to misinterpretation of CBC data. Current Interpretive Data was last revised on 2017. Testing performed by: [facility], [address] [place] [phone] Lymphocyte pct 29.0 % [facility] Comment: Interpretive Data Percent cell count reference ranges are not reported, since discordance with absolute values may lead to misinterpretation of CBC data. Current Interpretive Data was last revised on 2017. Testing performed by: [facility], [address] [place] [phone] Monocyte pct 6.0 % [facility] Comment: Interpretive Data Percent cell count reference ranges are not reported, since discordance with absolute values may lead to misinterpretation of CBC data. Current Interpretive Data was last revised on 2017. Testing performed by: [facility], [address] [place] [phone] Eosinophil pct 0.0 % [facility] Comment: Interpretive Data Percent cell count reference ranges are not reported, since discordance with absolute values may lead to misinterpretation of CBC data. Current Interpretive Data was last revised on 2017. Testing performed by: [facility], [address] [place], [place] [phone] Basophil pct 1.0 % MARGARETTE [facility] Comment: Interpretive Data Percent cell count reference ranges are not reported, since discordance with absolute values may lead to misinterpretation of CBC data. Current Interpretive Data was last revised on 2017. Testing performed by: [facility], [address] [place] [address] Myelocyte pct 1.0(H) 0.0 - 0.0 % MARGARETTE [facility] Comment:Testing performed by : [facility], [address] [place] [address] RBC morphology NRBCs present(A) MARGARETTE [facility] Comment:Testing performed by : [facility], [address] [place] [address] Anisocytosis 1+(A) MARGARETTE [facility] Comment:Testing performed by : [facility], [address] [place] [address] Platelet estimate Adequate MARGARETTE [facility] Comment:Testing performed by : [facility], [address] [place], [place] [id number] Blood 09/21/2024 9:24 AM CDT 09/21/2024 9:25 AM CDT us Baltazarsusan Mantilla MD LAB BLOOD ORDERABLES Final Resul t [facility] Department [place] [address] * Comprehensive metabolic panel (09/21/2024 9:24 AM CDT) Sodium 144 135 - 145 mmol/L Potassium, pl 4.6 3.3 - 4.9 mmol/L [facility] Chloride 108 97 - 110 mmol/L [facility] CO2 26 22 - 32 mmol/L [facility] Anion gap 10 2 - 15 mmol/L [facility] BUN 16 6 - 25 mg/dL [facility] Creatinine 0.71 0.60 - 1.10 mg/dL [facility] Glucose 106 70 - 199 mg/dL [facility] Comment: Interpretive Data Fasting glucose >/= [...] 2022. Calcium 10.1 8.5 - 10.3 mg/dL [facility] Bilirubin, total 0.3 0.1 - 1.2 mg/dL [facility] Protein, pl 7.7 6.5 - 8.5 g/dL [facility] Albumin 4.3 3.5 - 5.0 g/dL [facility] Alk phos 76 40 - 130 Units/L [facility] ALT 23 7 - 45 Units/L [facility] AST 23 10 - 45 Units/L [facility] Blood 09/21/2024 9:24 AM CDT 09/21/2024 9:27 AM CDT us Baltazarsusan Mantilla MD LAB BLOOD ORDERABLES Final Resul t [facility] Department [place] [address] * eGFR (09/14/2024 7:52 AM CDT) eGFR [...] MD LAB BLOOD ORDERABLES Final Resul t [facility] Department [place] [address] * (ABNORMAL) Differential, auto (09/14/2024 7:52 AM CDT) Neutrophil abs 1.4(L) 1.5 - 6.5 K/cumm Imm gran abs 0.0 0.0 - 0.1 K/cumm [facility] Lymphocyte abs 1.2 0.8 - 3.3 K/cumm [facility] Monocyte abs 0.3 0.2 - 0.8 K/cumm [facility] Eosinophil abs 0.0 0.0 - 0.5 K/cumm [facility] Basophil abs 0.0 0.0 - 0.1 K/cumm [facility] Neutrophil pct 47.0 % [facility] Comment: Interpretive Data Percent cell count reference ranges are not reported, since discordance with absolute values may lead to misinterpretation of CBC data. Current Interpretive Data was last revised on 2017. Imm gran pct 1.0 % [facility] Comment: Interpretive Data Percent cell count reference ranges are not reported, since discordance with absolute values may lead to misinterpretation of CBC data. Current Interpretive Data was last revised on 2017. Lymphocyte pct 39.4 % [facility] Comment: Interpretive Data Percent cell count reference ranges are not reported, since discordance with absolute values may lead to misinterpretation of CBC data. Current Interpretive Data was last revised on 2017. Monocyte pct 11.3 % [facility] Comment: Interpretive Data Percent cell count reference ranges are not reported, since discordance with absolute values may lead to misinterpretation of CBC data. Current Interpretive Data was last revised on 2017. Eosinophil pct 0.3 % [facility] Comment: Interpretive Data Percent cell count reference ranges are not reported, since discordance with absolute values may lead to misinterpretation of CBC data. Current Interpretive Data was last revised on 2017. Basophil pct 1.0 % [facility] Comment: Interpretive Data Percent cell count reference ranges are not reported, since discordance with absolute values may lead to misinterpretation of CBC data. Current Interpretive Data was last revised on 2017. Blood 09/14/2024 7:52 AM CDT 09/14/2024 8:09 AM CDT us Baltazarsusan Mantilla MD LAB BLOOD ORDERABLES Final Resul t [facility] Department [place] [address] * (ABNORMAL) CBC with auto differential (09/14/2024 7:52 AM CDT) WBC 2.9(L) 3.8 - 9.9 K/cumm Hgb 10.5(L) 11.9 - 15.5 g/dL [facility] Hct 31.6(L) 35.6 - 45.5 % [facility] Plt 235 150 - 400 K/cumm [facility] MPV 10.5 9.1 - 12.3 fL [facility] RBC 3.38(L) 3.90 - 5.20 M/cumm [facility] MCV 93.5 81.3 - 96.4 fL [facility] MCH 31.1 27.1 - 33.3 pg [facility] MCHC 33.2 32.3 - 35.7 g/dL [facility] RDW CV 16.2(H) 11.1 - 14.9 % [facility] RDW SD 53.5(H) 35.7 - 48.1 fL [facility] NRBC abs 0.00 0.00 - 0.01 K/cumm [facility] Blood 09/14/2024 7:52 AM CDT 09/14/2024 8:09 AM CDT us Baltazar Mantilla MD LAB BLOOD ORDERABLES Final Resul t [facility] Department [place] [address] * Comprehensive metabolic panel (09/14/2024 7:52 AM CDT) Sodium 142 135 - 145 mmol/L Potassium, pl 4.1 3.3 - 4.9 mmol/L [facility] Chloride 106 97 - 110 mmol/L [facility] CO2 26 22 - 32 mmol/L [facility] Anion gap 10 2 - 15 mmol/L [facility] BUN 15 6 - 25 mg/dL [facility] Creatinine 0.79 0.60 - 1.10 mg/dL [facility] Glucose 95 70 - 199 mg/dL [facility] Comment: Interpretive Data Fasting glucose >/= [...] 2022. Calcium 9.4 8.5 - 10.3 mg/dL [facility] Bilirubin, total 0.4 0.1 - 1.2 mg/dL [facility] Protein, pl 7.3 6.5 - 8.5 g/dL [facility] Albumin 4.2 3.5 - 5.0 g/dL [facility] Alk phos 83 40 - 130 Units/L [facility] ALT 27 7 - 45 Units/L [facility] AST 23 10 - 45 Units/L [facility] Blood 09/14/2024 7:52 AM CDT 09/14/2024 8:09 AM CDT Baltazar Mantilla MD LAB BLOOD ORDERABLES Final Resul t Performing Organization Address [facility] de Phone Number [facility] [place] [address] * eGFR (09/07/2024 6:58 AM CDT) eGFR [...] ORDERABLES Final Resul t Performing Organization Address [facility] Co de Phone Number [facility] Department [place] [address] * (ABNORMAL) Differential, auto (09/07/2024 6:58 AM CDT) Neutrophil abs 1.1(L) 1.5 - 6.5 K/cumm Comment:Testing performed by : [facility], [address] [place] [phone] Lymphocyte abs 0.9 0.8 - 3.3 K/cumm [facility] Comment:Testing performed by : [facility], [address] [place] [phone] Monocyte abs 0.2 0.2 - 0.8 K/cumm [facility] Comment:Testing performed by : [facility], [address] [place] [phone] Eosinophil abs 0.0 0.0 - 0.5 K/cumm [facility] Comment:Testing performed by : [facility], [address] [place], [place] [id number] Basophil abs 0.0 0.0 - 0.1 K/cumm [facility] Comment:Testing performed by : [facility], [address] [place] [phone] Neutrophil pct 51.0 % [facility] Comment: Interpretive Data Percent cell count reference ranges are not reported, since discordance with absolute values may lead to misinterpretation of CBC data. Current Interpretive Data was last revised on 2017. Testing performed by: [facility], [address] [place] [phone] Lymphocyte pct 38.9 % [facility] Comment: Interpretive Data Percent cell count reference ranges are not reported, since discordance with absolute values may lead to misinterpretation of CBC data. Current Interpretive Data was last revised on 2017. Testing performed by: [facility], [address] [place] [phone] Monocyte pct 7.8 % [facility] Comment: Interpretive Data Percent cell count reference ranges are not reported, since discordance with absolute values may lead to misinterpretation of CBC data. Current Interpretive Data was last revised on 2017. Testing performed by: [facility], [address] [place] [phone] Eosinophil pct 1.2 % [facility] Comment: Interpretive Data Percent cell count reference ranges are not reported, since discordance with absolute values may lead to misinterpretation of CBC data. Current Interpretive Data was last revised on 2017. Testing performed by: [facility], [address] [place] [address] Basophil pct 1.1 % [facility] Comment: Interpretive Data Percent cell count reference ranges are not reported, since discordance with absolute values may lead to misinterpretation of CBC data. Current Interpretive Data was last revised on 2017. Testing performed by: [facility], [address] [place] [address] Blood 09/07/2024 6:58 AM CDT 09/07/2024 7:03 AM CDT Baltazar Mantilla MD LAB BLOOD ORDERABLES Final Resul t [facility] Department [place] [address] * (ABNORMAL) CBC with auto differential (09/07/2024 6:58 AM CDT) WBC 2.2(L) 3.8 - 9.9 K/cumm Comment:Testing performed by : [facility], [address] [place] [address] Hgb 11.2(L) 11.9 - 15.5 g/dL MARGARETTE SOSA Comment:Testing performed by : [facility], [address] [place] [address] Hct 32.9(L) 35.6 - 45.5 % MARGARETTE SOSA Comment:Testing performed by : [facility], [address] [place] [address] Plt 177 150 - 400 K/cumm MARGARETTE [facility] Comment:Testing performed by : [facility], [address] [place] [address] MPV 8.1 6.8 - 10.4 fL MARGARETTE SOSA Comment:Testing performed by : [facility], [address] [place] [address] RBC 3.60(L) 3.90 - 5.20 M/cumm MARGARETTE [facility] Comment:Testing performed by : [facility], [address] [place] [address] MCV 91.4 81.3 - 96.4 fL MARGARETTE [facility] Comment:Testing performed by : [facility], [address] [place] [address] MCH 31.2 27.1 - 33.3 pg [facility]ARGARETTE [facility] Comment:Testing performed by : [facility], [address] [place] [address] MCHC 34.1 32.3 - 35.7 g/dL MARGARETTE [facility] Comment:Testing performed by : [facility], [address] [place] [address] RDW CV 15.9(H) 11.1 - 14.9 % [facility] Comment:Testing performed by : [facility], [address] [place] [address] NRBC abs 0.00 0.00 - 0.01 K/cumm MARGARETTE [facility] Comment:Testing performed by : [facility], [address] [place] [address] Blood 09/07/2024 6:58 AM CDT 09/07/2024 7:03 AM CDT us Baltazar Mantilla MD LAB BLOOD ORDERABLES Final Resul t [facility] Department [place] [address] * Comprehensive metabolic panel (09/07/2024 6:58 AM CDT) Sodium 143 135 - 145 mmol/L Potassium, pl 3.8 3.3 - 4.9 mmol/L [facility] Chloride 108 97 - 110 mmol/L [facility] CO2 25 22 - 32 mmol/L [facility] Anion gap 10 2 - 15 mmol/L [facility] BUN 11 6 - 25 mg/dL [facility] Creatinine 0.77 0.60 - 1.10 mg/dL [facility] Glucose 117 70 - 199 mg/dL [facility] Comment: Interpretive Data Fasting glucose >/= [...] 2022. Calcium 9.4 8.5 - 10.3 mg/dL [facility] Bilirubin, total 0.3 0.1 - 1.2 mg/dL [facility] Protein, pl 7.3 6.5 - 8.5 g/dL [facility] Albumin 4.2 3.5 - 5.0 g/dL [facility] Alk phos 71 40 - 130 Units/L [facility] ALT 26 7 - 45 Units/L [facility] AST 21 10 - 45 Units/L [facility] Blood 09/07/2024 6:58 AM CDT 09/07/2024 7:05 AM CDT us Baltazar Mantilla MD LAB BLOOD ORDERABLES Final Resul t [facility] Department [place] [address] from Last 3 Months Insurance MEDICARE [facility] MEDICARE SUPPLEMENT MEDICARE [facility] MEDICARE SUPPLEMENT Care Teams [employer] Relationship Specialty Start Date End Date Unknown, Notinfile PCP - General 01/21/24
--- NOTE | 2024-12-08 19:14 | PC.NURSE ---
Report received from ESTEBAN Hankins. Assumed care of patient at this time.
--- NOTE | 2024-12-08 19:31 | ED_ITS ---
HPI - Extremity Injury (Lower) General Chief Complaint: Extremity Injury, Lower Stated Complaint: right knee pain Time Seen by Provider: 12/08/24 18:52 History of Present Illness HPI Narrative: 74-year-old female with history of breast cancer status post chemotherapy and immunotherapy presenting to the emergency department after a knee injury. Patient states that she was trying to exercise around the house and tripped and fell onto her right knee. Rates pain 10 on a 10 with movement localized to the posterior aspect of the right knee. No new paresthesias she states she has chronic neuropathy from longstanding disease and cancer treatments. Remote history of meniscal injury on the same knee without any operative repair. Denies any other injuries previously. Did not hit her head or lose consciousness. Did not take anything for pain prior to arrival. Related Data Home Medications ?Medication ?Instructions ?Recorded ?Confirmed ?Last Taken ?Type cholecalciferol (vitamin D3) 25 25 mcg PO DAILY 09/01/21 01/06/24 Unknown History mcg (1,000 unit) chewable tablet vit A 7,160 unit-C 113 mg-E 100 1 tablet PO ONCE 09/01/21 01/06/24 Unknown History [id number] tablet,delayed rel. (ICaps AREDS) cyanocobalamin (vitamin B-12) 1,000 mcg PO DAILY 03/05/22 01/06/24 Unknown History 1,000 mcg capsule famotidine 20 mg tablet (Pepcid) 20 mg PO QHS 09/19/24 Unknown History Allergies Allergy/AdvReac Type Severity Reaction Status Date / Time codeine Allergy Nausea and Verified 12/08/24 17:27 Vomiting Bisphosphonates AdvReac Intermediate GI upset Verified 12/08/24 17:27 Review of Systems 2 Review of Systems: As reviewed above in HPI [facility] Past Medical History Medical History Breast cancer Cataract Family History Family History Father Cancer of kidney Mother Asthma Depression Social History Social History Smoking status: Never smoker Alcohol intake: current Substance use: never Substance use type: does not use Lack of Transportation: No Lack of Food: Never True Current Housing: I Have Housing Concerned About Future Housing: No Difficulty Paying Gas/Electric Bills: No Difficulty Paying for Meds: No Currently Unemployed: No Education: Associate Degree Difficulty w/ Childcare or Family Care: No Occupation/Education: retired Exam 2 Narrative: GENERAL: [Well-appearing, well-nourished, and in no acute distress.] HEAD: [Normocephalic, atraumatic.] EYES: [PERRLA and EOMI.] ENT: Nares clear, no rhinorrhea or epistaxis. Mucous membranes moist. NECK: Supple. CHEST: [Clear to auscultation. No respiratory distress.] HEART: [Regular rate and rhythm]. No murmur heard. [Normal peripheral pulses.] ABDOMEN: [Soft, nondistended], [nontender], [No rigidity or guarding] EXTREMITIES: Tenderness to palpation along the medial joint line, posteriorly in the popliteal fossa without any appreciable masses, pulsatility or effusion. Suprapatellar effusion is noted as well as tenderness along the patella inferiorly. Able to wiggle the toes and move the ankle. No appreciable laxity with valgus or varus stress testing. Pain limiting full assessment. SKIN: Warm, dry, no rash. NEURO: [No focal deficits]. Alert and oriented [x3.] PSYCH: [Normal mood and affect.] Course Vital Signs Vital signs: Vital Signs Temperature 36.9 C 12/08/24 17:24 Pulse Rate 107 H 12/08/24 17:24 Respiratory Rate 18 12/08/24 17:24 Blood Pressure 96/52 L 12/08/24 17:24 Pulse Oximetry 98 12/08/24 17:24 Oxygen Delivery Room Air 12/08/24 17:24 Temperature 36.4 C 12/08/24 22:14 Pulse Rate 102 H 12/08/24 22:14 Respiratory Rate 17 12/08/24 22:14 Blood Pressure 129/73 12/08/24 22:14 Pulse Oximetry 97 12/08/24 22:14 Oxygen Delivery Room Air 12/08/24 17:24 MDM - Extremity Injury (Lower) MDM Narrative Medical decision making narrative: 74-year-old female presenting for knee pain and injury after mechanical fall. Tenderness to palpation along the medial joint line, posteriorly in the popliteal fossa without any appreciable masses, pulsatility or effusion. Suprapatellar effusion is noted as well as tenderness along the patella inferiorly. Able to wiggle the toes and move the ankle. No appreciable laxity with valgus or varus stress testing. Pain limiting full assessment. She has warm well-perfused extremity. Slightly tachycardic with a pulse 107. Blood pressure 96/52. Afebrile saturating well on room air. Suspect possible fracture/dislocation, patellar dislocation, tibial plateau fracture, tib-fib fracture femur fracture. X-rays were obtained independent reviewed which were largely unremarkable. CT scan was ordered this time without contrast for further delineation given patient's level of pain. She was given Tylenol and offered stronger narcotic level medications but she declined she does not want to get further constipated. Blood work was obtained, she was given fluids. Patient's laboratory studies show hemoglobin of 10.7 with no recent baseline after starting chemotherapy. Normal platelet count, no significant leukocytosis. Electrolytes are unremarkable. Normal renal function. Normal LFTs. CT scan shows fracture of the medial tibial plateau without any displacement. Fat fluid level also identified consistent with her exam. Discussed the case with orthopedic surgeon Dr. Diaz who will see the patient on inpatient basis. Knee immobilizer placed. Awaiting hospitalist discussion for admission at this time. Spoke to the hospitalist service who accepted the patient to a medical-surgical bed. P.r.n. pain medications ordered, admission orders placed. Patient comfort with the plan for admission at this time. Medical Records Attestation: I reviewed the patient's medical records. Lab Data Attestation: I reviewed the patient's lab results. 12/08/24 19:46 12/08/24 19:46 Labs: Lab Results 12/08/24 Range/Units 19:46 WBC 10.5 H (4.5-10.0) K/mm3 RBC 3.42 L (4.2-5.4) M/mm3 Hgb 10.7 L D (12.0-15.0) g/dL Hct 34.1 L (37.0-47.0) % MCV 99.7 (80-100) fl MCH 31.3 (26-34) pg MCHC 31.4 L (32-36) g/dl RDW 15.8 H (11.5-14.5) % Plt Count 192 (150-375) k/mm3 MPV 10.6 H (7.4-10.4) fl Immature Gran % (Auto) 0.9 H (0-0.5) % Neut % (Auto) 77.4 H (45.5-73.1) % Lymph % (Auto) 10.1 L (18.3-44.2) % Stevens % (Auto) 10.6 H (2.6-8.5) % Eos % (Auto) 0.3 (0-4.4) % Baso % (Auto) 0.7 (0.2-1.2) % Lymph # (Auto) 1.06 (0.9-3.2) K/mm3 Stevens # (Auto) 1.1 H (0.1-0.6) K/mm3 Eos # (Auto) 0.0 (0-0.3) K/mm3 Baso # (Auto) 0.1 (0.0-0.1) K/mm3 Abs Immat Gran (auto) 0.09 H (0.00-0.031) K/mm3 Absolute Neuts (auto) 8.1 H (1.3-6.7) K/mm3 Absolute Nucleated RBC 0.000 (0.0-0.012) K/mm3 Nucleated RBC % 0.0 (0.0-0.2) % Sodium 138 (137-145) mmol/L Potassium 4.1 (3.4-5.0) mmol/L Chloride 105 (98-107) mmol/L Carbon Dioxide 25 (22-30) mmol/L Anion Gap 8 (4-12) mmol/L BUN 16 (7-17) mg/dL Creatinine 0.64 L (0.7-1.0) mg/dL Estim Creat Clear Calc 48 ml/min Estimated GFR > 60 (59 - ) Glucose 108 (65-110) mg/dL Calcium 9.5 (8.4-10.2) mg/dL Total Bilirubin 0.2 (0.2-1.3) mg/dL AST 28 (14-36) U/L ALT 19 (6-35) U/L Alkaline Phosphatase 77 (38-126) U/L Total Protein 6.9 (6.3-8.2) g/dL Albumin 4.2 (3.5-5.1) g/dL Imaging Data Attestation: I personally reviewed and interpreted this imaging study as follows: My impression: Impressions Knee X-Ray 12/08/24 18:01 IMPRESSION: No definite acute osseous abnormality right knee. Knee CT 12/08/24 21:46 IMPRESSION: Fracture medial tibial plateau. Fat fluid level is seen in the suprapatellar bursa. Discharge Plan Discharge Clinical Impression: Closed fracture of medial portion of tibial plateau Patient Disposition: Still a Patient Condition: Stable Patient Language: Slovak Prescriptions: No Action mupirocin 2 % ointment 1 applic topical BID 7 Days Qty: 22 0RF cyanocobalamin (vitamin B-12) 1,000 mcg capsule 1,000 mcg PO DAILY famotidine [Pepcid] 20 mg tablet 20 mg PO QHS cholecalciferol (vitamin D3) 25 mcg (1,000 unit) tablet,chewable 25 mcg PO DAILY ICaps AREDS 7,160-113-100 [id number] tablet,delayed release (DR/EC) 1 tablet PO ONCE atorvastatin 10 mg tablet See Rx Instructions .ROUTE .COMPLEX Qty: 90 1RF Dose Instruction: TAKE 1 TABLET BY MOUTH EVERY DAY WITH OR WITHOUT FOOD Rx Instructions: TAKE 1 TABLET BY MOUTH EVERY DAY WITH OR WITHOUT FOOD Follow-up/Referrals: Aura Bar MD [Primary Care Provider] - Time of Disposition: 22:30
[2024-12-08] MEDS: LACTATED RINGERS 1,000 ML 999 ML IV CONT (19:38)
[2024-12-08] MEDS: ACETAMINOPHEN 500 MG TABLET 1000 MG PO (19:38)
[2024-12-08 19:42] VITALS: BP 131/69; PULSE 102; RESP 18; TEMP 36.8; O2SAT 98
[2024-12-08 19:53] LABS: Basophils Absolute Auto 0.1 K/mm3 (0.0-0.1); Basophils Percent Auto 0.7 % (0.2-1.2); Eosinophils Percent Auto 0.3 % (0-4.4); Hematocrit 34.1 % (37.0-47.0); Hemoglobin 10.7 g/dL (12.0-15.0); Immature Granulocyte Absolute 0.09 K/mm3 (0.00-0.031); Immature Granulocyte Percent A 0.9 % (0-0.5); Lymphocytes Absolute Auto 1.06 K/mm3 (0.9-3.2); Lymphocytes Percent Auto 10.1 % (18.3-44.2); Mean Corpuscular HGB Conc 31.4 g/dl (32-36); Mean Corpuscular Hemoglobin 31.3 pg (26-34); Mean Corpuscular Volume 99.7 fl (80-100); Mean Platelet Volume 10.6 fl (7.4-10.4); Monocytes Absolute Auto 1.1 K/mm3 (0.1-0.6); Monocytes Percent Auto 10.6 % (2.6-8.5); Neutrophils Absolute Auto 8.1 K/mm3 (1.3-6.7); Neutrophils Percent Auto 77.4 % (45.5-73.1); Platelet Count Result 192 k/mm3 (150-375); Red Blood Count 3.42 M/mm3 (4.2-5.4); Red Cell Distribution Width 15.8 % (11.5-14.5); White Blood Count 10.5 K/mm3 (4.5-10.0)
--- NOTE | 2024-12-08 20:21 | PC.NURSE ---
Patient taken to CT via w/c at this time.
[2024-12-08 20:51] LABS: Alanine Aminotransferase 19 U/L (6-35); Albumin Level 4.2 g/dL (3.5-5.1); Alkaline Phosphatase 77 U/L (38-126); Anion Gap 8 mmol/L (4-12); Aspartate Amino Transferase 28 U/L (14-36); Bilirubin,Total 0.2 mg/dL (0.2-1.3); Blood Urea Nitrogen 16 mg/dL (7-17); Calcium 9.5 mg/dL (8.4-10.2); Carbon Dioxide 25 mmol/L (22-30); Chloride 105 mmol/L (98-107); Estimated CRCL calculation 48 ml/min; Estimated Glomerular Filt Rate > 60; Glucose 108 mg/dL (65-110); Potassium 4.1 mmol/L (3.4-5.0); Sodium 138 mmol/L (137-145); Total Protein 6.9 g/dL (6.3-8.2)
[2024-12-08 22:14] VITALS: BP 129/73; PULSE 102; RESP 17; TEMP 36.4; O2SAT 97
--- NOTE | 2024-12-08 22:45 | PC.NURSE ---
Patient was assisted to the bathroom by this RN. Patient was able to stand and pivot with x1 assist. Patient states her pain is still up there but I don't want anything for pain right now.
[2024-12-08 23:38] VITALS: BMI 23.8
--- NOTE | 2024-12-08 23:39 | ADMGEN ---
This patient, Meseret Ortiz, was admitted to [facility] Surg Room 322-01 at 23:20. Patient/family oriented to hospital policies and general routines including ID bracelet, bed and alarms, visiting hours, pain management, procedures, bathroom and other care routines, personal items, smoking policy, room service/diet, and visiting hours. Information on how to activate the Rapid Response Team has been discussed. Patient/Family are encouraged to report perceived risks to care and to ask questions if they do not understand what they are told or what they should do.
[2024-12-08 23:50] VITALS: BP 118/60; PULSE 85; RESP 12; TEMP 36.6; O2SAT 96
[2024-12-08] MEDS: LACTATED RINGERS 1,000 ML 90 ML IV CONT (23:56)
--- NOTE | 2024-12-09 00:40 | P.HP_ITS ---
H&P: HPI History of Present Illness Date/Time: 12/09/24 00:30 Chief Complaint: Right leg pain after fall. 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 She completed chemotherapy 22 days ago and had her 7th immunotherapy infusion done 2 days ago. She seems to be tolerating her treatment quite well and she tries to stay active by doing laps around the home. Last evening while walking she has seems that 1 of her feet got tripped up (she has neuropathy from chemotherapy and that does happen sometimes) causing her to fall forward onto the floor in the kitchen. She had immediate pain in the right leg, more specifically around the knee, and she was unable to stand up. There was no head trauma or loss of consciousness in the fall and she does not complain of pain anywhere aside from that leg. She also denies a symptoms prior to the fall, specifically she was not feeling lightheaded or dizzy and she denies chest pain, pleuritic pain, palpitations, and shortness of breath. In the ED: Vital signs on arrival include a temperature 90.4?, blood pressure 96/52, pulse is 107, respiratory 18, SpO2 98% on room air. Labs were significant for WBC count 10.5, hemoglobin 10.7, platelet 192, BUN 16, creatinine 0.64. Right knee CT showed a nondisplaced fracture of the medial tibial plateau. She is being admitted in this setting for pain control and orthopedic consultation. Review of Systems Review of Systems: 12 systems were reviewed and are negativ e except for as per HPI. PENDING SALE TO [facility] Past Medical History Medical History (Updated 12/09/24 @ 05:55 by Thania King PA-C) Gastroesophageal reflux disease Arthritis Gastroesophageal reflux disease Vitamin D deficiency, unspecified Osteoporosis patient refused treatment Mixed hyperlipidemia Triple negative malignant neoplasm of breast Family History Family History Father Cancer of kidney Mother Asthma Depression Social History Social History (Updated 12/09/24 @ 05:53 by Thania King PA-C) Social History: Surrogate medical decision maker: Ino Norwood, son. Code status: Do not resuscitate. Smoking status: Never smoker Alcohol intake: former Substance use: never Other substance usage details: last drink june 2024 Do You Feel Safe in your Home?: Yes Lack of Transportation: No Lack of Food: Never True Current Housing: I Have Housing Concerned About Future Housing: No Difficulty Paying Gas/Electric Bills: No Difficulty Paying for Meds: No Currently Unemployed: No Education: Associate Degree Difficulty w/ Childcare or Family Care: No Additional living arrangements comments: . Grandson lives with her. She has a dog. Spiritual care concerns: No Meds Home Medications and Allergies Home Medications ?Medication ?Instructions ?Recorded ?Confirmed ?Type cholecalciferol (vitamin D3) 25 25 mcg PO DAILY 09/01/21 12/09/24 History mcg (1,000 unit) chewable tablet cyanocobalamin (vitamin B-12) 1,000 mcg PO EVERY OTHER DAY 03/05/22 12/09/24 History 1,000 mcg capsule famotidine 20 mg tablet (Pepcid) 20 mg PO Q12H 09/19/24 12/09/24 History atorvastatin 10 mg tablet See Rx Instructions .Route 11/09/24 12/09/24 Rx .COMPLEX #90 tabs acyclovir 400 mg tablet 400 mg PO DAILY PRN 12/09/24 12/09/24 History herpesvesicular dermatitis duloxetine 60 mg capsule,delayed 60 mg PO DAILY 12/09/24 12/09/24 History release lidocaine-prilocaine 2.5 %-2.5 % 1 applic topical DAILY PRN before 12/09/24 12/09/24 History topical cream accessing port loperamide 2 mg capsule 2 mg PO QID PRN loose stool 12/09/24 12/09/24 History (Anti-Diarrheal (loperamide)) ondansetron HCl 8 mg tablet 8 mg PO Q8H PRN nausea and vomiting 12/09/24 12/09/24 History prochlorperazine maleate 10 mg 10 mg PO Q6H PRN nausea and 12/09/24 12/09/24 History tablet vomiting vit C 250 mg-vit E 90 mg-zinc 40 1 tablet PO BID 12/09/24 12/09/24 History mg-copper 1 [id number] capsule (PreserVision AREDS-2) Allergies Allergy/AdvReac Type Severity Reaction Status Date / Time codeine Allergy Nausea and Verified 12/08/24 17:27 Vomiting Bisphosphonates AdvReac Intermediate GI upset Verified 12/08/24 17:27 Vital Signs Vital Signs - 24 hr 12/08/24 17:24 12/08/24 19:42 12/08/24 22:14 Temperature 98.4 F 98.2 F 97.6 F Pulse Rate 107 H 102 H 102 H Respiratory Rate 18 18 17 Blood Pressure 96/52 L 131/69 129/73 Pulse Oximetry 98 98 97 Oxygen Delivery Room Air 12/08/24 23:50 Temperature 97.9 F Pulse Rate 85 Respiratory Rate 12 Blood Pressure 118/60 Pulse Oximetry 96 Oxygen Delivery Exam Narrative: General: Thin elderly female in the semi-Miller position in bed. Weight: 57.3 kg. BMI: 23.9. HEENT: PERRL, EOMI. Sclera anicteric. Oral mucosa moist. Neck: Supple. Respiratory: Lungs are clear to auscultation bilaterally. Cardiovascular: Regular rate and rhythm with S1-S2. Chest: Port-A-Cath and anterior chest. Gastrointestinal: Abdomen is soft, nontender, and nondistended with positive bowel sounds. Skin: Warm and dry. Chemotherapy-induced alopecia. Extremities: No cyanosis, clubbing, or edema. Radial and pedal pulses intact. Musculoskeletal: Right lower extremities immobilized. She is neurovascular intact distal to the fracture site. Neurological: Alert. Cranial nerves 2-12 are grossly intact. No gross focal deficits to casual conversation. Psychiatric: Pleasant and cooperative with normal mood and affect. Judgment and insight intact. H&P: Results Labs Labs: Short CBC 12/08/24 Range/Units 19:46 WBC 10.5 H (4.5-10.0) K/mm3 Hgb 10.7 L D (12.0-15.0) g/dL Hct 34.1 L (37.0-47.0) % Plt Count 192 (150-375) k/mm3 BMP 12/08/24 19:46 Sodium 138 Potassium 4.1 Chloride 105 Carbon Dioxide 25 BUN 16 Creatinine 0.64 L Glucose 108 Calcium 9.5 Liver Function 12/08/24 Range/Units 19:46 Total Bilirubin 0.2 (0.2-1.3) mg/dL AST 28 (14-36) U/L ALT 19 (6-35) U/L Alkaline Phosphatase 77 (38-126) U/L Albumin 4.2 (3.5-5.1) g/dL Imaging Knee X-Ray 12/08/24 18:01 IMPRESSION: No definite acute osseous abnormality right knee. Knee CT 12/08/24 21:46 IMPRESSION: Fracture medial tibial plateau. Fat fluid level is seen in the suprapatellar bursa. Assessment and Plan Assessment and plan (1) Closed fracture of medial portion of tibial plateau: Code(s): S82.133A - Displaced fracture of medial condyle of unspecified tibia, initial encounter for closed fracture Status: Acute (2) Anemia: Code(s): D64.9 - Anemia, unspecified Status: Acute (3) Triple negative malignant neoplasm of breast: Code(s): C50.919 - Malignant neoplasm of unspecified site of unspecified female breast; Z17.421 - Hormone receptor negative with human epidermal growth factor receptor 2 negative status Status: Acute (4) Gastroesophageal reflux disease: Code(s): K21.9 - Gastro-esophageal reflux disease without esophagitis Status: Acute (5) Mixed hyperlipidemia: Code(s): E78.2 - Mixed hyperlipidemia Status: Acute Plan The patient presented to the emergency department for evaluation of right knee pain after a fall as detailed in HPI. Labs, imaging, EKG, and all reports were personally reviewed. Imaging shows a nondisplaced fracture of the medial tibial plateau. Dr. Diaz was consulted by the ED physician his input is appreciated. Analgesics are available as needed. She will eventually need PT/OT and may need rehab before returning home depending on how she does. Anemia is related to treatment for her malignancy. Hemoglobin is stable and will be monitored. Chronic conditions including GERD and hyperlipidemia are without issues. Her home medications will be reviewed and resumed as appropriate. Findings and treatment plan were discussed with the patient. Questions were solicited and answered to satisfaction. The patient's medical management will be taken over by the hospitalist team in a.m. Quality VTE Prophylaxis VTE prophylaxis: mechanical ordered If No VTE Prophylaxis Answer both mechanical and pharmacologic: Reason no pharmacologic proph: medical contraindication (hold pending ortho consultation though doubt she will need surgery) Hospitalist MIPS Advance Care Plan I have confirmed that the patient's Advanced Care Plan is present, code status is documented, or surrogate decision maker is listed in patient medical record.: Yes Medication Reconciliation I have utilized all available resources to obtain, update and review the patients current medications (includes all prescriptions, OTC, herbals, cannabis, and nutritional supplements).: Yes
[2024-12-09 05:08] VITALS: BP 95/55; PULSE 88; RESP 18; TEMP 37.2; O2SAT 99
--- NOTE | 2024-12-09 07:39 | P.PNIM_ITS ---
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 Denies head trauma and loss of consciousness. - Knee XR showed no definite acute osseous abnormality of the right knee - Knee CT showed fracture of the medial tibial plateau with fat fluid level seen in the suprapatellar bursa - Analgesics - PT/OT per ortho recommendations - Ortho consulted plan for nonoperative management placed in knee immobilizer (2) Anemia: Code(s): D64.9 - Anemia, unspecified Status: Acute Assessment and Plan: H/H 10.7/34.1 on admission. No signs of active bleeding. Anemia is related to treatment for her malignancy. Hemoglobin is stable and will be monitored. (3) Triple negative malignant neoplasm of breast: Code(s): C50.919 - Malignant neoplasm of unspecified site of unspecified female breast; Z17.421 - Hormone receptor negative with human epidermal growth factor receptor 2 negative status Status: Acute Assessment and Plan: Triple negative right breast cancer Completed chemotherapy 22 days ago and had her 7th immunotherapy infusion done 12/07 (4) Mixed hyperlipidemia: Code(s): E78.2 - Mixed hyperlipidemia Status: Acute Assessment and Plan: Chronic, continue home medication - atorvastatin 10 mg daily Time Spent With Patient Time with patient: 25 - 35 minutes Subjective Date/time seen: 12/09/24 07:39 Interval history: 74-year-old female with hyperlipidemia, gastroesophageal reflux disease, and triple negative right breast cancer (completed chemotherapy 22 days ago and had her 7th immunotherapy infusion done 12/07) who presented to the hospital via EMS from home for evaluation of right knee pain after a fall. Patient is pleasant lying comfortably in bed. She states that her pain is well controlled on the current regimen. She has no complaints at this time denying chest pain, shortness a breath, palpitations, tingling/numbness/shooting pains to the lower extremity, and nausea/vomiting or abdominal pain. Review of Systems Review of Systems: All systems reviewed & are unremarkable except as noted in HPI and below Exam Narrative: AF HR 88 RR 18 SpO2 99 BP 95/55 General: female in no acute respiratory distress who is nontoxic appearing, lying semi recumbent in bed. HEENT: Normocephalic. Atraumatic. Extraocular movement intact. Sclera clear and anicteric. No facial asymmetry. Chest: Lungs are clear to auscultation bilaterally. No wheezes or crackles. CV: Heart was regular rate and rhythm. Abd: Abdomen was soft. Nontender. Nondistended. Positive bowel sounds. Ext: No clubbing, cyanosis, or edema. DP pulses bilaterally. Knee immobilizer in place. Sensation intact. Wiggling toes. Neuro: Patient is alert and oriented x4. Speech is clear. Objective Data Vital Signs Vital Signs: Vital Signs - 24 hr 12/08/24 17:24 12/08/24 19:42 12/08/24 22:14 Temperature 98.4 F 98.2 F 97.6 F Pulse Rate 107 H 102 H 102 H Respiratory Rate 18 18 17 Blood Pressure 96/52 L 131/69 129/73 Pulse Oximetry 98 98 97 Oxygen Delivery Room Air 12/08/24 23:50 12/09/24 01:00 12/09/24 05:08 Temperature 97.9 F 99.0 F Pulse Rate 85 88 Respiratory Rate 12 18 Blood Pressure 118/60 95/55 L Pulse Oximetry 96 99 Oxygen Delivery Room Air Intake/Output Intake/Output: Intake & Output 12/06/24 12/07/24 12/08/24 12/09/24 23:59 23:59 23:59 23:59 Intake Total 1000 0 Output Total 800 Balance 1000 -800 Meds/Results Medications: Active Medications Generic Name Dose Route Start Last Admin Trade Name Freq PRN Reason Stop Dose Admin Acetaminophen 650 mg 12/08/24 22:26 Acetaminophen 325 Mg Tablet PO Q4H PRN Mild Pain (1-3) or Fever Hydrocodone Bitart/Acetaminophen 1 tab 12/08/24 22:26 Hydrocodone/Acetaminophen (*Crx) 5-325 Mg Tablet PO Q4H PRN Pain Rated 4-6 Acyclovir 400 mg 12/09/24 03:41 Acyclovir 400 Mg Tablet PO DAILY PRN herpesvesicular dermatitis Atorvastatin Calcium 10 mg 12/09/24 09:00 Atorvastatin 10 Mg Tablet BY MOUTH DAILY JESSICA Cyanocobalamin 1,000 mcg 12/10/24 09:00 Cyanocobalamin 1,000 Mcg Tablet PO Q48H [facility] Duloxetine HCl 60 mg 12/09/24 09:00 Duloxetine Hcl 60 Mg Capsule.Dr PO DAILY JESSICA Famotidine 20 mg 12/09/24 09:00 Famotidine 20 Mg Tablet PO Q12HR [facility] Hydromorphone HCl 0.5 mg 12/08/24 22:26 Hydromorphone Hcl Inj (*Crx) 2 Mg/Ml Vial IV PUSH Q4H PRN Pain Rated 7-10 Lactated Ringer's 1,000 mls @ 90 mls/hr 12/09/24 03:41 Lr - Lactated Ringers Iv IV CONT 12/09/24 14:46 .Q11H7M ONE Loperamide HCl 2 mg 12/09/24 03:41 Loperamide Hcl 2 Mg Capsule PO QID PRN loose stool Multivitamins/Minerals 1 tablet 12/09/24 09:00 Opti-Gen Tab PO BID [facility] Ondansetron HCl 4 mg 12/08/24 22:26 Ondansetron Inj 4 Mg/2 Ml Vial IV PUSH Q4H PRN Nausea Vitamin D 25 mcg 12/09/24 09:00 Cholecalciferol (Vitamin D3) 25 Mcg (1,000 Units) Tablet PO DAILY [facility] Radiology Results: ITS Impressions Knee X-Ray 12/08/24 18:01 IMPRESSION: No definite acute osseous abnormality right knee. Knee CT 12/08/24 21:46 IMPRESSION: Fracture medial tibial plateau. Fat fluid level is seen in the suprapatellar bursa. Labs Labs: Laboratory Results - last 24 hr 12/08/24 19:46 WBC 10.5 H RBC 3.42 L Hgb 10.7 L D Hct 34.1 L MCV 99.7 MCH 31.3 MCHC 31.4 L RDW 15.8 H Plt Count 192 MPV 10.6 H Immature Gran % (Auto) 0.9 H Neut % (Auto) 77.4 H Lymph % (Auto) 10.1 L [place] % (Auto) 10.6 H Eos % (Auto) 0.3 Baso % (Auto) 0.7 Lymph # (Auto) 1.06 [place] # (Auto) 1.1 H Eos # (Auto) 0.0 Baso # (Auto) 0.1 Abs Immat Gran (auto) 0.09 H Absolute Neuts (auto) 8.1 H Absolute Nucleated RBC 0.000 Nucleated RBC % 0.0 Sodium 138 Potassium 4.1 Chloride 105 Carbon Dioxide 25 Anion Gap 8 BUN 16 Creatinine 0.64 L Estim Creat Clear Calc 48 Estimated GFR > 60 Glucose 108 Calcium 9.5 Total Bilirubin 0.2 AST 28 ALT 19 Alkaline Phosphatase 77 Total Protein 6.9 Albumin 4.2 Quality VTE Prophylaxis VTE prophylaxis: mechanical ordered
[2024-12-09] MEDS: ACETAMINOPHEN 325 MG TABLET 650 MG PO (07:53)
[2024-12-09 08:00] VITALS: O2SAT 99
--- NOTE | 2024-12-09 08:10 | PCPTNOTE ---
Physical therapy awaiting ortho consult with weightbearing recommendations.
[2024-12-09] MEDS: HYDROcodone/acetaminophen (*CRX) 5-325 MG TABLET 1 TAB PO ×3 (09:04→20:26)
--- NOTE | 2024-12-09 10:53 | P.CONOP_ITS ---
Assessment and Plan Assessment and plan (1) Closed fracture of medial portion of tibial plateau: Code(s): S82.133A - Displaced fracture of medial condyle of unspecified tibia, initial encounter for closed fracture Status: Acute Plan Evaluation status post injury right knee. The history, physical exam and radiographs reviewed with the patient. fall at home when lost balance. Denies loss of consciousness, head or neck injury. Pain right knee. Type of fracture discussed in detail. CT scan demonstrates right proximal medial tibial plateau fracture with minimal displacement. Treatment options including operative and non operative treatment reviewed. Risks, benefits and alternatives of each treatment discussed in detail. The patient has Opted for non surgical treatment. Risks of treatment decision discussed in detail. Potential problems with displacement of the fracture, loss of alignment, nonunion, malunion and dysfunction discussed in detail. The patient's questions were answered. They verbalized understanding and agreement. Conservative treatment with immobilization, ice, compression and elevation. knee immobilizer when up. Will try to mobilize patient, PT/ OT. Pain control. Disposition home when pain controlled and able to be mobile. History of Present Illness HPI Consult date: 12/09/24 Requesting physician: Tulio Frank MD Consult reason: fracture Chief complaint: Tibial plateau fracture Narrative: 74-year-old woman lost her balance at home last night falling forward and injuring right knee. Pain and swelling to the knee and was unable to get up. Brought by ambulance to the emergency room. Found to have tibia fracture and admitted. Patient states problems with bilateral lower extremity peripheral neuropathy and right footdrop prior to the injury. Difficulty with ambulation and balance. Review of Systems 2 Constitutional: Constitutional: Denies fever(s) Eyes: Eyes: Denies blurry vision ENT: Reports Normal hearing present Cardiovascular: Cardiovascular: Denies chest pain and Denies dyspnea Respiratory: Respiratory: Denies dyspnea and Denies wheezing Gastrointestinal: Gastrointestinal: Denies abdominal pain Genitourinary: Genitourinary: Denies urinary urgency Musculoskeletal: Musculoskeletal: Reports as per HPI and Denies numbness Integumentary/Breasts: Skin/Breast: Denies changing lesions and Denies sores Neurologic: Reports Normal hearing present, Denies behavioral changes, Denies confusion, Denies numbness and Denies convulsions Psychiatric: Psychiatric: Denies behavioral changes, Denies confusion and Denies hallucinations Endocrine: Endocrine: Denies heat intolerance Allergic/Immunologic: Allergic/Immunologic: Denies wheezing [facility] Past Medical History Medical History Gastroesophageal reflux disease Arthritis Gastroesophageal reflux disease Vitamin D deficiency, unspecified Osteoporosis patient refused treatment Mixed hyperlipidemia Triple negative malignant neoplasm of breast Family History Family History Father Cancer of kidney Mother Asthma Depression Social History Social History Social History: Surrogate medical decision maker: Ino Norwood, terri. Code status: Do not resuscitate. Smoking status: Never smoker Alcohol intake: former Substance use: never Other substance usage details: last drink june 2024 Do You Feel Safe in your Home?: Yes Lack of Transportation: No Lack of Food: Never True Current Housing: I Have Housing Concerned About Future Housing: No Difficulty Paying Gas/Electric Bills: No Difficulty Paying for Meds: No Currently Unemployed: No Education: Associate Degree Difficulty w/ Childcare or Family Care: No Additional living arrangements comments: . Grandson lives with her. She has a dog. Spiritual care concerns: No Meds Home Medications and Allergies Home Medications ?Medication ?Instructions ?Recorded ?Confirmed ?Type cholecalciferol (vitamin D3) 25 25 mcg PO DAILY 09/01/21 12/09/24 History mcg (1,000 unit) chewable tablet cyanocobalamin (vitamin B-12) 1,000 mcg PO EVERY OTHER DAY 03/05/22 12/09/24 History 1,000 mcg capsule famotidine 20 mg tablet (Pepcid) 20 mg PO Q12H 09/19/24 12/09/24 History atorvastatin 10 mg tablet See Rx Instructions .Route 11/09/24 12/09/24 Rx .COMPLEX #90 tabs acyclovir 400 mg tablet 400 mg PO DAILY PRN 12/09/24 12/09/24 History herpesvesicular dermatitis duloxetine 60 mg capsule,delayed 60 mg PO DAILY 12/09/24 12/09/24 History release lidocaine-prilocaine 2.5 %-2.5 % 1 applic topical DAILY PRN before 12/09/24 12/09/24 History topical cream accessing port loperamide 2 mg capsule 2 mg PO QID PRN loose stool 12/09/24 12/09/24 History (Anti-Diarrheal (loperamide)) ondansetron HCl 8 mg tablet 8 mg PO Q8H PRN nausea and vomiting 12/09/24 12/09/24 History prochlorperazine maleate 10 mg 10 mg PO Q6H PRN nausea and 12/09/24 12/09/24 History tablet vomiting vit C 250 mg-vit E 90 mg-zinc 40 1 tablet PO BID 12/09/24 12/09/24 History mg-copper 1 [id number] capsule (PreserVision AREDS-2) Allergies Allergy/AdvReac Type Severity Reaction Status Date / Time codeine Allergy Nausea and Verified 12/08/24 17:27 Vomiting Bisphosphonates AdvReac Intermediate GI upset Verified 12/08/24 17:27 Vital Signs Vital Signs - 24 hr 12/08/24 17:24 12/08/24 19:42 12/08/24 22:14 Temperature 98.4 F 98.2 F 97.6 F Pulse Rate 107 H 102 H 102 H Respiratory Rate 18 18 17 Blood Pressure 96/52 L 131/69 129/73 Pulse Oximetry 98 98 97 Oxygen Delivery Room Air 12/08/24 23:50 12/09/24 01:00 12/09/24 05:08 Temperature 97.9 F 99.0 F Pulse Rate 85 88 Respiratory Rate 12 18 Blood Pressure 118/60 95/55 L Pulse Oximetry 96 99 Oxygen Delivery Room Air 12/09/24 08:00 Temperature Pulse Rate Respiratory Rate Blood Pressure Pulse Oximetry 99 Oxygen Delivery Room Air Exam 2 Const: General: healthy appearing; No in distress or confusion O rientation/consciousness: oriented to person, oriented to place, oriented to time and No confusion HENMT: Head: normal to inspection, normocephalic and atraumatic Eyes: Conjunctivae: conjunctivae normal Sclera: sclerae normal Neck: Neck: supple and nontender Resp: Effort & Inspection: normal respiratory effort and no audible wheezes Cardio: Rate: regular rate Rhythm: regular rhythm Skin: General skin exam: no rashes or lesions noted Neuro: General: oriented to person, oriented to place, oriented to time and No confusion Extrem: Right upper extremity: normal to inspection Left upper extremity: n ormal to inspection Right lower extremity: hip/thigh Details: normal ROM; no tenderness, knee Details: tenderness (anterior and medial joint line ) Location: of the medial joint line (moderate ) and of the pre-patellar area (moderate ), swelling (peripatellar and medial joint ), abnormal ROM (active range of motion -10 degrees extension, 110 degrees flexion) Details: pain with active ROM during Details: in extension and in flexion, knee ligament exam normal Details: anterior drawer test normal, posterior drawer test normal, valgus stress test normal and Mona?s test normal, knee ligament exam abnormal Details: varus stress test normal (painful medial ) and Anna's Test Details: positive medially and foot Details: normal capillary refill, toes with normal ROM, vascular exam Details: dorsalis pedis pulse present and motor-sensory exam Details: light-touch normal; no tenderness; no edema Left lower extremity: n ormal to inspection, normal capillary refill and knee Details: normal ROM (Active extension 5, flexion 130) and knee ligament exam normal; no tenderness Psych: Affect: normal affect Results Labs 12/08/24 19:46 12/08/24 19:46 Labs: Abnormal lab results 12/08/24 Range/Units 19:46 WBC 10.5 H (4.5-10.0) K/mm3 RBC 3.42 L (4.2-5.4) M/mm3 Hgb 10.7 L D (12.0-15.0) g/dL Hct 34.1 L (37.0-47.0) % MCHC 31.4 L (32-36) g/dl RDW 15.8 H (11.5-14.5) % MPV 10.6 H (7.4-10.4) fl Immature Gran % (Auto) 0.9 H (0-0.5) % Neut % (Auto) 77.4 H (45.5-73.1) % Lymph % (Auto) 10.1 L (18.3-44.2) % [place] % (Auto) 10.6 H (2.6-8.5) % [place] # (Auto) 1.1 H (0.1-0.6) K/mm3 Abs Immat Gran (auto) 0.09 H (0.00-0.031) K/mm3 Absolute Neuts (auto) 8.1 H (1.3-6.7) K/mm3 Creatinine 0.64 L (0.7-1.0) mg/dL H & H 12/08/24 Range/Units 19:46 Hgb 10.7 L D (12.0-15.0) g/dL Hct 34.1 L (37.0-47.0) % All other labs normal. Diagnostic results Knee CT: image reviewed ( Radiographs right knee showed knee effusion without fracture. CT scan right knee shows medial tibial plateau fracture) Fracture/Casting/Strapping Pre Procedure Consent was obtained, Procedures/risks were explained, Questions were answered, Correct patient identified and Correct side and site confirmed Episode of Care New episode Location: Right thigh Fracture Care Femur/patella/plateau/knee Femur, Patella, Plateau, Knee: CLOSED TX TIBIAL FX PROXIMAL W/O MANIPULATION Application Exam of Affected Area: Color: Normal, Temp: Normal, Pulse: Normal, Blanching: Normal, Capillary Refill: Normal and Sensory Exam: Abnormal ( Decreased sensation bilateral ankle, foot, toes) Swelling: Yes ( mild knee) and Tenderness: Yes ( medial knee) Skin Apperance: Clean and Dry and Intact Post Procedure Patient tolerated the procedure well?: Tolerated procedure well
[2024-12-09] MEDS: DULoxetine HCL 60 MG CAPSULE.DR PO (11:32)
[2024-12-09] MEDS: CHOLECALCIFEROL (VITAMIN D3) 25 MCG (1,000 UNITS) TABLET PO (11:32)
[2024-12-09] MEDS: FAMOTIDINE 20 MG TABLET PO ×2 (11:32→20:26)
[2024-12-09] MEDS: OPTI-GEN TAB 1 TABLET PO ×2 (11:33→16:22)
[2024-12-09 14:00] VITALS: BP 93/53; PULSE 84; RESP 18; TEMP 36.6; O2SAT 98
[2024-12-09 15:18] VITALS: BP 110/60
[2024-12-09] MEDS: ATORVASTATIN 10 MG TABLET BY MOUTH (20:25)
[2024-12-09 20:30] VITALS: BP 99/56; PULSE 82; RESP 20; TEMP 36.3; O2SAT 98
--- NOTE | 2024-12-09 22:07 | PC.NURSE ---
pt IV infiltrated, and has been removed. patient refusing to be stuck at the moment and states that she is okay if I stick her for an IV in the morning. Marely Barbosa [employer] notified of no iv access. patient is not getting any IV meds, and per Marely it is okay to leave out overnight
[2024-12-10] MEDS: HYDROcodone/acetaminophen (*CRX) 5-325 MG TABLET 1 TAB PO ×3 (04:11→17:53)
[2024-12-10 05:15] VITALS: BP 102/50; PULSE 80; RESP 16; TEMP 35.9; O2SAT 95
--- NOTE | 2024-12-10 06:30 | PC.NURSE ---
On 12/10/24, the graduate nurse, Hanny Lu, provided care and completed [facility] documentation on this patient. I have reviewed the student's documentation and agree with the findings.
--- NOTE | 2024-12-10 06:51 | P.PNIM_ITS ---
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 Denies head trauma and loss of consciousness. - Knee XR showed no definite acute osseous abnormality of the right knee - Knee CT showed fracture of the medial tibial plateau with fat fluid level seen in the suprapatellar bursa - Analgesics - PT/OT per ortho recommendations: weight bearing as tolerated recommending acute inpatient rehab, patient agreeable. - Ortho consulted plan for nonoperative management placed in knee immobilizer (2) Anemia: Code(s): D64.9 - Anemia, unspecified Status: Acute Assessment and Plan: H/H 10.7/34.1 on admission. No signs of active bleeding. Anemia is related to treatment for her malignancy. Hemoglobin is stable and will be monitored. (3) Triple negative malignant neoplasm of breast: Code(s): C50.919 - Malignant neoplasm of unspecified site of unspecified female breast; Z17.421 - Hormone receptor negative with human epidermal growth factor receptor 2 negative status Status: Acute Assessment and Plan: Triple negative right breast cancer Completed chemotherapy 22 days ago and had her 7th immunotherapy infusion done 12/07 (4) Mixed hyperlipidemia: Code(s): E78.2 - Mixed hyperlipidemia Status: Acute Assessment and Plan: Chronic, continue home medication - atorvastatin 10 mg daily Time Spent With Patient Time with patient: 25 - 35 minutes Subjective Date/time seen: 12/10/24 06:51 Interval history: 74-year-old female with hyperlipidemia, gastroesophageal reflux disease, and tri ple negative right breast cancer (completed chemotherapy 22 days ago and had her 7th immunotherapy infusion done 12/07) who presented to the hospital via EMS from home for evaluation of right knee pain after a fall. Patient is pleasant sitting up comfortably in her bed. She states that her pain is well controlled on the current regimen. She has no other complaints denying chest pain, shortness a breath, palpitations, nausea/vomiting and abdominal pain. Patient worked with therapy who is recommending acute rehab for further treatment. Patient is agreeable blood, care coordination following. Review of Systems Review of Systems: All systems reviewed & are unremarkable except as noted in HPI and below Exam Narrative: AF HR 80 RR 16 Spo2 95 BP 102/50 General: female in no acute respiratory distress who is nontoxic appearing, lying semi recumbent in bed. HEENT: Normocephalic. Atraumatic. Extraocular movement intact. Sclera clear and anicteric. No facial asymmetry. Chest: Lungs are clear to auscultation bilaterally. No wheezes or crackles. CV: Heart was regular rate and rhythm. Abd: Abdomen was soft. Nontender. Nondistended. Positive bowel sounds. Ext: No clubbing, cyanosis, or edema. DP pulses bilaterally. Edema to right knee. Knee immobilizer in place. Sensation intact. Wiggling toes. Neuro: Patient is alert and oriented x4. Speech is clear. Objective Data Vital Signs Vital Signs: Vital Signs - 24 hr 12/09/24 08:00 12/09/24 12:58 12/09/24 14:00 Temperature 97.8 F Pulse Rate 84 Respiratory Rate 18 Blood Pressure 93/53 L Pulse Oximetry 99 98 Oxygen Delivery Room Air Room Air 12/09/24 15:18 12/09/24 20:30 12/09/24 20:55 Temperature 97.4 F L Pulse Rate 82 Respiratory Rate 20 Blood Pressure 110/60 99/56 L Pulse Oximetry 98 Oxygen Delivery Room Air 12/10/24 05:15 Temperature 96.6 F L Pulse Rate 80 Respiratory Rate 16 Blood Pressure 102/50 L Pulse Oximetry 95 Oxygen Delivery Intake/Output Intake/Output: Intake & Output 12/07/24 12/08/24 12/09/24 12/10/24 23:59 23:59 23:59 23:59 Intake Total 1000 950 550 Output Total 2100 425 Balance 1000 -1150 125 Meds/Results Medications: Active Medications Generic Name Dose Route Start Last Admin Trade Name Freq PRN Reason Stop Dose Admin Acetaminophen 650 mg 12/08/24 22:26 12/09/24 07:53 Acetaminophen 325 Mg Tablet PO 650 mg Q4H PRN Administration Mild Pain (1-3) or Fever Hydrocodone Bitart/Acetaminophen 1 tab 12/08/24 22:26 12/10/24 04:11 Hydrocodone/Acetaminophen (*Crx) 5-325 Mg Tablet PO 1 tab Q4H PRN Administration Pain Rated 4-6 Acyclovir 400 mg 12/09/24 03:41 Acyclovir 400 Mg Tablet PO DAILY PRN herpesvesicular dermatitis Atorvastatin Calcium 10 mg 12/09/24 21:00 12/09/24 20:25 Atorvastatin 10 Mg Tablet BY MOUTH 10 mg HS JESSICA Administration Cyanocobalamin 1,000 mcg 12/10/24 09:00 Cyanocobalamin 1,000 Mcg Tablet PO Q48H JESSICA Duloxetine HCl 60 mg 12/09/24 09:00 12/09/24 11:32 Duloxetine Hcl 60 Mg Capsule.Dr PO 60 mg DAILY JESSICA Administration Famotidine 20 mg 12/09/24 09:00 12/09/24 20:26 Famotidine 20 Mg Tablet PO 20 mg Q12HR JESSICA Administration Hydromorphone HCl 0.5 mg 12/08/24 22:26 Hydromorphone Hcl Inj (*Crx) 2 Mg/Ml Vial IV PUSH Q4H PRN Pain Rated 7-10 Loperamide HCl 2 mg 12/09/24 03:41 Loperamide Hcl 2 Mg Capsule PO QID PRN loose stool Multivitamins/Minerals 1 tablet 12/09/24 09:00 12/09/24 16:22 Opti-Gen Tab PO 1 tablet BID JESSICA Administration Ondansetron HCl 4 mg 12/08/24 22:26 Ondansetron Inj 4 Mg/2 Ml Vial IV PUSH Q4H PRN Nausea Vitamin D 25 mcg 12/09/24 09:00 12/09/24 11:32 Cholecalciferol (Vitamin D3) 25 Mcg (1,000 Units) Tablet PO 25 mcg DAILY JESSICA Administration Radiology Results: ITS Impressions Knee X-Ray 12/08/24 18:01 IMPRESSION: No definite acute osseous abnormality right knee. Knee CT 12/08/24 21:46 IMPRESSION: Fracture medial tibial plateau. Fat fluid level is seen in the suprapatellar bursa. Quality VTE Prophylaxis VTE prophylaxis: mechanical ordered
[2024-12-10 07:18] LABS: Hematocrit 31.4 % (37.0-47.0); Hemoglobin 9.8 g/dL (12.0-15.0); Mean Corpuscular HGB Conc 31.2 g/dl (32-36); Mean Corpuscular Hemoglobin 31.1 pg (26-34); Mean Corpuscular Volume 99.7 fl (80-100); Mean Platelet Volume 10.6 fl (7.4-10.4); Platelet Count Result 146 k/mm3 (150-375); Red Blood Count 3.15 M/mm3 (4.2-5.4); Red Cell Distribution Width 15.5 % (11.5-14.5); White Blood Count 6.5 K/mm3 (4.5-10.0)
[2024-12-10 07:38] LABS: Alanine Aminotransferase 16 U/L (6-35); Albumin Level 3.7 g/dL (3.5-5.1); Alkaline Phosphatase 67 U/L (38-126); Anion Gap 7 mmol/L (4-12); Aspartate Amino Transferase 24 U/L (14-36); Bilirubin,Total 0.5 mg/dL (0.2-1.3); Blood Urea Nitrogen 7 mg/dL (7-17); Carbon Dioxide 26 mmol/L (22-30); Chloride 105 mmol/L (98-107); Estimated CRCL calculation 49 ml/min; Estimated Glomerular Filt Rate > 60; Glucose 85 mg/dL (65-110); Potassium 3.5 mmol/L (3.4-5.0); Sodium 138 mmol/L (137-145); Total Protein 6.4 g/dL (6.3-8.2)
--- NOTE | 2024-12-10 08:50 | PCPTNOTE ---
Discussed with patient awaiting pain medication for treatment. Will return this am after medication on board.
[2024-12-10] MEDS: CHOLECALCIFEROL (VITAMIN D3) 25 MCG (1,000 UNITS) TABLET PO (09:00)
[2024-12-10] MEDS: DULoxetine HCL 60 MG CAPSULE.DR PO (09:00)
[2024-12-10] MEDS: FAMOTIDINE 20 MG TABLET PO ×2 (09:00→20:36)
[2024-12-10] MEDS: OPTI-GEN TAB 1 TABLET PO ×2 (09:00→16:44)
[2024-12-10] MEDS: CYANOCOBALAMIN 1,000 MCG TABLET 1000 MCG PO (09:00)
[2024-12-10 09:16] VITALS: O2SAT 96
--- NOTE | 2024-12-10 10:23 | PM.PNORT ---
Progress Note: A&P Assessment and Plan (1) Closed fracture of medial portion of tibial plateau: Code(s): S82.133A - Displaced fracture of medial condyle of unspecified tibia, initial encounter for closed fracture Status: Acute Assessment and Plan: Medial tibial plateau fracture right knee. Somewhat slow to progress with therapy but did get up to commode. Will see how she does today. Also with pain control. Disposition home with home health versus rehab depending progress. Follow-up with orthopedics in 3 to 4 weeks for new radiographs. Subjective Subjective Date/Time Seen: 12/10/24 10:23 Principal diagnosis: Right proximal tibia fracture Interval history: Pain improved overnight. No new complaints. Was able to get to commode but had difficulty with ambulation Exam Const: General: healthy appearing; No in distress or confusion Orientation/consciousness: oriented to person, oriented to place, oriented to time and No confusion Neck: Neck: supple and nontender Resp: Effort & Inspection: normal respiratory effort and no audible wheezes Skin: General skin exam: no rashes or lesions noted Neuro: General: oriented to person, oriented to place, oriented to time and No confusion Extrem: Right upper extremity: normal to inspection Left upper extremity: normal to inspection Right lower extremity: hip/thigh Details: normal ROM; no tenderness, knee Details: tenderness (anterior and medial joint line ) Location: of the medial joint line (moderate ) and of the pre-patellar area (moderate ), swelling (peripatellar and medial joint ), abnormal ROM (active range of motion -10 degrees extension, 110 degrees flexion) Details: pain with active ROM during Details: in extension and in flexion, knee ligament exam normal Details: anterior drawer test normal, posterior drawer test normal, valgus stress test normal and Mona?s test normal, knee ligament exam abnormal Details: varus stress test normal (painful medial ) and Anna's Test Details: positive medially and foot Details: normal capillary refill, toes with normal ROM, vascular exam Details: dorsalis pedis pulse present and motor-sensory exam Details: light-touch normal; no tenderness; no edema Left lower extremity: normal to inspection, normal capillary refill and knee Details: normal ROM (Active extension 5, flexion 130) and knee ligament exam normal; no tenderness Psych: Affect: normal affect Objective Data Vital Signs Vital Signs: Vital Signs - 24 hr 12/09/24 12:58 12/09/24 14:00 12/09/24 15:18 Temperature 97.8 F Pulse Rate 84 Respiratory Rate 18 Blood Pressure 93/53 L 110/60 Pulse Oximetry 98 Oxygen Delivery Room Air 12/09/24 20:30 12/09/24 20:55 12/10/24 05:15 Temperature 97.4 F L 96.6 F L Pulse Rate 82 80 Respiratory Rate 20 16 Blood Pressure 99/56 L 102/50 L Pulse Oximetry 98 95 Oxygen Delivery Room Air 12/10/24 09:16 Temperature Pulse Rate Respiratory Rate Blood Pressure Pulse Oximetry 96 Oxygen Delivery Room Air Intake/Output Intake/Output: Intake & Output 12/07/24 12/08/24 12/09/24 12/10/24 23:59 23:59 23:59 23:59 Intake Total 1000 950 550 Output Total 2100 425 Balance 1000 -1150 125 Meds/Results Medications: Active Medications Generic Name Dose Route Start Last Admin Trade Name Freq PRN Reason Stop Dose Admin Acetaminophen 650 mg 12/08/24 22:26 12/09/24 07:53 Acetaminophen 325 Mg Tablet PO 650 mg Q4H PRN Administration Mild Pain (1-3) or Fever Hydrocodone Bitart/Acetaminophen 1 tab 12/08/24 22:26 12/10/24 09:00 Hydrocodone/Acetaminophen (*Crx) 5-325 Mg Tablet PO 1 tab Q4H PRN Administration Pain Rated 4-6 Acyclovir 400 mg 12/09/24 03:41 Acyclovir 400 Mg Tablet PO DAILY PRN herpesvesicular dermatitis Atorvastatin Calcium 10 mg 12/09/24 21:00 12/09/24 20:25 Atorvastatin 10 Mg Tablet BY MOUTH 10 mg HS JESSICA Administration Cyanocobalamin 1,000 mcg 12/10/24 09:00 12/10/24 09:00 Cyanocobalamin 1,000 Mcg Tablet PO 1,000 mcg Q48H JESSICA Administration Duloxetine HCl 60 mg 12/09/24 09:00 12/10/24 09:00 Duloxetine Hcl 60 Mg Capsule.Dr PO 60 mg DAILY JESSICA Administration Famotidine 20 mg 12/09/24 09:00 12/10/24 09:00 Famotidine 20 Mg Tablet PO 20 mg Q12HR JESSICA Administration Loperamide HCl 2 mg 12/09/24 03:41 Loperamide Hcl 2 Mg Capsule PO QID PRN loose stool Multivitamins/Minerals 1 tablet 12/09/24 09:00 12/10/24 09:00 Opti-Gen Tab PO 1 tablet BID JESSICA Administration Ondansetron HCl 4 mg 12/08/24 22:26 Ondansetron Inj 4 Mg/2 Ml Vial IV PUSH Q4H PRN Nausea Vitamin D 25 mcg 12/09/24 09:00 12/10/24 09:00 Cholecalciferol (Vitamin D3) 25 Mcg (1,000 Units) Tablet PO 25 mcg DAILY JESSICA Administration Radiology Results: ITS Impressions Knee X-Ray 12/08/24 18:01 IMPRESSION: No definite acute osseous abnormality right knee. Knee CT 12/08/24 21:46 IMPRESSION: Fracture medial tibial plateau. Fat fluid level is seen in the suprapatellar bursa. Labs Labs: Laboratory Results - last 24 hr 12/10/24 07:01 WBC 6.5 RBC 3.15 L Hgb 9.8 L Hct 31.4 L MCV 99.7 MCH 31.1 MCHC 31.2 L RDW 15.5 H Plt Count 146 L MPV 10.6 H Sodium 138 Potassium 3.5 Chloride 105 Carbon Dioxide 26 Anion Gap 7 BUN 7 D Creatinine 0.63 L Estim Creat Clear Calc 49 Estimated GFR > 60 Glucose 85 Calcium 9.0 Total Bilirubin 0.5 AST 24 ALT 16 Alkaline Phosphatase 67 Total Protein 6.4 Albumin 3.7
[2024-12-10 14:00] VITALS: BP 100/58; PULSE 96; RESP 18; TEMP 37.1; O2SAT 96
[2024-12-10] MEDS: ATORVASTATIN 10 MG TABLET BY MOUTH (20:36)
[2024-12-10] MEDS: SENNA/DOCUSATE SODIUM TABLET 1 TAB PO (20:36)
[2024-12-10 20:52] VITALS: BP 113/60; PULSE 79; RESP 16; TEMP 36.2; O2SAT 98
[2024-12-10 21:09] VITALS: O2SAT 98
[2024-12-11] MEDS: HYDROcodone/acetaminophen (*CRX) 5-325 MG TABLET 1 TAB PO ×2 (00:24→08:20)
[2024-12-11 05:36] VITALS: BP 101/49; PULSE 76; RESP 16; TEMP 36.3; O2SAT 97
[2024-12-11 05:57] LABS: Hematocrit 30.7 % (37.0-47.0); Hemoglobin 9.6 g/dL (12.0-15.0); Mean Corpuscular HGB Conc 31.3 g/dl (32-36); Mean Platelet Volume 10.7 fl (7.4-10.4); Platelet Count Result 141 k/mm3 (150-375); Red Cell Distribution Width 15.6 % (11.5-14.5); White Blood Count 6.5 K/mm3 (4.5-10.0)
[2024-12-11 06:06] LABS: Alanine Aminotransferase 15 U/L (6-35); Albumin Level 3.4 g/dL (3.5-5.1); Alkaline Phosphatase 61 U/L (38-126); Anion Gap 7 mmol/L (4-12); Aspartate Amino Transferase 22 U/L (14-36); Bilirubin,Total 0.4 mg/dL (0.2-1.3); Blood Urea Nitrogen 9 mg/dL (7-17); Carbon Dioxide 24 mmol/L (22-30); Chloride 107 mmol/L (98-107); Estimated CRCL calculation 49 ml/min; Estimated Glomerular Filt Rate > 60; Glucose 90 mg/dL (65-110); Potassium 3.3 mmol/L (3.4-5.0); Sodium 138 mmol/L (137-145); Total Protein 6.1 g/dL (6.3-8.2)
--- NOTE | 2024-12-11 07:50 | PM.IMPN ---
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 Denies head trauma and loss of consciousness. - Knee XR showed no definite acute osseous abnormality of the right knee - Knee CT showed fracture of the medial tibial plateau with fat fluid level seen in the suprapatellar bursa - Analgesics - PT/OT per ortho recommendations: weight bearing as tolerated recommending acute inpatient rehab, patient agreeable. - Ortho consulted plan for nonoperative management placed in knee immobilizer (2) Anemia: Code(s): D64.9 - Anemia, unspecified Status: Acute Assessment and Plan: H/H 10.7/34.1 on admission, Hemoglobin remains stable and will be monitored. No signs of active bleeding. Anemia is related to treatment for her malignancy. (3) Triple negative malignant neoplasm of breast: Code(s): C50.919 - Malignant neoplasm of unspecified site of unspecified female breast; Z17.421 - Hormone receptor negative with human epidermal growth factor receptor 2 negative status Status: Acute Assessment and Plan: Triple negative right breast cancer Completed chemotherapy 22 days ago and had her 7th immunotherapy infusion done 12/07 (4) Mixed hyperlipidemia: Code(s): E78.2 - Mixed hyperlipidemia Status: Acute Assessment and Plan: Chronic, continue home medication - atorvastatin 10 mg daily Subjective Date/time seen: 12/11/24 07:50 Interval history: 74-year-old female with hyperlipidemia, gastroesophageal reflux disease, and triple negative right breast cancer (completed chemotherapy 22 days ago and had her 7th immunotherapy infusion done 12/07) who presented to the hospital via EMS from home for evaluation of right knee pain after a fall. Review of Systems Review of Systems: All systems reviewed & are unremarkable except as noted in HPI and below Exam Narrative: AF HR General: female in no acute respiratory distress who is nontoxic appearing, lying semi recumbent in bed. HEENT: Normocephalic. Atraumatic. Extraocular movement intact. Sclera clear and anicteric. No facial asymmetry. Chest: Lungs are clear to auscultation bilaterally. No wheezes or crackles. CV: Heart was regular rate and rhythm. Abd: Abdomen was soft. Nontender. Nondistended. Positive bowel sounds. Ext: No clubbing, cyanosis, or edema. DP pulses bilaterally. Edema to right knee. Knee immobilizer in place. Sensation intact. Wiggling toes. Neuro: Patient is alert and oriented x4. Speech is clear. Objective Data Vital Signs Vital Signs: Vital Signs - 24 hr 12/10/24 09:00 12/10/24 09:16 12/10/24 14:00 Temperature 98.7 F Pulse Rate 96 Respiratory Rate 18 Blood Pressure 100/58 L Pulse Oximetry 96 96 Oxygen Delivery Room Air Room Air Fraction of Inspired Oxygen 12/10/24 20:00 12/10/24 20:52 12/10/24 21:09 Temperature 97.1 F L Pulse Rate 79 Respiratory Rate 16 Blood Pressure 113/60 Pulse Oximetry 98 98 Oxygen Delivery Room Air Room Air Fraction of Inspired Oxygen 21 12/11/24 05:36 Temperature 97.3 F L Pulse Rate 76 Respiratory Rate 16 Blood Pressure 101/49 L Pulse Oximetry 97 Oxygen Delivery Fraction of Inspired Oxygen Intake/Output Intake/Output: Intake & Output 12/08/24 12/09/24 12/10/24 12/11/24 23:59 23:59 23:59 23:59 Intake Total 5985 439 2383 Output Total 2100 925 Balance 1000 -1150 895 Meds/Results Medications: Active Medications Generic Name Dose Route Start Last Admin Trade Name Freq PRN Reason Stop Dose Admin Acetaminophen 650 mg 12/08/24 22:26 12/09/24 07:53 Acetaminophen 325 Mg Tablet PO 650 mg Q4H PRN Administration Mild Pain (1-3) or Fever Hydrocodone Bitart/Acetaminophen 1 tab 12/08/24 22:26 12/11/24 00:24 Hydrocodone/Acetaminophen (*Crx) 5-325 Mg Tablet PO 1 tab Q4H PRN Administration Pain Rated 4-6 Acyclovir 400 mg 12/09/24 03:41 Acyclovir 400 Mg Tablet PO DAILY PRN herpesvesicular dermatitis Atorvastatin Calcium 10 mg 12/09/24 21:00 12/10/24 20:36 Atorvastatin 10 Mg Tablet BY MOUTH 10 mg HS JESSICA Administration Cyanocobalamin 1,000 mcg 12/10/24 09:00 12/10/24 09:00 Cyanocobalamin 1,000 Mcg Tablet PO 1,000 mcg Q48H JESSICA Administration Duloxetine HCl 60 mg 12/09/24 09:00 12/10/24 09:00 Duloxetine Hcl 60 Mg Capsule.Dr PO 60 mg DAILY JESSICA Administration Famotidine 20 mg 12/09/24 09:00 12/10/24 20:36 Famotidine 20 Mg Tablet PO 20 mg Q12HR JESSICA Administration Loperamide HCl 2 mg 12/09/24 03:41 Loperamide Hcl 2 Mg Capsule PO QID PRN loose stool Multivitamins/Minerals 1 tablet 12/09/24 09:00 12/10/24 16:44 Opti-Gen Tab PO 1 tablet BID JESSICA Administration Ondansetron HCl 4 mg 12/08/24 22:26 Ondansetron Inj 4 Mg/2 Ml Vial IV PUSH Q4H PRN Nausea Polyethylene Glycol 17 gm 12/10/24 14:55 Polyethylene Glycol 3350 17 Gm Powd.Pack PO QAM PRN Constipation Senna/Docusate Sodium 1 tab 12/10/24 21:00 12/10/24 20:36 Senna/Docusate Sodium Tablet PO 1 tab HS JESSICA Administration Vitamin D 25 mcg 12/09/24 09:00 12/10/24 09:00 Cholecalciferol (Vitamin D3) 25 Mcg (1,000 Units) Tablet PO 25 mcg DAILY JESSICA Administration Radiology Results: ITS Impressions Knee X-Ray 12/08/24 18:01 IMPRESSION: No definite acute osseous abnormality right knee. Knee CT 12/08/24 21:46 IMPRESSION: Fracture medial tibial plateau. Fat fluid level is seen in the suprapatellar bursa. Labs Labs: Laboratory Results - last 24 hr 12/11/24 05:27 WBC 6.5 RBC 3.10 L Hgb 9.6 L Hct 30.7 L MCV 99.0 MCH 31.0 MCHC 31.3 L RDW 15.6 H Plt Count 141 L MPV 10.7 H Sodium 138 Potassium 3.3 L Chloride 107 Carbon Dioxide 24 Anion Gap 7 BUN 9 Creatinine 0.63 L Estim Creat Clear Calc 49 Estimated GFR > 60 Glucose 90 Calcium 9.0 Total Bilirubin 0.4 AST 22 ALT 15 Alkaline Phosphatase 61 Total Protein 6.1 L Albumin 3.4 L Quality VTE Prophylaxis VTE prophylaxis: mechanical ordered
--- NOTE | 2024-12-11 07:57 | PCOTNOTE ---
The patient treatment was not able to be completed. Patient is eating breakfast and wants a pain pill before treatment. Will plan to continue treatment per plan of care.
[2024-12-11] MEDS: OPTI-GEN TAB 1 TABLET PO (08:21)
[2024-12-11] MEDS: CHOLECALCIFEROL (VITAMIN D3) 25 MCG (1,000 UNITS) TABLET PO (08:21)
[2024-12-11] MEDS: DULoxetine HCL 60 MG CAPSULE.DR PO (08:21)
[2024-12-11] MEDS: FAMOTIDINE 20 MG TABLET PO (08:21)
[2024-12-11 12:43] VITALS: BMI 21.2
[2024-12-11 12:55] VITALS: BP 119/58; PULSE 99; RESP 16; TEMP 36; O2SAT 99
--- NOTE | 2024-12-11 13:30 | P.PNOP_ITS ---
Progress Note: A&P Assessment and Plan (1) Closed fracture of medial portion of tibial plateau: Code(s): S82.133A - Displaced fracture of medial condyle of unspecified tibia, initial encounter for closed fracture Status: Acute Assessment and Plan: Medial tibial plateau fracture right knee. Was showing improvement in pain and mobility this morning, working well with PT/OT. She reports having had a fall today. No reported injuries. No complaints of new pain. Continue PT/OT. Knee Immobilizer. WBAT. Pain control. Ice. Dispo: [facility] for Rehab and PT/OT. Follow-up appt scheduled. Time Spent With Patient Time: Reviewed history, exam, radiographs and current labs with attending MD and covering surgeon, Dr. Diaz, who agrees with current plan as indicated above. No further recommendations from Dr. Diaz at this time. Subjective Subjective Date/Time Seen: 12/11/24 13:30 Interval history: Patient very tearful on exam today. She reports having fallen 10 minutes prior to my arrival. She denies new pain or LOC. Upset about how weak she has gotten since the start of her breast cancer treatment. Concerned about weakness and immobility affecting her future surgery for her breast planned in December. Review of Systems Review of Systems: All systems reviewed & are unremarkable except as noted in HPI and below Exam Const: General: comfortable and no acute distress Orientat ion/consciousness: oriented to person, oriented to place, oriented to time and No confusion Neck: Neck: supple and nontender Resp: Effort & Inspection: normal respiratory effort Cardio: Rate: regular rate Rhythm: regular rhythm GI: GI Palp: Yes Soft to palpation Skin: General skin exam: no rashes or lesions noted Neuro: General: oriented to person, oriented to place, oriented to time and No confusion Extrem: Right upper extremity: normal to inspection Left upper extremity: normal to inspection Right lower extremity: hip/thigh Details: normal ROM; no tenderness, knee Details: tenderness (anterior and medial joint line ) Location: of the medial joint line (moderate ) and of the pre-patellar area (moderate ), swelling (peripatellar and medial joint ), abnormal ROM (active range of motion -10 degrees extension, 110 degrees flexion) Details: pain with active ROM during Details: in extension and in flexion, knee ligament exam normal Details: anterior drawer test normal, posterior drawer test normal, valgus stress test normal and Mona?s test normal, knee ligament exam abnormal Details: varus stress test normal (painful medial ) and Anna's Test Details: positive medially and foot Details: normal capillary refill, toes with normal ROM, vascular exam Details: dorsalis pedis pulse present and motor-sensory exam Details: light-touch normal; no tenderness; no edema Left lower extremity: normal to inspection, normal capillary refill and knee Details: normal ROM (Active extension 5, flexion 130) and knee ligament exam normal; no tenderness Psych: Affect: normal affect Objective Data Vital Signs Vital Signs: Vital Signs - 24 hr 12/10/24 14:00 12/10/24 20:00 12/10/24 20:52 Temperature 37.1 C 36.2 C L Pulse Rate 96 79 Respiratory Rate 18 16 Blood Pressure 100/58 L 113/60 Pulse Oximetry 96 98 Oxygen Delivery Room Air Fraction of Inspired Oxygen 12/10/24 21:09 12/11/24 05:36 12/11/24 08:20 Temperature 36.3 C L Pulse Rate 76 Respiratory Rate 16 Blood Pressure 101/49 L Pulse Oximetry 98 97 Oxygen Delivery Room Air Room Air Fraction of Inspired Oxygen 12/11/24 12:55 Temperature 36.0 C L Pulse Rate 99 Respiratory Rate 16 Blood Pressure 119/58 L Pulse Oximetry 99 Oxygen Delivery Fraction of Inspired Oxygen Intake/Output Intake/Output: Intake & Output 12/08/24 12/09/24 12/10/24 12/11/24 23:59 23:59 23:59 23:59 Intake Total 1848 574 2997 1270 Output Total 2100 925 Balance 1000 -6702 209 5732 Meds/Results Medications: Active Medications Generic Name Dose Route Start Last Admin Trade Name Freq PRN Reason Stop Dose Admin Acetaminophen 650 mg 12/08/24 22:26 12/09/24 07:53 Acetaminophen 325 Mg Tablet PO 650 mg Q4H PRN Administration Mild Pain (1-3) or Fever Hydrocodone Bitart/Acetaminophen 1 tab 12/08/24 22:26 12/11/24 08:20 Hydrocodone/Acetaminophen (*Crx) 5-325 Mg Tablet PO 1 tab Q4H PRN Administration Pain Rated 4-6 Acyclovir 400 mg 12/09/24 03:41 Acyclovir 400 Mg Tablet PO DAILY PRN herpesvesicular dermatitis Atorvastatin Calcium 10 mg 06/14/25 21:00 12/10/24 20:36 Atorvastatin 10 Mg Tablet BY MOUTH 10 mg HS JESSICA Administration Cyanocobalamin 1,000 mcg 12/10/24 09:00 12/10/24 09:00 Cyanocobalamin 1,000 Mcg Tablet PO 1,000 mcg Q48H JESSICA Administration Duloxetine HCl 60 mg 12/09/24 09:00 12/11/24 08:21 Duloxetine Hcl 60 Mg Capsule.Dr PO 60 mg DAILY JESSICA Administration Famotidine 20 mg 12/09/24 09:00 12/11/24 08:21 Famotidine 20 Mg Tablet PO 20 mg Q12HR JESSICA Administration Loperamide HCl 2 mg 12/09/24 03:41 Loperamide Hcl 2 Mg Capsule PO QID PRN loose stool Multivitamins/Minerals 1 tablet 12/09/24 09:00 12/11/24 08:21 Opti-Gen Tab PO 1 tablet BID JESSICA Administration Ondansetron HCl 4 mg 12/08/24 22:26 Ondansetron Inj 4 Mg/2 Ml Vial IV PUSH Q4H PRN Nausea Polyethylene Glycol 17 gm 12/10/24 14:55 Polyethylene Glycol 3350 17 Gm Powd.Pack PO QAM PRN Constipation Senna/Docusate Sodium 1 tab 12/10/24 21:00 12/10/24 20:36 Senna/Docusate Sodium Tablet PO 1 tab HS [facility] Administration Vitamin D 25 mcg 12/09/24 09:00 12/11/24 08:21 Cholecalciferol (Vitamin D3) 25 Mcg (1,000 Units) Tablet PO 25 mcg DAILY JESSICA Administration Radiology Results: ITS Impressions Knee X-Ray 12/08/24 18:01 IMPRESSION: No definite acute osseous abnormality right knee. Knee CT 12/08/24 21:46 IMPRESSION: Fracture medial tibial plateau. Fat fluid level is seen in the suprapatellar bursa. Labs Labs: Laboratory Results - last 24 hr 12/11/24 05:27 WBC 6.5 RBC 3.10 L Hgb 9.6 L Hct 30.7 L MCV 99.0 MCH 31.0 MCHC 31.3 L RDW 15.6 H Plt Count 141 L MPV 10.7 H Sodium 138 Potassium 3.3 L Chloride 107 Carbon Dioxide 24 Anion Gap 7 BUN 9 Creatinine 0.63 L Estim Creat Clear Calc 49 Estimated GFR > 60 Glucose 90 Calcium 9.0 Total Bilirubin 0.4 AST 22 ALT 15 Alkaline Phosphatase 61 Total Protein 6.1 L Albumin 3.4 L
[2024-12-11 14:00] VITALS: BP 110/46; PULSE 104; RESP 20; TEMP 36.2; O2SAT 94
--- NOTE | 2024-12-11 14:11 | P.DS_ITS ---
DS: Admitting Diagnosis Discharge Date 12/11/2024 Admitting Diagnosis closed fracture of medial portion of tibial plateau anemia triple negative malignant neoplasm of breast hyperlipidemia DS: Discharge Diagnosis Discharge Diagnosis (1) Closed fracture of medial portion of tibial plateau: Code(s): S82.133A - Displaced fracture of medial condyle of unspecified tibia, initial encounter for closed fracture Status: Acute (2) Anemia: Code(s): D64.9 - Anemia, unspecified Status: Acute (3) Triple negative malignant neoplasm of breast: Code(s): C50.919 - Malignant neoplasm of unspecified site of unspecified female breast; Z17.421 - Hormone receptor negative with human epidermal growth factor receptor 2 negative status Status: Acute (4) Mixed hyperlipidemia: Code(s): E78.2 - Mixed hyperlipidemia Status: Acute DS: Summary Hospital Course Reason for hospitalization: closed fracture of medial portion of tibial plateau anemia triple negative malignant neoplasm of breast hyperlipidemia Hospital Course: 74-year-old female with hyperlipidemia, gastroesophageal reflux disease, and triple negative right breast cancer (completed chemotherapy 22 days ago and had her 7th immunotherapy infusion done 12/07) who presented to the hospital for evaluation of right knee pain after a ground level fall where she tripped over her feet (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 Denies head trauma and loss of consciousness. During admission patient was anemic, secondary to metastatic disease. Remained stable throughout admission and no signed of active bleeding. Knee XR showed no definite acute osseous abnormality of the right knee. Knee CT showed fracture of the medial tibial plateau with fat fluid level seen in the suprapatellar bursa. Evaluated by orthopedics and no surgical intervention required. Patient placed in knee immobilizer and made weight bearing as tolerated. Patient worked with PT/OT during admission who recommended placement for further therapy. Patient had a ground level fall on day of discharge. She states that she was attempting to pivot to the commode when she lost her balance and was slowly lowered to the ground by nursing. Denies head strike or loss of consciousness. She has no reported injuries and denies a new pain. She denies dizziness/lightheadedness prior to the fall. Exam unchanged from prior assessment. She had no complaints prior to discharge denying chest pain, palpitations, shortness of breath, nausea/vomiting and abdominal pain. Patient discharged in a stable condition to [facility]. She is to follow up with her PCP in 1 week and ortho as scheduled. Status at Discharge Functional status at discharge: uses cane/walker Time Spent with Patient Time attestation: Total time spent providing and/or coordinating discharge services: Time spent: Greater than 30 minutes Exam Narrative: AF HR 99 RR 16 Spo2 99 BP 119/58 General: female in no acute respiratory distress who is nontoxic appearing, sitting up in chair HEENT: Normocephalic. Atraumatic. Extraocular movement intact. Sclera clear and anicteric. No facial asymmetry. Chest: Lungs are clear to auscultation bilaterally. No wheezes or crackles. CV: Heart was regular rate and rhythm. Abd: Abdomen was soft. Nontender. Nondistended. Positive bowel sounds. Ext: No clubbing, cyanosis, or edema. DP pulses bilaterally. Edema to right knee. Knee immobilizer in place. Sensation intact. Wiggling toes. Moving all extremities. Neuro: Patient is alert and oriented x4. Speech is clear. DS: Data Data Completed and Pending Completed studies during hospitalization: knee ct knee xr Labs on day of discharge: Labs from last 24 hours 12/11/24 05:27 WBC 6.5 RBC 3.10 L Hgb 9.6 L Hct 30.7 L MCV 99.0 MCH 31.0 MCHC 31.3 L RDW 15.6 H Plt Count 141 L MPV 10.7 H Sodium 138 Potassium 3.3 L Chloride 107 Carbon Dioxide 24 Anion Gap 7 BUN 9 Creatinine 0.63 L Estim Creat Clear Calc 49 Estimated GFR > 60 Glucose 90 Calcium 9.0 Total Bilirubin 0.4 AST 22 ALT 15 Alkaline Phosphatase 61 Total Protein 6.1 L Albumin 3.4 L Preliminary micro results at discharge 12/09/24 00:21 Blood Culture - Preliminary Blood 12/09/24 00:38 Blood Culture - Preliminary Blood Discharge Plan Discharge Attending physician on discharge: Isreal Vaughan Consulting providers: Sumanth Diaz; Sharda Marin Discharging Clinician: Sharda Marin Anticipated Discharge Date/Time: 12/11/24 13:33 Patient Disposition: Hospital Swing Bed Activity: may shower and no driving Wound Care Instructions: follow printed instructions Discharge Instructions: Discharge disposition: Patient admitted to the hospital following a fall that resulted in a tibial plateau fracture Evaluated by orthopedics and no surgical intervention required Continue knee immobilizer with ambulation Weight bearing as tolerated Take medications as prescribed [place] for break through pain, attached is information on this medication Follow-up with orthopedics in 3 to 4 weeks for new radiographs. Monitor blood pressures Take caution while standing, rising, or moving Change positions slowly taking a break between each position change If you standing feel dizzy sit back down and take a break Encouraged to continue with yearly vaccinations Return to the emergency department if he developed sudden shortness of breath, chest pain, nausea, vomiting, upset stomach or intractable diarrhea Return to the emergency department if you develop fever greater than 101.5 Follow-up with the primary care physician within 1-2 weeks Thank you for choosing [facility] for your healthcare needs Patient Instructions: Hydrocodone/Acetaminophen (By mouth) Patient Language: Icelandic Stand Alone Forms: General Discharge Information Follow-up/Referrals: Sumanth Diaz MD [Physician] - 01/02/25 10:15 am Discharge Medications: New hydrocodone-acetaminophen 5-325 mg Tablet 1 tab PO Q4H PRN (Reason: Pain Rated 4-6) Qty: 0 0RF Continued cyanocobalamin (vitamin B-12) 1,000 mcg capsule 1,000 mcg PO EVERY OTHER DAY famotidine [Pepcid] 20 mg tablet 20 mg PO Q12H cholecalciferol (vitamin D3) 25 mcg (1,000 unit) tablet,chewable 25 mcg PO DAILY duloxetine 60 mg capsule,delayed release(DR/EC) 60 mg PO DAILY acyclovir 400 mg tablet 400 mg PO DAILY PRN (Reason: herpesvesicular dermatitis ) PreserVision AREDS-2 250-90-40-1 mg capsule 1 tablet PO BID loperamide [Anti-Diarrheal (loperamide)] 2 mg capsule 2 mg PO QID PRN (Reason: loose stool) lidocaine-prilocaine 2.5-2.5 % cream 1 applic topical DAILY PRN (Reason: before accessing port) ondansetron HCl 8 mg tablet 8 mg PO Q8H PRN (Reason: nausea and vomiting) prochlorperazine maleate 10 mg tablet 10 mg PO Q6H PRN (Reason: nausea and vomiting) atorvastatin 10 mg tablet See Rx Instructions .ROUTE .COMPLEX Qty: 90 1RF Dose Instruction: TAKE 1 TABLET BY MOUTH EVERY DAY WITH OR WITHOUT FOOD Rx Instructions: TAKE 1 TABLET BY MOUTH EVERY DAY WITH OR WITHOUT FOOD Date of admission: 12/08/24 22:26 Primary Care Provider: Aura Bar Admitting Provider: Juanito Rhodes Attending physician on admission: Juanito Rhodes Condition: Stable Hospitalist MIPS Heart Failure (Exclusion) Patient has history of Heart Transplant or Left Ventricular Assistive Device?: No IF YES, STOP HERE Heart Failure (Qualifier) Patient has current or prior documentation of LVEF less than or equal to 40%, or mod/servere depressed LVSF?: No IF NO, STOP HERE
--- NOTE | 2024-12-11 14:13 | P.CDI_ITS ---
CDI Query Clarification Request BMI: 21.2 Nutritional Diagnostic Statement: Please refer to the comprehensive nutrition assessment for further information. If you agree with diagnosis of Moderate protein calorie malnutrition related to inadequate energy intake in the setting of increased energy needs as evidenced by a -16% weight loss x 6 months, decreased po intake for greater than 1 month, and NFPE findings for moderate subcutaneous fat loss (cheeks) and moderate muscle wasting (temples, clavicle). Please specify severity if known: * Mild * Moderate * Severe * Other/Unknown <Tonja Schaffer RN - Last Filed: 12/11/24 14:15> Clarified Diagnosis Clarified Diagnosis: moderate protein calorie malnutrition <Sharda Marin PA-C - Last Filed: 12/11/24 16:24>
== END 2024-12-11 15:30 | disposition swing bed (61) | DRG 563 ==
LOC: ANHED 22:30 → ANH3MEDSUR 23:02
PROVIDERS: Student in an Organized Health Care Education/Training Program; Admitting Provider General Practice; Emergency Provider Student in an Organized Health Care Education/Training Program; PCP Family Medicine; Visit Provider General Practice
DX: S82.141A Displaced bicondylar fracture of right tibia, initial encounter for closed fracture (principal); E44.0 Moderate protein-calorie malnutrition; W19.XXXA Unspecified fall, initial encounter; C50.919 Malignant neoplasm of unspecified site of unspecified female breast; D63.0 Anemia in neoplastic disease; E78.2 Mixed hyperlipidemia; G62.9 Polyneuropathy, unspecified; K21.9 Gastro-esophageal reflux disease without esophagitis; Z66 Do not resuscitate; E55.9 Vitamin D deficiency, unspecified; Z92.21 Personal history of antineoplastic chemotherapy; Z68.21 Body mass index [BMI] 21.0-21.9, adult
CPT/HCPCS: 36415; 73564; 73700; 80053; 85025; 85027; 87040; 96361; 96374; 96375; 97116; 97161; 97166; 97530; 97535; 99285; A9270; J7120

== ENCOUNTER 2024-12-11 16:46 | Inpatient (IN) | payer MEDICARE, SELFPAY ==
--- NOTE | 2024-12-11 16:55 | ADMGEN ---
This patient, Meseret Ortiz, was admitted to 2nd Floor Room 208-1. Patient/family oriented to hospital policies and general routines including ID bracelet, bed and alarms, visiting hours, pain management, procedures, bathroom and other care routines, personal items, smoking policy, room service/diet, and visiting hours. Information on how to activate the Rapid Response Team has been discussed. Patient/Family are encouraged to report perceived risks to care and to ask questions if they do not understand what they are told or what they should do.
[2024-12-11 17:04] VITALS: BP 112/53; PULSE 83; RESP 18; TEMP 36.6; O2SAT 97; BMI 25.0
--- OUTSIDE RECORDS SUMMARY | 2024-12-11 17:14 | XMS_ITS | Encounter Summary ---
Author Organization [facility] Address [address] [place] [address] Phone Care Team Providers Care Oracle Financial Application Developer Name Role Phone Unknown, [place] Primary Care Provider Unavail able Encounter Details Date Type Department Care Team (Late st Contact Info) Description 06/13/2024 Telephone Research [facility] Oncology [facility] Floor [address] [place] [address] Anu Gambino Social History Tobacco [...] on filedocumented in this encounter Care Teams [employer] Financial Application Developer Relationship Specialty Start Date End Date Unknown, [place] PCP - General 01/21/24 documented as of this encounter
--- OUTSIDE RECORDS SUMMARY | 2024-12-11 17:14 | XMS_ITS | Encounter Summary ---
Author Organization [facility] Address [address] [place] [address] Phone Care Team Providers Care Inspector [employer]iconductor Wafer Name Role Phone Unknown, [place] Primary Care Provider Unavail able Encounter Details Date Type Department Care Team (Late st Contact Info) Description 12/11/[address] [facility] Oncology [address] [facility] [address] [place] [id number] Baltazar Mantilla MD [address] [place], [place] [id number] Prevention of chemotherapy-induced neutropenia (Primary Dx); Malignant neoplasm of upper-outer quadrant of right [...] as of this encounter Plan of Treatment Scheduled Orders Name Type Priority Associated Diagnoses Orde r Schedule CBC with auto differential Lab STAT Prevention of chemotherapy-induced neutropenia Malignant neoplasm of upper-outer quadrant of right breast in female, estrogen receptor negative (HCC) Nausea and vomiting, unspecified vomiting type Expected: 01/04/2025, Expires: 01/04/2026 Comprehensive metabolic panel Lab STAT Prevention of chemotherapy-induced neutropenia Malignant neoplasm of upper-outer quadrant of right breast in female, estrogen receptor negative (HCC) Nausea and vomiting, unspecified vomiting type Expected: 01/04/2025, Expires: 01/04/2026 Cortisol Lab Routine Prevention of chemotherapy-induced neutropenia Malignant neoplasm of upper-outer quadrant of right breast in female, estrogen receptor negative (HCC) Nausea and vomiting, unspecified vomiting type Expected: 01/04/2025, Expires: 01/04/2026 documented as of this encounter Visit Diagnoses Diagnosis Prevention of chemotherapy-induced neutropenia- Primary Malignant neoplasm of upper-outer quadrant of right breast in female, estrogen receptor negative (HCC) Nausea and vomiting, unspecified vomiting type documented in this encounter Orders Appointment Requests Count Last Ordered Date Fi rst Ordered Date ONCBCN LAB APPOINTMENT 1 12/11/2024 ONCBCN RETURN CHEMO 2.5HRS 1 12/11/2024 documented in this encounter Care Teams Inspector [employer]iconductor Wafer Relationship Specialty Start Date End Date Unknown, [place]inf[place] PCP - General 01/21/24 documented as of this encounter
--- OUTSIDE RECORDS SUMMARY | 2024-12-11 17:14 | XMS_ITS | Clinical Summary ---
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 Photography Name Role Phone Unknown, Notinfile Primary Care [...] Cancer Staging:Clinical:Stage IIB(cT2, cN1, cM0, G3, ER+, CA+, HER2-) - Unsigned Prevention of chemotherapy-induced neutropenia 0 07/06/2024 Encounters Date Type Department Care Team Description 12/11/2024 Telephone [facility] [address] [place] [phone] Nadia Johns RN 12/11/2024 Orders Only [facility] [address] [place] [address] [phone] Baltazar Mantilla MD Prevention of chemotherapy-induced neutropenia (Primary Dx); Malignant neoplasm of upper-outer quadrant of right breast in female, estrogen receptor negative (HCC); Nausea and vomiting, unspecified vomiting type 12/07/2024 11:30 AM CDT Infusion [facility] [address] [place] [address] Nausea and vomiting, unspecified vomiting type (Primary Dx); Prevention of chemotherapy-induced neutropenia; Malignant neoplasm of upper-outer quadrant of right breast in female, estrogen receptor negative (HCC) 12/07/2024 10:15 AM CDT Office Visit [facility] [address] [place] [address] [phone] Baltazar Mantilla MD Nausea and vomiting, unspecified vomiting type (Primary Dx); Prevention of chemotherapy-induced neutropenia; Malignant neoplasm of upper-outer quadrant of right breast in female, estrogen receptor negative (HCC) 12/07/2024 9:15 AM CDT Clinical Support [facility] [address] [place] [address] 5 [place] [address] Prevention of chemotherapy-induced neutropenia; Malignant neoplasm of upper-outer quadrant of right breast in female, estrogen receptor negative (HCC); Nausea and vomiting, unspecified vomiting type 11/17/2024 Orders Only [facility] [address] [facility] Floor 8 [place] [address] Jennifer Goodman MD Malignant neoplasm of upper-outer quadrant of right breast in female, estrogen receptor negative (HCC) (Primary Dx) 11/16/2024 11:30 AM CDT Infusion [facility] [address] [facility] [place] [facility] Floor 6 [place] [address] Nausea and vomiting, unspecified vomiting type (Primary Dx); Prevention of chemotherapy-induced neutropenia; Malignant neoplasm of upper-outer quadrant of right breast in female, estrogen receptor negative (HCC) 11/16/2024 10:15 AM CDT Office Visit [facility] [address] [place] [address] Floor 8 [place] [phone] Baltazar Mantilla MD Nausea and vomiting, unspecified vomiting type (Primary Dx); Prevention of chemotherapy-induced neutropenia; Malignant neoplasm of upper-outer quadrant of right breast in female, estrogen receptor negative (HCC) 11/16/2024 9:15 AM CDT Clinical Support [facility] Floor 5 [place] [address] Prevention of chemotherapy-induced neutropenia; Malignant neoplasm of upper-outer quadrant of right breast in female, estrogen receptor negative (HCC); Nausea and vomiting, unspecified vomiting type 10/30/2024 Telephone [facility] [place] [address] Nadia Johns, ESTEBAN 10/27/2024 8:00 AM CDT Infusion [facility] [address] [place] [address] Floor 5 [place] [address] Nausea and vomiting, unspecified vomiting type (Primary Dx); Prevention of chemotherapy-induced neutropenia; Malignant neoplasm of upper-outer quadrant of right breast in female, estrogen receptor negative (HCC) 10/26/2024 2:41 PM CDT - 10/26/2024 11:59 PM CDT Hospital Encounter [facility] [address] [facility] 8th [place] [address] Encounter for monitoring cardiotoxic drug therapy Discharge Disposition: Discharge to home or self care 10/26/2024 11:30 AM CDT Infusion [facility] [address] [facility] Floor 6 [place] [address] Prevention of chemotherapy-induced neutropenia; Malignant neoplasm of upper-outer quadrant of right breast in female, estrogen receptor negative (HCC); Nausea and vomiting, unspecified vomiting type 10/26/2024 10:30 AM CDT Office Visit [facility] [address] [place] [address] Floor 8 [place] [address] Baltazar Mantilla MD Nausea and vomiting, unspecified vomiting type (Primary Dx); Prevention of chemotherapy-induced neutropenia; Malignant neoplasm of upper-outer quadrant of right breast in female, estrogen receptor negative (HCC) 10/26/2024 9:45 AM CDT Clinical Support [facility] [address] [facility] Floor 5 [place] [address] Prevention of chemotherapy-induced neutropenia; Malignant neoplasm of upper-outer quadrant of right breast in female, estrogen receptor negative (HCC); Nausea and vomiting, unspecified vomiting type 10/26/2024 9:15 AM CDT Clinical Support [facility] Lab [address] [place] [address] Floor 5 [place] [address] Prevention of chemotherapy-induced neutropenia; Malignant neoplasm of upper-outer quadrant of right breast in female, estrogen receptor negative (HCC); Nausea and vomiting, unspecified vomiting type 10/26/2024 Orders Only [facility] [address] [place] [address] 8 [place] [address] Baltazar Mantilla MD Cardiotoxicity (Primary Dx); Encounter for monitoring cardiotoxic drug therapy; Prevention of chemotherapy-induced neutropenia; Malignant neoplasm of upper-outer quadrant of right breast in female, estrogen receptor negative (HCC); Nausea and vomiting, unspecified vomiting type 10/19/2024 9:15 AM CDT Office Visit [facility] [address] [place] [address] 8 [place] [address] Baltazar Mantilla MD 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 (Primary Dx); Prevention of chemotherapy-induced neutropenia; Malignant neoplasm of upper-outer quadrant of right breast in female, estrogen receptor negative (HCC); Nausea and vomiting, unspecified vomiting type 10/19/2024 8:15 AM CDT Clinical Support [facility] [address] Floor 5 [place] [address] Prevention of chemotherapy-induced neutropenia; Malignant neoplasm of upper-outer quadrant of right breast in female, estrogen receptor negative (HCC); Nausea and vomiting, unspecified vomiting type 10/16/2024 Orders Only [facility] [address] [place] [address] Baltazar Mantilla MD Malignant neoplasm of upper-outer quadrant of right breast in female, estrogen receptor negative (HCC) (Primary Dx); Nausea and vomiting, unspecified vomiting type 10/10/2024 7:54 AM CDT - 10/10/2024 11:59 PM CDT Hospital Encounter [facility] [address] [place] [address] Malignant neoplasm of upper-outer quadrant of right breast in female, estrogen receptor negative (HCC) Discharge Disposition: Discharge to home or self care 10/10/2024 7:53 AM CDT - 10/10/2024 11:59 PM CDT Hospital Encounter [facility] [address] [place] [address] Malignant neoplasm of upper-outer quadrant of right breast in female, estrogen receptor negative (HCC) Discharge Disposition: Discharge to home or self care 10/06/2024 Telephone [facility] [address] [place] [address] Nadia Johns RN Arm Pain; Leg Pain 10/05/2024 7:30 AM CDT Infusion [facility] [address] Floor 5 [place] [address] Malignant neoplasm of upper-outer quadrant of right breast in female, estrogen receptor negative (HCC) (Primary Dx); Prevention of chemotherapy-induced neutropenia 10/05/2024 6:30 AM CDT Clinical Support [facility] [address] Floor 5 [place] [address] Prevention of chemotherapy-induced neutropenia; Malignant neoplasm of upper-outer quadrant of right breast in female, estrogen receptor negative (HCC) 09/28/2024 7:30 AM CDT Infusion [facility] [address] Floor 6 [place] [address] Malignant neoplasm of upper-outer quadrant of right breast in female, estrogen receptor negative (HCC) (Primary Dx); Prevention of chemotherapy-induced neutropenia 09/28/2024 6:30 AM CDT Clinical Support [facility] [address] [place] [address] Floor 6 [place] [address] Prevention of chemotherapy-induced neutropenia; Malignant neoplasm of upper-outer quadrant of right breast in female, estrogen receptor negative (HCC) 09/28/2024 Telephone [facility] [address] [place] [address] Floor 8 [place] [address] Nadia Johns RN 09/21/2024 10:30 AM CDT Infusion [facility] [address] [place] [address] Floor 5 [place] [address] Malignant neoplasm of upper-outer quadrant of right breast in female, estrogen receptor negative (HCC) (Primary Dx); Prevention of chemotherapy-induced neutropenia 09/21/2024 9:15 AM CDT Office Visit [facility] [address] [place] [address] 8 [place] [address] Baltazar Mantilla MD Malignant neoplasm of upper-outer quadrant of right breast in female, estrogen receptor negative (HCC) (Primary Dx); Prevention of chemotherapy-induced neutropenia 09/21/2024 8:15 AM CDT Clinical Support [facility] [address] [place] [address] Floor 5 [place] [address] Malignant neoplasm of right female breast, unspecified estrogen receptor status, unspecified site of breast (HCC) (Primary Dx); Prevention of chemotherapy-induced neutropenia; Malignant neoplasm of upper-outer quadrant of right breast in female, estrogen receptor negative (HCC) 09/21/2024 Orders Only [facility] [address] [place] [address] 8 [place] [address] Baltazar Mantilla MD Malignant neoplasm of upper-outer quadrant of right breast in female, estrogen receptor negative (HCC) (Primary Dx) 09/14/2024 7:30 AM CDT - 09/14/2024 12:14 PM CDT Hospital Encounter [facility] ([facility]) [address] [place] [address] Malignant neoplasm of upper-outer quadrant of right breast in female, estrogen receptor negative (HCC) (Primary Dx); Prevention of chemotherapy-induced neutropenia; Malignant neoplasm of right female breast, unspecified estrogen receptor status, unspecified site of breast (HCC) Discharge Disposition: Discharge to home or self care 09/14/2024 Orders Only [facility] [address] [facility] 8 [place] [address] Baltazar Mantilla MD from Last 3 Months Immunizations Immunization Administration [...] 07/05/2024 Right DILATION AND CURETTAGE OF UTERUS - 06/27/1989 CATARACT EXTRACTION 06/28/2009 - 06/27/2010 [...] 05/28/2021, 03/28/2013 Medical Devices Implanted Type Area Crawler Tractor Operator Device Identifier Shelf Expiration Date Model / Serial / Lot Impulsonic Inc Marker Tissue Rigid Needle Open Coil Radiopaque Clip Hydromark 18ga Titanium Hydrogel 4009-08-15-T3 - [id number] Implanted:Qty: 1 on 06/05/2024 by Jolanta Ferreira MD at [facility] Right: Axilla [employer] [id number] 11/28/2026 4009-07-29 8-T3 / / [id number] Bard Peripheral Vascular Ultraclip Bard 17ga 10cm 2 Trigger Permanent Ultrasound [id number] - [id number] Implanted:Qty: 1 on 06/05/2024 by Jolanta Ferreira MD at [facility] Right: Breast Bard Peripheral Vascular [id number] / / BR [employer] Marker Image Hydromark Plus T5 Titanium 15ga Radiological Implant Sterile 4009-08-12-T5 - [id number] Implanted:Qty: 1 on 06/05/2024 by Jolanta Ferreira MD at [facility] Right: Breast BR [employer] [id number] 4009-07- 5-T5 / / [id number] uniRow Trimark Mri Guided Rigid Deployment Device Cork Marker Breast Trimark Td 13-Mr - [id number] Implanted:Qty: 1 on 07/05/2024 at [facility] TRIMARK TD 13-MR / / Bard Access Systems [place] [employer] Isp Mri 1lum Powerport Clearvue Titanium 8fr [id number] - [id number] Implanted:Qty: 1 on 07/19/2024 at [facility] Left: Subclavian Bard Access Systems 01/25/2026 [id number] / / [id number] Procedures Procedure Name Priority Date/Time Associated Diagnosis [...] MD LAB BLOOD ORDERABLES Final Resul t [facility] One [facility] Department [place] [address] * (ABNORMAL) Differential, auto (12/07/2024 9:22 AM CDT) Neutrophil abs 4.71 1.50 - 6.50 K/cumm Comment:Testing performed by : [facility], [address] [place] [address] Lymphocyte abs 1.25 0.80 - 3.30 K/cumm [facility] Comment:Testing performed by : [facility], [address] [place] [phone] Monocyte abs 0.89(H) 0.20 - 0.80 K/cumm [facility] Comment:Testing performed by : [facility], [address] [place], [place] [phone] Eosinophil abs 0.04 0.00 - 0.50 K/cumm [facility] Comment:Testing performed by : [facility], [address] [place] [phone] Basophil abs 0.05 0.00 - 0.10 K/cumm [facility] Comment:Testing performed by : [facility], [address] [place] [phone] Neutrophil pct 67.9 % [facility] Comment: Interpretive Data Percent cell count reference ranges are not reported, since discordance with absolute values may lead to misinterpretation of CBC data. Current Interpretive Data was last revised on 2017. Testing performed by: [facility], [address] [place] [phone] Lymphocyte pct 17.9 % [facility] Comment: Interpretive Data Percent cell count reference ranges are not reported, since discordance with absolute values may lead to misinterpretation of CBC data. Current Interpretive Data was last revised on 2017. Testing performed by: [facility], [address] [place], [place] [phone] Monocyte pct 12.9 % [facility] Comment: Interpretive Data Percent cell count reference ranges are not reported, since discordance with absolute values may lead to misinterpretation of CBC data. Current Interpretive Data was last revised on 2017. Testing performed by: [facility], [address] [place] [phone] Eosinophil pct 0.6 % [facility] Comment: Interpretive Data Percent cell count reference ranges are not reported, since discordance with absolute values may lead to misinterpretation of CBC data. Current Interpretive Data was last revised on 2017. Testing performed by: [facility], [address] [place], [place] [phone] Basophil pct 0.7 % [facility] SOS[facility] Comment: Interpretive Data Percent cell count reference ranges are not reported, since discordance with absolute values may lead to misinterpretation of CBC data. Current Interpretive Data was last revised on 2017. Testing performed by: [facility], [address] [place] [phone] Blood 12/07/2024 9:22 AM CDT 12/07/2024 9:26 AM CDT us Baltazar Mantilla MD LAB BLOOD ORDERABLES Final Resul t [facility] One [facility] Department [place] [address] * Thyroid Function Wilbur (12/07/2024 9:22 AM CDT) TSH 2.91 0.30 - 4.20 mcIUnit/mL Blood 12/07/2024 9:22 AM CDT 12/07/2024 9:29 AM CDT us Baltazar Mantilla MD LAB BLOOD ORDERABLES Final Resul t [facility] One [facility] Department [place] [address] * (ABNORMAL) CBC with auto differential (12/07/2024 9:22 AM CDT) WBC 6.94 3.80 - 9.90 K/cumm Comment:Testing performed by : [facility], [address] [place] [address] Hgb 11.3(L) 11.9 - 15.5 g/dL [facility] Comment:Testing performed by : [facility], [address] [place] [address] Hct 33.9(L) 35.6 - 45.5 % [facility] S[facility] Comment:Testing performed by : [facility], [address] [place] [address] Plt 235 150 - 400 K/cumm [facility] Comment:Testing performed by : [facility], [address] [place] [address] MPV 7.9 6.8 - 10.4 fL [facility] Comment:Testing performed by : [facility], [address] [place] [address] RBC 3.59(L) 3.90 - 5.20 M/cumm [facility] Comment:Testing performed by : [facility], [address] [place] [address] MCV 94.4 81.3 - 96.4 fL [facility] Comment:Testing performed by : [facility], [address] [place] [address] MCH 31.4 27.1 - 33.3 pg [facility] Comment:Testing performed by : [facility], [address] [place] [address] MCHC 33.3 32.3 - 35.7 g/dL [facility] Comment:Testing performed by : [facility], [address] [place] [phone] RDW CV 17.4(H) 11.1 - 14.9 % [facility] Comment:Testing performed by : [facility], [address] [place] [phone] NRBC abs 0.00 0.00 - 0.01 K/cumm [facility] Comment:Testing performed by : [facility], [address] [place] [phone] Blood 12/07/2024 9:22 AM CDT 12/07/2024 9:26 AM CDT us Baltazarsusan Mantilla MD LAB BLOOD ORDERABLES Final Resul t [facility] One [facility] Department [place] [address] * Comprehensive metabolic panel (12/07/2024 9:22 AM CDT) Sodium 141 135 - 145 mmol/L Potassium, pl 4.3 3.3 - 4.9 mmol/L [facility] Chloride 106 97 - 110 mmol/L [facility] CO2 25 22 - 32 mmol/L [facility] Anion gap 10 2 - 15 mmol/L [facility] BUN 14 6 - 25 mg/dL [facility] Creatinine 0.67 0.60 - 1.10 mg/dL [facility] Glucose 94 70 - 199 mg/dL [facility] Comment: Interpretive Data Fasting glucose >/= 126 [...] 2022. Calcium 9.5 8.5 - 10.3 mg/dL [facility] Bilirubin, total 0.3 0.1 - 1.2 mg/dL [facility] Protein, pl 7.0 6.5 - 8.5 g/dL [facility] Albumin 4.2 3.5 - 5.0 g/dL [facility] Alk phos 74 40 - 130 Units/L [facility] ALT 14 7 - 45 Units/L [facility] AST 20 10 - 45 Units/L [facility] Blood 12/07/2024 9:22 AM CDT 12/07/2024 9:29 AM CDT Baltazar Mantilla MD LAB BLOOD ORDERABLES Final Resul t [facility] One [facility] Department [place] [address] * eGFR (11/16/2024 9:15 AM CDT) eGFR [...] MD LAB BLOOD ORDERABLES Final Resul t [facility] Department [place] [address] * (ABNORMAL) Differential, auto (11/16/2024 9:15 AM CDT) Neutrophil abs 6.58(H) 1.50 - 6.50 K/cumm Comment:Testing performed by : [facility], [address] [place] [phone] Lymphocyte abs 1.66 0.80 - 3.30 K/cumm [facility] Comment:Testing performed by : [facility], [address] [place] [phone] Monocyte abs 0.98(H) 0.20 - 0.80 K/cumm [facility] Comment:Testing performed by : [facility], [address] [place] [phone] Eosinophil abs 0.02 0.00 - 0.50 K/cumm [facility] Comment:Testing performed by : [facility], [address] [place] [phone] Basophil abs 0.05 0.00 - 0.10 K/cumm [facility] Comment:Testing performed by : [facility], [address] [place] [phone] Neutrophil pct 70.8 % [facility] Comment: Interpretive Data Percent cell count reference ranges are not reported, since discordance with absolute values may lead to misinterpretation of CBC data. Current Interpretive Data was last revised on 2017. Testing performed by: [facility], [address] [place] [phone] Lymphocyte pct 17.9 % [facility] Comment: Interpretive Data Percent cell count reference ranges are not reported, since discordance with absolute values may lead to misinterpretation of CBC data. Current Interpretive Data was last revised on 2017. Testing performed by: [facility], [address] [place] [phone] Monocyte pct 10.6 % [facility] Comment: Interpretive Data Percent cell count reference ranges are not reported, since discordance with absolute values may lead to misinterpretation of CBC data. Current Interpretive Data was last revised on 2017. Testing performed by: [facility], [address] [place] [phone] Eosinophil pct 0.2 % MARGARETTE HAMMOND Comment: Interpretive Data Percent cell count reference ranges are not reported, since discordance with absolute values may lead to misinterpretation of CBC data. Current Interpretive Data was last revised on 2017. Testing performed by: [facility], [address] [place], [place] [phone] Basophil pct 0.5 % [facility]ARGARETTE SOSA Comment: Interpretive Data Percent cell count reference ranges are not reported, since discordance with absolute values may lead to misinterpretation of CBC data. Current Interpretive Data was last revised on 2017. Testing performed by: [facility], [address] [place], [place] [phone] Blood 11/16/2024 9:15 AM CDT 11/16/2024 9:17 AM CDT us Baltazar Fa'nima CESAR LAB BLOOD ORDERABLES Final Resul t [facility] HAM[facility] Department [place] [address] * (ABNORMAL) CBC with auto differential (11/16/2024 9:15 AM CDT) WBC 9.28 3.80 - 9.90 K/cumm Comment:Testing performed by : [facility], [address] [place] [phone] Hgb 11.1(L) 11.9 - 15.5 g/dL MARGARETTE HAMMOND Comment:Testing performed by : [facility], [address] [place] [phone] Hct 33.7(L) 35.6 - 45.5 % MARGARETTE HAMMOND Comment:Testing performed by : [facility], [address] [place], [place] [phone] Plt 299 150 - 400 K/cumm [facility] Comment:Testing performed by : [facility], [address] [place] [address] MPV 8.3 6.8 - 10.4 fL [facility] Comment:Testing performed by : [facility], [address] [place] [address] RBC 3.54(L) 3.90 - 5.20 M/cumm [facility] Comment:Testing performed by : [facility], [address] [place] [address] MCV 95.1 81.3 - 96.4 fL [facility] Comment:Testing performed by : [facility], [address] [place], [place] [phone] MCH 31.5 27.1 - 33.3 pg [facility] Comment:Testing performed by : [facility], [address] [place] [address] MCHC 33.1 32.3 - 35.7 g/dL [facility] Comment:Testing performed by : [facility], [address] [place] [address] RDW CV 17.7(H) 11.1 - 14.9 % [facility] Comment:Testing performed by : [facility], [address] [place] [address] NRBC abs 0.00 0.00 - 0.01 K/cumm [facility] Comment:Testing performed by : [facility], [address] [place] [address] Blood 11/16/2024 9:15 AM CDT 11/16/2024 9:17 AM CDT us Baltazar Mantilla MD LAB BLOOD ORDERABLES Final Resul t [facility] Department of Laboratories [place] [phone] * Comprehensive metabolic panel (11/16/2024 9:15 AM CDT) Sodium 143 135 - 145 mmol/L Potassium, pl 4.0 3.3 - 4.9 mmol/L [facility] Chloride 107 97 - 110 mmol/L [facility] CO2 25 22 - 32 mmol/L [facility] Anion gap 11 2 - 15 mmol/L [facility] BUN 12 6 - 25 mg/dL [facility] Creatinine 0.63 0.60 - 1.10 mg/dL [facility] Glucose 106 70 - 199 mg/dL [facility] Comment: Interpretive Data Fasting glucose >/= 126 [...] 2022. Calcium 9.4 8.5 - 10.3 mg/dL [facility] Bilirubin, total 0.2 0.1 - 1.2 mg/dL [facility] Protein, pl 7.3 6.5 - 8.5 g/dL [facility] Albumin 4.2 3.5 - 5.0 g/dL [facility] Alk phos 79 40 - 130 Units/L [facility] ALT 14 7 - 45 Units/L [facility] AST 21 10 - 45 Units/L [facility] Blood 11/16/2024 9:15 AM CDT 11/16/2024 9:19 AM CDT us Baltazarsusan Mantilla MD LAB BLOOD ORDERABLES Final Resul t [facility] Department [place] [address] * TRANSTHORACIC ECHO (TTE) COMPLETE W DOPPLER/CF W CONTRAST (10/26/2024 4:07 PM CDT) EF Mod BP 65 % CONS SCIMAGE Anatomical Region Laterality Modality Ultrasound 10/26/2024 3:02 PM CDT Narrative 10/27/2024 4:21 AM CDT [facility] [place] [address] Transthoracic Echocardiographic Report Patient Name: MESERET ORTIZ A : 1950 (74y 6m) Gender: F Study Date: 10/26/2024 03:02:12 PM Ht(Inch): 61 Wt(Lb): 126.98 BSA: 1.57 Digester Operator: Hina Fulton RDCS Location: [facility] Order Provider: BALTAZAR KING Heart [...] therapeutic drug level monitoring and Z79.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 CONCLUSIONS: 1. Normal left [...] LA Length 4C 4.70 cm AI Decel [place] 1.52 m/s2 LA Length 2C 4.51 cm [...] Procedure Note Louie Jon MD - 10/27/2024 [facility] [place] [address] Transthoracic Echocardiographic Report Patient Name: MESERET ORTIZ A : 1950 (74y 6m) Gender: F Study Date: 10/26/2024 03:02:12 PM Ht(Inch): 61 Wt(Lb): 126.98 BSA: 1.57 Digester Operator: Hina Fulton RDCS Location: [facility] Order Provider:BALTAAZR KING Heart Rate: 82 BMI: 23.99 BP: [...] [ -25.0 - -18.0 ] AI Decel [id number] sec LA Length 4C 4.70 cm AI Decel [place]1.52 m/s2 LA Length 2C 4.51 cm AI KJZ620.68 msec LA Volume BP 24.19 ml MV [...] [ 1.71 - 5.00 ] MV Decel Ulmr465.81 msec [ 104.00 - 258.00 ] RA [...] Louie Jon MD 10/27/2024 4:20:58 AM CDT us Baltazar Mantilla MD CV ECHO PROCEDURES Final [...] LAB BLOOD ORDERABLES Final Resul t [facility] Department [place] [address] * Differential, auto (10/26/2024 9:23 AM CDT) Neutrophil abs 2.20 1.50 - 6.50 K/cumm Comment:Testing performed by : [facility], [address] [place] [phone] Lymphocyte abs 1.75 0.80 - 3.30 K/cumm [facility] Comment:Testing performed by : [facility], [address] [place] [phone] Monocyte abs 0.54 0.20 - 0.80 K/cumm [facility] Comment:Testing performed by : [facility], [address] [place], [place] [id number] Eosinophil abs 0.07 0.00 - 0.50 K/cumm [facility] Comment:Testing performed by : [facility], [address] [place] [phone] Basophil abs 0.02 0.00 - 0.10 K/cumm [facility] Comment:Testing performed by : [facility], [address] [place], [place] [phone] Neutrophil pct 48.1 % [facility] Comment: Interpretive Data Percent cell count reference ranges are not reported, since discordance with absolute values may lead to misinterpretation of CBC data. Current Interpretive Data was last revised on 2017. Testing performed by: [facility], [address] [place] [phone] Lymphocyte pct 38.2 % [facility] Comment: Interpretive Data Percent cell count reference ranges are not reported, since discordance with absolute values may lead to misinterpretation of CBC data. Current Interpretive Data was last revised on 2017. Testing performed by: [facility], [address] [place] [phone] Monocyte pct 11.8 % [facility] Comment: Interpretive Data Percent cell count reference ranges are not reported, since discordance with absolute values may lead to misinterpretation of CBC data. Current Interpretive Data was last revised on 2017. Testing performed by: [facility], [address] [place] [phone] Eosinophil pct 1.5 % [facility] Comment: Interpretive Data Percent cell count reference ranges are not reported, since discordance with absolute values may lead to misinterpretation of CBC data. Current Interpretive Data was last revised on 2017. Testing performed by: [facility], [address] [place] [phone] Basophil pct 0.4 % [facility] Comment: Interpretive Data Percent cell count reference ranges are not reported, since discordance with absolute values may lead to misinterpretation of CBC data. Current Interpretive Data was last revised on 2017. Testing performed by: [facility], [address] [place] [phone] Blood 10/26/2024 9:23 AM CDT 10/26/2024 9:27 AM CDT Baltazar Mantilla MD LAB BLOOD ORDERABLES Final Resul t Performing Organization Address City/[facility] Co de Phone Number [facility] Department [place] [address] * Thyroid Function Wilbur (10/26/2024 9:23 AM CDT) TSH 2.42 0.30 - 4.20 mcIUnit/mL Blood 10/26/2024 9:23 AM CDT 10/26/2024 9:27 AM CDT Baltazar Mantilla MD LAB BLOOD ORDERABLES Final Resul t Performing Organization Address City/[facility] Co de Phone Number [facility] Department [place] [address] * (ABNORMAL) CBC with auto differential (10/26/2024 9:23 AM CDT) WBC 4.57 3.80 - 9.90 K/cumm Comment:Testing performed by : [facility], [address] [place] [phone] Hgb 11.4(L) 11.9 - 15.5 g/dL [facility] Comment:Testing performed by : [facility], [address] [place] [phone] Hct 34.0(L) 35.6 - 45.5 % [facility] Comment:Testing performed by : [facility], [address] [place], [place] [phone] Plt 206 150 - 400 K/cumm [facility] Comment:Testing performed by : [facility], [address] [place], [place] [phone] MPV 8.1 6.8 - 10.4 fL [facility] Comment:Testing performed by : [facility], [address] [place], [place] [phone] RBC 3.66(L) 3.90 - 5.20 M/cumm [facility] Comment:Testing performed by : [facility], [address] [place], [place] [phone] MCV 93.0 81.3 - 96.4 fL [facility] Comment:Testing performed by : [facility], [address] [place], [place] [phone] MCH 31.1 27.1 - 33.3 pg [facility] Comment:Testing performed by : [facility], [address] [place], [place] [phone] MCHC 33.4 32.3 - 35.7 g/dL [facility] Comment:Testing performed by : [facility], [address] [place], [place] [phone] RDW CV 19.1(H) 11.1 - 14.9 % [facility] Comment:Testing performed by : [facility], [address] [place], [place] [phone] NRBC abs 0.00 0.00 - 0.01 K/cumm [facility] Comment:Testing performed by : [facility], [address] [place], [place] [phone] Blood 10/26/2024 9:23 AM CDT 10/26/2024 9:27 AM CDT us Baltazarsusan Mantilla MD LAB BLOOD ORDERABLES Final Resul t [facility] Department [place] [address] * Comprehensive metabolic panel (10/26/2024 9:23 AM CDT) Sodium 141 135 - 145 mmol/L Potassium, pl 4.2 3.3 - 4.9 mmol/L [facility] Chloride 106 97 - 110 mmol/L [facility] CO2 25 22 - 32 mmol/L [facility] Anion gap 10 2 - 15 mmol/L [facility] BUN 16 6 - 25 mg/dL [facility] Creatinine 0.69 0.60 - 1.10 mg/dL [facility] Glucose 99 70 - 199 mg/dL [facility] Comment: Interpretive Data Fasting glucose >/= 126 [...] 2022. Calcium 9.4 8.5 - 10.3 mg/dL [facility] Bilirubin, total 0.4 0.1 - 1.2 mg/dL [facility] Protein, pl 7.4 6.5 - 8.5 g/dL [facility] Albumin 4.2 3.5 - 5.0 g/dL [facility] Alk phos 75 40 - 130 Units/L [facility] ALT 19 7 - 45 Units/L [facility] AST 23 10 - 45 Units/L [facility] Blood 10/26/2024 9:23 AM CDT 10/26/2024 9:27 AM CDT us Baltazar Mantilla MD LAB BLOOD ORDERABLES Final Resul t [facility] Department [place] [address] * eGFR (10/19/2024 8:42 AM CDT) Pathologist [facility] Department eGFR 88 >=60 mL/min/1. 73 m2 Comment: [...] ORDERABLES Final Resul t [facility]ARETTE [facility] Department [place] [address] * Differential, auto (10/19/2024 8:42 AM CDT) [facility] Neutrophil abs 1.76 1.50 - 6.50 K/cumm Comment:Testing performed by : [facility], [address] [place] [phone] Lymphocyte abs 1.21 0.80 - 3.30 K/cumm [facility] Comment:Testing performed by : [facility], [address] [place] [phone] Monocyte abs 0.50 0.20 - 0.80 K/cumm [facility] Comment:Testing performed by : [facility], [address] [place] [phone] Eosinophil abs 0.02 0.00 - 0.50 K/cumm [facility] Comment:Testing performed by : [facility], [address] [place] [phone] Basophil abs 0.02 0.00 - 0.10 K/cumm [facility] Comment:Testing performed by : [facility], [address] [place] [phone] Neutrophil pct 50.2 % [facility] Comment: Interpretive Data Percent cell count reference ranges are not reported, since discordance with absolute values may lead to misinterpretation of CBC data. Current Interpretive Data was last revised on 2017. Testing performed by: [facility], [address] [place] [phone] Lymphocyte pct 34.5 % [facility] Comment: Interpretive Data Percent cell count reference ranges are not reported, since discordance with absolute values may lead to misinterpretation of CBC data. Current Interpretive Data was last revised on 2017. Testing performed by: [facility], [address] [place] [phone] Monocyte pct 14.2 % [facility] Comment: Interpretive Data Percent cell count reference ranges are not reported, since discordance with absolute values may lead to misinterpretation of CBC data. Current Interpretive Data was last revised on 2017. Testing performed by: [facility], [address] [place] [phone] Eosinophil pct 0.5 % [facility] Comment: Interpretive Data Percent cell count reference ranges are not reported, since discordance with absolute values may lead to misinterpretation of CBC data. Current Interpretive Data was last revised on 2017. Testing performed by: [facility], [address] [place] [phone] Basophil pct 0.6 % [facility] Comment: Interpretive Data Percent cell count reference ranges are not reported, since discordance with absolute values may lead to misinterpretation of CBC data. Current Interpretive Data was last revised on 2017. Testing performed by: [facility], [address] [place] [phone] Blood 10/19/2024 8:42 AM CDT 10/19/2024 8:43 AM CDT Baltazar Mantilla MD LAB BLOOD ORDERABLES Final Resul t Performing Organization Address City/[facility] Co de Phone Number [facility] Department [place] [address] * Thyroid Function Wilbur (10/19/2024 8:42 AM CDT) TSH 2.44 0.30 - 4.20 mcIUnit/mL Blood 10/19/2024 8:42 AM CDT 10/19/2024 8:54 AM CDT Baltazar Mantilla MD LAB BLOOD ORDERABLES Final Resul t Performing Organization Address City/[facility] de Phone Number [facility] Department [place] [address] * (ABNORMAL) CBC with auto differential (10/19/2024 8:42 AM CDT) Pathologist [facility] WBC 3.51(L) 3.80 - 9.90 K/cumm Comment:Testing performed by : [facility], [address] [place] [address] Hgb 10.8(L) 11.9 - 15.5 g/dL [facility] Comment:Testing performed by : [facility], [address] [place] [address] Hct 32.3(L) 35.6 - 45.5 % [facility] Comment:Testing performed by : [facility], [address] [place] [address] Plt 143(L) 150 - 400 K/cumm [facility] Comment:Testing performed by : [facility], [address] [place] [phone] MPV 7.9 6.8 - 10.4 fL [facility]AR[facility]TE [facility] Comment:Testing performed by : [facility], [address] [place], [place] [phone] RBC 3.42(L) 3.90 - 5.20 M/cumm [facility]ARGAR[facility]TE [facility] Comment:Testing performed by : [facility], [address] [place], [place] [phone] MCV 94.6 81.3 - 96.4 fL [facility]TE [facility] Comment:Testing performed by : [facility], [address] [place], [place] [phone] MCH 31.6 27.1 - 33.3 pg [facility]ARGARETTE [facility] Comment:Testing performed by : [facility], [address] [place], [place] [phone] MCHC 33.4 32.3 - 35.7 g/dL [facility]TE [facility] Comment:Testing performed by : [facility], [address] [place], [place] [phone] RDW CV 19.4(H) 11.1 - 14.9 % [facility] Comment:Testing performed by : [facility], [address] [place], [place] [phone] NRBC abs 0.00 0.00 - 0.01 K/cumm [facility] Comment:Testing performed by : [facility], [address] [place], [place] [phone] Blood 10/19/2024 8:42 AM CDT 10/19/2024 8:43 AM CDT us Baltazarsusan Mantilla MD LAB BLOOD ORDERABLES Final Resul t [facility] Department [place] [address] * Comprehensive metabolic panel (10/19/2024 8:42 AM CDT) Sodium 141 135 - 145 mmol/L Potassium, pl 4.3 3.3 - 4.9 mmol/L MARGARETTE [facility] Chloride 106 97 - 110 mmol/L [facility] CO2 25 22 - 32 mmol/L [facility] Anion gap 10 2 - 15 mmol/L [facility] BUN 15 6 - 25 mg/dL [facility] Creatinine 0.71 0.60 - 1.10 mg/dL [facility] Glucose 112 70 - 199 mg/dL [facility] Comment: Interpretive Data Fasting glucose >/= 126 [...] 2022. Calcium 9.3 8.5 - 10.3 mg/dL [facility] Bilirubin, total 0.5 0.1 - 1.2 mg/dL [facility] Protein, pl 7.3 6.5 - 8.5 g/dL [facility] Albumin 4.2 3.5 - 5.0 g/dL [facility] Alk phos 71 40 - 130 Units/L [facility] ALT 29 7 - 45 Units/L [facility] AST 29 10 - 45 Units/L [facility] Blood 10/19/2024 8:42 AM CDT 10/19/2024 8:54 AM CDT us Baltazarsusan Mantilla MD LAB BLOOD ORDERABLES Final Resul t [facility] Department [place] [address] * US Breast Right Limited (10/10/2024 9:10 [...] Electronically signed by: Jolanta Ferreira M.D. us Baltzaarsusan Mantilla MD IMG MAMMO PROCEDURES Final Resul [...] t * eGFR (10/05/2024 6:46 AM CDT) Pathologist [facility] eGFR 90 >=60 mL/min/1. 73 [...] MD LAB BLOOD ORDERABLES Final Resul t [facility] Department [place] [address] * (ABNORMAL) Differential, auto (10/05/2024 6:46 AM CDT) Pathologist [facility] Neutrophil abs 1.70 1.50 - 6.50 K/cumm Comment:Testing performed by : [facility], [address] [place] [phone] Lymphocyte abs 0.75(L) 0.80 - 3.30 K/cumm MARGARETTE SOS[facility] Comment:Testing performed by : [facility], [address] [place] [phone] Monocyte abs 0.24 0.20 - 0.80 K/cumm [facility] Comment:Testing performed by : [facility], [address] [place] [phone] Eosinophil abs 0.02 0.00 - 0.50 K/cumm [facility] Comment:Testing performed by : [facility], [address] [place] [phone] Basophil abs 0.04 0.00 - 0.10 K/cumm [facility] Comment:Testing performed by : [facility], [address] [place] [phone] Neutrophil pct 61.9 % [facility] Comment: Interpretive Data Percent cell count reference ranges are not reported, since discordance with absolute values may lead to misinterpretation of CBC data. Current Interpretive Data was last revised on 2017. Testing performed by: [facility], [address] [place] [phone] Lymphocyte pct 27.4 % [facility] Comment: Interpretive Data Percent cell count reference ranges are not reported, since discordance with absolute values may lead to misinterpretation of CBC data. Current Interpretive Data was last revised on 2017. Testing performed by: [facility], [address] [place] [phone] Monocyte pct 8.8 % [facility] Comment: Interpretive Data Percent cell count reference ranges are not reported, since discordance with absolute values may lead to misinterpretation of CBC data. Current Interpretive Data was last revised on 2017. Testing performed by: [facility], [address] [place] [phone] Eosinophil pct 0.6 % [facility] Comment: Interpretive Data Percent cell count reference ranges are not reported, since discordance with absolute values may lead to misinterpretation of CBC data. Current Interpretive Data was last revised on 2017. Testing performed by: [facility], [address] [place] [phone] Basophil pct 1.4 % [facility] Comment: Interpretive Data Percent cell count reference ranges are not reported, since discordance with absolute values may lead to misinterpretation of CBC data. Current Interpretive Data was last revised on 2017. Testing performed by: [facility], [address] [place] [phone] Blood 10/05/2024 6:46 AM CDT 10/05/2024 6:49 AM CDT us Baltazar Mantilla MD LAB BLOOD ORDERABLES Final Resul t [facility] Department [place] [address] * (ABNORMAL) CBC with auto differential (10/05/2024 6:46 AM CDT) WBC 2.75(L) 3.80 - 9.90 K/cumm Comment:Testing performed by : [facility], [address] [place] [address] Hgb 10.3(L) 11.9 - 15.5 g/dL MARGARETTE [facility] Comment:Testing performed by : [facility], [address] [place] [address] Hct 30.0(L) 35.6 - 45.5 % MARGARETTE SOS[facility] Comment:Testing performed by : [facility], [address] [place] [address] Plt 140(L) 150 - 400 K/cumm [facility] Comment:Testing performed by : [facility], [address] [place] [address] MPV 8.3 6.8 - 10.4 fL [facility] Comment:Testing performed by : [facility], [address] [place] [address] RBC 3.23(L) 3.90 - 5.20 M/cumm [facility] Comment:Testing performed by : [facility], [address] [place] [address] MCV 92.8 81.3 - 96.4 fL [facility] Comment:Testing performed by : [facility], [address] [place] [phone] MCH 31.9 27.1 - 33.3 pg [facility] Comment:Testing performed by : [facility], [address] [place] [address] MCHC 34.3 32.3 - 35.7 g/dL [facility] Comment:Testing performed by : [facility], [address] [place] [address] RDW CV 19.1(H) 11.1 - 14.9 % [facility] Comment:Testing performed by : [facility], [address] [place] [address] NRBC abs 0.00 0.00 - 0.01 K/cumm [facility] Comment:Testing performed by : [facility], [address] [place] [address] Blood 10/05/2024 6:46 AM CDT 10/05/2024 6:49 AM CDT us Baltazarsusan Mantilla MD LAB BLOOD ORDERABLES Final Resul t [facility] Department [place] [address] * Comprehensive metabolic panel (10/05/2024 6:46 AM CDT) Sodium 141 135 - 145 mmol/L Potassium, pl 3.8 3.3 - 4.9 mmol/L [facility] Chloride 106 97 - 110 mmol/L [facility] CO2 25 22 - 32 mmol/L [facility] Anion gap 10 2 - 15 mmol/L [facility] BUN 15 6 - 25 mg/dL [facility] Creatinine 0.68 0.60 - 1.10 mg/dL [facility] Glucose 120 70 - 199 mg/dL [facility] Comment: Interpretive Data Fasting glucose >/= 126 [...] Calcium 9.1 8.5 - 10.3 mg/dL [facility] Bilirubin, total 0.4 0.1 - 1.2 mg/dL [facility] Protein, pl 7.1 6.5 - 8.5 g/dL [facility] Albumin 4.0 3.5 - 5.0 g/dL [facility] Alk phos 66 40 - 130 Units/L [facility]ERNER [facility] ALT 23 7 - 45 Units/L [facility] AST 26 10 - 45 Units/L [facility] Blood 10/05/2024 6:46 AM CDT 10/05/2024 6:52 AM CDT us Baltazar Annalee CESAR LAB BLOOD ORDERABLES Final Resul t [facility] Department [place] [address] * eGFR (09/28/2024 6:42 AM CDT) eGFR [...] MD LAB BLOOD ORDERABLES Final Resul t [facility] Department [place] [address] * Differential, auto (09/28/2024 6:42 AM CDT) Neutrophil abs 2.09 1.50 - 6.50 K/cumm Comment:Testing performed by : [facility], [address] [place] [phone] Lymphocyte abs 1.04 0.80 - 3.30 K/cumm [facility]TE [facility] Comment:Testing performed by : [facility], [address] [place], [place] [phone] Monocyte abs 0.32 0.20 - 0.80 K/cumm [facility] Comment:Testing performed by : [facility], [address] [place], [place] [phone] Eosinophil abs 0.01 0.00 - 0.50 K/cumm [facility] Comment:Testing performed by : [facility], [address] [place] [phone] Basophil abs 0.04 0.00 - 0.10 K/cumm [facility] Comment:Testing performed by : [facility], [address] [place] [phone] Neutrophil pct 59.7 % CERNER [facility] Comment: Interpretive Data Percent cell count reference ranges are not reported, since discordance with absolute values may lead to misinterpretation of CBC data. Current Interpretive Data was last revised on 2017. Testing performed by: [facility], [address] [place] [phone] Lymphocyte pct 29.7 % CERNER [facility] Comment: Interpretive Data Percent cell count reference ranges are not reported, since discordance with absolute values may lead to misinterpretation of CBC data. Current Interpretive Data was last revised on 2017. Testing performed by: [facility], [address] [place] [phone] Monocyte pct 9.1 % MARGARETTE [facility] Comment: Interpretive Data Percent cell count reference ranges are not reported, since discordance with absolute values may lead to misinterpretation of CBC data. Current Interpretive Data was last revised on 2017. Testing performed by: [facility], [address] [place], [place] [id number] Eosinophil pct 0.3 % MARGARETTE [facility] Comment: Interpretive Data Percent cell count reference ranges are not reported, since discordance with absolute values may lead to misinterpretation of CBC data. Current Interpretive Data was last revised on 2017. Testing performed by: [facility], [address] [place], [place] [phone] Basophil pct 1.2 % MARGARETTE [facility] Comment: Interpretive Data Percent cell count reference ranges are not reported, since discordance with absolute values may lead to misinterpretation of CBC data. Current Interpretive Data was last revised on 2017. Testing performed by: [facility], [address] [place] [phone] Blood 09/28/2024 6:42 AM CDT 09/28/2024 6:44 AM CDT us Baltazarsusan Mantilla MD LAB BLOOD ORDERABLES Final Resul t [facility]ARG[facility]TE [facility] Department [place] [address] * (ABNORMAL) CBC with auto differential (09/28/2024 6:42 AM CDT) WBC 3.50(L) 3.80 - 9.90 K/cumm Comment:Testing performed by : [facility], [address] [place] [phone] Hgb 10.9(L) 11.9 - 15.5 g/dL MARGARETTE [facility]J Comment:Testing performed by : [facility], [address] [place], [place] [phone] Hct 31.6(L) 35.6 - 45.5 % CERNER [facility]J Comment:Testing performed by : [facility], [address] [place], [place] [phone] Plt 190 150 - 400 K/cumm CERNER [facility]J Comment:Testing performed by : [facility], [address] [place], [place] [phone] MPV 8.5 6.8 - 10.4 fL CERNER [facility]J Comment:Testing performed by : [facility], [address] [place], [place] [phone] RBC 3.41(L) 3.90 - 5.20 M/cumm CERNER [facility]J Comment:Testing performed by : [facility], [address] [place], [place] [phone] MCV 92.6 81.3 - 96.4 fL CERNER [facility]J Comment:Testing performed by : [facility], [address] [place], [place] [phone] MCH 31.9 27.1 - 33.3 pg CERNER [facility]J Comment:Testing performed by : [facility], [address] [place], [place] [phone] MCHC 34.5 32.3 - 35.7 g/dL CERNER BJ Comment:Testing performed by : [facility], [address] [place], [place] [phone] RDW CV 18.6(H) 11.1 - 14.9 % CERNER BJ Comment:Testing performed by : [facility], [address] [place], [place] [phone] NRBC abs 0.00 0.00 - 0.01 K/cumm CERNER [facility]J Comment:Testing performed by : [facility], [address] [place], [place] [phone] Blood 09/28/2024 6:42 AM CDT 09/28/2024 6:44 AM CDT Baltazar Mantilla MD LAB BLOOD ORDERABLES Final Resul t [facility] Department [place] [address] * Comprehensive metabolic panel (09/28/2024 6:42 AM CDT) Sodium 140 135 - 145 mmol/L Potassium, pl 4.0 3.3 - 4.9 mmol/L [facility] Chloride 105 97 - 110 mmol/L [facility] CO2 26 22 - 32 mmol/L [facility] Anion gap 9 2 - 15 mmol/L [facility] BUN 19 6 - 25 mg/dL [facility] Creatinine 0.69 0.60 - 1.10 mg/dL [facility] Glucose 116 70 - 199 mg/dL [facility] Comment: Interpretive Data Fasting glucose >/= 126 [...] Calcium 9.4 8.5 - 10.3 mg/dL [facility] Bilirubin, total 0.5 0.1 - 1.2 mg/dL [facility] Protein, pl 7.4 6.5 - 8.5 g/dL [facility] Albumin 4.1 3.5 - 5.0 g/dL [facility] Alk phos 75 40 - 130 Units/L [facility]ER [facility] ALT 21 7 - 45 Units/L CERNER [facility] AST 23 10 - 45 Units/L [facility] Blood 09/28/2024 6:42 AM CDT 09/28/2024 6:51 AM CDT Baltazar Mantilla MD LAB BLOOD ORDERABLES Final Resul t Performing Organization Address [facility] Co de Phone Number MARGARETTE SOSA [facility] Department [place] [address] * eGFR (09/21/2024 9:24 AM CDT) Pathologist [facility] Department eGFR 88 >=60 mL/min/1. 73 m2 Comment: [...] 9:24 AM CDT 09/21/2024 9:27 AM CDT Baltazar Mantilla MD LAB BLOOD ORDERABLES Final Resul t Performing Organization Address [facility] Co de Phone Number MARGARETTE SOSA [facility] Department [place] [address] * (ABNORMAL) CBC with auto differential (09/21/2024 9:24 AM CDT) [facility] WBC 3.8 3.8 - 9.9 K/cumm Comment:Testing performed by : [facility], [address] [place] [phone] Hgb 11.0(L) 11.9 - 15.5 g/dL [facility] Comment:Testing performed by : [facility], [address] [place], [place] [phone] Hct 32.5(L) 35.6 - 45.5 % CERNER BJ Comment:Testing performed by : [facility], [address] [place], [place] [phone] Plt 239 150 - 400 K/cumm CERNER BJ Comment:Testing performed by : [facility], [address] [place], [place] [phone] MPV 8.7 6.8 - 10.4 fL CERNER BJ Comment:Testing performed by : [facility], [address] [place], [place] [phone] RBC 3.50(L) 3.90 - 5.20 M/cumm CERNER [facility]J Comment:Testing performed by : [facility], [address] [place], [place] [phone] MCV 92.6 81.3 - 96.4 fL CERNER BJ Comment:Testing performed by : [facility], [address] [place], [place] [phone] MCH 31.5 27.1 - 33.3 pg CERNER [facility]J Comment:Testing performed by : [facility], [address] [place], [place] [phone] MCHC 34.0 32.3 - 35.7 g/dL CERNER [facility]J Comment:Testing performed by : [facility], [address] [place], [place] [phone] RDW CV 18.2(H) 11.1 - 14.9 % CERNER [facility] Comment:Testing performed by : [facility], [address] [place], [place] [phone] NRBC abs 0.00 0.00 - 0.01 K/cumm CERNER [facility] Comment:Testing performed by : [facility], [address] [place], [place] [phone] Blood 09/21/2024 9:24 AM CDT 09/21/2024 9:25 AM CDT us Baltazar Fa'nima CESAR LAB BLOOD ORDERABLES Edited Resu lt - Final [facility] Department [place] [address] * (ABNORMAL) Manual Differential (09/21/2024 9:24 AM CDT) Cells Counted 200 Comment:Testing performed by : [facility], [address] [place] [phone] Neutrophil abs 2.5 1.5 - 6.5 K/cumm [facility] Comment:Testing performed by : [facility], [address] [place], [place] [phone] Lymphocyte abs 1.1 0.8 - 3.3 K/cumm CERNER [facility]J Comment:Testing performed by : [facility], [address] [place], [place] [phone] Monocyte abs 0.2 0.2 - 0.8 K/cumm CERNER [facility] Comment:Testing performed by : [facility], [address] [place], [place] [phone] Eosinophil abs 0.0 0.0 - 0.5 K/cumm CERNER [facility] Comment:Testing performed by : [facility], [address] [place] [phone] Basophil abs 0.0 0.0 - 0.1 K/cumm [facility] Comment:Testing performed by : [facility], [address] [place] [phone] Neutrophil pct 65.0 % CERNER [facility] Comment: Interpretive Data Percent cell count reference ranges are not reported, since discordance with absolute values may lead to misinterpretation of CBC data. Current Interpretive Data was last revised on 2017. Testing performed by: [facility], [address] [place], [place] [phone] Lymphocyte pct 29.0 % [facility] Comment: Interpretive Data Percent cell count reference ranges are not reported, since discordance with absolute values may lead to misinterpretation of CBC data. Current Interpretive Data was last revised on 2017. Testing performed by: [facility], [address] [place], [place] [phone] Monocyte pct 6.0 % [facility] Comment: Interpretive Data Percent cell count reference ranges are not reported, since discordance with absolute values may lead to misinterpretation of CBC data. Current Interpretive Data was last revised on 2017. Testing performed by: [facility], [address] [place] [address] Eosinophil pct 0.0 % MARGARETTE [facility] Comment: Interpretive Data Percent cell count reference ranges are not reported, since discordance with absolute values may lead to misinterpretation of CBC data. Current Interpretive Data was last revised on 2017. Testing performed by: [facility], [address] [place] [address] Basophil pct 1.0 % MARGARETTE [facility] Comment: Interpretive Data Percent cell count reference ranges are not reported, since discordance with absolute values may lead to misinterpretation of CBC data. Current Interpretive Data was last revised on 2017. Testing performed by: [facility], [address] [place] [address] Myelocyte pct 1.0(H) 0.0 - 0.0 % [facility] Comment:Testing performed by : [facility], [address] [place], [place] [phone] RBC morphology NRBCs present(A) [facility] Comment:Testing performed by : [facility], [address] [place], [place] [phone] Anisocytosis 1+(A) [facility] Comment:Testing performed by : [facility], [address] [place], [place] [id number] Platelet estimate Adequate [facility] Comment:Testing performed by : [facility], [address] [place] [address] Blood 09/21/2024 9:24 AM CDT 09/21/2024 9:25 AM CDT us Baltazarsusan Mantilla MD LAB BLOOD ORDERABLES Final Resul t MARGARETTE [facility] Department [place] [address] * Comprehensive metabolic panel (09/21/2024 9:24 AM CDT) Sodium 144 135 - 145 mmol/L Potassium, pl 4.6 3.3 - 4.9 mmol/L [facility] Chloride 108 97 - 110 mmol/L [facility] CO2 26 22 - 32 mmol/L [facility] Anion gap 10 2 - 15 mmol/L [facility] BUN 16 6 - 25 mg/dL [facility] Creatinine 0.71 0.60 - 1.10 mg/dL [facility] Glucose 106 70 - 199 mg/dL [facility] Comment: Interpretive Data Fasting glucose >/= 126 [...] 2022. Calcium 10.1 8.5 - 10.3 mg/dL [facility] Bilirubin, total 0.3 0.1 - 1.2 mg/dL [facility] Protein, pl 7.7 6.5 - 8.5 g/dL [facility] Albumin 4.3 3.5 - 5.0 g/dL [facility] Alk phos 76 40 - 130 Units/L [facility] ALT 23 7 - 45 Units/L [facility] AST 23 10 - 45 Units/L [facility] Blood 09/21/2024 9:24 AM CDT 09/21/2024 9:27 AM CDT us Baltazar Mantilla MD LAB BLOOD ORDERABLES Final Resul t [facility] Department [place] [address] * eGFR (09/14/2024 7:52 AM CDT) Pathologist [facility] Emergency Department eGFR 77 >=60 mL/min/1. 73 m2 Comment: [...] MD LAB BLOOD ORDERABLES Final Resul t [facility] Department [place] [address] * (ABNORMAL) Differential, auto (09/14/2024 7:52 AM CDT) Pathologist [facility] Neutrophil abs 1.4(L) 1.5 - 6.5 K/cumm Imm gran abs 0.0 0.0 - 0.1 K/cumm [facility] Lymphocyte abs 1.2 0.8 - 3.3 K/cumm [facility] Monocyte abs 0.3 0.2 - 0.8 K/cumm [facility] Eosinophil abs 0.0 0.0 - 0.5 K/cumm [facility] Basophil abs 0.0 0.0 - 0.1 K/cumm [facility] Neutrophil pct 47.0 % [facility] Comment: Interpretive Data Percent cell count reference ranges are not reported, since discordance with absolute values may lead to misinterpretation of CBC data. Current Interpretive Data was last revised on 2017. Imm gran pct 1.0 % [facility] Comment: Interpretive Data Percent cell count reference ranges are not reported, since discordance with absolute values may lead to misinterpretation of CBC data. Current Interpretive Data was last revised on 2017. Lymphocyte pct 39.4 % [facility] Comment: Interpretive Data Percent cell count reference ranges are not reported, since discordance with absolute values may lead to misinterpretation of CBC data. Current Interpretive Data was last revised on 2017. Monocyte pct 11.3 % [facility] Comment: Interpretive Data Percent cell count reference ranges are not reported, since discordance with absolute values may lead to misinterpretation of CBC data. Current Interpretive Data was last revised on 2017. Eosinophil pct 0.3 % [facility] Comment: Interpretive Data Percent cell count reference ranges are not reported, since discordance with absolute values may lead to misinterpretation of CBC data. Current Interpretive Data was last revised on 2017. Basophil pct 1.0 % [facility] Comment: Interpretive Data Percent cell count reference ranges are not reported, since discordance with absolute values may lead to misinterpretation of CBC data. Current Interpretive Data was last revised on 2017. Blood 09/14/2024 7:52 AM CDT 09/14/2024 8:09 AM CDT Baltazar Mantilla MD LAB BLOOD ORDERABLES Final Resul t [facility] Department [place] [address] * (ABNORMAL) CBC with auto differential (09/14/2024 7:52 AM CDT) WBC 2.9(L) 3.8 - 9.9 K/cumm Hgb 10.5(L) 11.9 - 15.5 g/dL [facility] Hct 31.6(L) 35.6 - 45.5 % [facility] Plt 235 150 - 400 K/cumm [facility] MPV 10.5 9.1 - 12.3 fL [facility] RBC 3.38(L) 3.90 - 5.20 M/cumm [facility] MCV 93.5 81.3 - 96.4 fL [facility] MCH 31.1 27.1 - 33.3 pg [facility] MCHC 33.2 32.3 - 35.7 g/dL [facility] RDW CV 16.2(H) 11.1 - 14.9 % [facility] RDW SD 53.5(H) 35.7 - 48.1 fL [facility] NRBC abs 0.00 0.00 - 0.01 K/cumm [facility] Blood 09/14/2024 7:52 AM CDT 09/14/2024 8:09 AM CDT Baltazar Mantilla MD LAB BLOOD ORDERABLES Final Resul t [facility] Department [place] [address] * Comprehensive metabolic panel (09/14/2024 7:52 AM CDT) Sodium 142 135 - 145 mmol/L Potassium, pl 4.1 3.3 - 4.9 mmol/L [facility] Chloride 106 97 - 110 mmol/L [facility] CO2 26 22 - 32 mmol/L [facility] Anion gap 10 2 - 15 mmol/L [facility] BUN 15 6 - 25 mg/dL [facility] Creatinine 0.79 0.60 - 1.10 mg/dL [facility] Glucose 95 70 - 199 mg/dL [facility] Comment: Interpretive Data Fasting glucose >/= 126 [...] 2022. Calcium 9.4 8.5 - 10.3 mg/dL [facility] Bilirubin, total 0.4 0.1 - 1.2 mg/dL [facility] Protein, pl 7.3 6.5 - 8.5 g/dL [facility] Albumin 4.2 3.5 - 5.0 g/dL [facility] Alk phos 83 40 - 130 Units/L [facility] ALT 27 7 - 45 Units/L [facility] AST 23 10 - 45 Units/L [facility] Blood 09/14/2024 7:52 AM CDT 09/14/2024 8:09 AM CDT us Baltazar Fa'nima CESAR LAB BLOOD ORDERABLES Final Resul t [facility] Department [place] [address] from Last 3 Months Insurance MEDICARE [facility] MEDICARE SUPPLEMENT [facility]ICARE [facility] MEDICARE SUPPLEMENT Care Teams Airbrush Artist Photography Relationship Specialty Start Date End Date Unknown, Notinfile PCP - General 01/21/24
--- OUTSIDE RECORDS SUMMARY | 2024-12-11 17:14 | XMS_ITS | Encounter Summary ---
Author Organization [facility] Address [address] [place] [address] Phone Care Team Providers Care Telephone Sales Representative Name Role Phone Unknown, Notinfile Primary Care Provider Unavail able Encounter Details Date Type Department Care Team (Late st Contact Info) Description 12/11/2024 Telephone [facility] Oncology [address] [place] [address] [place] [phone] [place] [address] Social History Tobacco Use Types Packs/Day Years [...] on file documented as of this encounter Miscellaneous Notes * Telephone Encounter - Nadia Johns RN - 12/11/2024 12:52 PM CDT Received a call from [place] informing me that she had fallen at home and has a fractured tibia. Shestated that she was hospitalized this weekend but is being discharged today to the rehab facility at [facility]. She will be there for 5-10 days then be discharged home. She asked if her appt for treatment on 12/28 could be pushed back a week related to this injury and because she has a familywedding to attend on 12/29. I told her that I would defer her treatment schedule to 01/04. She will call with updates regarding her injury. documented in this encounter Plan of Treatment Not on file documented as of this encounter Visit Diagnoses Not on filedocumented in this encounter Care Teams Telephone Sales Representative Relationship Specialty Start Date End Date Unknown, Notinfile PCP - General 01/21/24 documented as of this encounter
--- OUTSIDE RECORDS SUMMARY | 2024-12-11 17:14 | XMS_ITS | Referral Summary ---
Author Organization [facility] Address [address] [place] [address] Phone Care Team Providers Care French Instructor Name Role Phone Unknown, Notinfile Primary Care Provider Unavail able Encounters Date Type Department Care Team Description 12/11/2024 Telephone [facility] [address] [place] [address] 8 [place] [address] Nadia Johns RN 12/11/2024 Orders Only [facility] [address] [place] [address] 8 [place] [address] Baltazar Mantilla MD Prevention of chemotherapy-induced neutropenia (Primary Dx); Malignant neoplasm of upper-outer quadrant of right breast in female, estrogen receptor negative (HCC); Nausea and vomiting, unspecified vomiting type 12/07/2024 9:15 AM CDT Clinical Support [facility] - Lab Collection [facility] Floor 5 [place] [address] Prevention of chemotherapy-induced neutropenia; Malignant neoplasm of upper-outer quadrant of right breast in female, estrogen receptor negative (HCC); Nausea and vomiting, unspecified vomiting type 12/07/2024 11:30 AM CDT Infusion [facility] [address] [facility] Floor 5 [place] [address] Nausea and vomiting, unspecified vomiting type (Primary Dx); Prevention of chemotherapy-induced neutropenia; Malignant neoplasm of upper-outer quadrant of right breast in female, estrogen receptor negative (HCC) 12/07/2024 10:15 AM CDT Office Visit [facility] Floor 8 [place] [address] Baltazar Mantilla MD Nausea and vomiting, unspecified vomiting type (Primary Dx); Prevention of chemotherapy-induced neutropenia; Malignant neoplasm of upper-outer quadrant of right breast in female, estrogen receptor negative (HCC) 11/17/2024 Orders Only [facility] Surgery [address] [place] [address] Floor 8 [place] [address] Jennifer Goodman MD Malignant neoplasm of upper-outer quadrant of right breast in female, estrogen receptor negative (HCC) (Primary Dx) 11/16/2024 11:30 AM CDT Infusion [facility] [address] [facility] Floor 6 [place] [address] Nausea and vomiting, unspecified vomiting type (Primary Dx); Prevention of chemotherapy-induced neutropenia; Malignant neoplasm of upper-outer quadrant of right breast in female, estrogen receptor negative (HCC) 11/16/2024 9:15 AM CDT Clinical Support [facility] - Lab Collection [address] [facility] Floor 5 [place] [address] Prevention of chemotherapy-induced neutropenia; Malignant neoplasm of upper-outer quadrant of right breast in female, estrogen receptor negative (HCC); Nausea and vomiting, unspecified vomiting type 11/16/2024 10:15 AM CDT Office Visit [facility] [address] [place] [address] 8 [place] [address] Baltazar Mantilla MD Nausea and vomiting, unspecified vomiting type (Primary Dx); Prevention of chemotherapy-induced neutropenia; Malignant neoplasm of upper-outer quadrant of right breast in female, estrogen receptor negative (HCC) 10/30/2024 Telephone [facility] [address] [place] [address] Nadia Johns RN 10/27/2024 8:00 AM CDT Infusion [facility] [address] [facility] Floor 5 [place] [address] Nausea and vomiting, unspecified vomiting type (Primary Dx); Prevention of chemotherapy-induced neutropenia; Malignant neoplasm of upper-outer quadrant of right breast in female, estrogen receptor negative (HCC) 10/26/2024 2:41 PM CDT - 10/26/2024 11:59 PM CDT Hospital Encounter [facility] Cardiac Diagnostic Lab [address] [place] [address] [address] [place] [address] Encounter for monitoring cardiotoxic drug therapy Discharge Disposition: Discharge to home or self care 10/26/2024 Orders Only [facility] [address] [place] [address] 8 [place] [address] Baltazar Mantilla MD Cardiotoxicity (Primary Dx); Encounter for monitoring cardiotoxic drug therapy; Prevention of chemotherapy-induced neutropenia; Malignant neoplasm of upper-outer quadrant of right breast in female, estrogen receptor negative (HCC); Nausea and vomiting, unspecified vomiting type 10/26/2024 9:45 AM CDT Clinical Support [facility] - Lab Collection [address] [place] [address] 5 [place] [address] Prevention of chemotherapy-induced neutropenia; Malignant neoplasm of upper-outer quadrant of right breast in female, estrogen receptor negative (HCC); Nausea and vomiting, unspecified vomiting type 10/26/2024 11:30 AM CDT Infusion [facility]fusion [address] [place] [address] Floor 6 [place] [address] Prevention of chemotherapy-induced neutropenia; Malignant neoplasm of upper-outer quadrant of right breast in female, estrogen receptor negative (HCC); Nausea and vomiting, unspecified vomiting type 10/26/2024 10:30 AM CDT Office Visit [facility] [address] [place] [address] 8 [place] [address] Baltazar Mantilla MD Nausea and vomiting, unspecified vomiting type (Primary Dx); Prevention of chemotherapy-induced neutropenia; Malignant neoplasm of upper-outer quadrant of right breast in female, estrogen receptor negative (HCC) 10/26/2024 9:15 AM CDT Clinical Support [facility] Lab [address] [place] [address] 5 [place] [address] Prevention of chemotherapy-induced neutropenia; Malignant neoplasm of upper-outer quadrant of right breast in female, estrogen receptor negative (HCC); Nausea and vomiting, unspecified vomiting type 10/19/2024 8:15 AM CDT Clinical Support [facility] - Lab Collection [address] [facility] Floor 5 [place] [address] Prevention of chemotherapy-induced neutropenia; Malignant neoplasm of upper-outer quadrant of right breast in female, estrogen receptor negative (HCC); Nausea and vomiting, unspecified vomiting type 10/19/2024 9:15 AM CDT Office Visit [facility] [address] [facility] Floor 8 [place] [address] Baltazar Mantilla MD 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 (Primary Dx); Prevention of chemotherapy-induced neutropenia; Malignant neoplasm of upper-outer quadrant of right breast in female, estrogen receptor negative (HCC); Nausea and vomiting, unspecified vomiting type 10/16/2024 Orders Only [facility] [address] [place] [address] Baltazar Mantilla MD Malignant neoplasm of upper-outer quadrant of right breast in female, estrogen receptor negative (HCC) (Primary Dx); Nausea and vomiting, unspecified vomiting type 10/10/2024 7:54 AM CDT - 10/10/2024 11:59 PM CDT Hospital Encounter [facility] [address] [place] [address] Malignant neoplasm of upper-outer quadrant of right breast in female, estrogen receptor negative (HCC) Discharge Disposition: Discharge to home or self care 10/10/2024 7:53 AM CDT - 10/10/2024 11:59 PM CDT Hospital Encounter [facility] ([facility] [address] [place] [address] Malignant neoplasm of upper-outer quadrant of right breast in female, estrogen receptor negative (HCC) Discharge Disposition: Discharge to home or self care 10/06/2024 Telephone [facility] [address] [place] [phone] Nadia Johns RN Arm Pain; Leg Pain 10/05/2024 6:30 AM CDT Clinical Support [facility] Collection [address] [facility] Floor 5 [place] [address] Prevention of chemotherapy-induced neutropenia; Malignant neoplasm of upper-outer quadrant of right breast in female, estrogen receptor negative (HCC) 10/05/2024 7:30 AM CDT Infusion [facility] [address] Floor 5 [place] [address] Malignant neoplasm of upper-outer quadrant of right breast in female, estrogen receptor negative (HCC) (Primary Dx); Prevention of chemotherapy-induced neutropenia 09/28/2024 Telephone [facility] [address] [place] [address] Floor 8 [place] [address] Nadia Johns RN 09/28/2024 6:30 AM CDT Clinical Support [facility] - Lab Collection [address] [place] [address] Floor 6 [place] [address] Prevention of chemotherapy-induced neutropenia; Malignant neoplasm of upper-outer quadrant of right breast in female, estrogen receptor negative (HCC) 09/28/2024 7:30 AM CDT Infusion [facility] Infusion [address] [place], [place] [address] Floor 6 [place] [address] Malignant neoplasm of upper-outer quadrant of right breast in female, estrogen receptor negative (HCC) (Primary Dx); Prevention of chemotherapy-induced neutropenia 09/21/2024 Orders Only [facility] [address] [place] [phone] Baltazar Mantilla MD Malignant neoplasm of upper-outer quadrant of right breast in female, estrogen receptor negative (HCC) (Primary Dx) 09/21/2024 8:15 AM CDT Clinical Support [facility] Collection [address] [place] [address] Floor 5 [place] [address] Malignant neoplasm of right female breast, unspecified estrogen receptor status, unspecified site of breast (HCC) (Primary Dx); Prevention of chemotherapy-induced neutropenia; Malignant neoplasm of upper-outer quadrant of right breast in female, estrogen receptor negative (HCC) 09/21/2024 10:30 AM CDT Infusion [facility] [address] [place] [address] Malignant neoplasm of upper-outer quadrant of right breast in female, estrogen receptor negative (HCC) (Primary Dx); Prevention of chemotherapy-induced neutropenia 09/21/2024 9:15 AM CDT Office Visit [facility] [address] [place] [address] 8 [place] [address] Baltazar Mantilla MD Malignant neoplasm of upper-outer quadrant of right breast in female, estrogen receptor negative (HCC) (Primary Dx); Prevention of chemotherapy-induced neutropenia 09/14/2024 Orders Only [facility] [address] [place] [address] 8 [place] [address] Baltzaar Mantilla MD 09/14/2024 7:30 AM CDT - 09/14/2024 12:14 PM CDT Hospital Encounter [facility] ([facility]) [address] [place] [address] Malignant neoplasm of upper-outer quadrant of right breast in female, estrogen receptor negative (HCC) (Primary Dx); Prevention of chemotherapy-induced neutropenia; Malignant neoplasm of right female breast, unspecified estrogen receptor status, unspecified site of breast (HCC) Discharge Disposition: Discharge to home or self care from Last 3 Months Allergies Active Allergy [...] Cancer Staging:Clinical:Stage IIB(cT2, cN1, cM0, G3, ER+, KS+, HER2-) - Unsigned Prevention of chemotherapy-induced neutropenia [...] on file Medical Devices Implanted Type Area Genetic Engineer Device Identifier Shelf Expiration Date Model / Serial / Lot [employer] Marker Tissue Rigid Needle Open Coil Radiopaque Clip Hydromark 18ga Titanium Hydrogel 4009-08-15-T3 - [id number] Implanted:Qty: 1 on 06/05/2024 by Jolanta Ferreira MD at [facility] Right: Axilla [employer] [id number] 11/28/20264009-02-1 8-T3 / / [id number] Bard Peripheral Vascular Ultraclip Bard 17ga 10cm 2 Trigger Permanent Ultrasound [id number] - [id number] Implanted:Qty: 1 on 06/05/2024 by Jolanta Ferreira MD at [facility] Right: Breast Bard Peripheral Vascular [id number] / / i[employer]cor [employer] Marker Image Hydromark Plus T5 Titanium 15ga Radiological Implant Sterile 1869-95-35-T5 - [id number] Implanted:Qty: 1 on 06/05/2024 by Jolanta Ferreira MD at [facility] Right: Breast [employer] [id number] 4010-02-1 5-T5 / / [id number] [facility] Trimark Mri Guided Rigid Deployment Device Cork Marker Breast Trimark Td 13-Mr - [id number] Implanted:Qty: 1 on 07/05/2024 at [facility] TRIMARK TD 13-MR / / Bard Access Systems [place] [employer] Isp Mri 1lum Powerport Clearvue Titanium 8fr [id number] - [id number] Implanted:Qty: 1 on 07/19/2024 at [facility] Left: Subclavian Bard Access Systems 01/25/2026 [id number] / / [id number] Procedures Procedure Name Priority Date/Time Associated Diagnosis [...] * eGFR (12/07/2024 9:22 AM CDT) Pathologist [facility] eGFR >90 >=60 mL/min/1. 73 m2 Comment: [...] ORDERABLES Final Resul t MARGARETTE [facility] [place] [address] * (ABNORMAL) Differential, auto (12/07/2024 9:22 AM CDT) Neutrophil abs 4.71 1.50 - 6.50 K/cumm Comment:Testing performed by : [facility], [address] [place] [address] Lymphocyte abs 1.25 0.80 - 3.30 K/cumm [facility] Comment:Testing performed by : [facility], [address] [place] [address] Monocyte abs 0.89(H) 0.20 - 0.80 K/cumm MARGARETTE [facility] Comment:Testing performed by : [facility], [address] [place] [address] Eosinophil abs 0.04 0.00 - 0.50 K/cumm MARGARETTE [facility] Comment:Testing performed by : [facility], [address] [place] [address] Basophil abs 0.05 0.00 - 0.10 K/cumm [facility] Comment:Testing performed by : [facility], [address] [place] [phone] Neutrophil pct 67.9 % [facility] Comment: Interpretive Data Percent cell count reference ranges are not reported, since discordance with absolute values may lead to misinterpretation of CBC data. Current Interpretive Data was last revised on 2017. Testing performed by: [facility], [address] [place] [phone] Lymphocyte pct 17.9 % MARGARETTE [facility] Comment: Interpretive Data Percent cell count reference ranges are not reported, since discordance with absolute values may lead to misinterpretation of CBC data. Current Interpretive Data was last revised on 2017. Testing performed by: [facility], [address] [place] [phone] Monocyte pct 12.9 % MARGARETTE [facility] Comment: Interpretive Data Percent cell count reference ranges are not reported, since discordance with absolute values may lead to misinterpretation of CBC data. Current Interpretive Data was last revised on 2017. Testing performed by: [facility], [address] [place] [phone] Eosinophil pct 0.6 % MARGARETTE SOSA Comment: Interpretive Data Percent cell count reference ranges are not reported, since discordance with absolute values may lead to misinterpretation of CBC data. Current Interpretive Data was last revised on 2017. Testing performed by: [facility], [address] [place] [phone] Basophil pct 0.7 % MARGARETTE SOSA Comment: Interpretive Data Percent cell count reference ranges are not reported, since discordance with absolute values may lead to misinterpretation of CBC data. Current Interpretive Data was last revised on 2017. Testing performed by: [facility], [address] [place] [phone] Blood 12/07/2024 9:22 AM CDT 12/07/2024 9:26 AM CDT us Baltazar Mantilla MD LAB BLOOD ORDERABLES Final Resul t MARGARETTE SOS[facility] [place] [address] * Thyroid Function [place] (12/07/2024 9:22 AM CDT) TSH 2.91 0.30 - 4.20 mcIUnit/mL Blood 12/07/2024 9:22 AM CDT 12/07/2024 9:29 AM CDT us Baltazar Mantilla MD LAB BLOOD ORDERABLES Final Resul t [facility] [place] [address] * (ABNORMAL) CBC with auto differential (12/07/2024 9:22 AM CDT) Pathologist [facility] WBC 6.94 3.80 - 9.90 K/cumm Comment:Testing performed by : [facility], [address] [place] [address] Hgb 11.3(L) 11.9 - 15.5 g/dL [facility] Comment:Testing performed by : [facility], [address] [place] [address] Hct 33.9(L) 35.6 - 45.5 % [facility] Comment:Testing performed by : [facility], [address] [place] [address] Plt 235 150 - 400 K/cumm [facility] Comment:Testing performed by : [facility], [address] [place] [address] MPV 7.9 6.8 - 10.4 fL [facility] Comment:Testing performed by : [facility], [address] [place] [address] RBC 3.59(L) 3.90 - 5.20 M/cumm [facility] Comment:Testing performed by : [facility], [address] [place] [address] MCV 94.4 81.3 - 96.4 fL [facility] Comment:Testing performed by : [facility], [address] [place], [place] [phone] MCH 31.4 27.1 - 33.3 pg [facility] Comment:Testing performed by : [facility], [address] [place] [address] MCHC 33.3 32.3 - 35.7 g/dL [facility] Comment:Testing performed by : [facility], [address] [place] [address] RDW CV 17.4(H) 11.1 - 14.9 % [facility] Comment:Testing performed by : [facility], [address] [place] [address] NRBC abs 0.00 0.00 - 0.01 K/cumm [facility] Comment:Testing performed by : [facility], [address] [place], [place] [phone] Blood 12/07/2024 9:22 AM CDT 12/07/2024 9:26 AM CDT us Baltazarsusan Mantilla MD LAB BLOOD ORDERABLES Final Resul t [facility] [place] [address] * Comprehensive metabolic panel (12/07/2024 9:22 AM CDT) Sodium 141 135 - 145 mmol/L Potassium, pl 4.3 3.3 - 4.9 mmol/L [facility] Chloride 106 97 - 110 mmol/L [facility] CO2 25 22 - 32 mmol/L [facility] Anion gap 10 2 - 15 mmol/L [facility] BUN 14 6 - 25 mg/dL [facility] Creatinine 0.67 0.60 - 1.10 mg/dL [facility] Glucose 94 70 - 199 mg/dL [facility] Comment: Interpretive Data Fasting glucose [...] 2022. Calcium 9.5 8.5 - 10.3 mg/dL [facility] Bilirubin, total 0.3 0.1 - 1.2 mg/dL [facility] Protein, pl 7.0 6.5 - 8.5 g/dL [facility] Albumin 4.2 3.5 - 5.0 g/dL [facility] Alk phos 74 40 - 130 Units/L [facility] ALT 14 7 - 45 Units/L [facility] AST 20 10 - 45 Units/L [facility] Blood 12/07/2024 9:22 AM CDT 12/07/2024 9:29 AM CDT us Baltazarsusan Mantilla MD LAB BLOOD ORDERABLES Final Resul t [facility] [place] [address] * eGFR (11/16/2024 9:15 AM CDT) eGFR [...] CDT 11/16/2024 9:19 AM CDT us Baltazar Mantilla MD LAB BLOOD ORDERABLES Final Resul t [facility] [place] [address] * (ABNORMAL) Differential, auto (11/16/2024 9:15 AM CDT) Neutrophil abs 6.58(H) 1.50 - 6.50 K/cumm Comment:Testing performed by : [facility], [address] [place], [place] [phone] Lymphocyte abs 1.66 0.80 - 3.30 K/cumm [facility] Comment:Testing performed by : [facility], [address] [place] [phone] Monocyte abs 0.98(H) 0.20 - 0.80 K/cumm [facility] Comment:Testing performed by : [facility], [address] [place] [phone] Eosinophil abs 0.02 0.00 - 0.50 K/cumm [facility] Comment:Testing performed by : [facility], [address] [place] [phone] Basophil abs 0.05 0.00 - 0.10 K/cumm [facility] Comment:Testing performed by : [facility], [address] [place] [phone] Neutrophil pct 70.8 % [facility] Comment: Interpretive Data Percent cell count reference ranges are not reported, since discordance with absolute values may lead to misinterpretation of CBC data. Current Interpretive Data was last revised on 2017. Testing performed by: [facility], [address] [place] [phone] Lymphocyte pct 17.9 % [facility] Comment: Interpretive Data Percent cell count reference ranges are not reported, since discordance with absolute values may lead to misinterpretation of CBC data. Current Interpretive Data was last revised on 2017. Testing performed by: [facility], [address] [place] [phone] Monocyte pct 10.6 % MARGARETTE SOSA Comment: Interpretive Data Percent cell count reference ranges are not reported, since discordance with absolute values may lead to misinterpretation of CBC data. Current Interpretive Data was last revised on 2017. Testing performed by: [facility], [address] [place] [phone] Eosinophil pct 0.2 % MARGARETTE SOSA Comment: Interpretive Data Percent cell count reference ranges are not reported, since discordance with absolute values may lead to misinterpretation of CBC data. Current Interpretive Data was last revised on 2017. Testing performed by: [facility], [address] [place] [phone] Basophil pct 0.5 % MARGARETTE SOSA Comment: Interpretive Data Percent cell count reference ranges are not reported, since discordance with absolute values may lead to misinterpretation of CBC data. Current Interpretive Data was last revised on 2017. Testing performed by: [facility], [address] [place] [phone] Blood 11/16/2024 9:15 AM CDT 11/16/2024 9:17 AM CDT us Baltazarsusan Mantilla MD LAB BLOOD ORDERABLES Final Resul t [facility] [place] [address] * (ABNORMAL) CBC with auto differential (11/16/2024 9:15 AM CDT) WBC 9.28 3.80 - 9.90 K/cumm Comment:Testing performed by : [facility], [address] [place] [phone] Hgb 11.1(L) 11.9 - 15.5 g/dL [facility] Comment:Testing performed by : [facility], [address] [place], [place] [phone] Hct 33.7(L) 35.6 - 45.5 % [facility] Comment:Testing performed by : [facility], [address] [place], [place] [phone] Plt 299 150 - 400 K/cumm [facility] Comment:Testing performed by : [facility], [address] [place], [place] [phone] MPV 8.3 6.8 - 10.4 fL [facility] Comment:Testing performed by : [facility], [address] [place], [place] [phone] RBC 3.54(L) 3.90 - 5.20 M/cumm [facility] Comment:Testing performed by : [facility], [address] [place], [place] [phone] MCV 95.1 81.3 - 96.4 fL [facility] Comment:Testing performed by : [facility], [address] [place], [place] [phone] MCH 31.5 27.1 - 33.3 pg [facility] Comment:Testing performed by : [facility], [address] [place], [place] [phone] MCHC 33.1 32.3 - 35.7 g/dL [facility] Comment:Testing performed by : [facility] Lab, [address] [place], [place] [phone] RDW CV 17.7(H) 11.1 - 14.9 % CERNER BJ Comment:Testing performed by : [facility], [address] [place], [place] [phone] NRBC abs 0.00 0.00 - 0.01 K/cumm CERNER BJ Comment:Testing performed by : [facility], [address] [place] [address] Blood 11/16/2024 9:15 AM CDT 11/16/2024 9:17 AM CDT us Baltazar Annalee CESAR LAB BLOOD ORDERABLES Final Resul t [facility] [place] [address] * Comprehensive metabolic panel (11/16/2024 9:15 AM CDT) Sodium 143 135 - 145 mmol/L Potassium, pl 4.0 3.3 - 4.9 mmol/L [facility] Chloride 107 97 - 110 mmol/L [facility] CO2 25 22 - 32 mmol/L [facility] Anion gap 11 2 - 15 mmol/L [facility] BUN 12 6 - 25 mg/dL [facility] Creatinine 0.63 0.60 - 1.10 mg/dL [facility] Glucose 106 70 - 199 mg/dL [facility] Comment: Interpretive Data Fasting glucose [...] 2022. Calcium 9.4 8.5 - 10.3 mg/dL [facility] Bilirubin, total 0.2 0.1 - 1.2 mg/dL [facility] Protein, pl 7.3 6.5 - 8.5 g/dL [facility] Albumin 4.2 3.5 - 5.0 g/dL [facility] Alk phos 79 40 - 130 Units/L CERNER [facility] ALT 14 7 - 45 Units/L CERNER [facility] AST 21 10 - 45 Units/L [facility] Blood 11/16/2024 9:15 AM CDT 11/16/2024 9:19 AM CDT us Baltazar Fa'ak MD LAB BLOOD ORDERABLES Final Resul t MARGARETTE [facility] [place] [address] * TRANSTHORACIC ECHO (TTE) COMPLETE W DOPPLER/CF W CONTRAST (10/26/2024 4:07 PM CDT) EF Mod BP 65 % CONS SCIMAGE Anatomical Region Laterality Modality Ultrasound 10/26/2024 3:02 PM CDT Narrative 10/27/2024 4:21 AM CDT [facility] [place] [place] [address] Transthoracic Echocardiographic Report Patient Name: MESERET ORTIZ A : 1950 (74y 6m) Gender: F Study Date: 10/26/2024 03:02:12 PM Ht(Inch): 61 Wt(Lb): 126.98 BSA: 1.57 Videotape Recording Engineer: Hina Fulton RDCS Location: [facility] Order Provider: BALTAZAR KING Heart Rate: [...] therapeutic drug level monitoring and Z79.899 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 CONCLUSIONS: 1. Normal left [...] LA Length 4C 4.70 cm AI Decel [place] 1.52 m/s2 LA Length 2C 4.51 cm [...] Procedure Note Louie Jon MD - 10/27/2024 [facility] Card[place] [address] Transthoracic Echocardiographic Report Patient Name: MESERET ORTIZ A : 1950 (74y 6m) Gender: F Study Date: 10/26/2024 03:02:12 PM Ht(Inch): 61 Wt(Lb): 126.98 BSA: 1.57 Videotape Recording Engineer: Hina Fulton RDCS Location: [facility] Order Provider:BALTAZAR KING Heart Rate: 82 [...] [ -25.0 - -18.0 ] AI Decel [id number] sec LA Length 4C 4.70 cm AI Decel [place]1.52 m/s2 LA Length 2C 4.51 cm AI OEQ507.68 msec LA Volume BP 24.19 ml MV [...] [ 1.71 - 5.00 ] MV Decel Gntr065.81 msec [ 104.00 - 258.00 ] RA [...] MD LAB BLOOD ORDERABLES Final Resul t CERGORGE SOSA [facility] [place] [address] * Differential, auto (10/26/2024 9:23 AM CDT) Neutrophil abs 2.20 1.50 - 6.50 K/cumm Comment:Testing performed by : [facility], [address] [place] [address] Lymphocyte abs 1.75 0.80 - 3.30 K/cumm CERNER BJ Comment:Testing performed by : [facility], [address] [place] [address] Monocyte abs 0.54 0.20 - 0.80 K/cumm CERNER BJ Comment:Testing performed by : [facility], [address] [place], [place] [id number] Eosinophil abs 0.07 0.00 - 0.50 K/cumm CERNER BJ Comment:Testing performed by : [facility], [address] [place] [address] Basophil abs 0.02 0.00 - 0.10 K/cumm CERNER BJ Comment:Testing performed by : [facility], [address] [place] [address] Neutrophil pct 48.1 % CERNER BJ Comment: Interpretive Data Percent cell count reference ranges are not reported, since discordance with absolute values may lead to misinterpretation of CBC data. Current Interpretive Data was last revised on 2017. Testing performed by: [facility], [address] [place] [phone] Lymphocyte pct 38.2 % CERNER BJ Comment: Interpretive Data Percent cell count reference ranges are not reported, since discordance with absolute values may lead to misinterpretation of CBC data. Current Interpretive Data was last revised on 2017. Testing performed by: [facility], [address] [place] [address] Monocyte pct 11.8 % [facility] Comment: Interpretive Data Percent cell count reference ranges are not reported, since discordance with absolute values may lead to misinterpretation of CBC data. Current Interpretive Data was last revised on 2017. Testing performed by: [facility], [address] [place] [phone] Eosinophil pct 1.5 % [facility] Comment: Interpretive Data Percent cell count reference ranges are not reported, since discordance with absolute values may lead to misinterpretation of CBC data. Current Interpretive Data was last revised on 2017. Testing performed by: [facility], [address] [place] [phone] Basophil pct 0.4 % MARGARETTE [facility] Comment: Interpretive Data Percent cell count reference ranges are not reported, since discordance with absolute values may lead to misinterpretation of CBC data. Current Interpretive Data was last revised on 2017. Testing performed by: [facility], [address] [place] [phone] Blood 10/26/2024 9:23 AM CDT 10/26/2024 9:27 AM CDT aBltazar Mantilla MD LAB BLOOD ORDERABLES Final Resul t Performing Organization Address City/[facility] de Phone Number [facility] [place] [address] * Thyroid Function [place] (10/26/2024 9:23 AM CDT) TSH 2.42 0.30 - 4.20 mcIUnit/mL Blood 10/26/2024 9:23 AM CDT 10/26/2024 9:27 AM CDT Baltazar Mantilla MD LAB BLOOD ORDERABLES Final Resul t Performing Organization Address City/[facility]/ZIP Co de Phone Number [facility] [place] [address] * (ABNORMAL) CBC with auto differential (10/26/2024 9:23 AM CDT) WBC 4.57 3.80 - 9.90 K/cumm Comment:Testing performed by : [facility], [address] [place] [address] Hgb 11.4(L) 11.9 - 15.5 g/dL CERNER BJ Comment:Testing performed by : [facility], [address] [place], [place] [phone] Hct 34.0(L) 35.6 - 45.5 % CERNER BJ Comment:Testing performed by : [facility], [address] [place], [place] [phone] Plt 206 150 - 400 K/cumm CERNER BJ Comment:Testing performed by : [facility], [address] [place], [place] [phone] MPV 8.1 6.8 - 10.4 fL CERNER BJ Comment:Testing performed by : [facility], [address] [place], [place] [phone] RBC 3.66(L) 3.90 - 5.20 M/cumm CERNER BJ Comment:Testing performed by : [facility], [address] [place] [address] MCV 93.0 81.3 - 96.4 fL CERNER BJ Comment:Testing performed by : [facility], [address] [place], [place] [phone] MCH 31.1 27.1 - 33.3 pg CERNER BJ Comment:Testing performed by : [facility], [address] [place] [address] MCHC 33.4 32.3 - 35.7 g/dL CERNER BJ Comment:Testing performed by : [facility], [address] [place] [address] RDW CV 19.1(H) 11.1 - 14.9 % CERNER BJ Comment:Testing performed by : [facility], [address] [place] [address] NRBC abs 0.00 0.00 - 0.01 K/cumm CERNER BJ Comment:Testing performed by : [facility], [address] [place] [phone] Blood 10/26/2024 9:23 AM CDT 10/26/2024 9:27 AM CDT us Baltazar Mantilla MD LAB BLOOD ORDERABLES Final Resul t [facility] [place] [address] * Comprehensive metabolic panel (10/26/2024 9:23 AM CDT) Sodium 141 135 - 145 mmol/L Potassium, pl 4.2 3.3 - 4.9 mmol/L CERNER [facility] Chloride 106 97 - 110 mmol/L CERNER [facility] CO2 25 22 - 32 mmol/L [facility] Anion gap 10 2 - 15 mmol/L [facility] BUN 16 6 - 25 mg/dL [facility] Creatinine 0.69 0.60 - 1.10 mg/dL [facility] Glucose 99 70 - 199 mg/dL [facility] Comment: Interpretive Data Fasting glucose [...] Calcium 9.4 8.5 - 10.3 mg/dL CERNER [facility] Bilirubin, total 0.4 0.1 - 1.2 mg/dL [facility] Protein, pl 7.4 6.5 - 8.5 g/dL CERNER [facility] Albumin 4.2 3.5 - 5.0 g/dL [facility] Alk phos 75 40 - 130 Units/L CERNER B[facility] ALT 19 7 - 45 Units/L CERNER [facility] AST 23 10 - 45 Units/L [facility] Blood 10/26/2024 9:23 AM CDT 10/26/2024 9:27 AM CDT Baltazar Mantilla MD LAB BLOOD ORDERABLES Final Resul t Performing Organization Address City/[facility] Co de Phone Number MARGARETTE Dots[facility] [place] [address] * eGFR (10/19/2024 8:42 AM CDT) eGFR [...] ORDERABLES Final Resul t Performing Organization Address City/[facility]/ZIP Co de Phone Number MARGARETTE SOSA [facility] [place] [address] * Differential, auto (10/19/2024 8:42 AM CDT) Neutrophil abs 1.76 1.50 - 6.50 K/cumm Comment:Testing performed by : [facility], [address] [place] [phone] Lymphocyte abs 1.21 0.80 - 3.30 K/cumm C[facility]ER [facility] Comment:Testing performed by : [facility], [address] [place] [phone] Monocyte abs 0.50 0.20 - 0.80 K/cumm [facility] Comment:Testing performed by : [facility], [address] [place] [phone] Eosinophil abs 0.02 0.00 - 0.50 K/cumm [facility] Comment:Testing performed by : [facility], [address] [place] [phone] Basophil abs 0.02 0.00 - 0.10 K/cumm [facility] Comment:Testing performed by : [facility], [address] [place] [address] Neutrophil pct 50.2 % [facility] Comment: Interpretive Data Percent cell count reference ranges are not reported, since discordance with absolute values may lead to misinterpretation of CBC data. Current Interpretive Data was last revised on 2017. Testing performed by: [facility], [address] [place] [phone] Lymphocyte pct 34.5 % [facility] Comment: Interpretive Data Percent cell count reference ranges are not reported, since discordance with absolute values may lead to misinterpretation of CBC data. Current Interpretive Data was last revised on 2017. Testing performed by: [facility], [address] [place] [phone] Monocyte pct 14.2 % [facility] Comment: Interpretive Data Percent cell count reference ranges are not reported, since discordance with absolute values may lead to misinterpretation of CBC data. Current Interpretive Data was last revised on 2017. Testing performed by: [facility], [address] [place] [phone] Eosinophil pct 0.5 % [facility] Comment: Interpretive Data Percent cell count reference ranges are not reported, since discordance with absolute values may lead to misinterpretation of CBC data. Current Interpretive Data was last revised on 2017. Testing performed by: [facility], [address] [place] [phone] Basophil pct 0.6 % MARGARETTE [facility] Comment: Interpretive Data Percent cell count reference ranges are not reported, since discordance with absolute values may lead to misinterpretation of CBC data. Current Interpretive Data was last revised on 2017. Testing performed by: [facility], [address] [place] [phone] Blood 10/19/2024 8:42 AM CDT 10/19/2024 8:43 AM CDT Baltazar Mantilla MD LAB BLOOD ORDERABLES Final Resul t Performing Organization Address City/[facility]/ZIP Co de Phone Number [facility] [place] [address] * Thyroid Function [place] (10/19/2024 8:42 AM CDT) Pathologist [facility] TSH 2.44 0.30 - 4.20 mcIUnit/mL Blood 10/19/2024 8:42 AM CDT 10/19/2024 8:54 AM CDT Baltazar Mantilla MD LAB BLOOD ORDERABLES Final Resul t Performing Organization Address [facility] Co de Phone Number [facility] [place] [address] * (ABNORMAL) CBC with auto differential (10/19/2024 8:42 AM CDT) WBC 3.51(L) 3.80 - 9.90 K/cumm Comment:Testing performed by : [facility], [address] [place] [phone] Hgb 10.8(L) 11.9 - 15.5 g/dL MARGARETTE [facility] Comment:Testing performed by : [facility], [address] [place] [phone] Hct 32.3(L) 35.6 - 45.5 % MARGARETTE [facility] Comment:Testing performed by : [facility], [address] [place] [address] Plt 143(L) 150 - 400 K/cumm CERGORGE BJ Comment:Testing performed by : [facility], [address] [place] [address] MPV 7.9 6.8 - 10.4 fL CERGORGE BJ Comment:Testing performed by : [facility], [address] [place], [place] [phone] RBC 3.42(L) 3.90 - 5.20 M/cumm CERGORGE BJ Comment:Testing performed by : [facility], [address] [place], [place] [phone] MCV 94.6 81.3 - 96.4 fL CERGORGE BJ Comment:Testing performed by : [facility], [address] [place], [place] [phone] MCH 31.6 27.1 - 33.3 pg CERGORGE BJ Comment:Testing performed by : [facility], [address] [place] [address] MCHC 33.4 32.3 - 35.7 g/dL CERGORGE [facility] Comment:Testing performed by : [facility], [address] [place] [address] RDW CV 19.4(H) 11.1 - 14.9 % CERGORGE BJ Comment:Testing performed by : [facility], [address] [place] [address] NRBC abs 0.00 0.00 - 0.01 K/cumm CERGORGE BJ Comment:Testing performed by : [facility], [address] [place] [address] Blood 10/19/2024 8:42 AM CDT 10/19/2024 8:43 AM CDT us Baltazarsusan Mantilla MD LAB BLOOD ORDERABLES Final Resul t MARGARETTE SOSA [facility] [place] [address] * Comprehensive metabolic panel (10/19/2024 8:42 AM CDT) Sodium 141 135 - 145 mmol/L Potassium, pl 4.3 3.3 - 4.9 mmol/L [facility] Chloride 106 97 - 110 mmol/L [facility] CO2 25 22 - 32 mmol/L [facility] Anion gap 10 2 - 15 mmol/L [facility] BUN 15 6 - 25 mg/dL [facility] Creatinine 0.71 0.60 - 1.10 mg/dL [facility] Glucose 112 70 - 199 mg/dL [facility] Comment: Interpretive Data Fasting glucose [...] 2022. Calcium 9.3 8.5 - 10.3 mg/dL [facility] Bilirubin, total 0.5 0.1 - 1.2 mg/dL [facility] Protein, pl 7.3 6.5 - 8.5 g/dL [facility] Albumin 4.2 3.5 - 5.0 g/dL [facility] Alk phos 71 40 - 130 Units/L [facility] ALT 29 7 - 45 Units/L [facility] AST 29 10 - 45 Units/L [facility] Blood 10/19/2024 8:42 AM CDT 10/19/2024 8:54 AM CDT us Baltazar Annalee CESAR LAB BLOOD ORDERABLES Final Resul t [facility] [place] [address] * US Breast Right Limited (10/10/2024 9:10 [...] Electronically signed by: Jolanta Ferreira M.D. us Baltazar Mantilla MD IMG MAMMO PROCEDURES Final [...] data was last reviewed 2021. Blood 10/05/2024 6:4 6 AM CDT 10/05/2024 6:52 AM CDT us Baltazar Mantilla MD LAB BLOOD ORDERABLES Final Resul t MARGARETTE SOSA [facility] Department [place] [address] * (ABNORMAL) Differential, auto (10/05/2024 6:46 AM CDT) Neutrophil abs 1.70 1.50 - 6.50 K/cumm Comment:Testing performed by : [facility], [address] [place] [phone] Lymphocyte abs 0.75(L) 0.80 - 3.30 K/cumm [facility] Comment:Testing performed by : [facility], [address] [place] [phone] Monocyte abs 0.24 0.20 - 0.80 K/cumm [facility] Comment:Testing performed by : [facility], [address] [place], [place] [phone] Eosinophil abs 0.02 0.00 - 0.50 K/cumm [facility] Comment:Testing performed by : [facility], [address] [place] [address] Basophil abs 0.04 0.00 - 0.10 K/cumm [facility] Comment:Testing performed by : [facility], [address] [place], [place] [phone] Neutrophil pct 61.9 % [facility] Comment: Interpretive Data Percent cell count reference ranges are not reported, since discordance with absolute values may lead to misinterpretation of CBC data. Current Interpretive Data was last revised on 2017. Testing performed by: [facility], [address] [place], [place] [phone] Lymphocyte pct 27.4 % [facility] Comment: Interpretive Data Percent cell count reference ranges are not reported, since discordance with absolute values may lead to misinterpretation of CBC data. Current Interpretive Data was last revised on 2017. Testing performed by: [facility], [address] [place] [phone] Monocyte pct 8.8 % [facility] Comment: Interpretive Data Percent cell count reference ranges are not reported, since discordance with absolute values may lead to misinterpretation of CBC data. Current Interpretive Data was last revised on 2017. Testing performed by: [facility], [address] [place] [phone] Eosinophil pct 0.6 % [facility] Comment: Interpretive Data Percent cell count reference ranges are not reported, since discordance with absolute values may lead to misinterpretation of CBC data. Current Interpretive Data was last revised on 2017. Testing performed by: [facility], [address] [place] [address] Basophil pct 1.4 % CERGORGE [facility] Comment: Interpretive Data Percent cell count reference ranges are not reported, since discordance with absolute values may lead to misinterpretation of CBC data. Current Interpretive Data was last revised on 2017. Testing performed by: [facility], [address] [place] [address] Blood 10/05/2024 6:46 AM CDT 10/05/2024 6:49 AM CDT us Baltazar Mantilla MD LAB BLOOD ORDERABLES Final Resul t [facility] [place] [address] * (ABNORMAL) CBC with auto differential (10/05/2024 6:46 AM CDT) WBC 2.75(L) 3.80 - 9.90 K/cumm Comment:Testing performed by : [facility], [address] [place] [address] Hgb 10.3(L) 11.9 - 15.5 g/dL MARGARETTE [facility] Comment:Testing performed by : [facility], [address] [place] [address] Hct 30.0(L) 35.6 - 45.5 % MARGARETTE [facility] Comment:Testing performed by : [facility], [address] [place] [address] Plt 140(L) 150 - 400 K/cumm MARGARETTE [facility] Comment:Testing performed by : [facility], [address] [place] [address] MPV 8.3 6.8 - 10.4 fL MARGARETTE [facility] Comment:Testing performed by : [facility], [address] [place] [address] RBC 3.23(L) 3.90 - 5.20 M/cumm MARGARETTE [facility] Comment:Testing performed by : [facility], [address] [place] [address] MCV 92.8 81.3 - 96.4 fL MARGARETTE SOSA Comment:Testing performed by : [facility], [address] [place] [address] MCH 31.9 27.1 - 33.3 pg MARGARETTE [facility] Comment:Testing performed by : [facility], [address] [place] [address] MCHC 34.3 32.3 - 35.7 g/dL MARGARETTE SOSA Comment:Testing performed by : [facility], [address] [place] [address] RDW CV 19.1(H) 11.1 - 14.9 % [facility] Comment:Testing performed by : [facility], [address] [place] [address] NRBC abs 0.00 0.00 - 0.01 K/cumm MARGARETTE [facility] Comment:Testing performed by : [facility], [address] [place] [address] Blood 10/05/2024 6:46 AM CDT 10/05/2024 6:49 AM CDT us Baltazar Mantilla MD LAB BLOOD ORDERABLES Final Resul t [facility] [place] [address] * Comprehensive metabolic panel (10/05/2024 6:46 AM CDT) Sodium 141 135 - 145 mmol/L Potassium, pl 3.8 3.3 - 4.9 mmol/L [facility] Chloride 106 97 - 110 mmol/L [facility] CO2 25 22 - 32 mmol/L [facility] Anion gap 10 2 - 15 mmol/L [facility] BUN 15 6 - 25 mg/dL [facility] Creatinine 0.68 0.60 - 1.10 mg/dL [facility] Glucose 120 70 - 199 mg/dL [facility] Comment: Interpretive Data Fasting glucose [...] 2022. Calcium 9.1 8.5 - 10.3 mg/dL [facility] Bilirubin, total 0.4 0.1 - 1.2 mg/dL [facility] Protein, pl 7.1 6.5 - 8.5 g/dL [facility] Albumin 4.0 3.5 - 5.0 g/dL [facility] Alk phos 66 40 - 130 Units/L [facility] ALT 23 7 - 45 Units/L [facility] AST 26 10 - 45 Units/L [facility] Blood 10/05/2024 6:46 AM CDT 10/05/2024 6:52 AM CDT us Baltazar Mantilla MD LAB BLOOD ORDERABLES Final Resul t [facility] [place] [address] * eGFR (09/28/2024 6:42 AM CDT) eGFR [...] ORDERABLES Final Resul t MARGARETTE SOSA [facility] Department [place] [address] * Differential, auto (09/28/2024 6:42 AM CDT) Neutrophil abs 2.09 1.50 - 6.50 K/cumm Comment:Testing performed by : [facility], [address] [place] [address] Lymphocyte abs 1.04 0.80 - 3.30 K/cumm MARGARETTE [facility] Comment:Testing performed by : [facility], [address] [place], [place] [phone] Monocyte abs 0.32 0.20 - 0.80 K/cumm MARGARETTE SOSA Comment:Testing performed by : [facility], [address] [place] [address] Eosinophil abs 0.01 0.00 - 0.50 K/cumm MARGARETTE SOSA Comment:Testing performed by : [facility], [address] [place] [address] Basophil abs 0.04 0.00 - 0.10 K/cumm MARGARETTE SOSA Comment:Testing performed by : [facility], [address] [place], [place] [phone] Neutrophil pct 59.7 % MARGARETTE SOSA Comment: Interpretive Data Percent cell count reference ranges are not reported, since discordance with absolute values may lead to misinterpretation of CBC data. Current Interpretive Data was last revised on 2017. Testing performed by: [facility], [address] [place] [phone] Lymphocyte pct 29.7 % CERGORGE SOSA Comment: Interpretive Data Percent cell count reference ranges are not reported, since discordance with absolute values may lead to misinterpretation of CBC data. Current Interpretive Data was last revised on 2017. Testing performed by: [facility], [address] [place] [phone] Monocyte pct 9.1 % [facility] Comment: Interpretive Data Percent cell count reference ranges are not reported, since discordance with absolute values may lead to misinterpretation of CBC data. Current Interpretive Data was last revised on 2017. Testing performed by: [facility], [address] [place] [address] Eosinophil pct 0.3 % MARGARETTE SOSA Comment: Interpretive Data Percent cell count reference ranges are not reported, since discordance with absolute values may lead to misinterpretation of CBC data. Current Interpretive Data was last revised on 2017. Testing performed by: [facility], [address] [place] [phone] Basophil pct 1.2 % [facility] Comment: Interpretive Data Percent cell count reference ranges are not reported, since discordance with absolute values may lead to misinterpretation of CBC data. Current Interpretive Data was last revised on 2017. Testing performed by: [facility], [address] [place] [phone] Blood 09/28/2024 6:42 AM CDT 09/28/2024 6:44 AM CDT us Baltazar Mantilla MD LAB BLOOD ORDERABLES Final Resul t [facility] [place] [address] * (ABNORMAL) CBC with auto differential (09/28/2024 6:42 AM CDT) WBC 3.50(L) 3.80 - 9.90 K/cumm Comment:Testing performed by : [facility], [address] [place], [place] [phone] Hgb 10.9(L) 11.9 - 15.5 g/dL CERNER BJ Comment:Testing performed by : [facility], [address] [place], [place] [phone] Hct 31.6(L) 35.6 - 45.5 % CERNER BJ Comment:Testing performed by : [facility], [address] [place], [place] [phone] Plt 190 150 - 400 K/cumm CERNER BJ Comment:Testing performed by : [facility], [address] [place], [place] [phone] MPV 8.5 6.8 - 10.4 fL CERNER BJ Comment:Testing performed by : [facility], [address] [place] [address] RBC 3.41(L) 3.90 - 5.20 M/cumm CERNER BJ Comment:Testing performed by : [facility], [address] [place] [address] MCV 92.6 81.3 - 96.4 fL CERNER BJ Comment:Testing performed by : [facility], [address] [place] [address] MCH 31.9 27.1 - 33.3 pg CERNER BJ Comment:Testing performed by : [facility], [address] [place] [address] MCHC 34.5 32.3 - 35.7 g/dL CERNER BJ Comment:Testing performed by : [facility], [address] [place] [address] RDW CV 18.6(H) 11.1 - 14.9 % CERNER BJ Comment:Testing performed by : [facility], [address] [place] [phone] NRBC abs 0.00 0.00 - 0.01 K/cumm [facility] Comment:Testing performed by : [facility], [address] [place] [address] Blood 09/28/2024 6:42 AM CDT 09/28/2024 6:44 AM CDT us Baltazarsusan Mantilla MD LAB BLOOD ORDERABLES Final Resul t [facility] [place] [address] * Comprehensive metabolic panel (09/28/2024 6:42 AM CDT) Sodium 140 135 - 145 mmol/L Potassium, pl 4.0 3.3 - 4.9 mmol/L [facility] Chloride 105 97 - 110 mmol/L [facility] CO2 26 22 - 32 mmol/L [facility] Anion gap 9 2 - 15 mmol/L [facility] BUN 19 6 - 25 mg/dL [facility] Creatinine 0.69 0.60 - 1.10 mg/dL [facility] Glucose 116 70 - 199 mg/dL [facility] Comment: Interpretive Data Fasting glucose [...] Calcium 9.4 8.5 - 10.3 mg/dL [facility] Bilirubin, total 0.5 0.1 - 1.2 mg/dL [facility] Protein, pl 7.4 6.5 - 8.5 g/dL [facility] Albumin 4.1 3.5 - 5.0 g/dL [facility] Alk phos 75 40 - 130 Units/L [facility] ALT 21 7 - 45 Units/L [facility] AST 23 10 - 45 Units/L [facility] Blood 09/28/2024 6:42 AM CDT 09/28/2024 6:51 AM CDT Baltazar Mantilla MD LAB BLOOD ORDERABLES Final Resul t Performing Organization Address City/[facility] de Phone Number [facility] [place] [address] * eGFR (09/21/2024 9:24 AM CDT) eGFR [...] ORDERABLES Final Resul t Performing Organization Address City/[facility]/ZIP Co de Phone Number [facility] [place] [address] * (ABNORMAL) CBC with auto differential (09/21/2024 9:24 AM CDT) Pathologist [facility] WBC 3.8 3.8 - 9.9 K/cumm Comment:Testing performed by : [facility], [address] [place], [place] [phone] Hgb 11.0(L) 11.9 - 15.5 g/dL CERNER BJ Comment:Testing performed by : [facility], [address] [place], [place] [phone] Hct 32.5(L) 35.6 - 45.5 % CERNER BJ Comment:Testing performed by : [facility], [address] [place], [place] [phone] Plt 239 150 - 400 K/cumm CERNER BJ Comment:Testing performed by : [facility], [address] [place], [place] [phone] MPV 8.7 6.8 - 10.4 fL CERNER BJ Comment:Testing performed by : [facility], [address] [place], [place] [phone] RBC 3.50(L) 3.90 - 5.20 M/cumm CERNER BJ Comment:Testing performed by : [facility], [address] [place], [place] [phone] MCV 92.6 81.3 - 96.4 fL CERNER BJ Comment:Testing performed by : [facility], [address] [place], [place] [phone] MCH 31.5 27.1 - 33.3 pg CERNER BJ Comment:Testing performed by : [facility], [address] [place] [address] MCHC 34.0 32.3 - 35.7 g/dL CERNER BJ Comment:Testing performed by : [facility], [address] [place], [place] [phone] RDW CV 18.2(H) 11.1 - 14.9 % CERNER BJ Comment:Testing performed by : [facility], [address] [place] [address] NRBC abs 0.00 0.00 - 0.01 K/cumm CERNER BJ Comment:Testing performed by : [facility], [address] [place] [phone] Blood 09/21/2024 9:24 AM CDT 09/21/2024 9:25 AM CDT us Baltazar Mantilla MD LAB BLOOD ORDERABLES Edited Resu lt - Final MARGARETTE SOSA [facility] [place] [address] * (ABNORMAL) Manual Differential (09/21/2024 9:24 AM CDT) Cells Counted 200 Comment:Testing performed by : [facility], [address] [place], [place] [phone] Neutrophil abs 2.5 1.5 - 6.5 K/cumm MARGARETTE SOSA Comment:Testing performed by : [facility], [address] [place], [place] [phone] Lymphocyte abs 1.1 0.8 - 3.3 K/cumm MARGARETTE SOSA Comment:Testing performed by : [facility], [address] [place], [place] [phone] Monocyte abs 0.2 0.2 - 0.8 K/cumm MARGARETTE SOSA Comment:Testing performed by : [facility], [address] [place], [place] [phone] Eosinophil abs 0.0 0.0 - 0.5 K/cumm MARGARETTE SOSA Comment:Testing performed by : [facility], [address] [place] [phone] Basophil abs 0.0 0.0 - 0.1 K/cumm MARGARETTE SOSA Comment:Testing performed by : [facility], [address] [place], [place] [phone] Neutrophil pct 65.0 % MARGARETTE SOSA Comment: Interpretive Data Percent cell count reference ranges are not reported, since discordance with absolute values may lead to misinterpretation of CBC data. Current Interpretive Data was last revised on 2017. Testing performed by: [facility], [address] [place] [phone] Lymphocyte pct 29.0 % [facility] Comment: Interpretive Data Percent cell count reference ranges are not reported, since discordance with absolute values may lead to misinterpretation of CBC data. Current Interpretive Data was last revised on 2017. Testing performed by: [facility], [address] [place] [phone] Monocyte pct 6.0 % [facility] Comment: Interpretive Data Percent cell count reference ranges are not reported, since discordance with absolute values may lead to misinterpretation of CBC data. Current Interpretive Data was last revised on 2017. Testing performed by: [facility], [address] [place] [phone] Eosinophil pct 0.0 % [facility] Comment: Interpretive Data Percent cell count reference ranges are not reported, since discordance with absolute values may lead to misinterpretation of CBC data. Current Interpretive Data was last revised on 2017. Testing performed by: [facility], [address] [place] [phone] Basophil pct 1.0 % CERNER [facility] Comment: Interpretive Data Percent cell count reference ranges are not reported, since discordance with absolute values may lead to misinterpretation of CBC data. Current Interpretive Data was last revised on 2017. Testing performed by: [facility], [address] [place] [phone] Myelocyte pct 1.0(H) 0.0 - 0.0 % [facility] Comment:Testing performed by : [facility], [address] [place] [phone] RBC morphology NRBCs present(A) [facility] Comment:Testing performed by : [facility], [address] [place] [phone] Anisocytosis 1+(A) [facility] Comment:Testing performed by : [facility], [address] [place] [phone] Platelet estimate Adequate [facility] Comment:Testing performed by : [facility], [address] [place] [phone] Blood 09/21/2024 9:24 AM CDT 09/21/2024 9:25 AM CDT Baltazar Mantilla MD LAB BLOOD ORDERABLES Final Resul t [facility] [place] [address] * Comprehensive metabolic panel (09/21/2024 9:24 AM CDT) Sodium 144 135 - 145 mmol/L Potassium, pl 4.6 3.3 - 4.9 mmol/L [facility] Chloride 108 97 - 110 mmol/L [facility] CO2 26 22 - 32 mmol/L [facility] Anion gap 10 2 - 15 mmol/L [facility] BUN 16 6 - 25 mg/dL [facility] Creatinine 0.71 0.60 - 1.10 mg/dL [facility] Glucose 106 70 - 199 mg/dL [facility] Comment: Interpretive Data Fasting glucose [...] 2022. Calcium 10.1 8.5 - 10.3 mg/dL [facility] Bilirubin, total 0.3 0.1 - 1.2 mg/dL [facility] Protein, pl 7.7 6.5 - 8.5 g/dL [facility] Albumin 4.3 3.5 - 5.0 g/dL [facility] Alk phos 76 40 - 130 Units/L CERNER [facility] ALT 23 7 - 45 Units/L CERNER [facility] AST 23 10 - 45 Units/L [facility] Blood 09/21/2024 9:24 AM CDT 09/21/2024 9:27 AM CDT Baltazar Mantilla MD LAB BLOOD ORDERABLES Final Resul t Performing Organization Address City/[facility] Co de Phone Number MARGARETTE [facility] [place] [address] * eGFR (09/14/2024 7:52 AM CDT) eGFR [...] ORDERABLES Final Resul t Performing Organization Address City/[facility]/ZIP Co de Phone Number MARGARETTE [facility] [place] [address] * (ABNORMAL) Differential, auto (09/14/2024 7:52 AM CDT) Neutrophil abs 1.4(L) 1.5 - 6.5 K/cumm Imm gran abs 0.0 0.0 - 0.1 K/cumm [facility] Lymphocyte abs 1.2 0.8 - 3.3 K/cumm [facility] Monocyte abs 0.3 0.2 - 0.8 K/cumm [facility] Eosinophil abs 0.0 0.0 - 0.5 K/cumm [facility] Basophil abs 0.0 0.0 - 0.1 K/cumm [facility] Neutrophil pct 47.0 % [facility] Comment: Interpretive Data Percent cell count reference ranges are not reported, since discordance with absolute values may lead to misinterpretation of CBC data. Current Interpretive Data was last revised on 2017. Imm gran pct 1.0 % [facility] Comment: Interpretive Data Percent cell count reference ranges are not reported, since discordance with absolute values may lead to misinterpretation of CBC data. Current Interpretive Data was last revised on 2017. Lymphocyte pct 39.4 % [facility] Comment: Interpretive Data Percent cell count reference ranges are not reported, since discordance with absolute values may lead to misinterpretation of CBC data. Current Interpretive Data was last revised on 2017. Monocyte pct 11.3 % [facility] Comment: Interpretive Data Percent cell count reference ranges are not reported, since discordance with absolute values may lead to misinterpretation of CBC data. Current Interpretive Data was last revised on 2017. Eosinophil pct 0.3 % [facility] Comment: Interpretive Data Percent cell count reference ranges are not reported, since discordance with absolute values may lead to misinterpretation of CBC data. Current Interpretive Data was last revised on 2017. Basophil pct 1.0 % [facility] Comment: Interpretive Data Percent cell count reference ranges are not reported, since discordance with absolute values may lead to misinterpretation of CBC data. Current Interpretive Data was last revised on 2017. Blood 09/14/2024 7:52 AM CDT 09/14/2024 8:09 AM CDT us Baltazar Mantilla MD LAB BLOOD ORDERABLES Final Resul t [facility] [place] [address] * (ABNORMAL) CBC with auto differential (09/14/2024 7:52 AM CDT) [facility] WBC 2.9(L) 3.8 - 9.9 K/cumm Hgb 10.5(L) 11.9 - 15.5 g/dL [facility] Hct 31.6(L) 35.6 - 45.5 % [facility] Plt 235 150 - 400 K/cumm [facility] MPV 10.5 9.1 - 12.3 fL [facility] RBC 3.38(L) 3.90 - 5.20 M/cumm [facility] MCV 93.5 81.3 - 96.4 fL [facility] MCH 31.1 27.1 - 33.3 pg [facility] MCHC 33.2 32.3 - 35.7 g/dL [facility] RDW CV 16.2(H) 11.1 - 14.9 % [facility] RDW SD 53.5(H) 35.7 - 48.1 fL [facility] NRBC abs 0.00 0.00 - 0.01 K/cumm [facility] Blood 09/14/2024 7:52 AM CDT 09/14/2024 8:09 AM CDT us Baltazar Mantilla MD LAB BLOOD ORDERABLES Final Resul t [facility] [place] [address] * Comprehensive metabolic panel (09/14/2024 7:52 AM CDT) [facility] Sodium 142 135 - 145 mmol/L Potassium, pl 4.1 3.3 - 4.9 mmol/L [facility] Chloride 106 97 - 110 mmol/L [facility] CO2 26 22 - 32 mmol/L [facility] Anion gap 10 2 - 15 mmol/L [facility] BUN 15 6 - 25 mg/dL [facility] Creatinine 0.79 0.60 - 1.10 mg/dL [facility] Glucose 95 70 - 199 mg/dL [facility] Comment: Interpretive Data Fasting glucose [...] 2022. Calcium 9.4 8.5 - 10.3 mg/dL [facility] Bilirubin, total 0.4 0.1 - 1.2 mg/dL [facility] Protein, pl 7.3 6.5 - 8.5 g/dL [facility] Albumin 4.2 3.5 - 5.0 g/dL [facility] Alk phos 83 40 - 130 Units/L [facility] ALT 27 7 - 45 Units/L [facility] AST 23 10 - 45 Units/L [facility] Blood 09/14/2024 7:52 AM CDT 09/14/2024 8:09 AM CDT Baltazar Mantilla MD LAB BLOOD ORDERABLES Final Resul t [facility] [place] [address] from Last 3 Months Insurance MEDICARE [facility] MEDICARE SUPPLEMENT MEDICARE [facility] MEDICARE SUPPLEMENT Care Teams French Instructor Relationship Specialty Start Date End Date Unknown, Notinfile PCP - General 01/21/24
--- OUTSIDE RECORDS SUMMARY | 2024-12-11 17:14 | XMS_ITS ---
Author Organization [facility] Address [address] [place] [address] Phone Care Team Providers Care Skin Specialist Name Role Phone Unknown, Notinfile Primary Care Provider Unavail able Active Problems Problem Noted Date Diagnosed Date Nausea and vomiting 10/16/2024 Malignant neoplasm of right female breast 2024 Malignant neoplasm of upper- outer quadrant of right breast in female, estrogen receptor negative 07/06/2024 Cancer Staging:Clinical:Stage IIB(cT2, cN1, cM0, G3, ER+, AR+, HER2-) - Unsigned Prevention of chemotherapy-induced neutropenia [...] 1 , Cycle 8 - Planned for 01/04/2025) Next Day (Day 1, Cycle 9 - Adjuvant Pembrolizumab Monotherapy - Planned for 01/25/2025) CARBOplatin (PARAPLATIN) IVP B in 100 mLCARBOplatin [...]
[2024-12-11] MEDS: HYDROcodone/acetaminophen (*CRX) 5-325 MG TABLET 1 TAB PO (18:17)
[2024-12-11 20:00] VITALS: BMI 25.0
[2024-12-11] MEDS: FAMOTIDINE 20 MG TABLET PO (21:31)
[2024-12-12] VITALS: BP 98/46; PULSE 74; RESP 18; O2SAT 97
[2024-12-12] MEDS: HYDROcodone/acetaminophen (*CRX) 5-325 MG TABLET 1 TAB PO ×2 (07:32→20:32)
[2024-12-12 08:00] VITALS: BP 100/48; PULSE 82; RESP 16; RESP 18; TEMP 36.6; O2SAT 95
[2024-12-12] MEDS: OPTI-GEN TAB 1 TABLET PO ×2 (08:30→16:42)
[2024-12-12] MEDS: CHOLECALCIFEROL (VITAMIN D3) 25 MCG (1,000 UNITS) TABLET PO (08:30)
[2024-12-12] MEDS: FAMOTIDINE 20 MG TABLET PO ×2 (08:31→20:32)
[2024-12-12] MEDS: CYANOCOBALAMIN 1,000 MCG TABLET 1000 MCG PO (08:31)
[2024-12-12] MEDS: DULoxetine HCL 30 MG CAPSULE.DR 60 MG PO (08:31)
[2024-12-12] MEDS: ATORVASTATIN 10 MG TABLET PO (08:31)
--- NOTE | 2024-12-12 08:55 | P.HP_ITS ---
H&P: HPI History of Present Illness Date/Time: 12/12/24 08:55 Chief Complaint: Debility Narrative: 74yo female with HLD, GERD, and triple negative right breast cancer who presented to the ED on 12/09 for right knee pain after a fall and found to have a nondisplaced fracture of the medial tibial plateau. She completed chemotherapy about 3 weeks and her immunotherapy infusion about 2 days prior to her initial a dmission. She was seen by orthopedics who recommended non-operative treatment. She worked with PT/OT with improvement. She is WBAT and has a knee immobilizer. During admission patient was anemic, secondary to metastatic disease. Her Hgb remained stable throughout admission and no signed of active bleeding. Patient did have a ground level fall on day of discharge. She was attempting to pivot to the commode when she lost her balance and was slowly lowered to the ground by nursing. No head strike or loss of consciousness. She has no reported injuries and denies a new pain. She denies dizziness/lightheadedness prior to the fall. Exam was unchanged from prior assessment. She was transferred to [facility] swing bed for further therapy. Patient with right knee pain worse with standing. She has chronic peripheral neuropathy in her hands and feet from her chemotherapy. She feels that her right foot is turning in but no pain with range of motion to the right foot. No limited range of motion of the right foot. She feels fatigue which is chronic from her treatments. No chest pain or shortness of breath. She does have poor appetite and has lost about 20 lb since June. She has taste disturbance. Her tongue is numb and she feels that her gums are inflamed. He complains of sore throat but no odynophagia or dysphagia. She has occasional nausea and dry heaves if she eats too much that she feels related to her hiatal hernia. She does have constipation the last bowel movement being 4 days ago. She is passing flatus. No diarrhea. No dysuria or hematuria. Review of Systems Review of Systems: All systems reviewed & are unremarkable except as noted in HPI and below PMFSH Past Medical History Medical History (Updated 12/12/24 @ 09:48 by Vlad Iverson MD) Peripheral neuropathy Port-A-Cath in place Melanoma s/p resection Gastroesophageal reflux disease Arthritis Gastroesophageal reflux disease Vitamin D deficiency, unspecified Osteoporosis patient refused treatment Mixed hyperlipidemia Triple negative malignant neoplasm of breast Surgical History Surgical History (Updated 12/12/24 @ 09:35 by Vlad Iverson MD) H/O dilation and curettage Family History Family History Father Cancer of kidney Mother Asthma Depression Social History Social History (Updated 12/12/24 @ 09:36 by Vlad Iverson MD) Social History: No alcohol, tobacco or drug use. She lives at home with her grandson. She has a dog. She is . Surrogate medical decision maker: Eh Norwood, son. Code status: Do not resuscitate. Smoking status: Never smoker Alcohol intake: never Substance use: never Other substance usage details: last drink june 2024 Do You Feel Safe in your Home?: Yes Lack of Transportation: No Lack of Food: Never True Current Housing: I Have Housing Concerned About Future Housing: No Difficulty Paying Gas/Electric Bills: No Difficulty Paying for Meds: No Currently Unemployed: No Education: Associate Degree Difficulty w/ Childcare or Family Care: No Additional living arrangements comments: . Grandson lives with her. She has a dog. Spiritual care concerns: No Meds Home Medications and Allergies Home Medications ?Medication ?Instructions ?Recorded ?Confirmed ?Type cholecalciferol (vitamin D3) 25 25 mcg PO DAILY 09/01/21 12/11/24 History mcg (1,000 unit) chewable tablet cyanocobalamin (vitamin B-12) 1,000 mcg PO EVERY OTHER DAY 03/05/22 12/11/24 History 1,000 mcg capsule famotidine 20 mg tablet (Pepcid) 20 mg PO Q12H 09/19/24 12/11/24 History atorvastatin 10 mg tablet See Rx Instructions .Route 11/09/24 12/11/24 Rx .COMPLEX #90 tabs acyclovir 400 mg tablet 400 mg PO DAILY PRN 12/09/24 12/11/24 History herpesvesicular dermatitis duloxetine 60 mg capsule,delayed 60 mg PO DAILY 12/09/24 12/11/24 History release lidocaine-prilocaine 2.5 %-2.5 % 1 applic topical DAILY PRN before 12/09/24 12/11/24 History topical cream accessing port loperamide 2 mg capsule 2 mg PO QID PRN loose stool 12/09/24 12/11/24 History (Anti-Diarrheal (loperamide)) ondansetron HCl 8 mg tablet 8 mg PO Q8H PRN nausea and vomiting 12/09/24 12/11/24 History prochlorperazine maleate 10 mg 10 mg PO Q6H PRN nausea and 12/09/24 12/11/24 History tablet vomiting vit C 250 mg-vit E 90 mg-zinc 40 1 tablet PO BID 12/09/24 12/11/24 History mg-copper 1 [id number] capsule (PreserVision AREDS-2) hydrocodone 5 mg-acetaminophen 325 1 tab PO Q4H PRN Pain Rated 4-6 #0 12/11/24 12/11/24 Rx mg tablet tabs Allergies Allergy/AdvReac Type Severity Reaction Status Date / Time codeine Allergy Nausea and Verified 12/08/24 17:27 Vomiting Bisphosphonates AdvReac Intermediate GI upset Verified 12/08/24 17:27 Vital Signs Vital Signs - 24 hr 12/11/24 17:04 12/11/24 20:00 12/12/24 00:00 Temperature 97.9 F Pulse Rate 83 74 Respiratory Rate 18 18 Blood Pressure 112/53 L 98/46 L Pulse Oximetry 97 97 Oxygen Delivery Room Air Room Air Room Air 12/12/24 08:00 12/12/24 08:00 Temperature 97.8 F Pulse Rate 82 82 Respiratory Rate 16 18 Blood Pressure 100/48 L Pulse Oximetry 95 95 Oxygen Delivery Room Air Room Air Exam Narrative: AF 97.8 100/48 82 18 95% ra Gen - chronically ill appearing female in no acute respiratory distress who is nontoxic-appearing lying semi recumbent in a chair HEENT - normocephalic. Atraumatic. Alopecia totalis. Pupils equal round and reactive. Extraocular motions intact. Sclera clear and anicteric. Nares patent. Oropharynx was poorly visualized. No oral lesions. Dry mucous membranes. Tongue was midline. Palate ender symmetrically. No facial asymmetry. Gum line does not look inflamed. Neck - neck was supple. No dominant adenopathy, thyromegaly or masses. Chest - lungs are clear to auscultation bilaterally. No wheezes or crackles. Breast exam was deferred. Port-a-cath left upper chest. CV - heart was regular rate and rhythm. S1-S2. No murmurs gallops or rubs. Abd - abdomen was soft. Nontender. Nondistended. Positive bowel sounds. Ext - Right leg was in knee immobilizer. 2+ DP pulses bilaterally. Nonpitting edema to the bilateral distal LE Neuro - patient is alert and appropriate. Strength is 5/5 in wheel roller, dorsiflexion and plantar flexion. Right leg hip flexor 4/5. Cranial nerves 2-12 are intact. Speech is clear. Psych - normal mood and affect. Patient is pleasant and cooperative. Skin - warm and dry. No rashes noted. Assessment and Plan Assessment and plan (1) Debility: Code(s): R53.81 - Other malaise Status: Acute (2) Closed fracture of medial portion of tibial plateau: Code(s): S82.133A - Displaced fracture of medial condyle of unspecified tibia, initial encounter for closed fracture Status: Acute (3) Breast cancer: Code(s): C50.919 - Malignant neoplasm of unspecified site of unspecified female breast Status: Acute (4) Peripheral neuropathy: Code(s): G62.9 - Polyneuropathy, unspecified Status: Acute (5) Constipation: Code(s): K59.00 - Constipation, unspecified Status: Acute (6) Weight loss: Code(s): R63.4 - Abnormal weight loss Status: Acute Plan Patient sustained a nondisplaced fracture of the right medial tibial plateau. No mention of metastatic bony lesions so felt less likely this is a pathological fracture. Her fall is probably related to her weakened state, weight loss and neuropathy. No UA collected at the prior hospitalization but no urinary symptoms to suggest occult UTI. She is fatigued but again felt related to her cancer treatment. Would check TSH to exclude thyroid disease. Start PT/OT. She was offered dietary supplements but she declines at this time. She was informed that her family could bring in what ever she likes from home. Will change her to a regular diet given the weight loss. Her regiment at home for constipation includes senna at night and Miralax prn which will resume here. Discharge medications have been resumed here. Further recommendations as course dictates. DVT Prophylaxis - SCDs Code status - DNR
[2024-12-12 16:00] VITALS: BP 112/47; PULSE 88; RESP 16; TEMP 36.6; O2SAT 97
--- NOTE | 2024-12-12 16:26 | PC.NURSE ---
Patient working with physical therapy now.
[2024-12-12] MEDS: polyethylene glycoL 3350 17 GM POWD.PACK PO (16:44)
[2024-12-12] MEDS: SENNA/DOCUSATE SODIUM TABLET 1 TAB PO (20:32)
[2024-12-13] VITALS: BP 92/41; PULSE 82; RESP 16; TEMP 36.6; O2SAT 97
[2024-12-13 08:00] VITALS: BP 110/50; PULSE 91; RESP 14; TEMP 36.6; O2SAT 96
[2024-12-13] MEDS: OPTI-GEN TAB 1 TABLET PO ×2 (09:31→17:16)
[2024-12-13] MEDS: ATORVASTATIN 10 MG TABLET PO (09:32)
[2024-12-13] MEDS: CHOLECALCIFEROL (VITAMIN D3) 25 MCG (1,000 UNITS) TABLET PO (09:32)
[2024-12-13] MEDS: FAMOTIDINE 20 MG TABLET PO ×2 (09:32→20:46)
[2024-12-13] MEDS: DULoxetine HCL 30 MG CAPSULE.DR 60 MG PO (09:32)
[2024-12-13] MEDS: polyethylene glycoL 3350 17 GM POWD.PACK PO (09:41)
[2024-12-13] MEDS: NYSTATIN 100,000 UNITS/ML SUSP 5 ML ORAL.SUSP PO ×3 (09:41→20:47)
[2024-12-13] MEDS: HYDROcodone/acetaminophen (*CRX) 5-325 MG TABLET 1 TAB PO ×2 (10:31→20:47)
[2024-12-13 16:00] VITALS: BP 120/55; PULSE 85; RESP 20; TEMP 36.6; O2SAT 97
[2024-12-13] MEDS: SENNA/DOCUSATE SODIUM TABLET 1 TAB PO (20:47)
[2024-12-14] VITALS: BP 124/49; PULSE 73; RESP 16; TEMP 36.4; O2SAT 96
[2024-12-14 08:00] VITALS: BP 93/44; PULSE 98; RESP 12; TEMP 36.5; O2SAT 96
[2024-12-14] MEDS: FAMOTIDINE 20 MG TABLET PO ×2 (09:36→20:53)
[2024-12-14] MEDS: NYSTATIN 100,000 UNITS/ML SUSP 5 ML ORAL.SUSP PO ×3 (09:36→20:52)
[2024-12-14] MEDS: CYANOCOBALAMIN 1,000 MCG TABLET 1000 MCG PO (09:36)
[2024-12-14] MEDS: CHOLECALCIFEROL (VITAMIN D3) 25 MCG (1,000 UNITS) TABLET PO (09:36)
[2024-12-14] MEDS: OPTI-GEN TAB 1 TABLET PO ×2 (09:37→18:00)
[2024-12-14] MEDS: ATORVASTATIN 10 MG TABLET PO (09:37)
[2024-12-14] MEDS: DULoxetine HCL 30 MG CAPSULE.DR 60 MG PO (09:37)
[2024-12-14 16:35] VITALS: BP 94/54; PULSE 89; RESP 16; TEMP 35.9; O2SAT 97
[2024-12-14] MEDS: SENNA/DOCUSATE SODIUM TABLET 1 TAB PO (20:53)
[2024-12-14] MEDS: ACETAMINOPHEN 325 MG TABLET 650 MG PO (20:53)
[2024-12-15] VITALS: BP 93/43; PULSE 83; RESP 16; TEMP 36.6; O2SAT 96
[2024-12-15 05:35] LABS: Basophils Absolute Auto 0.04 K/mm3 (0.00-0.10); Basophils Percent Auto 0.8 % (0.0-1.0); Eosinophils Absolute Auto 0.14 K/mm3 (0.02-0.50); Eosinophils Percent Auto 2.9 % (1.0-6.0); Hematocrit 31.9 % (35.0-42.0); Hemoglobin 9.8 g/dL (11.7-13.8); Immature Granulocyte Absolute 0.02 K/mm3 (0.00-0.00); Immature Granulocyte Percent A 0.4 % (0.0-0.0); Lymphocytes Absolute Auto 0.87 K/mm3 (1.10-4.50); Lymphocytes Percent Auto 17.8 % (18.0-42.0); Mean Corpuscular HGB Conc 30.7 g/dL (32-36); Mean Corpuscular Hemoglobin 30.3 pg (27.0-31.0); Mean Corpuscular Volume 98.8 fL (78.0-102.0); Mean Platelet Volume 10.9 fl (9.2-11.8); Monocytes Absolute Auto 0.66 K/mm3 (0.10-0.90); Monocytes Percent Auto 13.5 % (2.0-11.0); Neutrophils Absolute Auto 3.15 K/mm3 (1.70-7.20); Neutrophils Percent Auto 64.6 % (50.0-70.0); Platelet Count Result 140 K/mm3 (150-420); Red Blood Count 3.23 M/mm3 (4.20-5.40); Red Cell Distribution Width 15.2 % (11.6-14.4); White Blood Count 4.9 K/mm3 (4.8-10.8)
[2024-12-15 05:55] LABS: Alanine Aminotransferase 15 U/L (6-35); Albumin Level 3.5 g/dL (3.5-5.1); Alkaline Phosphatase 58 U/L (38-126); Anion Gap 3 mmol/L (4-12); Aspartate Amino Transferase 27 U/L (14-36); Bilirubin,Total 0.5 mg/dL (0.2-1.3); Blood Urea Nitrogen 9 mg/dL (7-17); Carbon Dioxide 31 mmol/L (22-30); Chloride 109 mmol/L (98-107); Estimated CRCL calculation 49 ml/min; Estimated Glomerular Filt Rate > 60; Glucose 90 mg/dL (65-110); Osmolality Calculated 294 mOsm/kg (285-295); Potassium 3.8 mmol/L (3.4-5.0); Sodium 143 mmol/L (137-145)
[2024-12-15 08:00] VITALS: BP 95/40; PULSE 78; RESP 12; TEMP 36.8; O2SAT 98
[2024-12-15] MEDS: NYSTATIN 100,000 UNITS/ML SUSP 5 ML ORAL.SUSP PO ×3 (09:13→20:32)
[2024-12-15] MEDS: CHOLECALCIFEROL (VITAMIN D3) 25 MCG (1,000 UNITS) TABLET PO ×2 (09:13→09:15)
[2024-12-15] MEDS: SENNA/DOCUSATE SODIUM TABLET 1 TAB PO ×2 (09:13→20:32)
[2024-12-15] MEDS: OPTI-GEN TAB 1 TABLET PO ×2 (09:13→18:00)
[2024-12-15] MEDS: DULoxetine HCL 30 MG CAPSULE.DR 60 MG PO ×2 (09:14→09:15)
[2024-12-15] MEDS: ATORVASTATIN 10 MG TABLET PO (09:14)
[2024-12-15] MEDS: FAMOTIDINE 20 MG TABLET PO ×2 (09:14→20:32)
[2024-12-15 16:30] VITALS: BP 97/48; PULSE 84; RESP 16; TEMP 35.9; O2SAT 97
[2024-12-15 20:00] VITALS: PULSE 84; RESP 16; O2SAT 97
[2024-12-15] MEDS: ACETAMINOPHEN 325 MG TABLET 650 MG PO (20:51)
[2024-12-16] VITALS: BP 107/51; PULSE 76; RESP 16; TEMP 36.1; O2SAT 98
[2024-12-16 08:00] VITALS: BP 105/53; PULSE 84; RESP 16; TEMP 35.8; O2SAT 99
[2024-12-16] MEDS: polyethylene glycoL 3350 17 GM POWD.PACK PO (08:54)
[2024-12-16] MEDS: NYSTATIN 100,000 UNITS/ML SUSP 5 ML ORAL.SUSP PO ×4 (08:54→21:15)
[2024-12-16] MEDS: SENNA/DOCUSATE SODIUM TABLET 1 TAB PO ×2 (08:55→21:15)
[2024-12-16] MEDS: DULoxetine HCL 30 MG CAPSULE.DR 60 MG PO (08:56)
[2024-12-16] MEDS: OPTI-GEN TAB 1 TABLET PO ×2 (08:57→17:26)
[2024-12-16] MEDS: FAMOTIDINE 20 MG TABLET PO ×2 (08:57→21:15)
[2024-12-16] MEDS: CYANOCOBALAMIN 1,000 MCG TABLET 1000 MCG PO (08:57)
[2024-12-16] MEDS: CHOLECALCIFEROL (VITAMIN D3) 25 MCG (1,000 UNITS) TABLET PO (08:57)
[2024-12-16] MEDS: ATORVASTATIN 10 MG TABLET PO (08:58)
--- NOTE | 2024-12-16 15:05 | PC.NURSE ---
Room Service Food Server administered all AM medications appropriately. When selling underwriter scanned the meds, the system asked selling underwriter if selling underwriter wanted to document against a future administration. Room Service Food Server initially clicked no. When selling underwriter clicked no, all scanned documentation for that drug disappeared. Room Service Food Server when into administration history and discovered that several of patient's medications were scanned twice yesterday a minute apart, in error, by the nurse in charge of that patient on 12/15. IT at [facility], IT at [place], Charge nurse and nursing dehydrogenation supervisor aware of the situation.
[2024-12-16 16:00] VITALS: BP 109/58; PULSE 83; RESP 16; TEMP 36; O2SAT 97
[2024-12-16] MEDS: ACETAMINOPHEN 325 MG TABLET 650 MG PO (21:15)
[2024-12-17] VITALS: BP 120/52; PULSE 85; RESP 18; TEMP 36.4; O2SAT 97
[2024-12-17 07:47] VITALS: BP 128/49; PULSE 89; RESP 16; TEMP 36.3; O2SAT 96
[2024-12-17] MEDS: OPTI-GEN TAB 1 TABLET PO (09:02)
[2024-12-17] MEDS: DULoxetine HCL 30 MG CAPSULE.DR 60 MG PO (09:02)
[2024-12-17] MEDS: ATORVASTATIN 10 MG TABLET PO (09:03)
[2024-12-17] MEDS: SENNA/DOCUSATE SODIUM TABLET 1 TAB PO ×2 (09:03→21:04)
[2024-12-17] MEDS: FAMOTIDINE 20 MG TABLET PO ×2 (09:03→21:04)
[2024-12-17] MEDS: NYSTATIN 100,000 UNITS/ML SUSP 5 ML ORAL.SUSP PO ×3 (09:04→21:05)
[2024-12-17] MEDS: CHOLECALCIFEROL (VITAMIN D3) 25 MCG (1,000 UNITS) TABLET PO (09:04)
--- NOTE | 2024-12-17 15:15 | PC.NURSE ---
Patient off unit for family emergency. Patient left unit in w/c accompanied by patient's son and nurse. Patient left hospital grounds in privately owned vehicle due to serious illness of patient's mother. Patient's mother currently ill and not expected to recover. Patient has been instructed to return to facility by midnight.
[2024-12-17 16:00] VITALS: BP 106/57; PULSE 89; RESP 16; TEMP 36.4; O2SAT 96
--- NOTE | 2024-12-17 19:20 | PC.NURSE ---
Patient back in the facility via wheelchair accompanied by her son from visiting mother in hospital.
[2024-12-17 20:00] VITALS: PULSE 85; RESP 16; O2SAT 97
[2024-12-17] MEDS: ACETAMINOPHEN 325 MG TABLET 650 MG PO (21:04)
[2024-12-18] VITALS: BP 112/57; PULSE 85; RESP 16; TEMP 36.6; O2SAT 97
[2024-12-18 08:00] VITALS: BP 107/54; PULSE 89; RESP 14; TEMP 36.3; O2SAT 98
[2024-12-18] MEDS: CYANOCOBALAMIN 1,000 MCG TABLET 1000 MCG PO (09:10)
[2024-12-18] MEDS: OPTI-GEN TAB 1 TABLET PO ×2 (09:11→17:36)
[2024-12-18] MEDS: SENNA/DOCUSATE SODIUM TABLET 1 TAB PO ×2 (09:12→20:36)
[2024-12-18] MEDS: DULoxetine HCL 30 MG CAPSULE.DR 60 MG PO (09:12)
[2024-12-18] MEDS: FAMOTIDINE 20 MG TABLET PO ×2 (09:12→20:36)
[2024-12-18] MEDS: ATORVASTATIN 10 MG TABLET PO (09:13)
[2024-12-18] MEDS: CHOLECALCIFEROL (VITAMIN D3) 25 MCG (1,000 UNITS) TABLET PO (09:13)
[2024-12-18 16:00] VITALS: BP 104/47; PULSE 84; RESP 18; TEMP 36.2; O2SAT 95
[2024-12-18 20:00] VITALS: PULSE 84; RESP 18; O2SAT 95
[2024-12-19] VITALS: BP 104/54; PULSE 83; RESP 16; TEMP 35.9; O2SAT 96
[2024-12-19 08:00] VITALS: BP 110/52; PULSE 80; RESP 14; TEMP 36.8; O2SAT 96
[2024-12-19 08:19] LABS: Hematocrit 34.5 % (35.0-42.0); Hemoglobin 10.9 g/dL (11.7-13.8); Mean Corpuscular HGB Conc 31.6 g/dL (32-36); Mean Corpuscular Hemoglobin 30.9 pg (27.0-31.0); Mean Corpuscular Volume 97.7 fL (78.0-102.0); Mean Platelet Volume 10.8 fl (9.2-11.8); Platelet Count Result 192 K/mm3 (150-420); Red Blood Count 3.53 M/mm3 (4.20-5.40); Red Cell Distribution Width 15.1 % (11.6-14.4); White Blood Count 7.8 K/mm3 (4.8-10.8)
[2024-12-19 08:34] LABS: Alanine Aminotransferase 19 U/L (6-35); Albumin Level 4.1 g/dL (3.5-5.1); Alkaline Phosphatase 73 U/L (38-126); Anion Gap 6 mmol/L (4-12); Aspartate Amino Transferase 29 U/L (14-36); Bilirubin,Total 0.6 mg/dL (0.2-1.3); Blood Urea Nitrogen 14 mg/dL (7-17); Calcium 9.2 mg/dL (8.4-10.2); Carbon Dioxide 25 mmol/L (22-30); Chloride 107 mmol/L (98-107); Estimated CRCL calculation 49 ml/min; Estimated Glomerular Filt Rate > 60; Glucose 95 mg/dL (65-110); Osmolality Calculated 286 mOsm/kg (285-295); Sodium 138 mmol/L (137-145); Total Protein 6.9 g/dL (6.3-8.2)
[2024-12-19] MEDS: CHOLECALCIFEROL (VITAMIN D3) 25 MCG (1,000 UNITS) TABLET PO (09:48)
[2024-12-19] MEDS: SENNA/DOCUSATE SODIUM TABLET 1 TAB PO (09:50)
[2024-12-19] MEDS: ATORVASTATIN 10 MG TABLET PO (09:51)
[2024-12-19] MEDS: FAMOTIDINE 20 MG TABLET PO (09:51)
[2024-12-19] MEDS: OPTI-GEN TAB 1 TABLET PO (09:51)
--- NOTE | 2024-12-19 10:23 | P.DS_ITS ---
DS: Admitting Diagnosis Discharge Date 12/19/2024 Admitting Diagnosis REHAB after right medial tibial plateau fracture DS: Discharge Diagnosis Discharge Diagnosis (1) Debility: Code(s): R53.81 - Other malaise Status: Acute (2) Closed fracture of medial portion of tibial plateau: Code(s): S82.133A - Displaced fracture of medial condyle of unspecified tibia, initial encounter for closed fracture Status: Acute (3) Breast cancer: Code(s): C50.919 - Malignant neoplasm of unspecified site of unspecified female breast Status: Acute (4) Peripheral neuropathy: Code(s): G62.9 - Polyneuropathy, unspecified Status: Acute (5) Constipation: Code(s): K59.00 - Constipation, unspecified Status: Acute (6) Weight loss: Code(s): R63.4 - Abnormal weight loss Status: Acute DS: Summary Hospital Course Reason for hospitalization: REHAB right fracture of the medial tibial plateau Hospital Course: Admission: Patient was a 74yo female with HLD, GERD, and triple negative right breast cancer who presented to the ED on 12/09 for right knee pain after a fall and found to have a nondisplaced fracture of the medial tibial plateau. She completed chemotherapy about 3 weeks and her immunotherapy infusion about 2 days prior to her initial admission. She was seen by orthopedics who recommended non- operative treatment. She worked with PT/OT with improvement. She is WBAT and has a knee immobilizer. During admission patient was anemic, secondary to metastatic disease. Her Hgb remained stable throughout admission and no signed of active bleeding. Patient did have a ground level fall on day of discharge. She was attempting to pivot to the commode when she lost her balance and was slowly lowered to the ground by nursing. No head strike or loss of consciousness. She has no reported injuries and denies a new pain. She denies dizziness/lightheadedness prior to the fall. Exam was unchanged from prior assessment. She was transferred to [facility] swing bed for further therapy. Hospital Course: Patient was admitted to the [facility] after sustaining a nondisplaced fracture of the right medial tibial plateau. No mention of metastatic bony lesions so felt less likely this is a pathological fracture. Patient progressed well with therapy and continued to wear her knee immobilizer as recommended she did have episodes of constipation and she was continued on her her regiment at home for constipation includes senna at night but I increased to BID due to narcotic use and Miralax prn. patient with history of anemia did a follow-up hemoglobin and stable at discharge of 10.6 Discharge medications had been resumed no further acute issues. patient was discharged home with [facility]. Status at Discharge Functional status at discharge: uses cane/walker Overall status at discharge: patient is progressing back to baseline Time Spent with Patient Time attestation: Total time spent providing and/or coordinating discharge services: Time spent: Less than 30 minutes Exam Const: General: comfortable and no acute distress HENMT: Mouth: Yes moist mucous membranes Eyes: General: appearance normal, both eyes and all related structures Neck: Neck: supple and no JVD Resp: Effort & Inspection: normal respiratory effort Auscultation: clear to auscultation bilaterally Cardio: Rate: regular rate Rhythm: regular rhythm GI: GI Palp: Yes Soft to palpation Auscultation: normal bowel sounds Skin: General skin exam: normal color and no rashes or lesions noted Wounds: no wounds Neuro: Motor exam (neuro): 5/5 motor strength present throughout Sensory Exam: normal sensation Other: Unsteady gait secondary to fracture in a knee immobilizer Extrem: General: normal to inspection Psych: Mental Status: mental status grossly normal Affect: normal affect DS: Data Data Completed and Pending Labs on day of discharge: Labs from last 24 hours 12/19/24 08:11 WBC 7.8 RBC 3.53 L Hgb 10.9 L Hct 34.5 L MCV 97.7 MCH 30.9 MCHC 31.6 L RDW 15.1 H Plt Count 192 MPV 10.8 Sodium 138 Potassium 4.0 Chloride 107 Carbon Dioxide 25 Anion Gap 6 BUN 14 D Creatinine 0.63 L Estim Creat Clear Calc 49 Estimated GFR > 60 Glucose 95 Calculated Osmolality 286 Calcium 9.2 Total Bilirubin 0.6 AST 29 ALT 19 Alkaline Phosphatase 73 Total Protein 6.9 Albumin 4.1 Discharge Plan Discharge Attending physician on discharge: Anna Cuenca Consulting providers: Ghazala Quiñones Discharging Clinician: Ghazala Quiñones Anticipated Discharge Date/Time: 12/19/24 10:16 Patient Disposition: Home with Home Health Service Activity: as tolerated and follow weight bearing status Diet: regular Discharge Instructions: 1). Fracture f medial tibial plateau * Continue to use WBAT immobilizer * Acetaminophen for pain control * follow-up with orthopedics outpatient as scheduled * [facility] been set up for at home physical and occupational therapy How can you care for yourself at home? ? Keep track of any new symptoms or changes in your symptoms. ? Rest until you feel better. ? Be safe with medicines. Take your medicines exactly as prescribed. Call your doctor if you think you are having a problem with your medicine. ? Do not drive after taking a prescription pain medicine. ? Ensure to follow-up with primary care physician as indicated and provide updated medication list provided to you at discharge. When should you call for help? Call 911 anytime you think you may need emergency care. For example, call if: ? You passed out (lost consciousness). Call your doctor now or seek immediate medical care if: ? You have new symptoms like fever, difficulty breathing, Chest pain, vomiting, or rash. ? You have new or different pain. ? You are confused and are having trouble thinking clearly. ? Your symptoms are getting worse. Watch closely for changes in your health, and be sure to contact your doctor if: ? You do not get better as expected. Patient Instructions: Antibiotic Form Patient Language: Austrian Stand Alone Forms: General Discharge Information Follow-up/Referrals: Aura Bar MD [Primary Care Provider] - 3 Weeks Discharge Medications: New sennosides-docusate sodium [Senokot-S] 8.6-50 mg Tablet 1 tab PO Q12H Qty: 60 0RF acetaminophen 325 mg Tablet 650 mg PO Q4H PRN (Reason: Pain Rated 5 or Less or Fever) Qty: 1 0RF Continued cyanocobalamin (vitamin B-12) 1,000 mcg capsule 1,000 mcg PO EVERY OTHER DAY famotidine [Pepcid] 20 mg tablet 20 mg PO Q12H cholecalciferol (vitamin D3) 25 mcg (1,000 unit) tablet,chewable 25 mcg PO DAILY duloxetine 60 mg capsule,delayed release(DR/EC) 60 mg PO DAILY acyclovir 400 mg tablet 400 mg PO DAILY PRN (Reason: herpesvesicular dermatitis ) PreserVision AREDS-2 250-90-40-1 mg capsule 1 tablet PO BID loperamide [Anti-Diarrheal (loperamide)] 2 mg capsule 2 mg PO QID PRN (Reason: loose stool) lidocaine-prilocaine 2.5-2.5 % cream 1 applic topical DAILY PRN (Reason: before accessing port) ondansetron HCl 8 mg tablet 8 mg PO Q8H PRN (Reason: nausea and vomiting) prochlorperazine maleate 10 mg tablet 10 mg PO Q6H PRN (Reason: nausea and vomiting) atorvastatin 10 mg tablet See Rx Instructions .ROUTE .COMPLEX Qty: 90 1RF Dose Instruction: TAKE 1 TABLET BY MOUTH EVERY DAY WITH OR WITHOUT FOOD Rx Instructions: TAKE 1 TABLET BY MOUTH EVERY DAY WITH OR WITHOUT FOOD Discontinued hydrocodone-acetaminophen 5-325 mg Tablet 1 tab PO Q4H PRN (Reason: Pain Rated 4-6) Qty: 0 0RF Date of admission: 12/11/24 16:46 Primary Care Provider: Aura Bar Admitting Provider: Anna Cuenca Attending physician on admission: Anna Cuenca Condition: Stable Quality -Patient's previous records reviewed on admission -ER notes reviewed in detail on admission -discussed all findings and current treatment plan with patient/Family/POA -Consultations reviewed for recommendations -Patient's disposition for safe discharge discussed with case planner Dictation performed by [employer] direct speech recognition software, therefore steel checker variants and typographical errors may occur. Hospitalist MIPS Heart Failure (Exclusion) Patient has history of Heart Transplant or Left Ventricular Assistive Device?: No IF YES, STOP HERE Heart Failure (Qualifier) Patient has current or prior documentation of LVEF less than or equal to 40%, or mod/servere depressed LVSF?: No IF NO, STOP HERE
--- NOTE | 2024-12-21 09:52 | PC.NURSE ---
Discharge call back made, Spoke with Meseret who informs she understood all instruction. PT was there at this time and Meseret participating.
== END 2024-12-19 13:00 | disposition home health service (06) | DRG 561 ==
PROVIDERS: Internal Medicine; Nurse Practitioner Family; Admitting Provider Internal Medicine; PCP Family Medicine; Visit Provider Internal Medicine
DX: S82.134D Nondisplaced fracture of medial condyle of right tibia, subsequent encounter for closed fracture with routine healing (principal); C50.911 Malignant neoplasm of unspecified site of right female breast; E55.9 Vitamin D deficiency, unspecified; E78.2 Mixed hyperlipidemia; K21.9 Gastro-esophageal reflux disease without esophagitis; K44.9 Diaphragmatic hernia without obstruction or gangrene; K59.00 Constipation, unspecified; G62.9 Polyneuropathy, unspecified; R63.4 Abnormal weight loss; R53.81 Other malaise; W19.XXXD Unspecified fall, subsequent encounter
CPT/HCPCS: 36415; 80053; 84443; 85025; 85027; 97110; 97161; 97166; 97530; 97535; A9270

== ENCOUNTER 2025-04-13 12:30 | Outpatient (RCR) | payer MEDICARE, SELFPAY ==
--- NOTE | 2025-02-12 10:02 | OPREHPOC ---
Outpatient Therapy Plan of Care This is a Multidisciplinary Plan of Care that may contain components documented by all disciplines (PT, OT, and ST.) PT Problem 1 PT Problem #1 Knowledge Deficit PT Goal 1 Goal / Goal Update 1. Patient to demonstrate independence with HEP for improved self-reliance of symptom management. Target Visit 4 PT Problem 2 PT Problem #2 Pain PT Goal 1 Goal / Goal Update 1. Patient to decrease subjective reports of pain to <2/10 for improved ADL tolerance. 2. Pt will increase LEFS score by at least 9 points in order to demonstrate the minimal clinically important difference (MCID) in functional improvement. Target Visit 10 PT Problem 3 PT Problem #3 Impaired Strength PT Goal 1 Goal / Goal Update 1. Patient to demonstrate RLE strength >4+/5 for improved functional stability required for ADLs. 2. Pt to improve ability to perform DL heel and toe raise x 20 without increase in pain to show an improvement in functional ankle strength. Target Visit 10 PT Problem 4 PT Problem #4 Impaired Functional Mobility PT Goal 1 Goal / Goal Update 1. Patient to demonstrate an increase of R knee active range of motion of 0-125 degrees to improve mobility required for gait/stair negotiation. 2. Patient to improve gait mechanics and stair negotiation to no noted deficit and reciprocal pattern for improved community navigation. 3. Patient will improve lower extremity strength and functional mobility by reducing Five Times Sit -to-Stand test time to < =15 seconds to demonstrate reduced fall risk and improved transitional movements. Target Visit 10
--- NOTE | 2025-02-12 10:03 | PTOPEVAL1 ---
Assessment and note entered by Lei Galeas PT Evaluation Information Assessment Status Evaluation Diagnosis Tibial fracture of medial condyle ICD-10 Condition Codes (PT) Pain in right knee M25.561,Difficulty Walking R26. 2,Weakness R53.1 Subjective Information Pt states she fell in November and fracture her tibia. She states she was placed in a immobilizing brace and TTWB with brace while doing home health PT for about a month. She states she saw her orthopedic doctor and was advised to discontinue brace and is now WBAT. 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 Pt states she typically ambulates with quad cane or no device for short distances. Pt has no stairs to enter but does have a couple of ledges that she has practiced going up and down with home health PT. Reported Pain Level Pain Score 0: Self Report Assessment PT Clinical Summary Patient presents to physical therapy with a primary issue of weakness and limited mobility following a R tibia condyle fracture in November. Pt is currently WBAT and uses a quad cane for mobility. Additionally pt. had mastectomy surgery in december. Patient demonstrates LE weakness, pain, decreased mobility, abnormal posture, gait deficit , and decreased flexibility that limit their ability to perform activities of daily living and functional movements. Patient will benefit from skilled physical therapy to address the above listed deficits and return to prior level of function. Home exercise program instructed and written handout provided, exercises tolerated well with no adverse effects to note post-session. Patient was educated on importance of adherence to home exercise program. Patient was also educated on anatomy, prognosis, home modalities, and plan of care. Plan of Care Interventions Gait Training,Hot Pack/Cold Pack,Manual Therapy, Neuro Re-education,Therapeutic Activities, Therapeutic Exercise,Other PT Services Indicated Yes Treatment Frequency and 2x week 10 visits Duration These treatments will address the objective and functional deficits as defined above. The patient will be advanced safely and appropriately in order for the patient to progress towards his/her prior level of function. Additional exercises will be introduced and as well as a comprehensive home exercise program upon discharge, if needed, ?to ensure carryover of functional gains achieved in the clinic. This treatment plan has been reviewed and agreement upon by the patient.
--- NOTE | 2025-03-16 08:57 | PTOPPROG ---
Assessment and note entered by Lei Galeas, PT Evaluation Information Assessment Status Progress Diagnosis Tibial fracture of medial condyle ICD-10 Condition Codes (PT) Pain in right knee M25.561,Difficulty Walking R26. 2,Weakness R53.1 Subjective Information Pt states she feels like she goes up and down with how she feels and thinks the immunotherapy treatments she is doing flares up her inflammation and neuropathy. Pt states she has days where she just feels very weak. Pt notes increased difficulty with doing house work, walking on un even surfaces and descending stairs. Assessment PT Clinical Summary Patient's R knee has improved well after tibia plateau fracture overall as evidenced by advancements in symptoms, mobility, strength, and overall functional use of the extremity. However, some limitations are still present. Pt displays decreased LE strength and endurance that limit her ADLs and functional activities. Patient would benefit from continued skilled physical therapy services to address the above listed impairments and facilitate a return to their prior level of function. Plan of Care Interventions Gait Training,Hot Pack/Cold Pack,Manual Therapy, Neuro Re-education,Therapeutic Activities, Therapeutic Exercise,Other PT Services Indicated Yes Treatment Frequency and 2x week for 8 visits Duration These treatments will address the objective and functional deficits as defined above. The patient will be advanced safely and appropriately in order for the patient to progress towards his/her prior level of function. Additional exercises will be introduced and as well as a comprehensive home exercise program upon discharge, if needed, ?to ensure carryover of functional gains achieved in the clinic. This treatment plan has been reviewed and agreement upon by the patient.
--- NOTE | 2025-04-13 13:13 | PTOPDC ---
Assessment and note entered by Lei Galeas, PT Evaluation Information Assessment Status Discharge Diagnosis Tibial fracture of medial condyle ICD-10 Condition Codes (PT) Pain in right knee M25.561,Difficulty Walking R26. 2,Weakness R53.1 Subjective Information Pt states she feels she is doing really well. She has increased her activity (walking, nustep) frequently and overall feels recovered. She notes she is still hesitant with certain activities such as stairs and walking on un even ground but she is able to do them when she needs too. Pt has no further concerns and would like to discharge from physical therapy. Reported Pain Level Pain Score 0: Self Report Assessment PT Clinical Summary Patient's R knee has improved in mobility, strength, and overall functional use of the extremity. Patient has met therapy goals and is pleased with progress made towards the remaining goals. Patient to discharge from physical therapy this date and continue with updated home exercise program as instructed. Patient to contact physical therapist or primary care provider if questions or concerns arise. Plan of Care PT Services Indicated No
== END 2025-04-13 14:09 | disposition home or self-care (01) ==
LOC: ANHGOSHPT 12:30
PROVIDERS: PCP Family Medicine; Visit Provider Orthopaedic Surgery
DX: S82.13 Fracture of medial condyle of tibia (principal)
CPT/HCPCS: 97110; 97112; 97161; 97530